=== PATIENT | male | born 1940 | race Caucasian/White ===

== ENCOUNTER 2016-04-17 12:08 | Outpatient (CLI) ==
[2014-10-09 10:17] VITALS: BMI 37.5
--- NOTE | 2016-04-17 13:00 | DI ---
EXAM: CHEST FRONTAL AND LATERAL VIEWS HISTORY: Cough. COMPARISON: 08/09/2014 FINDINGS: Mild cardiomegaly is stable. There is at least mild aortic atherosclerosis. Limited exa m secondary to body habitus, less than optimal inspiration and patient position although no obvious consolidated pneumonia is suggested. There is no vascular congestion or pleural fluid. IMPRESSION: No definite acute process.
== END 2016-04-17 12:09 | disposition home or self-care (01) ==
LOC: RAD 12:08
PROVIDERS: ATTEND Emergency Medicine
DX: R05 Cough (principal)

== ENCOUNTER 2016-04-30 06:56 | Emergency (ER) ==
[2016-04-30 07:03] VITALS: BP 158/88; TEMP 96.7; BMI 38.7
--- NOTE | 2016-04-30 07:15 | ED.PDOC ---
General ED Provider: Dr. NERISSA MAJANO JR Chief Complaint: Sore Throat Stated Complaint: Pt. states last night started feeling like something was loose in throat[End]sore throat since last night pt. states that he started feeling like something was in back of throat last night[End] 96.7 84 20 88%(o2 at home) 158/88 Time Seen by Physician: 07:12 Mode of Arrival: Walk-In Information Source: Patient Exam Limitations: No limitations Primary Care Provider: OMAR MENDIOLA Nursing and Triage Documentation Reviewed and Agree: No Review of Systems - Review Of Systems Constitutional: Reports: No symptoms Eyes: Reports: No symptoms Ears, Nose, Mouth, Throat: Reports: Mouth pain (discharge fro nm lesion right palate nontender on exam- patient states is area of concern- discussed oral care ) Respiratory: Reports: No symptoms Cardiac: Reports: No symptoms GI: Reports: No symptoms : Reports: No symptoms Musculoskeletal: Reports: No symptoms Skin: Reports: No symptoms Neurological: Reports: No symptoms Endocrine: Reports: No symptoms Hematologic/Lymphatic: Reports: No symptoms All Other Systems: Other Past Medical History - Past Medical History Previously Healthy: No Endocrine: Reports: None Cardiovascular: Reports: Hypertension Respiratory: Reports: None Hematological: Reports: None Gastrointestinal: Reports: None Genitourinary: Reports: None Neuro/Psych: Reports: None Musculoskeletal: Reports: None Cancer: Reports: None - Surgical History General Surgical History: Reports: None - Family History Family History: Reports: None - Social History Smoking Status: Former smoker Hx Substance Use: No Alcohol Screening: None - Immunizations Tetanus Shot up to Date: Yes Physical Exam - Physical Exam Appearance: Well-appearing Pain Distress: Mild Eyes: WYATT, EOMI, Conjunctiva clear ENT: Ears normal, Nose normal, Oropharynx normal Neck: Supple Respiratory: Airway patent, Breath sounds clear, Breath sounds equal, Respirations nonlabored Cardiovascular: RRR, Pulses normal, No rub, No murmur GI/: Soft, Nontender, No masses, Bowel sounds normal, No Organomegaly Musculoskeletal: Normal strength, ROM intact, No edema, No calf tenderness Skin: Warm, Dry, Normal color Neurological: Sensation intact, Motor intact, Reflexes intact, Cranial nerves intact, Alert, Oriented Re-Evaluation - Re-Evaluation Time of Re-Evaluation: 07:20 (discussed home o2 note old aqbg- may be stable without oxygen) - Re-Evaluation Time of Re-Evaluation: 08:27 (strep back patietn not here) Critical Care Note - Critical Care Note Total Time (mins): 0 Course - Course Orders, Labs, Meds: Orders Category Date Time Status FLU A & B RAPID TEST [RAPID FLU A/B] Stat LAB 04/30/16 07:04 Uncollected STREP SCREEN Stat LAB 04/30/16 07:04 Uncollected Vital Signs: Temp Pulse Resp BP Pulse Ox 04/30/16 06:57 96.7 F L 84 20 158/88 H 88 L Departure - Departure Time of Disposition: 08:04 Disposition: HOME SELF-CARE Discharge Problem: Sore throat symptom Instructions: Oral Mucositis (ED), Mouth Care (ED) Condition: Good Pt referred to PMD for follow-up: Yes Additional Instructions: clease area twice a day with toothpaste and toothbrush recommend listeriine mouth wash twice a day begin antibiotic only if culture comes positive Prescriptions: Cephalexin [Keflex] 500 mg PO QID #40 capsule Allergies/Adverse Reactions: Allergies No Known Allergies Allergy (Verified 08/09/14 06:18) Home Medications: Ambulatory Orders Amlodipine Besylate 5 mg PO DAILY 08/09/14 Clopidogrel Bisulfate [Clopidogrel] 75 mg PO DAILY 08/09/14 Fenofibrate Nanocrystallized [Fenofibrate] 145 mg PO DAILY 08/09/14 Metoprolol Tartrate 100 mg PO DAILY 08/09/14 Pioglitazone HCl/Metformin HCl [Pioglitazone-Metformin 15-850] 1 tab PO DAILY Rosuvastatin Calcium [Crestor] 10 mg PO DAILY 08/09/14 Clonidine HCl [Catapres] 0.1 mg PO DAILY #30 tablet 08/13/14 Enalapril Maleate [Vasotec] 20 mg PO DAILY #30 tablet 08/13/14 Hydrochlorothiazide 25 mg PO DAILY #30 tablet 08/13/14 Cephalexin [Keflex] 500 mg PO QID #40 capsule 04/30/16
== END 2016-04-30 08:27 | disposition home or self-care (01) ==
LOC: ED 06:56
DX: J02.9 Acute pharyngitis, unspecified (principal); K12.30 Oral mucositis (ulcerative), unspecified
CPT/HCPCS: 87651; 87880; 99282

== ENCOUNTER 2016-07-13 07:42 | Outpatient (CLI) | payer OTHER ==
--- NOTE | 2016-07-13 09:05 | CT ---
EXAM: CT THORAX HISTORY: Shortness of breath, chronic obstructive pulmonary disease. TECHNIQUE: CT thorax without intravenous contrast. 5-mm axial sections. Coronal and sagittal re-fo rmations. COMPARISON: 02/12/2012 FINDINGS: Heart size is within normal limits. There is a small pericardial effusion . Mild aortic atheroscle rosis. Evaluation of the mediastinum and hilar structures is limited without the administration of intravenous contrast agent. Multiple small hilar and mediastinal lymph nodes some which are calcifi ed. Bilateral pleural effusions, small on the right and tiny on the left. There is a small amount of ai rspace consolidation adjacent to the pleural effusions. A few nonspecific micro nodules are seen. Subtle sheet-like opacity of the upper zone interstitium consistent with interstitial fibrosis. The re is evidence of early centrilobular and paraseptal emphysema. There is no pulmonary vascular hodan estion or pneumothorax. The bones reveal no acute abnormality. Osteophytic spurring of the mid thoracic spine is apparent. Probable small left renal cortical cyst. Left intrarenal calcifications may be vascular in nature or related to renal calculi. No hydronephrosis. IMPRESSION: 1. Findings which can be consistent with the patient's history of chronic obstructive pulmonary dis ease. There is also early upper zone interstitial fibrosis. 2. Small bilateral pleural effusions with mild adjacent atelectasis or pneumonia. Small, newly deve loped pericardial effusion. 3. Multiple mediastinal and hilar lymph nodes, some which are calcified. These are increased in nu mber since previous exam and may be reactive in nature, less likely within the differential would be malignant. 4. Mild atherosclerotic disease. 12
== END 2016-07-13 07:43 | disposition home or self-care (01) ==
LOC: RAD 07:42
PROVIDERS: ATTEND Internal Medicine
DX: R06.02 Shortness of breath (principal); J44.9 Chronic obstructive pulmonary disease, unspecified

== ENCOUNTER 2016-07-14 12:57 | Outpatient (CLI) | payer OTHER | END 2016-07-14 12:58 | disposition home or self-care (01) | LOC: CAR 12:57 | PROVIDERS: ATTEND Internal Medicine | DX: J44.9 Chronic obstructive pulmonary disease, unspecified (principal); R06.02 Shortness of breath | CPT/HCPCS: 94761 ==

== ENCOUNTER 2017-07-21 04:19 | Emergency (ER) | payer OTHER ==
[2017-07-21 04:36] VITALS: BP 170/118; TEMP 97.9; BMI 33.5
--- NOTE | 2017-07-21 05:53 | CT ---
EXAM: CT scan thorax without contrast HISTORY: Cough COMPARISON: CT scan thorax 07/13/2016 FINDINGS: Contiguous axial images obtained through the thorax without contrast utilizing 5-mm collim ation. Sagittal coronal reconstructions were imaged and reviewed.. The thoracic inlet is unremarkab le. The ascending aorta is ectatic measuring 3.8 cm. The heart is normal in size with small pericar dial effusion measuring 8 mm. There is coronary artery calcification. There are subcentimeter preva scular pretracheal lymph nodes.. There are mild emphysematous changes with benign granulomatous whatley ge. There is minimal dependent atelectasis in both posterior gutter regions.. Fatty infiltration is seen within the liver. Simple exophytic cyst is seen within the left kidney. IMPRESSION: Small pericardial effusion with coronary calcification. Minimal dependent atelectasis both lung bases. Mild emphysematous changes with benign granulomatous change. Fatty liver
--- NOTE | 2017-07-21 05:56 | ED.PDOC ---
General ED Provider: Dr. MECHE FRIEDMAN-ER Chief Complaint: Cough Stated Complaint: im coughing up thick yellow stuff Time Seen by Physician: 04:30 Mode of Arrival: Walk-In Information Source: Patient Exam Limitations: No limitations Primary Care Provider: OMAR JOHNSON Nursing and Triage Documentation Reviewed and Agree: Yes Reviewed sepsis parameters & appropriate labs ordered?: Yes System Inflammatory Response Syndrome: Not Applicable Sepsis Protocol: For patient's 13 years and over: Temp is 96.8 and below OR 101 and greater Pulse >90 BPM Resp >20/minute Acutely Altered Mental Status Are patient's symptoms suggestive of a new infection, such as: -Pneumonia -Skin, Soft Tissue -Endocarditis -UTI -Bone, Joint Infection -Implantable Device -Acute Abdominal Infection -Wound Infection -Meningitis -Blood Stream Catheter Infection -Unknown Respiratory Complaint Exam - Respiratory Complaint/Exam Onset/Duration: several weeks Symptoms Are: Still present Timing: Intermittent Initial Severity: Mild Current Severity: Mild Location: Chest Character: Reports: Productive cough Aggravating: Reports: URI Alleviating: Reports: None Associated Signs and Symptoms: Reports: URI, Nasal congestion History of Healthcare-Acquired Pneumonia: No Home Oxygen Use: No Recent Stress Test: No Recent Echo/LV Function: No Current Antibiotic Use: Yes Current Asthma Medication Use: No Respiratory Distress: None Inadequate Respiratory Effort: No Dysphagia Present: No Stridor Present: No JVD Present: No Accessory Muscle Use: No Retractions: Not Present Diminished Breath Sounds: No Sinus Tenderness: None Grunting Respirations: No Kussmaul Respirations: No Differential Diagnoses: Pneumonia, Bronchitis, Sinusitis, URI Review of Systems - Review Of Systems Constitutional: Reports: No symptoms Eyes: Reports: No symptoms Ears, Nose, Mouth, Throat: Reports: Nose discharge Respiratory: Reports: Cough Cardiac: Reports: No symptoms GI: Reports: No symptoms : Reports: No symptoms Musculoskeletal: Reports: No symptoms Skin: Reports: No symptoms Neurological: Reports: No symptoms Endocrine: Reports: No symptoms Hematologic/Lymphatic: Reports: No symptoms All Other Systems: Reviewed and Negative Past Medical History - Past Medical History Previously Healthy: No Endocrine: Reports: None Cardiovascular: Reports: Hypertension Respiratory: Reports: None Hematological: Reports: None Gastrointestinal: Reports: None Genitourinary: Reports: None Neuro/Psych: Reports: None Musculoskeletal: Reports: None Cancer: Reports: None - Surgical History General Surgical History: Reports: None - Family History Family History: Reports: None - Social History Smoking Status: Former smoker Hx Substance Use: No Alcohol Screening: None - Immunizations Tetanus Shot up to Date: Yes Physical Exam - Physical Exam Appearance: Well-appearing, No pain distress, Well-nourished Eyes: WYATT ENT: Ears normal, Nose normal, Oropharynx normal Neck: Supple Respiratory: Crackles, Rhonchi Cardiovascular: RRR, Pulses normal, No rub, No murmur GI/: Soft, Nontender, No masses, Bowel sounds normal, No Organomegaly Musculoskeletal: Normal strength, ROM intact, No edema, No calf tenderness Skin: Warm, Dry, Normal color Neurological: Sensation intact, Motor intact, Reflexes intact, Cranial nerves intact, Alert, Oriented Psychiatric: Affect appropriate, Mood appropriate Interpretation - Radiology Interpretation Radiology Interpretation By: Radiologist Radiology Results: Positive Exam Interpreted: CT Scan Critical Care Note - Critical Care Note Total Time (mins): 0 Course - Course Hematology/Chemistry: 07/21/17 05:15 07/21/17 05:15 Orders, Labs, Meds: Lab Review 07/21/17 07/21/17 05:15 05:15 WBC 8.40 RBC 5.45 Hgb 15.4 Hct 45.3 MCV 83.1 MCH 28.3 MCHC 34.0 RDW Coeff of [place] 14.6 Plt Count 219 Immature Gran % (Auto) 0.4 Neut % (Auto) 72.7 Lymph % (Auto) 15.1 [place] % (Auto) 8.2 Eos % (Auto) 3.1 Baso % (Auto) 0.5 Immature Gran # (Auto) 0.0 Neut # (Auto) 6.1 Lymph # (Auto) 1.3 [place] # (Auto) 0.7 Eos # (Auto) 0.3 Baso # (Auto) 0.0 Sodium 140 Potassium 3.9 Chloride 103 Carbon Dioxide 25 Anion Gap 15.9 BUN 15 Creatinine 1.30 H Estimated GFR (MDRD) 53.00 BUN/Creatinine Ratio 11.53 Glucose 298 H Calcium 9.7 Total Bilirubin 0.6 AST 9 L ALT 10 L Alkaline Phosphatase 58 Total Protein 6.9 Albumin 3.4 Globulin 3.5 Albumin/Globulin Ratio 0.97 Orders Category Date Time Status BLOOD CULTURE (ED ONLY) Stat LAB 07/21/17 05:15 Received CBC W/ AUTO DIFF Stat LAB 07/21/17 05:15 Completed COMPREHENSIVE METABOLIC PANEL Stat LAB 07/21/17 05:[address] CHEST W/O CONTRAST Stat RADS 07/21/17 05:[address] SINUSES W/O CONTRAST Stat RADS 07/21/17 05:05 Completed Vital Signs: Temp Pulse Resp BP Pulse Ox 07/21/17 04:20 97.9 F 90 28 H 170/118 H 95 Departure - Departure Time of Disposition: 06:08 Disposition: HOME SELF-CARE Discharge Problem: Sinusitis Qualifiers: Sinusitis location: unspecified location Chronicity: acute Recurrence: not specified as recurrent Qualified Code(s): J01.90 - Acute sinusitis, unspecified Instructions: Sinusitis (ED) Condition: Good Pt referred to PMD for follow-up: No IPMP verified?: No Additional Instructions: stop keflex --augmentin 875mg bid x 10 days--flonase nasal spray one puff each nostril bid --astelin nasal spray 2 puffs each nostril bid ---stop all concentrated sweets--tussionex 1 tsp q 12hrs prn cough 100cc---start monitoring your bs bid and f/u wtih dr johnson next week Allergies/Adverse Reactions: Allergies No Known Allergies Allergy (Verified 07/21/17 04:34) Home Medications: Ambulatory Orders Fenofibrate Nanocrystallized [Fenofibrate] 145 mg PO DAILY 08/09/14 Metoprolol Tartrate 100 mg PO DAILY 08/09/14 Rosuvastatin Calcium [Crestor] 10 mg PO DAILY 08/09/14 Clonidine HCl [Catapres] 0.1 mg PO DAILY #30 tablet 08/13/14 Hydrocodone/Acetaminophen [[place] 5-325 Tablet] 1 tab PO Q6HR PRN #20 tablet Amlodipine Besylate/Benazepril [Amlodipine-Benazepril 5-20 mg] 1 each PO DAILY 07/21/17 Apixaban [Eliquis] 5 mg PO BID 07/21/17 Aspirin [Aspirin EC] 81 mg PO DAILYWM 07/21/17 Furosemide [Lasix Tab] 40 mg PO QDAC 07/21/17 Lisinopril 20 mg PO DAILY 07/21/17 Metformin HCl [Glucophage] 1,000 mg PO BID 07/21/17 Potassium Chloride 10 meq PO DAILY 07/21/17 Disposition Discussed With: Patient, Family
--- NOTE | 2017-07-21 06:00 | CT ---
EXAM: CT scan sinuses HISTORY: Cough. Pain COMPARISON: None. FINDINGS: Contiguous axial images were obtained through the sinuses without contrast utilizing 3-mm collimation. Sagittal and coronal reconstructions were imaged and reviewed. The. There is a tiny re tention cyst within the right maxillary sinus. There is a moderate sized polyp versus retention cyst inferomedially left maxillary sinus with cortical erosion at the anterior inferomedial wall which kamara s a chronic appearance Mucoperiosteal thickening is seen within the sphenoid sinuses. Multiple air cells are opacified bilateral ethmoid sinuses. Ostiomeatal complexes are patent. IMPRESSION: Mucoperiosteal thickening is seen within the left maxillary and bilateral sphenoid sinuses. Multiple air cells opacified within the ethmoid sinuses. Moderate sized retention cyst versus polyp inferomedially left maxillary sinus as described. Small likely retention cysts right maxillary sinus.
== END 2017-07-21 06:29 | disposition home or self-care (01) ==
LOC: ED 04:19
DX: J01.90 Acute sinusitis, unspecified (principal); I10 Essential (primary) hypertension
CPT/HCPCS: 36415; 80053; 85025; 87040; 99283

== ENCOUNTER 2017-07-29 08:47 | Emergency (ER) | payer OTHER ==
[2017-07-29 08:53] VITALS: BP 151/92; TEMP 96.5; BMI 33.4
--- NOTE | 2017-07-29 09:22 | ED.PDOC ---
General ED Provider: Dr. MECHE SOUZA Chief Complaint: Laceration Stated Complaint: Skin Tear; Rubbed Rt Forearm against wall and caused a circular skin tear to dorsal surface of proximal 1/3 Rt Forearm.Bleeding controlled. Time Seen by Physician: 09:10 Mode of Arrival: Walk-In Information Source: Patient Primary Care Provider: OMAR MENDIOLA Nursing and Triage Documentation Reviewed and Agree: Yes Reviewed sepsis parameters & appropriate labs ordered?: Yes System Inflammatory Response Syndrome: Not Applicable Sepsis Protocol: For patient's 13 years and over: Temp is 96.8 and below OR 101 and greater Pulse >90 BPM Resp >20/minute Acutely Altered Mental Status Are patient's symptoms suggestive of a new infection, such as: -Pneumonia -Skin, Soft Tissue -Endocarditis -UTI -Bone, Joint Infection -Implantable Device -Acute Abdominal Infection -Wound Infection -Meningitis -Blood Stream Catheter Infection -Unknown Skin Complaint Exam - Lac/Torso/Upper Ext. Complaint/Exam Location of Injury: Forearm Mechanism of Injury: Laceration (Circular skin tear approximately 2.5cm X 2 Cm) Onset/Duration: last evening Symptoms Are: Still present Initial Severity: Mild Current Severity: Mild Aggravating: Movement Alleviating: Compression Associated Signs and Symptoms: Denies: Fever, Chills, Erythema, Numbness, Tingling Related History: Reports: Anticoagulant use. Denies: Occupational injury Differential Diagnoses: Avulsion (Large Skin Tear) Review of Systems - Review Of Systems Constitutional: Reports: No symptoms Eyes: Reports: No symptoms Ears, Nose, Mouth, Throat: Reports: No symptoms Respiratory: Reports: No symptoms Cardiac: Reports: No symptoms GI: Reports: No symptoms : Reports: No symptoms Musculoskeletal: Reports: No symptoms Skin: Reports: Bruising Neurological: Reports: No symptoms Endocrine: Reports: No symptoms Hematologic/Lymphatic: Reports: No symptoms All Other Systems: Reviewed and Negative Past Medical History - Past Medical History Previously Healthy: No Endocrine: Reports: None Cardiovascular: Reports: Hypertension Respiratory: Reports: None Hematological: Reports: None Gastrointestinal: Reports: None Genitourinary: Reports: None Neuro/Psych: Reports: None Musculoskeletal: Reports: None Cancer: Reports: None - Surgical History General Surgical History: Reports: None - Family History Family History: Reports: None - Social History Smoking Status: Former smoker Hx Substance Use: No Alcohol Screening: None Physical Exam - Physical Exam Appearance: Well-appearing, Obese Ill-appearing: None Pain Distress: None Eyes: WYATT, EOMI, Conjunctiva clear ENT: Ears normal, Nose normal, Oropharynx normal Neck: Nonsupple Respiratory: Airway patent, Breath sounds clear Cardiovascular: RRR, Pulses normal GI/: Soft, Nontender Musculoskeletal: Normal strength, ROM intact Skin: Warm (Circular Skin tear Rt Forearm 2.5 cm X 2.cm) Neurological: Sensation intact, Motor intact, Cranial nerves intact, Alert, Oriented Psychiatric: Affect appropriate, Mood appropriate Critical Care Note - Critical Care Note Total Time (mins): 0 Course - Course Vital Signs: Temp Pulse Resp BP Pulse Ox 07/29/17 08:48 96.5 F L 63 16 151/92 H 97 Departure - Departure Time of Disposition: 09:30 Disposition: HOME SELF-CARE Discharge Problem: Skin tear of forearm without complication Instructions: Acute Wound Care (ED) Condition: Good Pt referred to PMD for follow-up: Yes (PCP 1 week ) IPMP verified?: No Additional Instructions: Keep existing dressing of Telfa pad and antibiotic ointment in place and change af 48 hrs then daily Take antibiotic as directed See Dr Mendiola in next 5-8 days Allergies/Adverse Reactions: Allergies No Known Allergies Allergy (Verified 07/29/17 08:53) Home Medications: Ambulatory Orders Fenofibrate Nanocrystallized [Fenofibrate] 145 mg PO DAILY 08/09/14 Metoprolol Tartrate 100 mg PO DAILY 08/09/14 Rosuvastatin Calcium [Crestor] 10 mg PO DAILY 08/09/14 Clonidine HCl [Catapres] 0.1 mg PO DAILY #30 tablet 08/13/14 Hydrocodone/Acetaminophen [[place] 5-325 Tablet] 1 tab PO Q6HR PRN #20 tablet Amlodipine Besylate/Benazepril [Amlodipine-Benazepril 5-20 mg] 1 each PO DAILY 07/21/17 Apixaban [Eliquis] 5 mg PO BID 07/21/17 Aspirin [Aspirin EC] 81 mg PO DAILYWM 07/21/17 Furosemide [Lasix Tab] 40 mg PO QDAC 07/21/17 Lisinopril 20 mg PO DAILY 07/21/17 Metformin HCl [Glucophage] 1,000 mg PO BID 07/21/17 Potassium Chloride 10 meq PO DAILY 07/21/17 Amoxicillin/Potassium Clav [Augmentin 875-125 mg Tab] 1 tab PO Q12HR 07/29/17 Additional Information: Recommended TDap booster but patient adamant that he received one at [facility] after a cardiac procedure last year.
== END 2017-07-29 09:38 | disposition home or self-care (01) ==
LOC: ED 08:47
DX: S51.801A Unspecified open wound of right forearm, initial encounter (principal); W22.01XA Walked into wall, initial encounter
CPT/HCPCS: 99283

== ENCOUNTER 2021-02-09 13:00 | Inpatient (IN) ==
--- NOTE | 2021-02-09 13:03 | ED.PDOC ---
General ED Provider: Dr. TONEY ENRIQUEZ Chief Complaint: Shortness of Air Stated Complaint: Short of air from COVID pneumonia, getting outpatient regeneron here today when staff noted low oxygen sat, sent him to ER. Symptoms worse with exertion, no chest pain. relates that he is confused past few days. Patient of Dr. Mendiola, hx A-fib, HTN, CAD, T2DM. DNR status. Time Seen by Provider: 02/09/21 13:01 Mode of Arrival: Wheelchair Information Source: Patient Exam Limitations: Dementia Primary Care Provider: OMAR MENDIOLA Nursing and Triage Documentation Reviewed and Agree: Yes Does patient meet sepsis criteria?: No System Inflammatory Response Syndrome: Not Applicable Sepsis Protocol: For patient's 13 years and over: Temp is 96.8 and below OR 101 and greater Pulse >90 BPM Resp >20/minute Acutely Altered Mental Status Are patient's symptoms suggestive of a new infection, such as: -Pneumonia -Skin, Soft Tissue -Endocarditis -UTI -Bone, Joint Infection -Implantable Device -Acute Abdominal Infection -Wound Infection -Meningitis -Blood Stream Catheter Infection -Unknown Respiratory Complaint Exam Shortness of Air Complaint/Exam Onset/Duration: past few days, worse today Symptoms Are: Still present Timing: Constant Initial Severity: Mild Current Severity: Moderate Character: Reports Dyspnea on exertion and Orthopnea Aggravating: Reports Movement Alleviating: Reports None Associated Signs and Symptoms: Reports Cough, Labored breathing and Decreased intake; Denies Wheezing, Chest pain with cough, Chest pain, Fever, Chills, Diaphoresis, Calf pain or Calf swelling History of Healthcare-Acquired Pneumonia: No Pulmonary Embolism Risk Factors: Reports None Cardiac Risk Factors: Reports CAD, Diabetes and Hypertension Pseudomonas Risk Factors: Reports None Tuberculosis Risk Factors: Reports None Home Oxygen Use: Yes (intermittent) Recent Stress Test: No Recent Echo/LV Function: No Respiratory Distress: Moderate Stridor Present: No Tracheal Deviation: No Subcutaneous Emphysema: No Accessory Muscle Use: No Retractions: Not Present Diminished Breath Sounds: Yes Prolonged Expiratory Phase: No Unable to Speak Full Sentences: No Fatigue: Yes Leg Swelling: No Love's Sign Present: No Grunting Respirations: No Kussmaul Respirations: No Differential Diagnoses: CHF, Pulmonary Edema, AK, Unstable Angina, Pneumonia, Pulmonary Embolism, Bronchitis and Bronchospasm Review of Systems Review Of Systems Constitutional: Reports Malaise, Weakness and Loss of appetite Eyes: Reports No symptoms Ears, Nose, Mouth, Throat: Reports No symptoms Respiratory: Reports Cough and Short of air Cardiac: Reports No symptoms GI: Reports No symptoms : Reports No symptoms Musculoskeletal: Reports No symptoms Skin: Reports No symptoms Neurological: Reports No symptoms Endocrine: Reports No symptoms Hematologic/Lymphatic: Reports No symptoms All Other Systems: Reviewed and Negative Physical Exam Physical Exam Appearance: Reports Obese Ill-appearing: Moderate Pain Distress: Mild Eyes: Reports WYATT ENT: Reports Oropharynx normal Neck: Supple Respiratory: Reports Airway patent, Breath sounds diminished and Rhonchi Cardiovascular: Reports No murmur and Irregular rhythm GI/: Reports Soft and Nontender Musculoskeletal: Reports Not Examined Skin: Reports Not Examined Neurological: Reports Sensation intact, Motor intact and Alert Psychiatric: Reports Affect appropriate and Mood appropriate Interpretation Radiology Interpretation Radiology Interpretation By: Radiologist Radiology Results: Positive Exam Interpreted: Portable CXR Xray Comments: Some congestion, nonspecific. Radiology Interpretation By: Radiologist Radiology Results: Positive Exam Interpreted: CT Scan Xray Comments: No PE. Minor COVID pneumonia. 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 confusion) CV: Other (A-fib, variable rate) Physician Notification Case Discussed Physician Notified: Dr. Mendiola Time of Notification: 18:00 Comments: Admit to [facility] on tele. Oxygen, further med per Dr. Mendiola. Cardizem drip for A-fib RVR. Likely stay over 3 days. Admit To: SCU Critical Care Note Critical Care Note Total Critical Care Time (mins): 30 Comments: Acute onset in ED of atrial fibrillation with rapid ventricular response - required urgent tx. Course Course Hematology/Chemistry: 02/09/21 13:36 02/09/21 13:36 Orders, Labs, Meds: Lab Review 02/09/21 02/09/21 02/09/21 13:10 13:36 13:36 WBC 3.97 L RBC 5.77 Hgb 15.6 Hct 48.1 MCV 83.4 MCH 27.0 MCHC 32.4 RDW Coeff of [place] 16.6 H Plt Count 183 Immature Gran % (Auto) 0.3 Neut % (Auto) 77.2 H Lymph % (Auto) 12.1 [place] % (Auto) 10.1 H Eos % (Auto) 0.0 Baso % (Auto) 0.3 Neut # (Auto) 3.1 Lymph # (Auto) 0.5 L [place] # (Auto) 0.4 Eos # (Auto) 0.0 Baso # (Auto) 0.0 Immature Gran # (Auto) 0.0 Puncture Site Rr Base Excess 0.8 O2 Saturation 86.4 L ABG pH 7.42 ABG pCO2 39.0 ABG pO2 51.0 L* ABG HCO3 25.3 ABG Total CO2 26.5 H Shantanu Test Ps Hemoglobin 1.2 Oxyhemoglobin 85.3 L Carboxyhemoglobin 1.8 H Total Hemoglobin 16.0 O2 Delivery Device Oxygen Liter Flow FiO2 % 21.0 Sodium 141.0 Potassium 4.23 Chloride 102.7 Carbon Dioxide 29.2 Anion Gap 13.33 BUN 34.3 H Creatinine 1.60 H Estimated GFR (MDRD) 42.00 BUN/Creatinine Ratio 21.43 Glucose 202.9 H Calcium 9.03 Magnesium 2.42 H Total Bilirubin 0.45 AST 43.5 ALT 28.5 Alkaline Phosphatase 49.4 L Troponin I 0.038 NT-Pro-B Natriuret Pep 2000.000 H Total Protein 7.01 Albumin 3.92 Globulin 3.09 Albumin/Globulin Ratio 1.26 D-Dimer 02/09/21 02/09/21 13:36 15:00 WBC RBC Hgb Hct MCV MCH MCHC RDW Coeff of [place] Plt Count Immature Gran % (Auto) Neut % (Auto) Lymph % (Auto) [place] % (Auto) Eos % (Auto) Baso % (Auto) Neut # (Auto) Lymph # (Auto) [place] # (Auto) Eos # (Auto) Baso # (Auto) Immature Gran # (Auto) Puncture Site R brach Base Excess 1.1 O2 Saturation 98.3 H ABG pH 7.46 H ABG pCO2 35.0 ABG pO2 105.0 H ABG HCO3 24.9 ABG Total CO2 26.0 H Shantanu Test Y Hemoglobin 1.1 Oxyhemoglobin 96.1 Carboxyhemoglobin 1.3 Total Hemoglobin 17.0 O2 Delivery Device Cannula Oxygen Liter Flow 6.00 FiO2 % Sodium Potassium Chloride Carbon Dioxide Anion Gap BUN Creatinine Estimated GFR (MDRD) BUN/Creatinine Ratio Glucose Calcium Magnesium Total Bilirubin AST ALT Alkaline Phosphatase Troponin I NT-Pro-B Natriuret Pep Total Protein Albumin Globulin Albumin/Globulin Ratio D-Dimer 431.94 Orders Category Date Time Status ABG DRAW REQUEST Stat CARDIO 02/09/21 13:12 Completed ABG DRAW REQUEST Stat CARDIO 02/09/21 15:05 Completed EKG-(ED ONLY) Stat CARDIO 02/09/21 13:21 Completed EKG-(IP & OP ONLY) DAILY CARDIO 02/10/21 06:00 Ordered EKG-(IP & OP ONLY) DAILY CARDIO 02/11/21 06:00 Ordered OXYGEN Routine CARDIO 02/09/21 17:58 Ordered ACTIVITY .BR with BRP CARE 02/09/21 17:58 Active BLOOD GLUCOSE MONITORING (MED/SURG) ACCUCHECK Q6H CARE 02/09/21 17:57 Active INTAKE & OUTPUT Q8HR CARE 02/09/21 18:01 Active IP: INSERT SALINE LOCK ONCE CARE 02/09/21 17:58 Active IP: INSERT SALINE LOCK ONCE CARE 02/09/21 18:01 Active NPO REMINDER: IMAGING ONCE CARE 02/09/21 14:31 Completed TELEMETRY MONITORING TELE CARE 02/09/21 17:58 Active VITAL SIGNS Q8HR CARE 02/09/21 17:58 Active VITAL SIGNS Q8HR CARE 02/09/21 18:01 Active CARDIAC DIET DIETARY 02/09/21 Dinner Ordered ABG COOX Stat LAB 02/09/21 13:10 Completed ABG COOX Stat LAB 02/09/21 15:00 Completed CBC W/ AUTO DIFF DAILY@0600 LAB 02/10/21 06:00 Ordered CBC W/ AUTO DIFF DAILY@0600 LAB 02/11/21 06:00 Ordered CBC W/ AUTO DIFF Stat LAB 02/09/21 13:36 Completed COMPREHENSIVE METABOLIC PANEL DAILY@0600 LAB 02/10/21 06:00 Ordered COMPREHENSIVE METABOLIC PANEL DAILY@0600 LAB 02/11/21 06:00 Ordered COMPREHENSIVE METABOLIC PANEL Stat LAB 02/09/21 13:36 Completed D-DIMER Stat LAB 02/09/21 13:36 Completed MAGNESIUM Stat LAB 02/09/21 13:36 Completed NT-PROBNP Stat LAB 02/09/21 13:36 Completed TROPONIN I Q8H LAB 02/09/21 18:17 Completed TROPONIN I Q8H LAB 02/10/21 02:00 Ordered TROPONIN I Stat LAB 02/09/21 13:36 Completed URINALYSIS C & S IF INDICATED Stat LAB 02/09/21 13:24 Uncollected 0.9 % Sodium Chloride [Saline Flush] MEDS 02/09/21 21:00 Active 1 syr IVF Q8HR Acetaminophen [Tylenol] MEDS 02/09/21 17:57 Active 650 mg PO Q4H PRN Atropine Sulfate Inj [Atropine Sulfate Pfs] MEDS 02/09/21 17:57 Active 0.5 mg IVP ONCE PRN Diltiazem HCl [Cardizem Inj] MEDS 02/09/21 15:13 Discontinued 20 mg IVP ONCE ONE Diltiazem HCl [Cardizem Inj] MEDS 02/09/21 17:27 Discontinued 25 mg IVP ONCE ONE Diltiazem HCl [Cardizem] 125 mg MEDS 02/09/21 18:30 Active 0.9 % Sodium Chloride [Sodium Chloride 100Ml] 100 ml IV TITRATION Enoxaparin Sodium [Lovenox] MEDS 02/10/21 09:00 Active 40 mg SUBCUT DAILY Furosemide [Lasix Tab] MEDS 02/10/21 06:30 Active 40 mg PO QDAC Hydrocortisone Sod Succ/Pf [Solu-Cortef 250 mg] MEDS 02/09/21 15:00 Discontinued 150 mg IVP ONCE ONE Nitroglycerin [Nitrostat] MEDS 02/09/21 17:57 Active 0.4 mg SL Q5MIN X 3 DOSES PRN Potassium Chloride [Micro-K Cap] MEDS 02/10/21 09:00 Active 10 meq PO DAILY RESUSCITATION STATUS Routine OTHERS 02/09/21 17:57 Ordered CHEST, 1V AP ONLY Stat RADS 02/09/21 13:[address] CHEST PE PROTOCOL Stat RADS 02/09/21 14:[address] HEAD W/O CONTRAST Stat RADS 02/09/21 15:13 Completed Medications Generic Name Dose Route Start Last Admin Trade Name Freq PRN Reason Stop Dose Admin Acetaminophen 650 mg 02/09/21 17:57 Acetaminophen 325 Mg Tablet PO Q4H PRN Headache Albuterol Sulfate 2 puff 02/10/21 09:00 Albuterol Sulfate (Ventolin Hfa) 18 Gm 1 Puff With Spacer IH TID [facility] Atropine Sulfate 0.5 mg 02/09/21 17:57 Atropine Sulfate Inj 1 Mg/10 Ml Disp.Syrin IVP ONCE PRN Symptomatic Bradycardia Budesonide/Formoterol Fumarate 2 puff 02/10/21 09:00 Budesonide/Formoterol Fumarate 160/4.5 Mcg Inhaler IH BID [facility] Cholecalciferol 5,000 unit 02/10/21 09:00 Cholecalciferol (Vitamin D3) 1,000 Unit (25 Mcg) Tablet PO DAILY [facility] Dexamethasone Sodium Phosphate 6 mg 02/10/21 09:00 Dexamethasone Sod Phos 10 Mg/Ml Inj IV DAILY [facility] Enoxaparin Sodium 40 mg 02/10/21 09:00 Enoxaparin Sodium 40 Mg/0.4 Ml Syr SUBCUT DAILY [facility] Famotidine 40 mg 02/10/21 06:30 Famotidine 20 Mg Tablet PO BIDAC [facility] Furosemide 40 mg 02/10/21 06:30 Furosemide 40 Mg Tablet PO QDAC [facility] Diltiazem HCl 125 mg/ Sodium 125 mls @ 5 mls/hr 02/09/21 18:30 Chloride IV TITRATION [facility] Protocol 5 MG/HR Doxycycline Hyclate 100 mg/ 100 mls @ 50 mls/hr 02/09/21 21:00 Sodium Chloride IV 02/12/21 20:59 Q12HR [facility] CEFTRIAXONE/D5W 1 GM PREMIX 1 gm in 50 mls @ 75 mls/hr 02/10/21 09:00 Rocephin 1 Gm/50 Ml D5w IV 02/13/21 08:59 DAILY [facility] REMDESIVIR SOLUTION 200 mg/ 290 mls @ 145 mls/hr 02/10/21 12:00 Sodium Chloride IV 02/10/21 13:59 ONCE ONE Nitroglycerin 0.4 mg 02/09/21 17:57 Nitroglycerin 0.4 Mg Tab.Subl SL Q5MIN X 3 DOSES PRN Chest Pain Potassium Chloride 10 meq 02/10/21 09:00 Potassium Chloride 10 Meq Capsule.Er PO DAILY [facility] Sodium Chloride 1 syr 02/09/21 21:00 0.9% Sodium Chloride 10 Ml Disp.Syrin IVF Q8HR [facility] Zinc Sulfate 220 mg 02/10/21 09:00 Zinc Sulfate 220 Mg Capsule PO DAILY [facility] Discontinued Medications Generic Name Dose Route Start Last Admin Trade Name [place] PRN Reason Stop Dose Admin Dexamethasone Sodium Phosphate 6 mg 02/10/21 09:00 Dexamethasone Sod Phos 10 Mg/Ml Inj IM DAILY [facility] Diltiazem HCl 20 mg 02/09/21 15:13 02/09/21 15:17 Diltiazem Hcl Inj 25 Mg/5 Ml Vial IVP 02/09/21 15:14 20 mg ONCE ONE Administration Diltiazem HCl 25 mg 02/09/21 17:27 02/09/21 17:35 Diltiazem Hcl Inj 25 Mg/5 Ml Vial IVP 02/09/21 17:28 25 mg ONCE ONE Administration Hydrocortisone Sodium Succinate 150 mg 02/09/21 15:00 02/09/21 15:10 Hydrocortisone Sod Succ/Pf 250 Mg/2 Ml Vial IVP 02/09/21 15:01 150 mg ONCE ONE Administration Vital Signs: Temp Pulse Resp BP Pulse Ox 02/09/21 13:02 98.4 F 78 18 150/76 H 88 L Discharge Plan Discharge Patient Disposition: ADMITTED INPATIENT Discharge Problem: Pneumonia due to COVID-19 virus, Atrial fibrillation with rapid ventricular response, Hypoxia ED Provider: TONEY ENRIQUEZ Condition: Stable Physician Progress Note: [COVID pneumonia with hypoxia, see labs. Exac of A-fib with RVR requiring IV cardizem drip. No sign of AK or PE. DVT prophylaxis with lovenox, GI prophy not needed. DNR.]
[2021-02-09 13:17] LABS: ABG O2 HGB 85.3 % (95-100); ABG PH 7.42 (7.35-7.45); BEecf 0.8 (-2.0-3.0); COHb 1.8 (0.5-1.5); HCO3 25.3 (21-28); MetHb 1.2 (0-1.5); TCO2 26.5 (19-24); sO2 86.4 % (94-98)
[2021-02-09 13:41] LABS: BASOPHILS % (AUTO) 0.3 % (0.0-3.0); HEMATOCRIT 48.1 % (42.0-52.0); HEMOGLOBIN 15.6 g/dl (14.0-18.0); IMMATURE GRANULOCYTE % (AUTO) 0.3 % (0.0-5.0); LYMPHOCYTES # (AUTO) 0.5 K/uL (0.60-3.4); LYMPHOCYTES % (AUTO) 12.1 (10.0-50.0); MEAN CORPUSCULAR HGB CONC 32.4 (31.8-35.4); MEAN CORPUSCULAR VOLUME 83.4 fl (80.0-94.0); MONOCYTES # (AUTO) 0.4 K/uL (0.4-2.0); MONOCYTES % (AUTO) 10.1 (0-10); NEUTROPHILS # (AUTO) 3.1 K/ul (2.0-6.9); NEUTROPHILS % (AUTO) 77.2 % (42.2-75.2); RDW COEFFICIENT OF VARIATION 16.6 % (11.6-14.8); RED BLOOD COUNT 5.77 10^6/ul (4.70-6.10); WHITE BLOOD COUNT 3.97 K/ul (4.2-10.2)
[2021-02-09 13:52] LABS: PLATELET COUNT 183 10^3/uL (140-440)
[2021-02-09 13:54] LABS: ALANINE AMINOTRANSFERASE 28.5 U/L (0-50); ALBUMIN 3.92 g/dL (3.5-5.0); ALKALINE PHOSPHATASE 49.4 U/L (56-119); ASPARTATE AMINO TRANSFERASE 43.5 U/L (17-59); BILIRUBIN,TOTAL 0.45 mg/dL (0.2-1.3); BLOOD UREA NITROGEN 34.3 mg/dL (9-20); CALCIUM 9.03 mg/dL (8.4-10.2); CARBON DIOXIDE 29.2 mmol/L (22-30.0); CHLORIDE 102.7 mmol/L (98-107); CREATININE 1.6 mg/dL (0.60-1.10); GLUCOSE 202.9 mg/dL (74-106); MAGNESIUM 2.42 mg/dL (1.6-2.3); POTASSIUM 4.23 mmol/L (3.5-5.1); TOTAL PROTEIN 7.01 g/dL (6.3-8.2)
--- NOTE | 2021-02-09 14:02 | DI ---
EXAM: Chest one view, frontal view only. HISTORY: Dyspnea. COVID-19. COMPARISON: 09/16/2018. FINDINGS: Heart enlarged. There is no vascular congestion. There is increased opacity in the right infrahilar region since prior study. Lungs otherwise clear of pleural effusion or pneumothorax. No acute osseous abnormality. IMPRESSION: Suspect right infrahilar pneumonia.
[2021-02-09 14:06] LABS: TROPONIN I 0.038 ng/ml (0.0000-0.120)
[2021-02-09] MEDS ORDERED: SOLU-CORTEF 100 MG IVP ONE (14:39)
[2021-02-09] MEDS ORDERED: SOLU-CORTEF 250 MG IVP ONE (15:00)
[2021-02-09 15:11] LABS: ABG O2 HGB 96.1 % (95-100); ABG PH 7.46 (7.35-7.45); BEecf 1.1 (-2.0-3.0); COHb 1.3 (0.5-1.5); HCO3 24.9 (21-28); MetHb 1.1 (0-1.5); sO2 98.3 % (94-98)
[2021-02-09] MEDS ORDERED: CARDIZEM INJ IVP ONE ×2 (15:13→17:27)
--- NOTE | 2021-02-09 17:03 | CT ---
EXAM: CT head without contrast TECHNIQUE: Noncontrast CT of the head with multiple reformats. HISTORY: Confusion. On blood thinners. COMPARISON: CT head 03/21/2019. FINDINGS: No evidence of acute infarction, hemorrhage, or mass. Moderate diffuse brain volume loss. Moderate nonspecific white matter hypodensities, likely due to c hronic micro - ischemic changes. Calcific atherosclerosis. No brain herniation. Patent basilar cisterns. Ventricles are proportional to brain volume. No acute osseous abnormality. Bilateral lens replacements of the globes. Right sphenoid sinus congestion. IMPRESSION: 1. No acute intracranial abnormality. All CT scans are performed using dose optimization techniques as appropriate to the performed exam an d include at least one of the following: Automated exposure control, adjustment of the mA and/or kV according t o size, and the use of iterative reconstruction technique.
--- NOTE | 2021-02-09 17:18 | CT ---
Exam: CTA of the chest, pulmonary embolism protocol. History:COVID-19 pneumonia. Comparison:Radiograph 02/09/2021. CT 07/21/2017. Technique: 3 mm axial slices were obtained from base of neck through diaphragm after administration o f intravenous contrast. Multiplanar reformats, multiplanar MIP images, and 3-D volume rendered recon structions were obtained and reviewed. 100 ml Visipaque 320 was administered. Findings:Thyroid without gross abnormality given technique. No axillary or supraclavicular lymphaden opathy. Aortic arch and great vessel origin atherosclerotic changes are seen. Ascending aorta and main pulmo nary artery appear normal in caliber. The heart appears normal in size with small pericardial effusi on dependently measuring up to 21 mm in greatest thickness. Coronary atherosclerosis is present. Mo tion artifact is present limiting evaluation at the level of the main right pulmonary artery. There is no significant lymphadenopathy. Thoracic esophagus without significant abnormality. There is no significant pleural effusion. Contrast bolus timing is adequate for evaluation of the pulmonary arterial system. No pulmonary embo gareth is appreciated given motion artifact. Subpleural ground-glass nodule measuring 6 mm in the anterior left upper lobe. Bibasilar ground-glas s opacities, greater on the right. Ground-glass opacity posterior laterally in the right upper lobe. Central airways patent. Images through the upper abdomen are without significant abnormalities. Body wall soft tissues are without significant abnormalities. Degenerative changes are present withi n the spine. Osseous structures are without significant abnormalities. IMPRESSION: No evidence of pulmonary embolus. Motion artifact limits evaluation particularly of the right-sided pulmonary arterial system. Normal-sized heart with coronary atherosclerosis and small low density pericardial effusion dependent ly measuring up to 21 mm in greatest thickness. Multifocal dependent predominant ground-glass opacities consistent with multifocal pneumonia given hi story. 6 mm ground-glass focus in the left upper lobe anteriorly abutting the pleural surface. May represen t a small focus of infiltrate. Follow-up is recommended to ensure resolution. All CT scans are performed using dose optimization techniques as appropriate to the performed exam an d include at least one of the following: Automated exposure control, adjustment of the mA and/or kV according t o size, and the use of iterative reconstruction technique.
[2021-02-09] MEDS ORDERED: NITROSTAT SL PRN (17:57)
[2021-02-09] MEDS ORDERED: ATROPINE SULFATE PFS IVP PRN (17:57)
[2021-02-09] MEDS ORDERED: TYLENOL PO PRN (17:57)
[2021-02-09] MEDS ORDERED: CARDIZEM 125 MG in SODIUM CHLORIDE 100ML 100 ML IV SCH (18:30)
[2021-02-09] MEDS ORDERED: GLUCOPHAGE PO SCH (21:00)
[2021-02-09] MEDS ORDERED: LANOXIN IVP ONE (21:37)
[2021-02-09] MEDS ORDERED: DEXTROSE 5%-1/2NS IV SOLUTION 1,000 ML IV SCH (22:00)
[2021-02-09] MEDS: TOPROL XL PO SCH (22:21)
[2021-02-09] MEDS: CARDIZEM PO SCH (22:21)
[2021-02-09] MEDS: HUMULIN R SUBCUT PRN (22:23)
[2021-02-09] MEDS: DOXY-100 100 MG in SODIUM CHLORIDE 100ML 100 ML IV SCH (22:25)
[2021-02-10] MEDS ORDERED: NORCO 5-325 PO PRN (00:34)
[2021-02-10 01:17] VITALS: BMI 28.5
[2021-02-10] MEDS: VENTOLIN HFA (PER PUFF-WITH SPACER) IH SCH ×4 (04:30→20:15)
[2021-02-10 05:08] LABS: ABG O2 HGB 91.1 % (95-100); ABG PH 7.44 (7.35-7.45); COHb 2.4 (0.5-1.5); HCO3 27.2 (21-28); MetHb 0.9 (0-1.5); TCO2 28.4 (19-24); sO2 92.9 % (94-98); tHb 15.4 g/dl (11.7-17.4)
[2021-02-10] MEDS: PEPCID PO SCH ×2 (05:33→16:14)
[2021-02-10] MEDS: LASIX TAB PO SCH (05:33)
[2021-02-10 05:57] LABS: BASOPHILS % (AUTO) 0.1 % (0.0-3.0); HEMATOCRIT 45.8 % (42.0-52.0); HEMOGLOBIN 14.7 g/dl (14.0-18.0); IMMATURE GRANULOCYTE # (AUTO) 0.1 (0.0-1.0); IMMATURE GRANULOCYTE % (AUTO) 0.5 % (0.0-5.0); LYMPHOCYTES # (AUTO) 0.5 K/uL (0.60-3.4); LYMPHOCYTES % (AUTO) 5.5 (10.0-50.0); MEAN CORPUSCULAR HEMOGLOBIN 26.8 pg (27.0-31.0); MEAN CORPUSCULAR HGB CONC 32.1 (31.8-35.4); MEAN CORPUSCULAR VOLUME 83.6 fl (80.0-94.0); MONOCYTES # (AUTO) 0.5 K/uL (0.4-2.0); MONOCYTES % (AUTO) 4.8 (0-10); NEUTROPHILS # (AUTO) 8.8 K/ul (2.0-6.9); NEUTROPHILS % (AUTO) 89.1 % (42.2-75.2); PLATELET COUNT 188 10^3/uL (140-440); RDW COEFFICIENT OF VARIATION 16.4 % (11.6-14.8); RED BLOOD COUNT 5.48 10^6/ul (4.70-6.10); WHITE BLOOD COUNT 9.86 K/ul (4.2-10.2)
[2021-02-10 06:12] LABS: PROTHROMBIN TIME 11.1 SEC (9.3-11.0)
[2021-02-10 06:18] LABS: ALANINE AMINOTRANSFERASE 25.3 U/L (0-50); ALBUMIN 3.67 g/dL (3.5-5.0); ALKALINE PHOSPHATASE 40.8 U/L (56-119); ASPARTATE AMINO TRANSFERASE 48.6 U/L (17-59); BILIRUBIN,TOTAL 0.44 mg/dL (0.2-1.3); CALCIUM 8.95 mg/dL (8.4-10.2); CARBON DIOXIDE 29.4 mmol/L (22-30.0); CHLORIDE 105.7 mmol/L (98-107); CREATININE 1.44 mg/dL (0.60-1.10); POTASSIUM 3.67 mmol/L (3.5-5.1); SODIUM 142.1 mmol/L (134.5-145); TOTAL PROTEIN 6.64 g/dL (6.3-8.2)
[2021-02-10 07:42] LABS: BILIRUBIN,URINE Negative (NEGATIVE); CLARITY,URINE Clear (CLEAR); COLOR,URINE Yellow (YELLOW); KETONES,URINE Negative (NEGATIVE); LEUKOCYTE ESTERASE ,URINE Negative (NEGATIVE); NITRITE,URINE Negative (NEGATIVE); PROTEIN,URINE 1+ (NEGATIVE); URINE, BLOOD 1+ (NEGATIVE); UROBILINOGEN,URINE 0.2 (0.2)
[2021-02-10 07:45] LABS: GLUCOSE, URINE (UA) 3+ (NEGATIVE)
[2021-02-10 07:46] LABS: SQUAMOUS EPITHELIAL CELL,UR NOT PRESENT (0-5); URINE RBC, MICROSCOPIC 0-2 (0-2)
[2021-02-10 07:47] LABS: FINE GRANULAR CASTS,URINE 0-2 (NOT PRESENT)
[2021-02-10] MEDS ORDERED: ASPIRIN EC PO SCH (08:30)
[2021-02-10] MEDS: ROCEPHIN 1 GM/50 ML D5W 1 GM/50 ML BAG IV SCH (08:59)
[2021-02-10] MEDS ORDERED: VEKLURY 200 MG in SODIUM CHLORIDE 250 ML IV ONE (09:00)
[2021-02-10] MEDS ORDERED: DECADRON IM SCH (09:00)
[2021-02-10] MEDS ORDERED: MICRO-K CAP PO SCH (09:00)
[2021-02-10] MEDS ORDERED: ELIQUIS PO SCH ×2 (09:00→09:14)
[2021-02-10] MEDS ORDERED: LOVENOX SUBCUT SCH (09:00)
[2021-02-10] MEDS ORDERED: VENTOLIN HFA (PER PUFF-WITH SPACER) IH SCH (09:00)
--- NOTE | 2021-02-10 09:30 | PCM.PROG ---
Attending Provider: ATTENDING PROVIDER: Dr. OMAR MENDIOLA This patient is seen with Thais Acosta, Nurse Practitioner. DATE OF SERVICE: 02/10/21 SUBJECTIVE: This 80 year old /WHITE M was hospitalized 02/09/21. The patient is not eating very much. Afebrile. Oxygen saturation below 90% on 6 liters may need to possibly move to high flow oxygen. The patient has weakness and shortness of breath. REVIEW OF SYSTEMS: CONSTITUTIONAL: No night sweats. No fatigue, malaise, lethargy. No fever or chills. Weakness. HEENT: Eyes: No visual changes. No eye pain. No eye discharge. ENT: No runny nose. No epistaxis. No sinus pain. No odynophagia. No congestion. RESPIRATORY: Cough, no congestion. No hemoptysis. Shortness of breath. CARDIOVASCULAR: No angina symptoms. No CHF symptoms. No atypical chest pain for CAD. No palpitations. No orthopnea.. GASTROINTESTINAL: No abdominal pain. No nausea or vomiting. No diarrhea or constipation. No hematemesis. No hematochezia. GENITOURINARY: No urgency. No frequency. No dysuria. No hematuria. No obstructive symptoms. No discharge. No pain. No significant abnormal bleeding. MUSCULOSKELETAL: No musculoskeletal pain; no joint swelling. NEUROLOGICAL: Awake, alert, oriented to time, place and person. No headache. No neck pain. No syncope. No seizures. No dizziness. PSYCHIATRIC: Not anxious. No depression. No suicidal thoughts. No homicidal thoughts. SKIN: No rash. No lesions. No wounds. ENDOCRINE: No unexplained weight loss. No weight gain. HEMATOLOGIC/LYMPHATIC: No anemia. No purpura. No petechiae. No prolonged or excessive bleeding. No palpable lymph nodes. PHYSICAL EXAMINATION: GENERAL: The patient is awake, alert and oriented, lying in bed in no distress. VITAL SIGNS: Temperature 97.8 F, Pulse 108, Respiratory Rate 27, BP 135/85, Pulse Ox 93% HEENT: Head normocephalic, atraumatic. Eyes: Extraocular muscles are intact. Pupils are equal, round and reactive to light and accommodation. Ears: No lesions. Nose appeared normal. Throat: No exudate or erythema. NECK: Supple. No JVD, no carotid bruit. No lymphadenopathy or thyromegaly. LUNGS: Diminished breath sounds. Clear to auscultation. Percussion note normal. Chest symmetrical. HEART: S1, S2, no S3. No murmurs. Irregular heart rate. No cyanosis or clubbing. No ascites. Pulses: Dorsalis pedis and posterior tibial pulses +1 to +2 both sides. ABDOMEN: Soft. Non-tender. Bowel sounds active. No CVA tenderness. No mass felt. EXTREMITIES: No edema. Full range of motion of all extremities, equal. NEUROLOGIC: No focal deficit. Cranial nerves II through XII are grossly intact. No headache. No double vision. SKIN: Not dry. Intact. Turgor-normal. LYMPHATIC: No palpable lymph nodes/no lymphedema. MUSCULOSKELETAL: Normal joints with no swelling. Muscle tone is normal. LAB REVIEW: 02/10/21 05:10 02/10/21 05:10 02/10/21 07:23: Urine Color Yellow, Urine Clarity Clear, Urine pH 5.0, Ur Specific [place] 1.015, Urine Protein 1+ H, Urine Glucose (UA) 3+ H, Urine Ketones Negative, Urine Blood 1+ H, Urine Nitrite Negative, Urine Bilirubin Negative, Urine Urobilinogen 0.2, Ur Leukocyte Esterase Negative, Urine Microscopic RBC 0-2, Ur Squamous Epith Cells Not present, Fine Granular Casts 0- 2 02/10/21 05:10: Sodium 142.1, Potassium 3.67, Chloride 105.7, Carbon Dioxide 29.4, Anion Gap 10.67, BUN 37.0 H, Creatinine 1.44 H, Estimated GFR (MDRD) 47.00, BUN/Creatinine Ratio 25.69, Glucose 127.0 H D, Calcium 8.95, Total Bilirubin 0.44, AST 48.6, ALT 25.3, Alkaline Phosphatase 40.8 L, Total Protein 6.64, Albumin 3.67, Globulin 2.97, Albumin/Globulin Ratio 1.23 02/10/21 05:10: WBC 9.86 D, RBC 5.48, Hgb 14.7, Hct 45.8, MCV 83.6, MCH 26.8 L, MCHC 32.1, RDW Coeff of [place] 16.4 H, Plt Count 188, Immature Gran % (Auto) 0.5, Neut % (Auto) 89.1 H, Lymph % (Auto) 5.5 L, [place] % (Auto) 4.8, Eos % (Auto) 0.0, Baso % (Auto) 0.1, Neut # (Auto) 8.8 H, Lymph # (Auto) 0.5 L, [place] # (Auto) 0.5, Eos # (Auto) 0.0, Baso # (Auto) 0.0, Immature Gran # (Auto) 0.1 02/10/21 05:10: Troponin I 0.074 02/10/21 05:10: Ferritin 198.00 02/10/21 05:10: D-Dimer 501.26 H 02/10/21 05:10: PT 11.1 H, INR 1.07 02/10/21 04:50: Puncture Site Lb, Base Excess 3.0, O2 Saturation 92.9 L, ABG pH 7.44, ABG pCO2 40.0, ABG pO2 64.0 L, ABG HCO3 27.2, ABG Total CO2 28.4 H, Shantanu Test +, Hemoglobin 0.9, Oxyhemoglobin 91.1 L, Carboxyhemoglobin 2.4 H, Total Hemoglobin 15.4, O2 Delivery Device Cannula, Oxygen Liter Flow 6.00, FiO2 % 44.0 02/09/21 18:17: Troponin I 0.047 02/09/21 15:00: Puncture Site R brach, Base Excess 1.1, O2 Saturation 98.3 H, ABG pH 7.46 H, ABG pCO2 35.0, ABG pO2 105.0 H, ABG HCO3 24.9, ABG Total CO2 26.0 H, Shantanu Test Y, Hemoglobin 1.1, Oxyhemoglobin 96.1, Carboxyhemoglobin 1.3, Total Hemoglobin 17.0, O2 Delivery Device Cannula, Oxygen Liter Flow 6.00 02/09/21 13:36: D-Dimer 431.94 02/09/21 13:36: Sodium 141.0, Potassium 4.23, Chloride 102.7, Carbon Dioxide 29.2, Anion Gap 13.33, BUN 34.3 H, Creatinine 1.60 H, Estimated GFR (MDRD) 42.00, BUN/Creatinine Ratio 21.43, Glucose 202.9 H, Calcium 9.03, Magnesium 2.42 H, Total Bilirubin 0.45, AST 43.5, ALT 28.5, Alkaline Phosphatase 49.4 L, Troponin I 0.038, NT-Pro-B Natriuret Pep 2000.000 H, Total Protein 7.01, Albumin 3.92, Globulin 3.09, Albumin/Globulin Ratio 1.26 02/09/21 13:36: WBC 3.97 L, RBC 5.77, Hgb 15.6, Hct 48.1, MCV 83.4, MCH 27.0, MCHC 32.4, RDW Coeff of [place] 16.6 H, Plt Count 183, Immature Gran % (Auto) 0.3, Neut % (Auto) 77.2 H, Lymph % (Auto) 12.1, [place] % (Auto) 10.1 H, Eos % (Auto) 0.0, Baso % (Auto) 0.3, Neut # (Auto) 3.1, Lymph # (Auto) 0.5 L, [place] # (Auto) 0.4, Eos # (Auto) 0.0, Baso # (Auto) 0.0, Immature Gran # (Auto) 0.0 02/09/21 13:10: Puncture Site Rr, Base Excess 0.8, O2 Saturation 86.4 L, ABG pH 7.42, ABG pCO2 39.0, ABG pO2 51.0 L*, ABG HCO3 25.3, ABG Total CO2 26.5 H, Shantanu Test Ps, Hemoglobin 1.2, Oxyhemoglobin 85.3 L, Carboxyhemoglobin 1.8 H, Total Hemoglobin 16.0, FiO2 % 21.0 ASSESSMENT: Please see below. 1. Acute respiratory failure with COVID pneumonia 2. Atrial fibrillation with RVR 3. Diabetes Mellitus type II 4. Renal azotemia with underling CKD stage III PLAN: 1. Discontinue Aspirin 2. Discontinue Lovenox 3. Add extra dose of Cardizem to be 60mg TID 4. Discontinue IV fluids 5. Regular diet Plan and coordination of the patient's care discussed in the presence of Charge Out Clerk and nurse. SCRIBED BY: Renuka IRENEist scribed while in presence of service performed by Dr. Mendiola/Thais Acosta APRN on 02/10/21 ([id number])
[2021-02-10] MEDS: DOXY-100 100 MG in SODIUM CHLORIDE 100ML 100 ML IV SCH ×2 (09:55→20:10)
[2021-02-10] MEDS: DECADRON IV SCH (09:57)
[2021-02-10] MEDS: SYMBICORT 160-4.5 MCG INHALER IH SCH ×2 (09:58→20:46)
[2021-02-10] MEDS: ZINC-220 PO SCH (09:58)
[2021-02-10] MEDS: TOPROL XL PO SCH ×2 (09:59→20:25)
[2021-02-10] MEDS: CARDIZEM PO SCH ×4 (09:59→20:10)
[2021-02-10] MEDS: ZESTRIL PO SCH (09:59)
[2021-02-10] MEDS: CRESTOR PO SCH (09:59)
[2021-02-10] MEDS: TRIGLIDE PO SCH (09:59)
[2021-02-10] MEDS: VITAMIN D PO SCH (10:21)
[2021-02-10] MEDS: ELIQUIS PO SCH ×2 (10:21→20:06)
[2021-02-10 10:34] LABS: ABG O2 HGB 92.9 % (95-100); ABG PH 7.44 (7.35-7.45); BEecf 0.9 (-2.0-3.0); COHb 2.5 (0.5-1.5); HCO3 25.1 (21-28); TCO2 26.2 (19-24); sO2 94.7 % (94-98); tHb 14.6 g/dl (11.7-17.4)
[2021-02-10] MEDS: HUMULIN R SUBCUT PRN ×3 (11:27→20:26)
--- NOTE | 2021-02-10 13:31 | PN ---
DATE OF SERVICE: 02/09/2021 SUBJECTIVE: The patient was brought to the emergency room to have COVID antibodies to be given. At that time the patient's saturation was noted to be 86%. The patient was somewhat confused and short of breath. According to the daughter the patient had taken a lot of cough medicine because of his cough just prior to coming to the emergency room. In the emergency room the patient was seen and examined by ER attending Dr. Morgan. The patient's CT scan of the chest showed ground glass which is very mild mild. The patient's CT scan of the head was negative. The test was done because of patient's slight confusion. The patient's arterial blood gasses shows Po2 of 50 with saturation of 86%. On two liters his oxygen saturation goes up to 95% and mild to moderate cough. No symptoms of CHF. The other problem the patient has is atrial fibrillation with rapid ventricular response. The patient was given 20mg IV Cardizem drip and he came because from his CAT scan and the rate was still high. The patient is going to be given Cardizem drip along with 0.25mg of Lanoxin IV. The patient is going to be hospitalized with respiratory failure, COVID pneumonia which is the beginning of it. He has chronic respiratory failure and he is on oxygen therapy for several years. The patient is non-compliant of all medical card aspects. PLAN: 1. Telemetry 2. Routine COVID orders with markers 3. Dexamethasone 6mg IM daily 4. 125mg IV Solu-Cortef 5. He is going to be on Doxycycline and Rocephin 6. The patient is going to be on inhaler PRO AIR HFA and Symbicort 7. Remdesivir will be started in the morning. Talked to the daughter and she agreed that if I feel like he needs to be given he will have it. 8. The patient is a DNR per the emergency room physician and also to the family. CONDITION: Seems to be stable. The patient is going to need decoagulation considering multiple comorbidities like obesity, diabetes, Hypertension and atrial fibrillation, dyslipidemia and chronic lung disease with hypoxemia. PROGNOSIS: Not good, COVID 19. TIME SPENT: More than 30 minutes. Plan and coordination of the patient's care discussed in the presence of nurse. DAVIDA
[2021-02-11 03:58] LABS: ABG O2 HGB 91.6 % (95-100); ABG PH 7.47 (7.35-7.45); COHb 2.1 (0.5-1.5); HCO3 24.7 (21-28); MetHb 1.2 (0-1.5); TCO2 25.7 (19-24); tHb 18.4 g/dl (11.7-17.4)
[2021-02-11] MEDS: VENTOLIN HFA (PER PUFF-WITH SPACER) IH SCH ×4 (04:30→21:10)
[2021-02-11] MEDS: PEPCID PO SCH ×2 (05:55→16:41)
[2021-02-11] MEDS: LASIX TAB PO SCH (05:56)
[2021-02-11 06:26] LABS: C-REACTIVE PROTEIN 135 mg/L (0-10)
[2021-02-11 06:29] LABS: HEMATOCRIT 44.1 % (42.0-52.0); HEMOGLOBIN 14.6 g/dl (14.0-18.0); IMMATURE GRANULOCYTE % (AUTO) 0.3 % (0.0-5.0); LYMPHOCYTES # (AUTO) 0.4 K/uL (0.60-3.4); LYMPHOCYTES % (AUTO) 6.5 (10.0-50.0); MEAN CORPUSCULAR HEMOGLOBIN 27.6 pg (27.0-31.0); MEAN CORPUSCULAR HGB CONC 33.1 (31.8-35.4); MEAN CORPUSCULAR VOLUME 83.4 fl (80.0-94.0); MONOCYTES # (AUTO) 0.3 K/uL (0.4-2.0); MONOCYTES % (AUTO) 5.3 (0-10); NEUTROPHILS # (AUTO) 5.3 K/ul (2.0-6.9); NEUTROPHILS % (AUTO) 87.9 % (42.2-75.2); PLATELET COUNT 180 10^3/uL (140-440); RDW COEFFICIENT OF VARIATION 16.4 % (11.6-14.8); RED BLOOD COUNT 5.29 10^6/ul (4.70-6.10); WHITE BLOOD COUNT 6.01 K/ul (4.2-10.2)
[2021-02-11 06:45] LABS: ALBUMIN 3.38 g/dL (3.5-5.0); ALKALINE PHOSPHATASE 45.1 U/L (56-119); ASPARTATE AMINO TRANSFERASE 52.5 U/L (17-59); BILIRUBIN,TOTAL 0.38 mg/dL (0.2-1.3); BLOOD UREA NITROGEN 36.2 mg/dL (9-20); CALCIUM 8.82 mg/dL (8.4-10.2); CARBON DIOXIDE 27.8 mmol/L (22-30.0); CHLORIDE 102.5 mmol/L (98-107); CREATININE 1.27 mg/dL (0.60-1.10); GLUCOSE 170.6 mg/dL (74-106); POTASSIUM 3.78 mmol/L (3.5-5.1); SODIUM 138.8 mmol/L (134.5-145); TOTAL PROTEIN 6.28 g/dL (6.3-8.2)
[2021-02-11 06:57] LABS: PROTHROMBIN TIME 11.4 SEC (9.3-11.0)
[2021-02-11 07:14] LABS: ERYTHROCYTE SEDIMENTATION RATE 8 mm/hr (0-15)
[2021-02-11 07:15] LABS: THYROID STIMULATING HORMONE 0.588 uIU/L (0.465-4.68)
[2021-02-11] MEDS: HUMULIN R SUBCUT PRN ×4 (07:21→23:31)
--- NOTE | 2021-02-11 09:36 | PCM.PROG ---
Attending Provider: ATTENDING PROVIDER: Dr. OMAR MENDIOLA DATE OF SERVICE: 02/11/21 SUBJECTIVE: This 80 year old /WHITE M was hospitalized with acute respiratory failure with COPD and COVID positive status with early pneumonia. The patient's condition has improved. Oxygen has improved. No distress but confused. REVIEW OF SYSTEMS: CONSTITUTIONAL: No night sweats. No fatigue, malaise, lethargy. No fever or chills. HEENT: Eyes: No visual changes. No eye pain. No eye discharge. ENT: No runny nose. No epistaxis. No sinus pain. No odynophagia. No congestion. RESPIRATORY: No cough, no congestion. No hemoptysis. No shortness of breath. CARDIOVASCULAR: No angina symptoms. No CHF symptoms. No atypical chest pain for CAD. No palpitations. No orthopnea.. GASTROINTESTINAL: No abdominal pain. No nausea or vomiting. No diarrhea or constipation. No hematemesis. No hematochezia. Appetite is ok. GENITOURINARY: No urgency. No frequency. No dysuria. No hematuria. No o bstructive symptoms. No discharge. No pain. No significant abnormal bleeding. MUSCULOSKELETAL: No musculoskeletal pain; no joint swelling. NEUROLOGICAL: Awake, alert, oriented to time, place and person. No headache. No neck pain. No syncope. No seizures. No dizziness. PSYCHIATRIC: Not anxious. No depression. No suicidal thoughts. No homicidal thoughts. SKIN: No rash. No lesions. No wounds. ENDOCRINE: No unexplained weight loss. No weight gain. HEMATOLOGIC/LYMPHATIC: No anemia. No purpura. No petechiae. No prolonged or excessive bleeding. No palpable lymph nodes. PHYSICAL EXAMINATION: GENERAL: The patient is awake, alert and oriented, lying in bed in no distress. VITAL SIGNS: Temperature 97.9 F, Pulse 122, Respiratory Rate 20, BP 128/84, Pulse Ox 93% HEENT: Head normocephalic, atraumatic. Eyes: Extraocular muscles are intact. Pupils are equal, round and reactive to light and accommodation. Ears: No lesions. Nose appeared normal. Throat: No exudate or erythema. NECK: Supple. No JVD, no carotid bruit. No lymphadenopathy or thyromegaly. LUNGS: Good air entry. Clear to auscultation. Percussion note normal. Chest symmetrical. HEART: S1, S2, no S3. No murmurs. No cyanosis or clubbing. No ascites. Pulses: Dorsalis pedis and posterior tibial pulses +1 to +2 both sides. ABDOMEN: Soft. Non-tender. Bowel sounds active. No CVA tenderness. No mass felt. EXTREMITIES: No edema. Full range of motion of all extremities, equal. NEUROLOGIC: No focal deficit. Cranial nerves II through XII are grossly intact. No headache, no double vision or headache. SKIN: Warm and dry. Intact. Turgor-normal. Color is good. LYMPHATIC: No palpable lymph nodes/no lymphedema. MUSCULOSKELETAL: Normal joints with no swelling. Muscle tone is normal. LAB REVIEW: 02/11/21 06:17 02/11/21 06:17 02/11/21 06:17: ESR 8 02/11/21 06:17: Sodium 138.8, Potassium 3.78, Chloride 102.5, Carbon Dioxide 27.8, Anion Gap 12.28, BUN 36.2 H, Creatinine 1.27 H, Estimated GFR (MDRD) 54 .00, BUN/Creatinine Ratio 28.50, Glucose 170.6 H, Calcium 8.82, Ferritin 268.00, Total Bilirubin 0.38, AST 52.5, ALT 26.0, Alkaline Phosphatase 45.1 L, Total Protein 6.28 L, Albumin 3.38 L, Globulin 2.90, Albumin/Globulin Ratio 1.16, TSH 0.588 02/11/21 06:17: WBC 6.01, RBC 5.29, Hgb 14.6, Hct 44.1, MCV 83.4, MCH 27.6, MCHC 33.1, RDW Coeff of [place] 16.4 H, Plt Count 180, Immature Gran % (Auto) 0.3, Neut % (Auto) 87.9 H, Lymph % (Auto) 6.5 L, Gregory % (Auto) 5.3, Eos % (Auto) 0.0, Baso % (Auto) 0.0, Neut # (Auto) 5.3, Lymph # (Auto) 0.4 L, Gregory # (Auto) 0.3 L, Eos # (Auto) 0.0, Baso # (Auto) 0.0, Immature Gran # (Auto) 0.0 02/11/21 06:17: Free T4 2.06 02/11/21 06:17: D-Dimer 513.97 H 02/11/21 06:17: PT 11.4 H, INR 1.11 02/11/21 03:50: Puncture Site Rb, Base Excess 1.0, O2 Saturation 94.0, ABG pH 7.47 H, ABG pCO2 34.0 L, ABG pO2 66.0 L, ABG HCO3 24.7, ABG Total CO2 25.7 H, Shantanu Test +, Hemoglobin 1.2, Oxyhemoglobin 91.6 L, Carboxyhemoglobin 2.1 H, Total Hemoglobin 18.4 H, O2 Delivery Device Vapotherm, FiO2 % 60.0 02/10/21 10:16: Puncture Site Rbrach, Base Excess 0.9, O2 Saturation 94.7, ABG pH 7.44, ABG pCO2 37.0, ABG pO2 71.0 L, ABG HCO3 25.1, ABG Total CO2 26.2 H, Shantanu Test Y, Hemoglobin 1.0, Oxyhemoglobin 92.9 L, Carboxyhemoglobin 2.5 H, Total Hemoglobin 14.6, O2 Delivery Device Vapotherm, FiO2 % 60.0 02/10/21 05:10: Lactate Dehydrogenase 390 H, C-Reactive Prot, Quant 135 H 02/10/21 05:10: D-Dimer 569.03 H ASSESSMENT: Please see below. 1. Respiratory failure, stable has home oxygen with chronic lung disease and dilated cardiomyopathy ischemia. 2. History of right nephrectomy with c of the kidney 3. Hypertension 4. Diabetes Mellitus type II 5. A lot of comorbidities. PLAN: 1. Continue antibiotics, steroids, NEBS and Remdesivir CONDITION: Stable, otherwise PROGNOSIS: Guarded with multiple comorbidities. stable Plan and coordination of the patient's care discussed in the presence of Fly Frame Tender and nurse. SCRIBED BY: NABOR CLEVELAND, Speech Pathology Teacher scribed while in presence of service performed by Dr. OMAR MENDIOLA on 02/11/21 ([id number])
[2021-02-11] MEDS: ZINC-220 PO SCH (09:51)
[2021-02-11] MEDS: VITAMIN D PO SCH (09:51)
[2021-02-11] MEDS: CRESTOR PO SCH (09:51)
[2021-02-11] MEDS: ROCEPHIN 1 GM/50 ML D5W 1 GM/50 ML BAG IV SCH (09:51)
[2021-02-11] MEDS: CARDIZEM PO SCH ×3 (09:52→20:32)
[2021-02-11] MEDS: TOPROL XL PO SCH ×2 (09:52→20:32)
[2021-02-11] MEDS: ELIQUIS PO SCH ×2 (09:52→20:32)
[2021-02-11] MEDS: MICRO-K CAP PO SCH (09:52)
[2021-02-11] MEDS: ZESTRIL PO SCH (09:52)
[2021-02-11] MEDS: TRIGLIDE PO SCH (09:52)
[2021-02-11] MEDS: SYMBICORT 160-4.5 MCG INHALER IH SCH ×2 (09:53→20:40)
[2021-02-11] MEDS: DECADRON IV SCH (10:10)
--- NOTE | 2021-02-11 11:13 | HP ---
DATE OF SERVICE: 02/09/2021 REASON FOR HOSPITALIZATION/HISTORY OF PRESENT ILLNESS: 80 year old white male who presented to the emergency room with shortness of breath. He tested positive for COVID on 02/07/21 from our office. She received the antibody infusion yesterday on 02/09/21 prior to coming to the ER. They went home and the family reported that he was confused. Outpatient noted that he had low oxygen saturations and sent him here to the emergency room. PAST MEDICAL HISTORY: History of noncompliance with diet, lifestyle and medications and recommendation Atrial fibrillation which is chronic History of rib fracture Polycythemia, Sees Dr. Woodard Nephrolithiasis COPD Diabetes mellitus type II uncontrolled last A1c was 9.5 and this was done in August Dyslipidemia B12 deficiency Metabolic syndrome History of prostate cancer, see Dr. West Chronic kidney disease stage II to III Severe dilated ischemic cardiomyopathy with last ejection fraction 42% LVH Permanent Afib on Eliquis Coronary artery disease with stent, see Dr. Landry Obstructive sleep apnea. COPD Systolic CHF PAST SURGICAL HISTORY: Prostate surgery [place] [address] Pedroza REVIEW OF SYSTEMS: CONSTITUTIONAL: No night sweats. No fatigue, malaise, lethargy. No fever or chills. Confusion. Weakness. HEENT: Eyes: No visual changes. No eye pain. No eye discharge. ENT: No runny nose. No epistaxis. No sinus pain. No sore throat. No odynophagia. No ear pain. No congestion. RESPIRATORY: Cough, no congestion. No hemoptysis. Shortness of breath. CARDIOVASCULAR: No angina symptoms. No CHF symptoms. No atypical chest pain for CAD. No palpitations. No PND. No orthopnea. GASTROINTESTINAL: No abdominal pain. No nausea or vomiting. No diarrhea or constipation. No hematemesis. No hematochezia. GENITOURINARY: No urgency. No frequency. No dysuria. No hematuria. No obstructive symptoms. No discharge. No pain. No significant abnormal bleeding. MUSCULOSKELETAL: No musculoskeletal pain. No joint swelling. No arthritis. NEUROLOGICAL: No headache. No neck pain. No syncope. No seizures. No dizziness. PSYCHIATRIC: Not anxious. No depression. No suicidal thoughts. No homicidal thoughts. SKIN: No rash. No lesions. No wounds. ENDOCRINE: No unexplained weight loss. No weight gain. HEMATOLOGIC/LYMPHATIC: No anemia. No purpura. No petechiae. No prolonged or excessive bleeding. No palpable lymph nodes. PERSONAL/FAMILY/SOCIAL HISTORY: Lives at home with his . He is nonsmoker. No alcohol or illicit drug use. MEDICATIONS: Metoprolol 100mg PO daily Crestor 10mg PO daily Fenofribrate 145mg PO daily Clonidine 0.1mg PO daily Olin 5-325mg PO Q 6 hours PRN Aspirin 81mg PO daily Potassium Chloride 10meq PO daily Eliquis 5mg PO BID Furosemide 40mg PO QDAC Glucophage 1000mg PO BID Lisinopril 20mg PO daily Amlodipine-Benazepril 5-20mg PO daily Nitrostat 0.4mg SUBLINGUAL Q 5minutes times three doses PRN Jardiance 25mg daily ALLERGIES: No known allergies PHYSICAL EXAMINATION: GENERAL: The patient is alert and oriented to person. However not time. VITAL SIGNS: Temperature 98.4, heart rate 78, respiratory rate 18, blood pressure 150/76 and pulse ox 88%. HEENT: Head normocephalic, atraumatic. Eyes: Extraocular muscles are intact. Pupils are equal, round and reactive to light and accommodation. Ears: No lesions. Nose appeared normal. Throat: No exudate or erythema. NECK: Supple. No JVD, no carotid bruit. No lymphadenopathy or thyromegaly. LUNGS: Diminished breath sounds. Bilateral crepitations. Clear to auscultation. Percussion note normal. Chest symmetrical. HEART: S1, S2, no S3. No murmur. irregular heart rate. No cyanosis or clubbing. No ascites. Pulses: Dorsalis pedis and posterior tibial pulses +1 to +2 bilaterally. ABDOMEN: Soft. Nontender. Bowel sounds active. No CVA tenderness. No mass felt. EXTREMITIES: No edema. Full range of motion of all extremities, equal. NEUROLOGIC: No focal deficit. Cranial nerves II through XII are grossly intact. No headache, no double vision or headache. SKIN: Not dry. Intact. Turgor - normal. LYMPHATIC: No palpable lymph nodes/no lymphedema. MUSCULOSKELETAL: Normal joints with no swelling. Muscle tone is normal. LABS: WBC 3.97, hgb 15.6, hct 48.1, plt count 183, sodium 141, potassium 4.2, BUN 34, creatinine 1.6, glucose 202. ABG initially on room air O2 saturation 86, pH 7.42, pCO2 39, PO2 51. BUN 34, creatinine 1.6, glucose 202, magnesium 2.42, AST 43, ALT 28, troponin 0.03. Repeat ABGS on 6 liters O2 saturation 98, pH 7.46, pCo2 35, Po2 105. D-Dimer 431. Chest x-ray reveals bilateral ground glass opacities consistent with bilateral pneumonia. He is COVID positive. No evidence of PE. CT of the brain is normal. ASSESSMENT: 1. Acute respiratory failure due to bilateral COVID pneumonia 2. Atrial fibrillation with RVR 3. Uncontrolled diabetes mellitus type II 4. Hypertension PLAN: 1. We will admit 2. Routine telemetry orders 3. CBC and CMP daily 4. Continue home medications 5. The patient is a DNR 6. Doxycycline 100mg IV Q 12 7. Rocephin 1 gram IV daily 8. Dexamethasone 6mg IV daily 9. Start COVID orders Zinc, Vitamin D and start on Pepcid 40mg BID 10.Give an additional 20mg IV push of Cardizem 11.Start on Symbicort and albuterol inhalers 12.Normal saline IV at 75cc an hour times one bag 13.Continue on 6 liters and repeat ABG in 2 hours 14.Sliding scale for insulin. We will follow closely TIME SPENT: More than 70 minutes. MTDD
[2021-02-11] MEDS: DOXY-100 100 MG in SODIUM CHLORIDE 100ML 100 ML IV SCH ×2 (11:16→21:49)
[2021-02-11] MEDS: VEKLURY 100 MG in SODIUM CHLORIDE 250 ML IV SCH (13:38)
[2021-02-11] MEDS: ATIVAN IM PRN (21:03)
[2021-02-11] MEDS: HALDOL IM PRN (22:41)
[2021-02-12] MEDS: VENTOLIN HFA (PER PUFF-WITH SPACER) IH SCH ×4 (05:30→20:15)
[2021-02-12] MEDS: ATIVAN IM PRN ×2 (05:42→23:37)
[2021-02-12] MEDS: PEPCID PO SCH ×2 (07:40→16:54)
[2021-02-12] MEDS: LASIX TAB PO SCH (07:40)
[2021-02-12] MEDS: HALDOL IM PRN ×2 (08:41→22:34)
[2021-02-12] MEDS: DECADRON IM SCH (08:42)
[2021-02-12] MEDS: LIDOCAINE HCL 1% SDV IM SCH (08:43)
[2021-02-12] MEDS: ROCEPHIN 1 GM VIAL IM SCH (08:44)
[2021-02-12] MEDS: HUMULIN R SUBCUT PRN ×4 (08:45→21:32)
[2021-02-12 10:01] LABS: ABG O2 HGB 92.8 % (95-100); ABG PH 7.48 (7.35-7.45); BEecf 1.8 (-2.0-3.0); COHb 2.2 (0.5-1.5); HCO3 25.3 (21-28); MetHb 0.7 (0-1.5); TCO2 26.3 (19-24); sO2 94.4 % (94-98); tHb 14.5 g/dl (11.7-17.4)
[2021-02-12] MEDS: CARDIZEM PO SCH ×3 (15:17→20:43)
[2021-02-12] MEDS: DOXYCYCLINE HYCLATE PO SCH ×2 (15:18→20:43)
[2021-02-12] MEDS: CRESTOR PO SCH (15:18)
[2021-02-12] MEDS: ELIQUIS PO SCH ×3 (15:18→22:38)
[2021-02-12] MEDS: SYMBICORT 160-4.5 MCG INHALER IH SCH (15:19)
[2021-02-12] MEDS: MICRO-K CAP PO SCH (15:19)
[2021-02-12] MEDS: TOPROL XL PO SCH ×2 (15:19→20:45)
[2021-02-12] MEDS: TRIGLIDE PO SCH (15:20)
[2021-02-12] MEDS: VEKLURY 100 MG in SODIUM CHLORIDE 250 ML IV SCH (15:20)
[2021-02-12] MEDS: ZINC-220 PO SCH (15:21)
[2021-02-12] MEDS: VITAMIN D PO SCH (15:21)
[2021-02-12] MEDS: ZESTRIL PO SCH (15:21)
[2021-02-12] MEDS ORDERED: LANOXIN IVP ONE (22:51)
[2021-02-12] MEDS ORDERED: LANOXIN IVP STA (22:51)
[2021-02-13] MEDS: DEXTROSE 5%-1/2NS IV SOLUTION 1,000 ML IV SCH ×2 (03:31→18:07)
[2021-02-13] MEDS: ATIVAN IM PRN ×2 (03:50→22:04)
[2021-02-13] MEDS: LASIX TAB PO SCH (05:29)
[2021-02-13] MEDS: PEPCID PO SCH ×2 (05:29→18:17)
[2021-02-13] MEDS: VENTOLIN HFA (PER PUFF-WITH SPACER) IH SCH ×4 (05:30→20:05)
[2021-02-13] MEDS: HUMULIN R SUBCUT PRN ×3 (06:32→17:20)
[2021-02-13 07:47] LABS: BASOPHILS % (AUTO) 0.2 % (0.0-3.0); HEMATOCRIT 47.7 % (42.0-52.0); HEMOGLOBIN 14.8 g/dl (14.0-18.0); IMMATURE GRANULOCYTE % (AUTO) 0.2 % (0.0-5.0); LYMPHOCYTES # (AUTO) 0.5 K/uL (0.60-3.4); LYMPHOCYTES % (AUTO) 5.5 (10.0-50.0); MEAN CORPUSCULAR HEMOGLOBIN 27.6 pg (27.0-31.0); MONOCYTES # (AUTO) 0.7 K/uL (0.4-2.0); MONOCYTES % (AUTO) 8.1 (0-10); PLATELET COUNT 206 10^3/uL (140-440); RDW COEFFICIENT OF VARIATION 16.9 % (11.6-14.8); RED BLOOD COUNT 5.36 10^6/ul (4.70-6.10); WHITE BLOOD COUNT 8.19 K/ul (4.2-10.2)
[2021-02-13] MEDS: HALDOL IM PRN ×3 (08:05→19:18)
[2021-02-13] MEDS: DECADRON IM SCH (08:07)
[2021-02-13] MEDS: ROCEPHIN 1 GM VIAL IM SCH (09:15)
[2021-02-13] MEDS: LIDOCAINE HCL 1% SDV IM SCH (09:16)
[2021-02-13 09:33] LABS: ABG O2 HGB 94.6 % (95-100); BEecf -1.7 (-2.0-3.0); COHb 2.8 (0.5-1.5); HCO3 21.2 (21-28); MetHb 1.2 (0-1.5); sO2 98.9 % (94-98); tHb 15.1 g/dl (11.7-17.4)
[2021-02-13 09:37] LABS: ABG PH 7.52 (7.35-7.45)
[2021-02-13 09:50] LABS: PROTHROMBIN TIME 13.1 SEC (9.3-11.0)
[2021-02-13 09:57] LABS: ALANINE AMINOTRANSFERASE 30.1 U/L (0-50); ALBUMIN 3.21 g/dL (3.5-5.0); ALKALINE PHOSPHATASE 46.6 U/L (56-119); ASPARTATE AMINO TRANSFERASE 52.7 U/L (17-59); BILIRUBIN,TOTAL 0.69 mg/dL (0.2-1.3); BLOOD UREA NITROGEN 29.1 mg/dL (9-20); CALCIUM 8.84 mg/dL (8.4-10.2); CARBON DIOXIDE 20.2 mmol/L (22-30.0); CREATININE 0.94 mg/dL (0.60-1.10); GLUCOSE 176.1 mg/dL (74-106); POTASSIUM 3.67 mmol/L (3.5-5.1); TOTAL PROTEIN 5.81 g/dL (6.3-8.2)
[2021-02-13 10:16] LABS: ERYTHROCYTE SEDIMENTATION RATE 5 mm/hr (0-15)
[2021-02-13] MEDS: ELIQUIS PO SCH (11:49)
[2021-02-13] MEDS: CARDIZEM PO SCH ×2 (11:50→18:17)
[2021-02-13] MEDS: CRESTOR PO SCH (11:51)
[2021-02-13] MEDS: DOXYCYCLINE HYCLATE PO SCH (11:52)
[2021-02-13] MEDS: SYMBICORT 160-4.5 MCG INHALER IH SCH (12:18)
[2021-02-13] MEDS: TOPROL XL PO SCH (12:19)
[2021-02-13] MEDS: MICRO-K CAP PO SCH (12:20)
[2021-02-13] MEDS: TRIGLIDE PO SCH (12:20)
[2021-02-13] MEDS: VEKLURY 100 MG in SODIUM CHLORIDE 250 ML IV SCH (12:21)
[2021-02-13] MEDS: VITAMIN D PO SCH (12:21)
[2021-02-13] MEDS: ZESTRIL PO SCH (12:22)
[2021-02-13] MEDS: ZINC-220 PO SCH (12:23)
[2021-02-13] MEDS: LOVENOX SUBCUT SCH (15:19)
[2021-02-13 15:47] LABS: BILIRUBIN,URINE Negative (NEGATIVE); CLARITY,URINE Clear (CLEAR); COLOR,URINE Yellow (YELLOW); KETONES,URINE 1+ (NEGATIVE); LEUKOCYTE ESTERASE ,URINE Negative (NEGATIVE); NITRITE,URINE Negative (NEGATIVE); PROTEIN,URINE 1+ (NEGATIVE); URINE, BLOOD Trace-intact (NEGATIVE); UROBILINOGEN,URINE 0.2 (0.2)
[2021-02-13 15:50] LABS: GLUCOSE, URINE (UA) 3+ (NEGATIVE)
[2021-02-13 15:56] LABS: AMORPHOUS SEDIMENT,UR 1+ (NOT PRESENT); BACTERIA,URINE 1+ (NOT PRESENT); HYALINE CASTS, URINE 0-2 (NOT PRESENT); SQUAMOUS EPITHELIAL CELL,UR 0-2 (0-5); URINE RBC, MICROSCOPIC 0-2 (0-2)
[2021-02-14] MEDS: ATIVAN IM PRN (05:03)
[2021-02-14] MEDS: VENTOLIN HFA (PER PUFF-WITH SPACER) IH SCH ×4 (05:15→19:00)
[2021-02-14] MEDS: DEXTROSE 5%-1/2NS IV SOLUTION 1,000 ML IV SCH ×5 (05:22→20:13)
[2021-02-14] MEDS: CARDIZEM PO SCH ×4 (06:01→21:07)
[2021-02-14] MEDS: DOXYCYCLINE HYCLATE PO SCH ×3 (06:01→21:07)
[2021-02-14] MEDS: LASIX TAB PO SCH (06:02)
[2021-02-14] MEDS: PEPCID PO SCH ×2 (06:02→16:27)
[2021-02-14] MEDS: TOPROL XL PO SCH ×3 (06:03→21:08)
[2021-02-14 06:41] LABS: BASOPHILS % (AUTO) 0.1 % (0.0-3.0); HEMATOCRIT 48.3 % (42.0-52.0); HEMOGLOBIN 15.6 g/dl (14.0-18.0); IMMATURE GRANULOCYTE % (AUTO) 0.4 % (0.0-5.0); LYMPHOCYTES # (AUTO) 0.5 K/uL (0.60-3.4); LYMPHOCYTES % (AUTO) 5.9 (10.0-50.0); MEAN CORPUSCULAR HEMOGLOBIN 27.1 pg (27.0-31.0); MEAN CORPUSCULAR HGB CONC 32.3 (31.8-35.4); MONOCYTES # (AUTO) 0.8 K/uL (0.4-2.0); MONOCYTES % (AUTO) 10.9 (0-10); NEUTROPHILS # (AUTO) 6.4 K/ul (2.0-6.9); NEUTROPHILS % (AUTO) 82.7 % (42.2-75.2); PLATELET COUNT 266 10^3/uL (140-440); RED BLOOD COUNT 5.75 10^6/ul (4.70-6.10); WHITE BLOOD COUNT 7.68 K/ul (4.2-10.2)
[2021-02-14] MEDS: HUMULIN R SUBCUT PRN ×3 (06:44→21:05)
[2021-02-14 06:47] LABS: PROTHROMBIN TIME 12.6 SEC (9.3-11.0)
[2021-02-14 06:58] LABS: ALBUMIN 3.4 g/dL (3.5-5.0); BILIRUBIN,TOTAL 0.9 mg/dL (0.2-1.3); CREATININE 1.1 mg/dL (0.60-1.10); POTASSIUM 3.9 mmol/L (3.5-5.1); TOTAL PROTEIN 6.4 g/dL (6.3-8.2)
[2021-02-14] MEDS: SYMBICORT 160-4.5 MCG INHALER IH SCH ×4 (07:11→21:08)
[2021-02-14 07:18] LABS: ERYTHROCYTE SEDIMENTATION RATE 2 mm/hr (0-15)
[2021-02-14] MEDS: DECADRON IM SCH (08:22)
[2021-02-14] MEDS: LIDOCAINE HCL 1% SDV IM SCH (08:23)
[2021-02-14] MEDS: ROCEPHIN 1 GM VIAL IM SCH (08:24)
[2021-02-14] MEDS ORDERED: LOVENOX SUBCUT SCH ×2 (09:00→09:30)
--- NOTE | 2021-02-14 09:18 | PCM.PROG ---
Attending Provider: ATTENDING PROVIDER: Dr. OMAR MENDIOLA This patient is seen with Thais Acosta, Nurse Practitioner. DATE OF SERVICE: 02/14/21 SUBJECTIVE: This 80 year old /WHITE M was hospitalized 02/09/21. The patient is resting comfortably this morning. Still not alert enough to swallow PO me dications or have any oral intake. Oxygen saturation is stable on nasal cannula. No IV access at this time due to the patient pulling it out. The patient is steadily confused at times not alert or responsive. REVIEW OF SYSTEMS: CONSTITUTIONAL: No night sweats. No fatigue, malaise, lethargy. No fever or chills. Agitated. HEENT: Eyes: No visual changes. No eye pain. No eye discharge. ENT: No runny nose. No epistaxis. No sinus pain. No odynophagia. No congestion. RESPIRATORY: No cough, no congestion. No hemoptysis. No shortness of breath. CARDIOVASCULAR: No angina symptoms. No CHF symptoms. No atypical chest pain for CAD. No palpitations. No orthopnea.. GASTROINTESTINAL: No abdominal pain. No nausea or vomiting. No diarrhea or constipation. No hematemesis. No hematochezia. GENITOURINARY: No urgency. No frequency. No dysuria. No hematuria. No obstructive symptoms. No discharge. No pain. No significant abnormal bleeding. MUSCULOSKELETAL: No musculoskeletal pain; no joint swelling. NEUROLOGICAL: Awake, alert, confused. No headache. No neck pain. No syncope. No seizures. No dizziness. PSYCHIATRIC: Not anxious. No depression. No suicidal thoughts. No homicidal thoughts. SKIN: No rash. No lesions. No wounds. ENDOCRINE: No unexplained weight loss. No weight gain. HEMATOLOGIC/LYMPHATIC: No anemia. No purpura. No petechiae. No prolonged or excessive bleeding. No palpable lymph nodes. PHYSICAL EXAMINATION: GENERAL: The patient is lying in bed in no distress. VITAL SIGNS: Temperature 98.0 F, Pulse 68, Respiratory Rate 20, BP 136/78, Pulse Ox 93% HEENT: Head normocephalic, atraumatic. Eyes: Extraocular muscles are intact. Pupils are equal, round and reactive to light and accommodation. Ears: No lesions. Nose appeared normal. Throat: No exudate or erythema. NECK: Supple. No JVD, no carotid bruit. No lymphadenopathy or thyromegaly. LUNGS: Diminished breath sounds. Clear to auscultation. Percussion note normal. Chest symmetrical. HEART: S1, S2, no S3. Irregular heart rate. No murmurs. No cyanosis or clubbin g. No ascites. Pulses: Dorsalis pedis and posterior tibial pulses +1 to +2 both sides. ABDOMEN: Soft. Non-tender. Bowel sounds active. No CVA tenderness. No mass felt. EXTREMITIES: No edema. Full range of motion of all extremities, equal. NEUROLOGIC: No focal deficit. Cranial nerves II through XII are grossly intact. No headache. No double vision. Responsive to painful stimulus. SKIN: Not dry. Intact. Turgor-normal. LYMPHATIC: No palpable lymph nodes/no lymphedema. MUSCULOSKELETAL: Normal joints with no swelling. Muscle tone is normal. LAB REVIEW: 02/14/21 06:20 02/14/21 06:20 02/14/21 06:20: D-Dimer 453.08 02/14/21 06:20: PT 12.6 H, INR 1.22 02/14/21 06:20: ESR 2 02/14/21 06:20: Sodium 146.0 H, Potassium 3.90, Chloride 107.0, Carbon Dioxide 25.0, Anion Gap 17.90, BUN 31.0 H, Creatinine 1.10, Estimated GFR (MDRD) 64.00, BUN/Creatinine Ratio 28.18, Glucose 209.0 H, Calcium 9.00, Total Bilirubin 0.90, AST 41.0, ALT 31.0, Alkaline Phosphatase 49.0 L, Total Protein 6.40, Albumin 3.40 L, Globulin 3.00, Albumin/Globulin Ratio 1.13 02/14/21 06:20: WBC 7.68, RBC 5.75, Hgb 15.6, Hct 48.3, MCV 84.0 D, MCH 27.1, MCHC 32.3, RDW Coeff of [place] 17.0 H, Plt Count 266, Immature Gran % (Auto) 0.4, Neut % (Auto) 82.7 H, Lymph % (Auto) 5.9 L, [place] % (Auto) 10.9 H, Eos % (Auto) 0.0, Baso % (Auto) 0.1, Neut # (Auto) 6.4, Lymph # (Auto) 0.5 L, [place] # (Auto) 0.8, Eos # (Auto) 0.0, Baso # (Auto) 0.0, Immature Gran # (Auto) 0.0 02/13/21 15:35: Urine Color Yellow, Urine Clarity Clear, Urine pH 5.0, Ur Specific [place] 1.025, Urine Protein 1+ H, Urine Glucose (UA) 3+ H, Urine Ketones 1+ H, Urine Blood Trace-intact H, Urine Nitrite Negative, Urine Bilirubin Negative, Urine Urobilinogen 0.2, Ur Leukocyte Esterase Negative, Urine Microscopic RBC 0-2, Urine Microscopic WBC 2-5, Ur Squamous Epith Cells 0- 2, Amorphous Sediment 1+, Urine Bacteria 1+, Hyaline Casts 0-2 02/13/21 09:29: Puncture Site Rbrach, Base Excess -1.7, O2 Saturation 98.9 H, ABG pH 7.52 H*, ABG pCO2 26.0 L, ABG pO2 114.0 H, ABG HCO3 21.2, ABG Total CO2 22.0, Hemoglobin 1.2, Oxyhemoglobin 94.6 L, Carboxyhemoglobin 2.8 H, Total Hemoglobin 15.1, O2 Delivery Device Cannula, Oxygen Liter Flow 6.00 02/13/21 09:25: Sodium 143.0, Potassium 3.67, Chloride 110.0 H, Carbon Dioxide 20.2 L D, Anion Gap 16.47, BUN 29.1 H, Creatinine 0.94, Estimated GFR (MDRD) 77.00, BUN/Creatinine Ratio 30.95, Glucose 176.1 H, Calcium 8.84, Total Joel irubin 0.69, AST 52.7, ALT 30.1, Alkaline Phosphatase 46.6 L, Total Protein 5.81 L, Albumin 3.21 L, Globulin 2.60, Albumin/Globulin Ratio 1.23 02/13/21 09:25: D-Dimer 449.84 02/13/21 09:25: PT 13.1 H, INR 1.27 02/13/21 09:25: ESR 5 ASSESSMENT: Please see below. 1. COVID 19 pneumonia with acute respiratory failure 2. Acute change in mental status 3. Dehydration 4. Shortness of breath PLAN: 1. Will attempt IV access in the foot 2. Continue nasal cannula 3. Will evaluate speech and ability to swallow. Plan and coordination of the patient's care discussed in the presence of Cutter V Groove and nurse. SCRIBED BY: NABOR CLEVELAND Exhibition Carver scribed while in presence of service performed by Dr. Mendiola/Thais Acosta APRN on 02/14/21 ([id number])
[2021-02-14] MEDS: CRESTOR PO SCH (10:23)
[2021-02-14] MEDS: MICRO-K CAP PO SCH (10:23)
[2021-02-14] MEDS: TRIGLIDE PO SCH (10:24)
[2021-02-14] MEDS: ZESTRIL PO SCH (10:25)
[2021-02-14] MEDS: ZINC-220 PO SCH (10:25)
[2021-02-14] MEDS: LOVENOX SUBCUT SCH ×3 (10:25→21:06)
[2021-02-14] MEDS: VITAMIN D PO SCH (10:25)
[2021-02-14] MEDS ORDERED: GLYCERIN SUPPOSITORY RC PRN (16:29)
[2021-02-14] MEDS: VASOTEC IV IVP PRN ×2 (17:11→23:01)
[2021-02-14] MEDS ORDERED: LANOXIN IVP STA ×2 (19:51→22:10)
[2021-02-14] MEDS ORDERED: CARDIZEM INJ IVP STA (19:51)
[2021-02-14] MEDS: CARDIZEM 125 MG in SODIUM CHLORIDE 100ML 100 ML IV SCH (20:23)
[2021-02-15] MEDS: DEXTROSE 5%-1/2NS IV SOLUTION 1,000 ML IV SCH ×4 (04:10→18:12)
[2021-02-15] MEDS: CARDIZEM 125 MG in SODIUM CHLORIDE 100ML 100 ML IV SCH ×2 (04:15→14:13)
[2021-02-15] MEDS: VENTOLIN HFA (PER PUFF-WITH SPACER) IH SCH ×4 (04:45→20:22)
[2021-02-15 05:18] LABS: BASOPHILS % (AUTO) 0.2 % (0.0-3.0); HEMATOCRIT 47.2 % (42.0-52.0); HEMOGLOBIN 15.2 g/dl (14.0-18.0); IMMATURE GRANULOCYTE # (AUTO) 0.1 (0.0-1.0); IMMATURE GRANULOCYTE % (AUTO) 0.8 % (0.0-5.0); LYMPHOCYTES # (AUTO) 0.4 K/uL (0.60-3.4); LYMPHOCYTES % (AUTO) 4.4 (10.0-50.0); MEAN CORPUSCULAR HEMOGLOBIN 26.7 pg (27.0-31.0); MEAN CORPUSCULAR HGB CONC 32.2 (31.8-35.4); MONOCYTES # (AUTO) 1.3 K/uL (0.4-2.0); MONOCYTES % (AUTO) 14.2 (0-10); NEUTROPHILS # (AUTO) 7.2 K/ul (2.0-6.9); NEUTROPHILS % (AUTO) 80.4 % (42.2-75.2); PLATELET COUNT 279 10^3/uL (140-440); RDW COEFFICIENT OF VARIATION 16.7 % (11.6-14.8); RED BLOOD COUNT 5.69 10^6/ul (4.70-6.10); WHITE BLOOD COUNT 8.96 K/ul (4.2-10.2)
[2021-02-15 05:31] LABS: ALANINE AMINOTRANSFERASE 28.3 U/L (0-50); ALBUMIN 3.12 g/dL (3.5-5.0); ALKALINE PHOSPHATASE 52.7 U/L (56-119); ASPARTATE AMINO TRANSFERASE 37.6 U/L (17-59); BILIRUBIN,TOTAL 0.87 mg/dL (0.2-1.3); BLOOD UREA NITROGEN 30.3 mg/dL (9-20); CALCIUM 9.13 mg/dL (8.4-10.2); CARBON DIOXIDE 27.8 mmol/L (22-30.0); CHLORIDE 111.5 mmol/L (98-107); CREATININE 1.13 mg/dL (0.60-1.10); POTASSIUM 3.95 mmol/L (3.5-5.1); SODIUM 147.3 mmol/L (134.5-145); TOTAL PROTEIN 5.76 g/dL (6.3-8.2)
[2021-02-15] MEDS: VASOTEC IV IVP PRN ×2 (05:33→18:11)
[2021-02-15] MEDS: HUMULIN R SUBCUT PRN ×4 (05:56→20:16)
[2021-02-15 06:11] LABS: C-REACTIVE PROTEIN 22 mg/L (0-10)
[2021-02-15 07:15] LABS: C-REACTIVE PROTEIN 21 mg/L (0-10)
[2021-02-15] MEDS: LASIX TAB PO SCH (07:53)
[2021-02-15] MEDS: PEPCID PO SCH ×2 (08:01→17:02)
[2021-02-15] MEDS ORDERED: LANOXIN IVP ONE (08:30)
[2021-02-15] MEDS ORDERED: CARDIZEM INJ IVP ONE ×2 (09:01→13:30)
--- NOTE | 2021-02-15 09:37 | PCM.PROG ---
Attending Provider: ATTENDING PROVIDER: Dr. OMAR WARNER This patient is seen with Thais Acosta, Nurse Practitioner. DATE OF SERVICE: 02/15/21 SUBJECTIVE: This 80 year old /WHITE M was hospitalized 02/09/21. Mental status unchanged. The patient is not responding. He is unable to swallow medications, eat or drink. Heart rate is up to 190. Cardizem drip with only mild improvement. He received two doses of Digoxin. He will get another this morning. Pulmonary status is actually stable. Prognosis is poor. REVIEW OF SYSTEMS: CONSTITUTIONAL: No night sweats. Lethargy. No fever or chills.Unresponsive. Weakness. HEENT: Eyes: No visual changes. No eye pain. No eye discharge. ENT: No runny nose. No epistaxis. No sinus pain. No odynophagia. No congestion. RESPIRATORY: No cough, no congestion. No hemoptysis. Shortness of breath. CARDIOVASCULAR: No angina symptoms. No CHF symptoms. No atypical chest pain for CAD. No palpitations. No orthopnea.. GASTROINTESTINAL: No abdominal pain. No nausea or vomiting. No diarrhea or constipation. No hematemesis. No hematochezia. GENITOURINARY: No urgency. No frequency. No dysuria. No hematuria. No obstructive symptoms. No discharge. No pain. No significant abnormal bleeding. MUSCULOSKELETAL: No musculoskeletal pain; no joint swelling. NEUROLOGICAL: No headache. No neck pain. No syncope. No seizures. No dizziness. PSYCHIATRIC: Not anxious. No depression. No suicidal thoughts. No homicidal thoughts. SKIN: No rash. No lesions. No wounds. ENDOCRINE: No unexplained weight loss. No weight gain. HEMATOLOGIC/LYMPHATIC: No anemia. No purpura. No petechiae. No prolonged or excessive bleeding. No palpable lymph nodes. PHYSICAL EXAMINATION: GENERAL: The patient is unresponsive, lying in bed in no distress. VITAL SIGNS: Temperature 98.2 F, Pulse 153, Respiratory Rate 28, BP 180/92, Pulse Ox 93% HEENT: Head normocephalic, atraumatic. Eyes: Extraocular muscles are intact. Pupils are equal, round and reactive to light and accommodation. Ears: No lesions. Nose appeared normal. Throat: No exudate or erythema. NECK: Supple. No JVD, no carotid bruit. No lymphadenopathy or thyromegaly. LUNGS: Victoriano French breathing.Clear to auscultation. Percussion note normal. Chest symmetrical. HEART: S1, S2, no S3. No murmurs. Tachycardia. No cyanosis or clubbing. No ascites. Pulses: Dorsalis pedis and posterior tibial pulses +1 to +2 both sides. ABDOMEN: Soft. Non-tender. Bowel sounds active. No CVA tenderness. No mass felt. EXTREMITIES: No edema. Full range of motion of all extremities, equal. NEUROLOGIC: No focal deficit. Cranial nerves II through XII are grossly intact. No headache. No double vision. SKIN: Not dry. Intact. Turgor-normal. LYMPHATIC: No palpable lymph nodes/no lymphedema. MUSCULOSKELETAL: Normal joints with no swelling. Muscle tone is normal. LAB REVIEW: 02/15/21 04:45 02/15/21 04:45 02/15/21 04:45: Sodium 147.3 H, Potassium 3.95, Chloride 111.5 H, Carbon Dioxide 27.8, Anion Gap 11.95, BUN 30.3 H, Creatinine 1.13 H, Estimated GFR (MDRD) 62.00, BUN/Creatinine Ratio 26.81, Glucose 240.0 H D, Calcium 9.13, Total Bilirubin 0.87, AST 37.6, ALT 28.3, Alkaline Phosphatase 52.7 L, Total Protein 5.76 L, Albumin 3.12 L, Globulin 2.64, Albumin/Globulin Ratio 1.18 02/15/21 04:45: WBC 8.96, RBC 5.69, Hgb 15.2, Hct 47.2, MCV 83.0, MCH 26.7 L, MCHC 32.2, RDW Coeff of [place] 16.7 H, Plt Count 279, Immature Gran % (Auto) 0.8, Neut % (Auto) 80.4 H, Lymph % (Auto) 4.4 L, [place] % (Auto) 14.2 H, Eos % (Auto) 0.0, Baso % (Auto) 0.2, Neut # (Auto) 7.2 H, Lymph # (Auto) 0.4 L, [place] # (Auto) 1.3, Eos # (Auto) 0.0, Baso # (Auto) 0.0, Immature Gran # (Auto) 0.1 02/14/21 20:28: Glucose 308.0 H D 02/14/21 06:20: Lactate Dehydrogenase 331 H, C-Reactive Prot, Quant 22 H 02/14/21 06:02: Ferritin 123.00 02/13/21 09:25: Lactate Dehydrogenase 366 H, C-Reactive Prot, Quant 21 H ASSESSMENT: Please see below. 1. Encephalopathy due to multiple factors including COVID 2. Dementia 3. Hospital psychosis 4. Dehydration 5. COVID pneumonia 6. Respiratory status is stable 7. Atrial fibrillation 8. Dilated cardiomyopathy 9. Diabetes Mellitus type II, uncontrolled 10.Obesity 11.Hypertension PLAN: 1. Decrease IV fluids to 50cc an hour 2. CT of brain with and without 3. Digoxin 0.25mg IV now 4. Continue Cardizem drip 5. Ammonia level 6. Blood cultures times two. Plan and coordination of the patient's care discussed in the presence of Stock Speculator and nurse. PROGNOSIS: POOR SCRIBED BY: Waldo IRENE scribed while in presence of service performed by Dr. Warner/Thais Acosta APRN on 02/15/21 ([id number])
[2021-02-15] MEDS: CRESTOR PO SCH (11:05)
[2021-02-15] MEDS: CARDIZEM PO SCH ×3 (11:05→21:31)
[2021-02-15] MEDS: DECADRON IM SCH ×2 (11:05→12:30)
[2021-02-15] MEDS: SYMBICORT 160-4.5 MCG INHALER IH SCH ×2 (11:06→21:31)
[2021-02-15] MEDS: MICRO-K CAP PO SCH (11:06)
[2021-02-15] MEDS: TOPROL XL PO SCH ×2 (11:06→21:32)
[2021-02-15] MEDS: TRIGLIDE PO SCH (11:07)
[2021-02-15] MEDS: ZESTRIL PO SCH (11:07)
[2021-02-15] MEDS: VITAMIN D PO SCH (11:07)
[2021-02-15] MEDS: ZINC-220 PO SCH (11:08)
[2021-02-15] MEDS: ROCEPHIN 1 GM/50 ML D5W 1 GM/50 ML BAG IV SCH (11:10)
--- NOTE | 2021-02-15 11:16 | CT ---
EXAM: CT head with and without contrast HISTORY: Acute change in mental status COMPARISON: CT head without contrast 02/09/2021 TECHNIQUE: CT head performed with and without intravenous contrast. FINDINGS: There is no mass effect, midline shift, or intracranial hemmorhage. Fuller white differenti ation is preserved. There is no extra-axial collection. The ventricles, sulci, and basal cisterns a re patent and symmetric. There is chronic ischemic disease of the white matter and cerebral volume l oss. There is no depressed calvarial fracture. The mastoid air cells are clear. Paranasal sinus muc osal thickening with near complete opacification of the right sphenoid sinus. There are intracranial atherosclerotic calcifications.No abnormal area of enhancement. IMPRESSION: 1. No acute intracranial abnormality. No abnormal area of enhancement. 2. Chronic ischemic disease of the white matter and cerebral volume loss. 3. Sinusitis All CT scans are performed using dose optimization techniques as appropriate to the performed exam an d include at least one of the following: Automated exposure control, adjustment of the mA and/or kV according t o size, and the use of iterative reconstruction technique.
[2021-02-15] MEDS: DOXY-100 100 MG in SODIUM CHLORIDE 100ML 100 ML IV SCH ×2 (12:29→21:12)
[2021-02-15] MEDS: LOVENOX SUBCUT SCH ×2 (12:31→20:15)
[2021-02-15] MEDS: LIDOCAINE HCL 1% SDV IM SCH (13:04)
[2021-02-15] MEDS ORDERED: LOPRESSOR IVP SCH ×2 (14:30→21:00)
[2021-02-15] MEDS ORDERED: CARDIZEM INJ IVP STA (17:48)
[2021-02-16] MEDS: CARDIZEM 125 MG in SODIUM CHLORIDE 100ML 100 ML IV SCH ×3 (01:10→21:09)
[2021-02-16] MEDS: VASOTEC IV IVP PRN (02:09)
[2021-02-16] MEDS: VENTOLIN HFA (PER PUFF-WITH SPACER) IH SCH ×4 (04:11→19:45)
[2021-02-16 05:10] LABS: BASOPHILS % (AUTO) 0.1 % (0.0-3.0); EOSINOPHILS % (AUTO) 0.3 % (0.0-7.0); HEMATOCRIT 49.9 % (42.0-52.0); HEMOGLOBIN 15.6 g/dl (14.0-18.0); IMMATURE GRANULOCYTE # (AUTO) 0.1 (0.0-1.0); IMMATURE GRANULOCYTE % (AUTO) 1.3 % (0.0-5.0); LYMPHOCYTES # (AUTO) 0.4 K/uL (0.60-3.4); LYMPHOCYTES % (AUTO) 6.4 (10.0-50.0); MEAN CORPUSCULAR HEMOGLOBIN 26.7 pg (27.0-31.0); MEAN CORPUSCULAR HGB CONC 31.3 (31.8-35.4); MEAN CORPUSCULAR VOLUME 85.3 fl (80.0-94.0); MONOCYTES # (AUTO) 0.8 K/uL (0.4-2.0); MONOCYTES % (AUTO) 12.4 (0-10); NEUTROPHILS # (AUTO) 5.3 K/ul (2.0-6.9); NEUTROPHILS % (AUTO) 79.5 % (42.2-75.2); PLATELET COUNT 253 10^3/uL (140-440); RDW COEFFICIENT OF VARIATION 17.4 % (11.6-14.8); RED BLOOD COUNT 5.85 10^6/ul (4.70-6.10); WHITE BLOOD COUNT 6.71 K/ul (4.2-10.2)
[2021-02-16 05:24] LABS: ALANINE AMINOTRANSFERASE 25.6 U/L (0-50); ALBUMIN 3.07 g/dL (3.5-5.0); ALKALINE PHOSPHATASE 56.9 U/L (56-119); ASPARTATE AMINO TRANSFERASE 35.7 U/L (17-59); BILIRUBIN,TOTAL 0.94 mg/dL (0.2-1.3); BLOOD UREA NITROGEN 22.1 mg/dL (9-20); CALCIUM 9.11 mg/dL (8.4-10.2); CARBON DIOXIDE 28.1 mmol/L (22-30.0); CHLORIDE 116.6 mmol/L (98-107); CREATININE 1.05 mg/dL (0.60-1.10); GLUCOSE 176.5 mg/dL (74-106); POTASSIUM 3.73 mmol/L (3.5-5.1); SODIUM 151.2 mmol/L (134.5-145); TOTAL PROTEIN 5.66 g/dL (6.3-8.2)
[2021-02-16] MEDS: HUMULIN R SUBCUT PRN ×4 (05:53→21:30)
[2021-02-16] MEDS ORDERED: CARDIZEM INJ IVP ONE (07:55)
[2021-02-16] MEDS: LASIX TAB PO SCH (07:59)
[2021-02-16] MEDS: PEPCID PO SCH (07:59)
[2021-02-16] MEDS: PROTONIX IV IVP SCH (08:27)
[2021-02-16] MEDS: CRESTOR PO SCH (08:54)
[2021-02-16] MEDS: CARDIZEM PO SCH (08:54)
[2021-02-16] MEDS: MICRO-K CAP PO SCH (08:55)
[2021-02-16] MEDS: SYMBICORT 160-4.5 MCG INHALER IH SCH ×2 (08:55→21:32)
[2021-02-16] MEDS: TRIGLIDE PO SCH (08:56)
[2021-02-16] MEDS ORDERED: LOPRESSOR IVP SCH (09:00)
[2021-02-16] MEDS: DECADRON IM SCH (09:11)
[2021-02-16] MEDS: ROCEPHIN 1 GM/50 ML D5W 1 GM/50 ML BAG IV SCH (09:11)
--- NOTE | 2021-02-16 09:11 | PCM.PROG ---
Attending Provider: ATTENDING PROVIDER: Dr. OMAR MENDIOLA This patient is seen with Thais Acosta, Nurse Practitioner. DATE OF SERVICE: 02/16/21 SUBJECTIVE: This 80 year old /WHITE M was hospitalized 02/09/21. Mental status is unchanged, not responding, garbled sounds. Oxygen saturation 89-92% on 5 liters. Heart rate is ranging between 130-180. He is unable to tolerate oral care last night. Will attempt to evaluate swallowing ability. REVIEW OF SYSTEMS: CONSTITUTIONAL: No night sweats. Fatigue, malaise and lethargy. No fever or chills. Obtunded. Agitated. Generalized weakness. HEENT: Eyes: No visual changes. No eye pain. No eye discharge. ENT: No runny nose. No epistaxis. No sinus pain. No odynophagia. No congestion. RESPIRATORY: No cough, no congestion. No hemoptysis. Shortness of breath. CARDIOVASCULAR: No angina symptoms. No CHF symptoms. No atypical chest pain for CAD. No palpitations. No orthopnea.. GASTROINTESTINAL: No abdominal pain. No nausea or vomiting. No diarrhea or constipation. No hematemesis. No hematochezia. GENITOURINARY: No urgency. No frequency. No dysuria. No hematuria. No obstructive symptoms. No discharge. No pain. No significant abnormal bleeding. MUSCULOSKELETAL: No musculoskeletal pain; no joint swelling. NEUROLOGICAL: No headache. No neck pain. No syncope. No seizures. No dizziness. PSYCHIATRIC: Not anxious. No depression. No suicidal thoughts. No homicidal thoughts. SKIN: No rash. No lesions. No wounds. ENDOCRINE: No unexplained weight loss. No weight gain. HEMATOLOGIC/LYMPHATIC: No anemia. No purpura. No petechiae. No prolonged or excessive bleeding. No palpable lymph nodes. PHYSICAL EXAMINATION: VITAL SIGNS: Temperature 97.5 F, Pulse 113, Respiratory Rate 25, BP 166/87, Pulse Ox 91% HEENT: Head normocephalic, atraumatic. Eyes: Extraocular muscles are intact. Pupils are equal, round and reactive to light and accommodation. Ears: No lesions. Nose appeared normal. Throat: No exudate or erythema. NECK: Supple. No JVD, no carotid bruit. No lymphadenopathy or thyromegaly. LUNGS: Diminished breath sounds. Clear to auscultation. Percussion note normal. Chest symmetrical. HEART: S1, S2, no S3. Irregular heart rate. No murmurs. No cyanosis or clubbing. No ascites. Pulses: Dorsalis pedis and posterior tibial pulses +1 to +2 both sides. ABDOMEN: Soft. Non-tender. Bowel sounds active. No CVA tenderness. No mass felt. EXTREMITIES: No edema. Full range of motion of all extremities, equal. NEUROLOGIC: No focal deficit. Cranial nerves II through XII are grossly intact. No headache. No double vision. SKIN: Not dry. Intact. Turgor-normal. LYMPHATIC: No palpable lymph nodes/no lymphedema. MUSCULOSKELETAL: Normal joints with no swelling. Muscle tone is normal. LAB REVIEW: 02/16/21 04:50 02/16/21 04:50 02/16/21 04:50: Sodium 151.2 H, Potassium 3.73, Chloride 116.6 H, Carbon Dioxide 28.1, Anion Gap 10.23, BUN 22.1 H, Creatinine 1.05, Estimated GFR (MDRD) 68.00, BUN/Creatinine Ratio 21.04, Glucose 176.5 H, Calcium 9.11, Total Bilirubin 0.94, AST 35.7, ALT 25.6, Alkaline Phosphatase 56.9, Total Protein 5.66 L, Albumin 3.07 L, Globulin 2.59, Albumin/Globulin Ratio 1.18 02/16/21 04:50: WBC 6.71, RBC 5.85, Hgb 15.6, Hct 49.9, MCV 85.3, MCH 26.7 L, MC HC 31.3 L, RDW Coeff of [place] 17.4 H, Plt Count 253, Immature Gran % (Auto) 1.3, Neut % (Auto) 79.5 H, Lymph % (Auto) 6.4 L, [place] % (Auto) 12.4 H, Eos % (Auto) 0.3, Baso % (Auto) 0.1, Neut # (Auto) 5.3, Lymph # (Auto) 0.4 L, [place] # (Auto) 0.8, Eos # (Auto) 0.0, Baso # (Auto) 0.0, Immature Gran # (Auto) 0.1 02/15/21 10:04: Ammonia < 8.7 L ASSESSMENT: Please see below. 1. COVID 19 pneumonia 2. Encephalopathy due to COVID 19 3. Dementia 4. Acute respiratory failure 5. Atrial fibrillation with RVR 6. Dilate cardiomyopathy 7. Coronary artery disease 8. Hypertension 9. Diabetes Mellitus type II PLAN: 1. Increase Metoprolol 5mg Q 12 hours 2. Protonix 40mg IV daily 3. Cardizem 5mg IV now Plan and coordination of the patient's care discussed in the presence of Wholesale Agronomist and nurse. SCRIBED BY: Waldo IRENE scribed while in presence of service performed by Dr. Mendiola/Thais Acosta APRN on 02/16/21 ([id number])
[2021-02-16] MEDS: LOVENOX SUBCUT SCH ×2 (09:19→21:29)
[2021-02-16] MEDS: TOPROL XL PO SCH (10:33)
[2021-02-16] MEDS: ZESTRIL PO SCH (10:35)
[2021-02-16] MEDS: ZINC-220 PO SCH (10:35)
[2021-02-16] MEDS: VITAMIN D PO SCH (10:35)
[2021-02-16] MEDS: DEXTROSE 5%-1/2NS IV SOLUTION 1,000 ML IV SCH ×2 (10:36→16:26)
[2021-02-16] MEDS: DOXY-100 100 MG in SODIUM CHLORIDE 100ML 100 ML IV SCH ×2 (10:39→21:29)
--- NOTE | 2021-02-16 10:59 | PN ---
DATE OF SERVICE: 02/10/2021 SUBJECTIVE: The patient was seen and examined with the Nurse Practitioner. The patient's condition seems to have improved in a way that he is on now Vapotherm with 70% improvement in his oxygen saturation. The patient's cardiovascular status is stable with no evidence of CHF or coronary insufficiency. The patient has multiple comorbidities like CHF, dilated cardiomyopathy, hypertension, obesity, chronic lung disease and atrial fibrillation. The patient is non-compliant of all aspects of medical care. COVID pneumonia and hypoxemia. The patient prognosis is poor. The patient is DNR. TIME SPENT: More than 30 minutes. Plan and coordination of the patient's care discussed in the presence of nurse. DAVIDA
--- NOTE | 2021-02-16 11:16 | PN ---
DATE OF SERVICE: 02/12/2021 SUBJECTIVE: 80 year old white male hospitalized with COVID also has history of hypoxemia on home oxygen. The patient is entirely non-compliant for all aspects of medical care. The patient has been so confused. He is up and about in the room naked, no blankets. He doesn't wear telemetry. IV was pulled out twice on previous night. The patient has been given Ativan and Haldol with no much response. The patient has not taken any oral medications or IV medications and IM medications like Rocephin and Decadron. He is without any medications. His arterial blood gasses this morning showed on 6 liters pO2 of 67, pCO2 34, pH 7.48 with 95% saturation which is really good for him. Called the daughter, Gifty and let her know what it has been impossible to treat this person. He has been practically agitated and has pulled the IVs out and the nursing staff has been unable to take care of him. The patient whenever he has not been disturbed sees to be resting at times. REVIEW OF SYSTEMS: CONSTITUTIONAL: No night sweats. No fatigue, malaise, lethargy. No fever or chills. HEENT: Eyes: No visual changes. No eye pain. No eye discharge. ENT: No runny nose. No epistaxis. No sinus pain. No sore throat. No odynophagia. No congestion. RESPIRATORY: No cough, no congestion. No hemoptysis. No shortness of breath. CARDIOVASCULAR: No angina symptoms. No CHF symptoms. No atypical chest pain for CAD. No palpitations. No PND. No orthopnea. GASTROINTESTINAL: No abdominal pain. No nausea or vomiting. No diarrhea or constipation. No hematemesis. No hematochezia. GENITOURINARY: No urgency. No frequency. No dysuria. No hematuria. No obstructive symptoms. No discharge. No pain. No significant abnormal bleeding. MUSCULOSKELETAL: No musculoskeletal pain; no joint swelling. NEUROLOGICAL: No headache. No neck pain. No syncope. No seizures. No dizziness. PSYCHIATRIC: Not anxious. No depression. No suicidal thoughts. No homicidal thoughts. SKIN: No rash. No lesions. No wounds. ENDOCRINE: No unexplained weight loss. No weight gain. HEMATOLOGIC/LYMPHATIC: No anemia. No purpura. No petechiae. No prolonged or excessive bleeding. No palpable lymph nodes. PHYSICAL EXAMINATION: VITAL SIGNS: Temperature 97.6, pulse 110 per minute, respiratory rate 18, blood pressure 150/90 and pulse ox 98% on 5 liters. HEENT: Head normocephalic, atraumatic. Eyes: Extraocular muscles are intact. Pupils are equal, round and reactive to light and accommodation. Ears: No lesions. Nose appeared normal. Throat: No exudate or erythema. NECK: Supple. No JVD, no carotid bruit. No lymphadenopathy or thyromegaly. LUNGS: Decreased breath sounds but good air entry. Clear to auscultation. Percussion note normal. Chest symmetrical. HEART: S1, S2, no S3. No murmurs. No cyanosis or clubbing. No ascites. Pulses: Dorsalis pedis and posterior tibial pulses +1 to +2 bilaterally. ABDOMEN: Soft. Nontender. Bowel sounds active. No CVA tenderness. No mass felt. EXTREMITIES: No edema. Full range of motion of all extremities, equal. NEUROLOGIC: No focal deficit. Cranial nerves II through XII are grossly intact. No headache. No double vision. SKIN: Not dry. Intact. Turgor - normal. LYMPHATIC: No palpable lymph nodes/no lymphedema. MUSCULOSKELETAL: Normal joints with no swelling. Muscle tone is normal. LABS: Hgb 14.6, hct 44, wbc 6,000 normal differential, creatinine 1.2, BUN 36, glucose 170. ASSESSMENT: 1. Respiratory failure with COVID 19 pneumonia 2. Atrial fibrillation with rapid ventricular response 3. Dementia which is the patient has but the COVID has made it worse with hypoxemia 4. History of chronic kidney disease 5. History of sleep apnea 6. History of chronic lung disease with home oxygen 7. Hypertension 8. Dyslipidemia PLAN: 1. Continue Doxycycline, Dexamethasone IM 2. IM Rocephin give as many medication IM as possible. 3. The patient is to be continued on Apixaban, Albuterol inhaler if he cooperates. 4. The patient is totally uncooperative and difficult to treat him. According to the patient's condition later on in the day today. He was still restless and unable to get any help because he is agitated. 5. Try Haldol 2-3mg every 4 hourly, no more than 15mg a day and see how he does 6. IV fluids infused because the patient may get dehydrated with practically not much oral intake. PROGNOSIS: GUARDED. The family knows about it. TIME SPENT: More than 30 minutes. Plan and coordination of the patient's care discussed in the presence of nurse. DAVIDA
--- NOTE | 2021-02-16 11:27 | PN ---
DATE OF SERVICE: 02/13/2021 SUBJECTIVE: 80 year old white male was hospitalized with COVID 19 pneumonia and respiratory failure. The patient's condition has improved as far as respiratory status is concerned. He has blood gasses which showed pO2 of 114 with pCO2 26 with pH 7.52 with 98% saturation. Respiratory status remarkably has been improved. He has been given 2mg Haldol every 4-6 hours and able to get some IV fluids. REVIEW OF SYSTEMS: CONSTITUTIONAL: No night sweats. No fatigue, malaise, lethargy. No fever or chills. HEENT: Eyes: No visual changes. No eye pain. No eye discharge. ENT: No runny nose. No epistaxis. No sinus pain. No sore throat. No odynophagia. No congestion. RESPIRATORY: No cough, no congestion. No hemoptysis. No shortness of breath. CARDIOVASCULAR: No angina symptoms. No CHF symptoms. No atypical chest pain for CAD. No palpitations. No PND. No orthopnea. GASTROINTESTINAL: No abdominal pain. No nausea or vomiting. No diarrhea or constipation. No hematemesis. No hematochezia. GENITOURINARY: No urgency. No frequency. No dysuria. No hematuria. No obstructive symptoms. No discharge. No pain. No significant abnormal bleeding. MUSCULOSKELETAL: No musculoskeletal pain; no joint swelling. NEUROLOGICAL: No headache. No neck pain. No syncope. No seizures. No dizziness. Confused. PSYCHIATRIC: Not anxious. No depression. No suicidal thoughts. No homicidal thoughts. SKIN: No rash. No lesions. No wounds. ENDOCRINE: No unexplained weight loss. No weight gain. HEMATOLOGIC/LYMPHATIC: No anemia. No purpura. No petechiae. No prolonged or excessive bleeding. No palpable lymph nodes. PHYSICAL EXAMINATION: GENERAL: The patient is confused but doesn't seem to be in distress at all. VITAL SIGNS: Temperature 97.3, pulse 72, respiratory rate 22, blood pressure 156/78 and pulse ox 99% on 6 liters. HEENT: Head normocephalic, atraumatic. Eyes: Extraocular muscles are intact. Pupils are equal, round and reactive to light and accommodation. Ears: No lesions. Nose appeared normal. Throat: No exudate or erythema. NECK: Supple. No JVD, no carotid bruit. No lymphadenopathy or thyromegaly. LUNGS: Decreased breath sounds. Clear to auscultation. Percussion note normal. Chest symmetrical. HEART: S1, S2, no S3. No murmurs. No cyanosis or clubbing. No ascites. Pulses: Dorsalis pedis and posterior tibial pulses +1 to +2 bilaterally. ABDOMEN: Soft. Nontender. Bowel sounds active. No CVA tenderness. No mass felt. EXTREMITIES: No edema. Full range of motion of all extremities, equal. NEUROLOGIC: No focal deficit. Cranial nerves II through XII are grossly intact. No headache. No double vision. SKIN: Not dry. Intact. Turgor - normal. LYMPHATIC: No palpable lymph nodes/no lymphedema. MUSCULOSKELETAL: Normal joints with no swelling. Muscle tone is normal. LABS: Drawn this morning and reports are pending. Yesterday Potassium was 3.7 with creatinine 1.2, BUN 36 ASSESSMENT: 1. COVID 19 pneumonia with respiratory failure, resolving, Remarkable improvement in pulmonary status. The patient's problem is the patient's confusion which I think is a combination of COVID, hospital psychosis and dementia. The patient is very difficult to take care of. He is not keeping the covers on, he is mostly naked in the room. He gets really wild and restless. Yesterday night the patient was given 400-500cc of IV fluids and he was able to eat some with applesauce etc. His oral intake was acceptable. The oral medications are difficult to get in but he has been getting Rocephin IM. Tried to get his Remdesivir. Strongly advised the nursing staff to get at least Apixaban 5mg twice a day because the patient is in atrial fibrillation. Dexamethasone IM is being given along with antibiotics. The patient is very difficult to take care of. PROGNOSIS: Guarded. TIME SPENT: More than 30 minutes. Plan and coordination of the patient's care discussed in the presence of nurse. DAVIDA
[2021-02-16] MEDS: LOPRESSOR IVP SCH ×2 (15:19→21:30)
[2021-02-17] MEDS: VENTOLIN HFA (PER PUFF-WITH SPACER) IH SCH ×4 (04:25→19:30)
[2021-02-17] MEDS: DEXTROSE 5%-1/2NS IV SOLUTION 1,000 ML IV SCH ×2 (05:24→12:34)
[2021-02-17] MEDS: VASOTEC IV IVP PRN ×2 (05:57→18:30)
[2021-02-17] MEDS: LASIX TAB PO SCH (06:12)
[2021-02-17] MEDS: HUMULIN R SUBCUT PRN ×4 (06:19→20:55)
[2021-02-17 07:25] LABS: BASOPHILS % (AUTO) 0.1 % (0.0-3.0); HEMATOCRIT 48.6 % (42.0-52.0); HEMOGLOBIN 15.2 g/dl (14.0-18.0); IMMATURE GRANULOCYTE # (AUTO) 0.2 (0.0-1.0); IMMATURE GRANULOCYTE % (AUTO) 1.6 % (0.0-5.0); LYMPHOCYTES # (AUTO) 0.4 K/uL (0.60-3.4); MEAN CORPUSCULAR HGB CONC 31.3 (31.8-35.4); MEAN CORPUSCULAR VOLUME 86.3 fl (80.0-94.0); MONOCYTES % (AUTO) 10.8 (0-10); NEUTROPHILS % (AUTO) 83.5 % (42.2-75.2); PLATELET COUNT 253 10^3/uL (140-440); RDW COEFFICIENT OF VARIATION 18.3 % (11.6-14.8); RED BLOOD COUNT 5.63 10^6/ul (4.70-6.10); WHITE BLOOD COUNT 9.52 K/ul (4.2-10.2)
[2021-02-17 07:41] LABS: ALANINE AMINOTRANSFERASE 54.8 U/L (0-50); ALBUMIN 3.08 g/dL (3.5-5.0); ALKALINE PHOSPHATASE 59.5 U/L (56-119); BILIRUBIN,TOTAL 0.82 mg/dL (0.2-1.3); BLOOD UREA NITROGEN 24.1 mg/dL (9-20); CALCIUM 9.38 mg/dL (8.4-10.2); CARBON DIOXIDE 28.4 mmol/L (22-30.0); CHLORIDE 118.9 mmol/L (98-107); CREATININE 1.21 mg/dL (0.60-1.10); GLUCOSE 198.8 mg/dL (74-106); POTASSIUM 4.65 mmol/L (3.5-5.1); SODIUM 152.8 mmol/L (134.5-145); TOTAL PROTEIN 5.69 g/dL (6.3-8.2)
[2021-02-17 08:24] LABS: CREATINE KINASE 604.7 U/L (55-170)
[2021-02-17] MEDS: PROTONIX IV IVP SCH (08:54)
[2021-02-17] MEDS: DECADRON IM SCH (08:54)
[2021-02-17] MEDS: DOXY-100 100 MG in SODIUM CHLORIDE 100ML 100 ML IV SCH ×2 (08:54→20:56)
[2021-02-17] MEDS: LOPRESSOR IVP SCH ×3 (08:54→20:54)
[2021-02-17] MEDS: LOVENOX SUBCUT SCH ×2 (08:54→20:53)
[2021-02-17 09:01] LABS: CREATINE KINASE MB 73.3 ng/ml (0.0-2.38)
[2021-02-17] MEDS: SYMBICORT 160-4.5 MCG INHALER IH SCH ×2 (10:29→20:17)
[2021-02-17] MEDS: VITAMIN D PO SCH (10:38)
[2021-02-17] MEDS: ROCEPHIN 1 GM/50 ML D5W 1 GM/50 ML BAG IV SCH (11:18)
[2021-02-17] MEDS: DEXTROSE 5%-WATER IV SOLN 1,000 ML IV SCH (17:27)
[2021-02-18] MEDS: VENTOLIN HFA (PER PUFF-WITH SPACER) IH SCH ×4 (04:50→20:36)
[2021-02-18] MEDS: CARDIZEM 125 MG in SODIUM CHLORIDE 100ML 100 ML IV SCH (04:55)
[2021-02-18] MEDS: HUMULIN R SUBCUT PRN ×3 (05:30→20:30)
[2021-02-18] MEDS: LASIX TAB PO SCH (06:15)
[2021-02-18] MEDS: DEXTROSE 5%-WATER IV SOLN 1,000 ML IV SCH (06:45)
[2021-02-18 07:24] LABS: BASOPHILS % (AUTO) 0.2 % (0.0-3.0); HEMATOCRIT 48.7 % (42.0-52.0); HEMOGLOBIN 15.2 g/dl (14.0-18.0); IMMATURE GRANULOCYTE # (AUTO) 0.1 (0.0-1.0); IMMATURE GRANULOCYTE % (AUTO) 0.9 % (0.0-5.0); LYMPHOCYTES # (AUTO) 0.4 K/uL (0.60-3.4); LYMPHOCYTES % (AUTO) 2.9 (10.0-50.0); MEAN CORPUSCULAR HEMOGLOBIN 26.9 pg (27.0-31.0); MEAN CORPUSCULAR HGB CONC 31.2 (31.8-35.4); MONOCYTES # (AUTO) 1.1 K/uL (0.4-2.0); MONOCYTES % (AUTO) 9.2 (0-10); NEUTROPHILS # (AUTO) 10.5 K/ul (2.0-6.9); NEUTROPHILS % (AUTO) 86.8 % (42.2-75.2); PLATELET COUNT 243 10^3/uL (140-440); RDW COEFFICIENT OF VARIATION 18.6 % (11.6-14.8); RED BLOOD COUNT 5.66 10^6/ul (4.70-6.10); WHITE BLOOD COUNT 12.13 K/ul (4.2-10.2)
[2021-02-18 07:39] LABS: ALANINE AMINOTRANSFERASE 42.9 U/L (0-50); ALBUMIN 2.95 g/dL (3.5-5.0); ALKALINE PHOSPHATASE 62.9 U/L (56-119); ASPARTATE AMINO TRANSFERASE 74.2 U/L (17-59); BILIRUBIN,TOTAL 0.84 mg/dL (0.2-1.3); BLOOD UREA NITROGEN 25.2 mg/dL (9-20); CALCIUM 9.28 mg/dL (8.4-10.2); CARBON DIOXIDE 29.2 mmol/L (22-30.0); CHLORIDE 116.9 mmol/L (98-107); CREATININE 1.18 mg/dL (0.60-1.10); GLUCOSE 217.5 mg/dL (74-106); POTASSIUM 4.19 mmol/L (3.5-5.1); SODIUM 151.4 mmol/L (134.5-145); TOTAL PROTEIN 5.64 g/dL (6.3-8.2)
[2021-02-18 08:08] LABS: THYROID STIMULATING HORMONE 0.414 uIU/L (0.465-4.68)
[2021-02-18] MEDS: DOXY-100 100 MG in SODIUM CHLORIDE 100ML 100 ML IV SCH ×2 (08:35→20:34)
[2021-02-18] MEDS: PROTONIX IV IVP SCH (08:36)
[2021-02-18] MEDS: LOPRESSOR IVP SCH ×3 (08:36→21:54)
[2021-02-18] MEDS: DECADRON IM SCH (08:36)
[2021-02-18] MEDS: SYMBICORT 160-4.5 MCG INHALER IH SCH ×2 (08:37→21:52)
[2021-02-18] MEDS: LOVENOX SUBCUT SCH ×2 (08:37→20:28)
[2021-02-18] MEDS: VITAMIN D PO SCH (08:38)
[2021-02-18] MEDS: ROCEPHIN 1 GM/50 ML D5W 1 GM/50 ML BAG IV SCH (11:10)
[2021-02-19] MEDS: VENTOLIN HFA (PER PUFF-WITH SPACER) IH SCH ×4 (05:30→20:25)
[2021-02-19] MEDS: HUMULIN R SUBCUT PRN ×4 (06:09→20:34)
[2021-02-19] MEDS: LASIX TAB PO SCH (06:22)
[2021-02-19 07:29] LABS: BASOPHILS % (AUTO) 0.2 % (0.0-3.0); HEMATOCRIT 46.9 % (42.0-52.0); HEMOGLOBIN 14.9 g/dl (14.0-18.0); IMMATURE GRANULOCYTE # (AUTO) 0.1 (0.0-1.0); IMMATURE GRANULOCYTE % (AUTO) 0.8 % (0.0-5.0); LYMPHOCYTES # (AUTO) 0.3 K/uL (0.60-3.4); LYMPHOCYTES % (AUTO) 3.3 (10.0-50.0); MEAN CORPUSCULAR HEMOGLOBIN 27.1 pg (27.0-31.0); MEAN CORPUSCULAR HGB CONC 31.8 (31.8-35.4); MEAN CORPUSCULAR VOLUME 85.4 fl (80.0-94.0); MONOCYTES # (AUTO) 0.7 K/uL (0.4-2.0); MONOCYTES % (AUTO) 7.2 (0-10); NEUTROPHILS % (AUTO) 88.5 % (42.2-75.2); PLATELET COUNT 212 10^3/uL (140-440); RDW COEFFICIENT OF VARIATION 18.6 % (11.6-14.8); RED BLOOD COUNT 5.49 10^6/ul (4.70-6.10)
[2021-02-19] MEDS: DEXTROSE 5%-WATER IV SOLN 1,000 ML IV SCH ×3 (08:09→23:06)
[2021-02-19] MEDS: LOPRESSOR IVP SCH ×3 (09:20→20:15)
[2021-02-19] MEDS: PROTONIX IV IVP SCH (09:20)
[2021-02-19] MEDS: DECADRON IM SCH (09:21)
[2021-02-19] MEDS: LOVENOX SUBCUT SCH ×2 (09:22→20:16)
[2021-02-19] MEDS: SYMBICORT 160-4.5 MCG INHALER IH SCH ×2 (09:22→20:43)
[2021-02-19] MEDS: ROCEPHIN 1 GM/50 ML D5W 1 GM/50 ML BAG IV SCH (09:23)
[2021-02-19] MEDS: VITAMIN D PO SCH (09:24)
[2021-02-19] MEDS: DOXY-100 100 MG in SODIUM CHLORIDE 100ML 100 ML IV SCH ×2 (10:52→20:14)
[2021-02-19 11:26] LABS: ALANINE AMINOTRANSFERASE 37.2 U/L (0-50); ALBUMIN 2.67 g/dL (3.5-5.0); ALKALINE PHOSPHATASE 67.7 U/L (56-119); BILIRUBIN,TOTAL 0.75 mg/dL (0.2-1.3); CALCIUM 9.16 mg/dL (8.4-10.2); CARBON DIOXIDE 27.4 mmol/L (22-30.0); CHLORIDE 115.8 mmol/L (98-107); CREATININE 1.05 mg/dL (0.60-1.10); GLUCOSE 240.9 mg/dL (74-106); POTASSIUM 4.26 mmol/L (3.5-5.1); SODIUM 146.4 mmol/L (134.5-145); TOTAL PROTEIN 5.38 g/dL (6.3-8.2)
[2021-02-19] MEDS: CARDIZEM 125 MG in SODIUM CHLORIDE 100ML 100 ML IV SCH (20:14)
[2021-02-19] MEDS: ELIQUIS PO SCH (20:15)
[2021-02-20] MEDS: VENTOLIN HFA (PER PUFF-WITH SPACER) IH SCH ×4 (05:15→20:10)
[2021-02-20 05:19] LABS: BASOPHILS % (AUTO) 0.1 % (0.0-3.0); HEMATOCRIT 43.7 % (42.0-52.0); HEMOGLOBIN 13.7 g/dl (14.0-18.0); IMMATURE GRANULOCYTE # (AUTO) 0.1 (0.0-1.0); IMMATURE GRANULOCYTE % (AUTO) 0.7 % (0.0-5.0); LYMPHOCYTES # (AUTO) 0.3 K/uL (0.60-3.4); MEAN CORPUSCULAR HEMOGLOBIN 26.8 pg (27.0-31.0); MEAN CORPUSCULAR HGB CONC 31.4 (31.8-35.4); MEAN CORPUSCULAR VOLUME 85.4 fl (80.0-94.0); MONOCYTES # (AUTO) 0.5 K/uL (0.4-2.0); MONOCYTES % (AUTO) 6.2 (0-10); NEUTROPHILS # (AUTO) 7.7 K/ul (2.0-6.9); PLATELET COUNT 203 10^3/uL (140-440); RED BLOOD COUNT 5.12 10^6/ul (4.70-6.10); WHITE BLOOD COUNT 8.55 K/ul (4.2-10.2)
[2021-02-20 05:36] LABS: ALANINE AMINOTRANSFERASE 33.4 U/L (0-50); ALBUMIN 2.59 g/dL (3.5-5.0); ALKALINE PHOSPHATASE 75.7 U/L (56-119); ASPARTATE AMINO TRANSFERASE 36.5 U/L (17-59); BILIRUBIN,TOTAL 0.85 mg/dL (0.2-1.3); BLOOD UREA NITROGEN 27.3 mg/dL (9-20); CALCIUM 8.8 mg/dL (8.4-10.2); CARBON DIOXIDE 28.2 mmol/L (22-30.0); CHLORIDE 112.4 mmol/L (98-107); CREATININE 0.99 mg/dL (0.60-1.10); GLUCOSE 218.4 mg/dL (74-106); POTASSIUM 4.03 mmol/L (3.5-5.1); SODIUM 143.9 mmol/L (134.5-145); TOTAL PROTEIN 5.15 g/dL (6.3-8.2)
[2021-02-20] MEDS: HUMULIN R SUBCUT PRN ×3 (06:21→17:23)
[2021-02-20] MEDS: LASIX TAB PO SCH (06:36)
[2021-02-20] MEDS: DECADRON IM SCH (08:20)
[2021-02-20] MEDS: LOVENOX SUBCUT SCH ×2 (08:22→21:16)
[2021-02-20] MEDS: LOPRESSOR IVP SCH ×2 (08:22→15:27)
[2021-02-20] MEDS: PROTONIX IV IVP SCH (08:23)
[2021-02-20] MEDS: DOXY-100 100 MG in SODIUM CHLORIDE 100ML 100 ML IV SCH ×2 (08:24→21:16)
[2021-02-20] MEDS: SYMBICORT 160-4.5 MCG INHALER IH SCH ×2 (08:45→21:16)
[2021-02-20] MEDS: VITAMIN D PO SCH (08:46)
[2021-02-20] MEDS: ELIQUIS PO SCH (08:46)
[2021-02-20] MEDS: ROCEPHIN 1 GM/50 ML D5W 1 GM/50 ML BAG IV SCH (10:55)
[2021-02-20] MEDS: NYSTOP POWDER TP SCH ×4 (11:14→21:17)
[2021-02-20] MEDS: SODIUM CHLORIDE IV SCH (11:40)
[2021-02-20] MEDS: FLUCONAZOLE 200 MG/100 ML IV SCH (11:40)
[2021-02-20] MEDS: DEXTROSE 5%-WATER IV SOLN 1,000 ML IV SCH (12:33)
[2021-02-20] MEDS: CARDIZEM 125 MG in SODIUM CHLORIDE 100ML 100 ML IV SCH (16:56)
[2021-02-20] MEDS: CALMOSEPTINE OINTMENT TP SCH ×2 (17:22→21:18)
[2021-02-20] MEDS ORDERED: LOPRESSOR IVP ONE (21:00)
[2021-02-21] MEDS: DEXTROSE 5%-WATER IV SOLN 1,000 ML IV SCH ×2 (04:06→16:45)
[2021-02-21] MEDS: CARDIZEM 125 MG in SODIUM CHLORIDE 100ML 100 ML IV SCH ×2 (04:06→09:52)
[2021-02-21] MEDS: VENTOLIN HFA (PER PUFF-WITH SPACER) IH SCH ×4 (05:15→20:25)
[2021-02-21 05:17] LABS: BASOPHILS % (AUTO) 0.1 % (0.0-3.0); HEMATOCRIT 42.8 % (42.0-52.0); HEMOGLOBIN 13.8 g/dl (14.0-18.0); IMMATURE GRANULOCYTE # (AUTO) 0.1 (0.0-1.0); IMMATURE GRANULOCYTE % (AUTO) 0.9 % (0.0-5.0); LYMPHOCYTES # (AUTO) 0.3 K/uL (0.60-3.4); LYMPHOCYTES % (AUTO) 3.5 (10.0-50.0); MEAN CORPUSCULAR HEMOGLOBIN 27.3 pg (27.0-31.0); MEAN CORPUSCULAR HGB CONC 32.2 (31.8-35.4); MEAN CORPUSCULAR VOLUME 84.8 fl (80.0-94.0); MONOCYTES # (AUTO) 0.6 K/uL (0.4-2.0); MONOCYTES % (AUTO) 7.3 (0-10); NEUTROPHILS # (AUTO) 7.3 K/ul (2.0-6.9); NEUTROPHILS % (AUTO) 88.2 % (42.2-75.2); PLATELET COUNT 211 10^3/uL (140-440); RDW COEFFICIENT OF VARIATION 17.7 % (11.6-14.8); RED BLOOD COUNT 5.05 10^6/ul (4.70-6.10); WHITE BLOOD COUNT 8.22 K/ul (4.2-10.2)
[2021-02-21 05:29] LABS: ALANINE AMINOTRANSFERASE 33.8 U/L (0-50); ALBUMIN 2.56 g/dL (3.5-5.0); ALKALINE PHOSPHATASE 78.1 U/L (56-119); ASPARTATE AMINO TRANSFERASE 34.3 U/L (17-59); BILIRUBIN,TOTAL 0.86 mg/dL (0.2-1.3); BLOOD UREA NITROGEN 27.4 mg/dL (9-20); CALCIUM 8.47 mg/dL (8.4-10.2); CHLORIDE 110.4 mmol/L (98-107); CREATININE 0.78 mg/dL (0.60-1.10); GLUCOSE 222.2 mg/dL (74-106); POTASSIUM 3.94 mmol/L (3.5-5.1); SODIUM 142.1 mmol/L (134.5-145); TOTAL PROTEIN 5.21 g/dL (6.3-8.2)
[2021-02-21] MEDS: HUMULIN R SUBCUT PRN ×4 (06:46→20:46)
--- NOTE | 2021-02-21 09:21 | PCM.PROG ---
Attending Provider: ATTENDING PROVIDER: Dr. OMAR MENDIOLA This patient is seen with Thais Acosta, Nurse Practitioner. DATE OF SERVICE: 02/21/21 SUBJECTIVE: This 80 year old /WHITE M was hospitalized 02/09/21. The patient is tolerating decrease in Cardizem. Had combativeness last night. Still periods were awake and able to communicate but still confused at times. REVIEW OF SYSTEMS: CONSTITUTIONAL: No night sweats. No fatigue, malaise, lethargy. No fever or chills. Weakness. HEENT: Eyes: No visual changes. No eye pain. No eye discharge. ENT: No runny nose. No epistaxis. No sinus pain. No odynophagia. No congestion. RESPIRATORY: No cough, no congestion. No hemoptysis. Shortness of breath. CARDIOVASCULAR: No angina symptoms. No CHF symptoms. No atypical chest pain for CAD. No palpitations. No orthopnea.. GASTROINTESTINAL: No abdominal pain. No nausea or vomiting. No diarrhea or constipation. No hematemesis. No hematochezia. GENITOURINARY: No urgency. No frequency. No dysuria. No hematuria. No obstructive symptoms. No discharge. No pain. No significant abnormal bleeding. MUSCULOSKELETAL: No musculoskeletal pain; no joint swelling. NEUROLOGICAL: Awake, alert, Confused. No headache. No neck pain. No syncope. No seizures. No dizziness. PSYCHIATRIC: Not anxious. No depression. No suicidal thoughts. No homicidal thoughts. SKIN: No rash. No lesions. No wounds. ENDOCRINE: No unexplained weight loss. No weight gain. HEMATOLOGIC/LYMPHATIC: No anemia. No purpura. No petechiae. No prolonged or excessive bleeding. No palpable lymph nodes. PHYSICAL EXAMINATION: GENERAL: The patient is awake, alert and not oriented, lying in bed in no distress. VITAL SIGNS: Temperature 97 F, Pulse 70, Respiratory Rate 16, BP 136/87, Pulse Ox 94% HEENT: Head normocephalic, atraumatic. Eyes: Extraocular muscles are intact. Pupils are equal, round and reactive to light and accommodation. Ears: No lesions. Nose appeared normal. Throat: No exudate or erythema. NECK: Supple. No JVD, no carotid bruit. No lymphadenopathy or thyromegaly. LUNGS: Diminished breath sounds. Clear to auscultation. Percussion note normal. Chest symmetrical. HEART: S1, S2, no S3. Irregular heart rate. No murmurs. No cyanosis or clubbing. No ascites. Pulses: Dorsalis pedis and posterior tibial pulses +1 to +2 both sides. ABDOMEN: Soft. Non-tender. Bowel sounds active. No CVA tenderness. No mass felt. EXTREMITIES: No edema. Full range of motion of all extremities, equal. NEUROLOGIC: No focal deficit. Cranial nerves II through XII are grossly intact. No headache. No double vision. SKIN: Not dry. Intact. Turgor-normal. LYMPHATIC: No palpable lymph nodes/no lymphedema. MUSCULOSKELETAL: Normal joints with no swelling. Muscle tone is normal. LAB REVIEW: 02/21/21 04:42 02/21/21 04:42 02/21/21 04:42: Sodium 142.1, Potassium 3.94, Chloride 110.4 H, Carbon Dioxide 27.0, Anion Gap 8.64, BUN 27.4 H, Creatinine 0.78, Estimated GFR (MDRD) 95.00, BUN/Creatinine Ratio 35.12, Glucose 222.2 H, Calcium 8.47, Ferritin 175.00, Total Bilirubin 0.86, AST 34.3, ALT 33.8, Alkaline Phosphatase 78.1, Total Protein 5.21 L, Albumin 2.56 L, Globulin 2.65, Albumin/Globulin Ratio 0.96 02/21/21 04:42: WBC 8.22, RBC 5.05, Hgb 13.8 L, Hct 42.8, MCV 84.8, MCH 27.3, MCHC 32.2, RDW Coeff of [place] 17.7 H, Plt Count 211, Immature Gran % (Auto) 0.9, Neut % (Auto) 88.2 H, Lymph % (Auto) 3.5 L, [place] % (Auto) 7.3, Eos % (Auto) 0.0, Baso % (Auto) 0.1, Neut # (Auto) 7.3 H, Lymph # (Auto) 0.3 L, [place] # (Auto) 0.6, Eos # (Auto) 0.0, Baso # (Auto) 0.0, Immature Gran # (Auto) 0.1 ASSESSMENT: Please see below. 1. COVID psychosis 2. COVID pneumonia 3. Acute respiratory failure 4. Atrial fibrillation 5. Dilated ischemic cardiomyopathy PLAN: 1. Repeat chest x-ray this morning 2. Last dose antibiotics last night 3. Speech consult. Plan and coordination of the patient's care discussed in the presence of Sorting Cows Worker and nurse. SCRIBED BY: Waldo IRENE scribed while in presence of service performed by Dr. Mendiola/Thais Acosta APRN on 02/21/21 ([id number])
[2021-02-21] MEDS: FLUCONAZOLE 200 MG/100 ML IV SCH (09:45)
[2021-02-21] MEDS: PROTONIX IV IVP SCH (09:45)
[2021-02-21] MEDS: SODIUM CHLORIDE IV SCH (09:45)
[2021-02-21] MEDS: LOVENOX SUBCUT SCH ×2 (09:46→20:44)
[2021-02-21] MEDS: DECADRON IM SCH (09:46)
[2021-02-21] MEDS: NYSTOP POWDER TP SCH ×4 (09:51→20:44)
[2021-02-21] MEDS: SYMBICORT 160-4.5 MCG INHALER IH SCH ×2 (09:51→20:47)
[2021-02-21] MEDS: CALMOSEPTINE OINTMENT TP SCH ×4 (09:51→20:43)
--- NOTE | 2021-02-21 10:12 | PN ---
DATE OF SERVICE: 02/17/21 SUBJECTIVE: Condition is unchanged. He is down to 5mg on his Cardizem drip. Receiving Lopressor 5mg IV three times daily. Heart rate has been 80-100. Labs today showed renal function slightly elevated. Sodium is about the same. Hgb and hct is stable. Potassium is stable. Liver enzymes have increased. Neurological status is unchanged. He does open his eyes when you say his name but he is not responsive and unable to verbalize anything and can not follow commands. Doesn't make eye contact. REVIEW OF SYSTEMS: CONSTITUTIONAL: No night sweats. Fatigue, malaise, lethargy. No fever or chills. Obtunded. Generalized weakness. HEENT: Eyes: No visual changes. No eye pain. No eye discharge. ENT: No runny nose. No epistaxis. No sinus pain. No sore throat. No odynophagia. No congestion. RESPIRATORY: No cough, no congestion. No hemoptysis. Shortness of breath. CARDIOVASCULAR: No angina symptoms. No CHF symptoms. No atypical chest pain for CAD. No palpitations. No PND. No orthopnea. GASTROINTESTINAL: No abdominal pain. No nausea or vomiting. No diarrhea or constipation. No hematemesis. No hematochezia. GENITOURINARY: No urgency. No frequency. No dysuria. No hematuria. No obstructive symptoms. No discharge. No pain. No significant abnormal bleeding. MUSCULOSKELETAL: No musculoskeletal pain; no joint swelling. NEUROLOGICAL: No headache. No neck pain. No syncope. No seizures. No dizziness. PSYCHIATRIC: Not anxious. No depression. No suicidal thoughts. No homicidal thoughts. SKIN: No rash. No lesions. No wounds. ENDOCRINE: No unexplained weight loss. No weight gain. HEMATOLOGIC/LYMPHATIC: No anemia. No purpura. No petechiae. No prolonged or excessive bleeding. No palpable lymph nodes. PHYSICAL EXAMINATION: VITAL SIGNS: Temperature 97.4, heart rate 88, blood pressure 156/100, pulse ox 94%. HEENT: Head normocephalic, atraumatic. Eyes: Extraocular muscles are intact. Pupils are equal, round and reactive to light and accommodation. Ears: No lesions. Nose appeared normal. Throat: No exudate or erythema. NECK: Supple. No JVD, no carotid bruit. No lymphadenopathy or thyromegaly. LUNGS: Clear to auscultation. Percussion note normal. Chest symmetrical. HEART: S1, S2, no S3. No murmurs.Remains in afib but rate controlled at this time. No cyanosis or clubbing. No ascites. Pulses: Dorsalis pedis and posterior tibial pulses +1 to +2 bilaterally. ABDOMEN: Soft. Nontender. Bowel sounds active. No CVA tenderness. No mass felt. He is still NPO unable to swallow. Again he is not alert enough to eat or follow commands or does not wake up. EXTREMITIES: No edema. Full range of motion of all extremities, equal. NEUROLOGIC: No focal deficit. Cranial nerves II through XII are grossly intact. No headache. No double vision. SKIN: Not dry. Intact. Turgor - normal. LYMPHATIC: No palpable lymph nodes/no lymphedema. MUSCULOSKELETAL: Normal joints with no swelling. Muscle tone is normal. The family is coming in to visit today. ASSESSMENT: 1. Encephalopathy due to multiple factors including COVID 19, dementia 2. Atrial fibrillation, rate now controlled 3. Acute respiratory failure on 5 liters of nasal cannula 4. Hypertension 5. Diabetes Mellitus type II 6. Dilated ischemic cardiopathy 7. Hypertension 8. AST elevation likely of a result of prolonged RVR PLAN: 1. We will attempt to wean Cardizem if he tolerates 2. Will continue with medications as they are 3. Goal to keep heart rate under 100 4. Providing oral care 5. I feel that his prognosis is very poor. He is very unlikely to make a recovery. The family is beginning to understand that. I do believe with the increase in liver function and renal function today that his organs will slowly deteriorate and his condition will slowly deteriorate. They are coming in to visit. I do believe that it is in the near future we need to speak about comfort measures. We will continue to provide the best care. TIME SPENT: More than 30 minutes. Plan and coordination of the patient's care discussed in the presence of nurse. DAVIDA
--- NOTE | 2021-02-21 10:25 | PN ---
DATE OF SERVICE: 02/18/2021 SUBJECTIVE: The patient still on Cardizem at 3mg IV. He will open his eyes to some stimuli. He is not verbal. Family has been visiting. They say he has responded some. We have seen any response. He is still not eating. He is unable to say anything, unable to swallow. Still on IV fluids as well as antibiotics and steroids. Kidney function slightly up from yesterday. BUN 25, creatinine 1.1, sodium 151 which is holding steady. CKMB was 73 yesterday. Heart rate has been 80-100 with IV Lopressor and with Cardizem drip. Blood pressure stable. REVIEW OF SYSTEMS: CONSTITUTIONAL: No night sweats. No fever or chills. Weakness. Lethargy. Obtunded. HEENT: Eyes: No visual changes. No eye pain. No eye discharge. ENT: No runny nose. No epistaxis. No sinus pain. No sore throat. No odynophagia. No congestion. RESPIRATORY: No cough, no congestion. No hemoptysis. Shortness of breath. CARDIOVASCULAR: No angina symptoms. No CHF symptoms. No atypical chest pain for CAD. No palpitations. No PND. No orthopnea. GASTROINTESTINAL: No abdominal pain. No nausea or vomiting. No diarrhea or constipation. No hematemesis. No hematochezia. GENITOURINARY: No urgency. No frequency. No dysuria. No hematuria. No obstructive symptoms. No discharge. No pain. No significant abnormal bleeding. MUSCULOSKELETAL: No musculoskeletal pain; no joint swelling. NEUROLOGICAL: No headache. No neck pain. No syncope. No seizures. No dizziness. PSYCHIATRIC: Not anxious. No depression. No suicidal thoughts. No homicidal thoughts. SKIN: No rash. No lesions. No wounds. ENDOCRINE: No unexplained weight loss. No weight gain. HEMATOLOGIC/LYMPHATIC: No anemia. No purpura. No petechiae. No prolonged or excessive bleeding. No palpable lymph nodes. PHYSICAL EXAMINATION: GENERAL: The patient is not alert. Will open his eyes occasionally to stimuli. VITAL SIGNS: Temperature 97.9, heart rate 105, respiratory rate 20, blood pressure 129/98 and pulse ox 97% he is on 5 liters O2. HEENT: Head normocephalic, atraumatic. Eyes: Extraocular muscles are intact. Pupils are equal, round and reactive to light and accommodation. Ears: No lesions. Nose appeared normal. Throat: No exudate or erythema. NECK: Supple. No JVD, no carotid bruit. No lymphadenopathy or thyromegaly. LUNGS: Diminished breath sounds. Clear to auscultation. Percussion note normal. Chest symmetrical. HEART: Irregular heart rate. S1, S2, no S3. No murmurs. No cyanosis or clubbing. No ascites. Pulses: Dorsalis pedis and posterior tibial pulses +1 to +2 bilaterally. ABDOMEN: Soft. Nontender. Bowel sounds active. No CVA tenderness. No mass felt. EXTREMITIES: No edema. Full range of motion of all extremities, equal. NEUROLOGIC: No focal deficit. Cranial nerves II through XII are grossly intact. No headache. No double vision. SKIN: Not dry. Intact. Turgor - normal. LYMPHATIC: No palpable lymph nodes/no lymphedema. MUSCULOSKELETAL: Normal joints with no swelling. Muscle tone is normal. ASSESSMENT: 1. Encephalopathy due to multiple factors including COVID 19, dementia 2. Atrial fibrillation, rate now controlled 3. Acute respiratory failure on 5 liters of nasal cannula 4. Hypertension 5. Diabetes Mellitus type II 6. Dilated ischemic cardiopathy 7. Hypertension 8. AST elevation likely of a result of prolonged RVR PLAN: 1. I have spoken with the family. Prognosis is very poor. They still remain hopefully. Discussed the extent of his heart damage, the COVID. He has multiple medical conditions contributing to his poor prognosis. We will continue to do all we can with IV fluids, IV steroids and antibiotics. We will follow closely. TIME SPENT: More than 30 minutes. Plan and coordination of the patient's care discussed in the presence of nurse. DAVIDA
--- NOTE | 2021-02-21 10:55 | PN ---
DATE OF SERVICE: 02/19/2021 SUBJECTIVE: The patient actually spoke this morning and answered appropriate. Is still in and out of consciousness but does have appropriate responses. Speech somewhat slurred and garbled. Labs are stable. Heart rate has been 80-100 on 3mg of the Cardizem drip. Oxygen saturation around 95% still somewhat hypertensive. REVIEW OF SYSTEMS: CONSTITUTIONAL: No night sweats. Lethargy. No fever or chills. Confusion. HEENT: Eyes: No visual changes. No eye pain. No eye discharge. ENT: No runny nose. No epistaxis. No sinus pain. No sore throat. No odynophagia. No congestion. RESPIRATORY: Cough, no congestion. No hemoptysis.Shortness of breath. CARDIOVASCULAR: No angina symptoms. No CHF symptoms. No atypical chest pain for CAD. No palpitations. No PND. No orthopnea. GASTROINTESTINAL: No abdominal pain. No nausea or vomiting. No diarrhea or constipation. No hematemesis. No hematochezia. GENITOURINARY: No urgency. No frequency. No dysuria. No hematuria. No obstructive symptoms. No discharge. No pain. No significant abnormal bleeding. MUSCULOSKELETAL: No musculoskeletal pain; no joint swelling. NEUROLOGICAL: No headache. No neck pain. No syncope. No seizures. No dizziness. PSYCHIATRIC: Not anxious. No depression. No suicidal thoughts. No homicidal thoughts. SKIN: No rash. No lesions. No wounds. ENDOCRINE: No unexplained weight loss. No weight gain. HEMATOLOGIC/LYMPHATIC: No anemia. No purpura. No petechiae. No prolonged or excessive bleeding. No palpable lymph nodes. PHYSICAL EXAMINATION: GENERAL: The patient is not alert, is responsive to some stimuli. HEENT: Head normocephalic, atraumatic. Eyes: Extraocular muscles are intact. Pupils are equal, round and reactive to light and accommodation. Ears: No lesions. Nose appeared normal. Throat: No exudate or erythema. NECK: Supple. No JVD, no carotid bruit. No lymphadenopathy or thyromegaly. LUNGS: Diminished breath sounds. Clear to auscultation. Percussion note normal. Chest symmetrical. HEART: S1, S2, no S3. No murmurs. No cyanosis or clubbing. No ascites. Pulses: Dorsalis pedis and posterior tibial pulses +1 to +2 bilaterally. ABDOMEN: Soft. Nontender. Bowel sounds active. No CVA tenderness. No mass felt. EXTREMITIES: No edema. Full range of motion of all extremities, equal. NEUROLOGIC: No focal deficit. Cranial nerves II through XII are grossly intact. No headache. No double vision. SKIN: Not dry. Intact. Turgor - normal. LYMPHATIC: No palpable lymph nodes/no lymphedema. MUSCULOSKELETAL: Normal joints with no swelling. Muscle tone is normal. ASSESSMENT: 1. Encephalopathy due to multiple factors including COVID 19, dementia 2. Atrial fibrillation, rate now controlled 3. Acute respiratory failure on 5 liters of nasal cannula 4. Hypertension 5. Diabetes Mellitus type II 6. Dilated ischemic cardiopathy 7. Hypertension 8. AST elevation likely of a result of prolonged RVR 9. COVID 19 PLAN: 1. Increase Cardizem drip will stay at 5mg per hour 2. Continue antibiotics and steroids 3. Evaluate swallow today. TIME SPENT: More than 30 minutes. Plan and coordination of the patient's care discussed in the presence of nurse. DAVIDA
--- NOTE | 2021-02-21 11:01 | PN ---
DATE OF SERVICE: 02/20/2021 SUBJECTIVE: The patient doing about the same. He is talking some. Language still garbled at times. Somewhat confused but is having appropriate responses. Still very weak. Blood pressure and heart rate have been stable. He did manage to suck on the sponge during oral care and tolerate some ice chips. We will need speech evaluate for further evaluation. He does have some yeast in the groin area. REVIEW OF SYSTEMS: CONSTITUTIONAL: No night sweats. No fatigue, malaise, lethargy. No fever or chills. Weakness and confusion. HEENT: Eyes: No visual changes. No eye pain. No eye discharge. ENT: No runny nose. No epistaxis. No sinus pain. No sore throat. No odynophagia. No congestion. RESPIRATORY: No cough, no congestion. No hemoptysis. Shortness of breath. CARDIOVASCULAR: No angina symptoms. No CHF symptoms. No atypical chest pain for CAD. No palpitations. No PND. No orthopnea. GASTROINTESTINAL: No abdominal pain. No nausea or vomiting. No diarrhea or constipation. No hematemesis. No hematochezia. GENITOURINARY: No urgency. No frequency. No dysuria. No hematuria. No obstructive symptoms. No discharge. No pain. No significant abnormal bleeding. MUSCULOSKELETAL: No musculoskeletal pain; no joint swelling. NEUROLOGICAL: No headache. No neck pain. No syncope. No seizures. No dizziness. PSYCHIATRIC: Not anxious. No depression. No suicidal thoughts. No homicidal thoughts. SKIN: No rash. No lesions. No wounds. ENDOCRINE: No unexplained weight loss. No weight gain. HEMATOLOGIC/LYMPHATIC: No anemia. No purpura. No petechiae. No prolonged or excessive bleeding. No palpable lymph nodes. PHYSICAL EXAMINATION: GENERAL: The patient is alert but not oriented to person, place or time. HEENT: Head normocephalic, atraumatic. Eyes: Extraocular muscles are intact. Pupils are equal, round and reactive to light and accommodation. Ears: No lesions. Nose appeared normal. Throat: No exudate or erythema. NECK: Supple. No JVD, no carotid bruit. No lymphadenopathy or thyromegaly. LUNGS: Diminished breath sounds. Clear to auscultation. Percussion note normal. Chest symmetrical. HEART: S1, S2, no S3. No murmurs. No cyanosis or clubbing. No ascites. Pulses: Dorsalis pedis and posterior tibial pulses +1 to +2 bilaterally. ABDOMEN: Soft. Nontender. Bowel sounds active. No CVA tenderness. No mass felt. EXTREMITIES: No edema. Full range of motion of all extremities, equal. NEUROLOGIC: No focal deficit. Cranial nerves II through XII are grossly intact. No headache. No double vision. SKIN: Not dry. Intact. Turgor - normal. LYMPHATIC: No palpable lymph nodes/no lymphedema. MUSCULOSKELETAL: Normal joints with no swelling. Muscle tone is normal. ASSESSMENT: 1. Encephalopathy 2. COVID 19 3. Atrial fibrillation which is controlled 4. COVID pneumonia seems to be stable 5. Acute respiratory failure, stable at this time 6. Candidiasis in groin PLAN: 1. We will continue to monitor 2. Continue Cardizem drip 3. Unable to take anything by mouth 4. Start Diflucan 150mg IV daily 5. Nystatin powder to groin area QID TIME SPENT: More than 30 minutes. Plan and coordination of the patient's care discussed in the presence of nurse. MTDD
--- NOTE | 2021-02-21 14:38 | PN ---
DATE OF SERVICE: 02/21/2021 SUBJECTIVE: The patient was seen and examined with the Nurse Practitioner. The patient's condition and mental status seems to be improving. Cardiovascular status is stable. We will do an Echocardiogram to evaluate LV function. The patient had an acute ID inferior wall 4-5 days ago. He is practically asymptomatic. He is COVID positive. Respiratory status seems to have improved. PROGNOSIS: Guarded. TIME SPENT: More than 30 minutes. Plan and coordination of the patient's care discussed in the presence of nurse. DAVIDA
--- NOTE | 2021-02-21 17:03 | DI ---
EXAM: CHEST FRONTAL VIEW HISTORY: Shortness of breath COMPARISON: 02/09/2021 FINDINGS / IMPRESSION: Low lung volumes. Cardiomegaly atherosclerosis are again noted. There is mild bibasilar density pos sibly related to atelectasis or pneumonia. Correlate clinically. Minimal central vascular congestio n. No pneumothorax.
[2021-02-21] MEDS: ATIVAN IM PRN (23:05)
[2021-02-22] MEDS: VENTOLIN HFA (PER PUFF-WITH SPACER) IH SCH ×4 (04:45→20:15)
[2021-02-22] MEDS: DEXTROSE 5%-WATER IV SOLN 1,000 ML IV SCH ×2 (05:09→20:52)
[2021-02-22 05:27] LABS: HEMATOCRIT 37.5 % (42.0-52.0); HEMOGLOBIN 12.2 g/dl (14.0-18.0); MEAN CORPUSCULAR HEMOGLOBIN 27.1 pg (27.0-31.0); MEAN CORPUSCULAR HGB CONC 32.5 (31.8-35.4); MEAN CORPUSCULAR VOLUME 83.1 fl (80.0-94.0); PLATELET COUNT 144 10^3/uL (140-440); RED BLOOD COUNT 4.51 10^6/ul (4.70-6.10); WHITE BLOOD COUNT 8.52 K/ul (4.2-10.2)
[2021-02-22 05:33] LABS: ANISOCYTOSIS NOT PRESENT (NOT PRESENT)
[2021-02-22 05:37] LABS: ALANINE AMINOTRANSFERASE 32.3 U/L (0-50); ALBUMIN 2.34 g/dL (3.5-5.0); ALKALINE PHOSPHATASE 65.4 U/L (56-119); ASPARTATE AMINO TRANSFERASE 38.1 U/L (17-59); BILIRUBIN,TOTAL 1.02 mg/dL (0.2-1.3); BLOOD UREA NITROGEN 20.3 mg/dL (9-20); CALCIUM 8.65 mg/dL (8.4-10.2); CARBON DIOXIDE 23.1 mmol/L (22-30.0); CREATININE 0.56 mg/dL (0.60-1.10); GLUCOSE 204.2 mg/dL (74-106); POTASSIUM 3.95 mmol/L (3.5-5.1); SODIUM 135.2 mmol/L (134.5-145); TOTAL PROTEIN 4.91 g/dL (6.3-8.2)
[2021-02-22] MEDS: HUMULIN R SUBCUT PRN ×3 (06:18→20:16)
[2021-02-22] MEDS: SODIUM CHLORIDE IV SCH (09:17)
[2021-02-22] MEDS: FLUCONAZOLE 200 MG/100 ML IV SCH (09:17)
[2021-02-22] MEDS: PROTONIX IV IVP SCH (09:18)
[2021-02-22] MEDS: DECADRON IM SCH (09:18)
[2021-02-22] MEDS: LOVENOX SUBCUT SCH ×2 (09:19→20:10)
--- NOTE | 2021-02-22 09:28 | PCM.PROG ---
Attending Provider: ATTENDING PROVIDER: Dr. OMAR MENDIOLA This patient is seen with Thais Acosta, Nurse Practitioner. DATE OF SERVICE: 02/22/21 SUBJECTIVE: This 80 year old /WHITE M was hospitalized 02/09/21. The patient tolerated thickened soda and ice cream yesterday. Speech is consulted. Instr ucted to attempt pureed today. Respiratory status is stable. REVIEW OF SYSTEMS: CONSTITUTIONAL: No night sweats. No fatigue, malaise, lethargy. No fever or chills. Weakness. HEENT: Eyes: No visual changes. No eye pain. No eye discharge. ENT: No runny nose. No epistaxis. No sinus pain. No odynophagia. No congestion. RESPIRATORY: No cough, no congestion. No hemoptysis. No shortness of breath. CARDIOVASCULAR: No angina symptoms. No CHF symptoms. No atypical chest pain for CAD. No palpitations. No orthopnea.. GASTROINTESTINAL: No abdominal pain. No nausea or vomiting. No diarrhea or constipation. No hematemesis. No hematochezia. GENITOURINARY: No urgency. No frequency. No dysuria. No hematuria. No obstructive symptoms. No discharge. No pain. No significant abnormal bleeding. MUSCULOSKELETAL: No musculoskeletal pain; no joint swelling. NEUROLOGICAL: Awake, alert, intermittent confusion. No headache. No neck pain. No syncope. No seizures. No dizziness. PSYCHIATRIC: Not anxious. No depression. No suicidal thoughts. No homicidal thoughts. SKIN: No rash. No lesions. No wounds. ENDOCRINE: No unexplained weight loss. No weight gain. HEMATOLOGIC/LYMPHATIC: No anemia. No purpura. No petechiae. No prolonged or excessive bleeding. No palpable lymph nodes. PHYSICAL EXAMINATION: GENERAL: The patient is awake, alert and oriented to person, lying in bed in no distress. VITAL SIGNS: Temperature 97.6 F, Pulse 83, Respiratory Rate 18, BP 136/108, Pulse Ox 95% HEENT: Head normocephalic, atraumatic. Eyes: Extraocular muscles are intact. Pupils are equal, round and reactive to light and accommodation. Ears: No lesions. Nose appeared normal. Throat: No exudate or erythema. NECK: Supple. No JVD, no carotid bruit. No lymphadenopathy or thyromegaly. LUNGS: Diminished breath sounds. Clear to auscultation. Percussion note normal. Chest symmetrical. HEART: S1, S2, no S3. No murmurs. No cyanosis or clubbing. No ascites. Pu lses: Dorsalis pedis and posterior tibial pulses +1 to +2 both sides. ABDOMEN: Soft. Non-tender. Bowel sounds active. No CVA tenderness. No mass felt. EXTREMITIES: No edema. Full range of motion of all extremities, equal. NEUROLOGIC: No focal deficit. Cranial nerves II through XII are grossly intact. No headache. No double vision. SKIN: Not dry. Intact. Turgor-normal. LYMPHATIC: No palpable lymph nodes/no lymphedema. MUSCULOSKELETAL: Normal joints with no swelling. Muscle tone is normal. LAB REVIEW: 02/22/21 05:05 02/22/21 05:05 02/22/21 05:05: Sodium 135.2, Potassium 3.95, Chloride 110.0 H, Carbon Dioxide 23.1, Anion Gap 6.05, BUN 20.3 H, Creatinine 0.56 L, Estimated GFR (MDRD) 140.00, BUN/Creatinine Ratio 36.25, Glucose 204.2 H, Calcium 8.65, Ferritin 154.00, Total Bilirubin 1.02, AST 38.1, ALT 32.3, Alkaline Phosphatase 65.4, Total Protein 4.91 L, Albumin 2.34 L, Globulin 2.57, Albumin/Globulin Ratio 0.91 02/22/21 05:05: WBC 8.52, RBC 4.51 L, Hgb 12.2 L, Hct 37.5 L, MCV 83.1, MCH 27.1, MCHC 32.5, RDW Coeff of [place] 17.0 H, Plt Count 144 D, Neutrophils % (Manual) 86.0 H, Lymphocytes % (Manual) 6.0 L, Monocytes % (Manual) 8.0, Anisocytosis Not present 02/21/21 04:42: C-Reactive Prot, Quant 23 H 02/21/21 04:42: Lactate Dehydrogenase 466 H ASSESSMENT: Please see below. 1. COVID psychosis 2. COVID pneumonia 3. Acute respiratory failure 4. Atrial fibrillation 5. Dilated ischemic cardiomyopathy PLAN: 1. 2D echo 2. Attempt PO intake per speech instructions 2. May move to different room and allow family to stay. After establishing he can tolerate PO intake we will begin to reintroduce PO medications. Plan and coordination of the patient's care discussed in the presence of Animal Trainer Supervisor and nurse. SCRIBED BY: NABOR [place] Agricultural Extension Agent scribed while in presence of service performed by Dr. Mendiola/Thais Acosta APRN on 02/22/21 ([id number])
[2021-02-22] MEDS: CALMOSEPTINE OINTMENT TP SCH ×4 (09:32→20:18)
[2021-02-22] MEDS: NYSTOP POWDER TP SCH ×4 (09:33→20:18)
[2021-02-22] MEDS: SYMBICORT 160-4.5 MCG INHALER IH SCH ×2 (09:33→20:19)
--- NOTE | 2021-02-22 13:49 | PN ---
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 His cardiovascular status seems to be stable with oxygen saturation more than 95% on 4-5 liters of oxygen. The patient's atrial fibrillation is more or less under control with IV Lopressor and Cardizem drip. The patient's family is visiting him which has helped some. He opened the eyes and able to hold hands. The patient is afebrile. No PND. No Orthopnea. No real distress. The patient's problem is swallowing also unable to take anything by mouth. Unable to answer any questions and not able to swallow liquids or fluid. All the medications are being given parenterally In my absence Dr. Valadez is going to following the patient. The patient is going to be seen by my Nurse Practitioner, Thais. TIME SPENT: More than 30 minutes. Plan and coordination of the patient's care discussed in the presence of nurse. DAVIDA
--- NOTE | 2021-02-22 13:53 | PN ---
DATE OF SERVICE: 02/20/2021 SUBJECTIVE: The patient was earlier seen by the Nurse Practitioner. I made the rounds later on today. The patient's condition improved especially on Day, started talking. He responses somewhat appropriate. Still the swallowing seems to be the problem. Again we are going to try and make him swallow thickened liquids tomorrow. The patient is being visited by family members. The patient's heart rate is in 50s decreased the Lopressor to 2.5mg at night. Also cut down the Cardizem drip to 2mg. The patient was on 5mg. The blood pressure comes up with this change then the patient is to get IV Vasotec. The patient is already getting steroids. We will also do some labs like Ferritin level, CPR and LDH in the morning. The patient's EKG reviewed which showed acute ID that happened 3-4 days ago. Cardiovascular status is stable. TIME SPENT: More than 30 minutes. Plan and coordination of the patient's care discussed in the presence of nurse. DAVIDA
[2021-02-22] MEDS: ATIVAN IM PRN (22:15)
[2021-02-23] MEDS: VENTOLIN HFA (PER PUFF-WITH SPACER) IH SCH ×4 (04:40→20:05)
[2021-02-23 05:05] LABS: HEMATOCRIT 37.1 % (42.0-52.0); HEMOGLOBIN 12.3 g/dl (14.0-18.0); MEAN CORPUSCULAR HEMOGLOBIN 27.2 pg (27.0-31.0); MEAN CORPUSCULAR HGB CONC 33.2 (31.8-35.4); MEAN CORPUSCULAR VOLUME 82.1 fl (80.0-94.0); PLATELET COUNT 182 10^3/uL (140-440); RED BLOOD COUNT 4.52 10^6/ul (4.70-6.10); WHITE BLOOD COUNT 9.05 K/ul (4.2-10.2)
[2021-02-23 05:18] LABS: ANISOCYTOSIS NOT PRESENT (NOT PRESENT)
[2021-02-23 05:24] LABS: ALANINE AMINOTRANSFERASE 35.2 U/L (0-50); ALBUMIN 2.26 g/dL (3.5-5.0); ALKALINE PHOSPHATASE 84.3 U/L (56-119); ASPARTATE AMINO TRANSFERASE 29.9 U/L (17-59); BILIRUBIN,TOTAL 0.73 mg/dL (0.2-1.3); BLOOD UREA NITROGEN 18.6 mg/dL (9-20); CALCIUM 8.6 mg/dL (8.4-10.2); CARBON DIOXIDE 25.2 mmol/L (22-30.0); CHLORIDE 106.2 mmol/L (98-107); CREATININE 0.65 mg/dL (0.60-1.10); GLUCOSE 217.7 mg/dL (74-106); POTASSIUM 3.85 mmol/L (3.5-5.1); SODIUM 132.5 mmol/L (134.5-145); TOTAL PROTEIN 4.65 g/dL (6.3-8.2)
[2021-02-23] MEDS: HUMULIN R SUBCUT PRN ×4 (06:11→21:08)
[2021-02-23] MEDS ORDERED: LASIX TAB PO SCH (09:00)
--- NOTE | 2021-02-23 09:23 | PCM.PROG ---
Attending Provider: ATTENDING PROVIDER: Dr. OMAR MENDIOLA This patient is seen with Thais Acosta, Nurse Practitioner. DATE OF SERVICE: 02/23/21 SUBJECTIVE: This 80 year old /WHITE M was hospitalized 02/09/21. Oxygen saturation 89% on room air, we will decrease oxygen to 3 liters nasal canula and repeat ABGs. He is doing well with pureed food. We will attempt to crush PO medications today. Still having intermittent confusion. The family is staying through the night and he did well. REVIEW OF SYSTEMS: CONSTITUTIONAL: No night sweats. No fatigue, malaise, lethargy. No fever or chills. Weakness. HEENT: Eyes: No visual changes. No eye pain. No eye discharge. ENT: No runny nose. No epistaxis. No sinus pain. No odynophagia. No congestion. RESPIRATORY: No cough, no congestion. No hemoptysis. Shortness of breath. CARDIOVASCULAR: No angina symptoms. No CHF symptoms. No atypical chest pain for CAD. No palpitations. No orthopnea.. GASTROINTESTINAL: No abdominal pain. No nausea or vomiting. No diarrhea or constipation. No hematemesis. No hematochezia. GENITOURINARY: No urgency. No frequency. No dysuria. No hematuria. No obstructive symptoms. No discharge. No pain. No significant abnormal bleeding. MUSCULOSKELETAL: No musculoskeletal pain; no joint swelling. NEUROLOGICAL: Awake, alert, intermittent confusion. No headache. No neck pain. No syncope. No seizures. No dizziness. PSYCHIATRIC: Not anxious. No depression. No suicidal thoughts. No homicidal thoughts. SKIN: No rash. No lesions. No wounds. ENDOCRINE: No unexplained weight loss. No weight gain. HEMATOLOGIC/LYMPHATIC: No anemia. No purpura. No petechiae. No prolonged or excessive bleeding. No palpable lymph nodes. PHYSICAL EXAMINATION: GENERAL: The patient is awake, alert and oriented to person not place and time, lying in bed in no distress. VITAL SIGNS: Temperature 96.7 F, Pulse 77, Respiratory Rate 20, BP 139/76, Pulse Ox 94% HEENT: Head normocephalic, atraumatic. Eyes: Extraocular muscles are intact. Pupils are equal, round and reactive to light and accommodation. Ears: No lesions. Nose appeared normal. Throat: No exudate or erythema. NECK: Supple. No JVD, no carotid bruit. No lymphadenopathy or thyromegaly. LUNGS: Diminished breath sounds. Clear to auscultation. Percussion note normal. Chest symmetrical. HEART: S1, S2, no S3. No murmurs. No cyanosis or clubbing. No ascites. Pulses: Dorsalis pedis and posterior tibial pulses +1 to +2 both sides. ABDOMEN: Soft. Non-tender. Bowel sounds active. No CVA tenderness. No mass felt. EXTREMITIES: No edema. Full range of motion of all extremities, equal. NEUROLOGIC: No focal deficit. Cranial nerves II through XII are grossly intact. No headache. No double vision. SKIN: Not dry. Intact. Turgor-normal. LYMPHATIC: No palpable lymph nodes/no lymphedema. MUSCULOSKELETAL: Normal joints with no swelling. Muscle tone is normal. LAB REVIEW: 02/23/21 04:25 02/23/21 04:25 02/23/21 04:25: Sodium 132.5 L, Potassium 3.85, Chloride 106.2, Carbon Dioxide 25.2, Anion Gap 4.95, BUN 18.6, Creatinine 0.65, Estimated GFR (MDRD) 118.00, BUN/Creatinine Ratio 28.61, Glucose 217.7 H, Calcium 8.60, Total Bilirubin 0.73, AST 29.9, ALT 35.2, Alkaline Phosphatase 84.3, Total Protein 4.65 L, Albumin 2.26 L, Globulin 2.39, Albumin/Globulin Ratio 0.94 02/23/21 04:25: WBC 9.05, RBC 4.52 L, Hgb 12.3 L, Hct 37.1 L, MCV 82.1, MCH 27.2, MCHC 33.2, RDW Coeff of [place] 17.0 H, Plt Count 182, Neutrophils % (Manual) 84.0 H, Lymphocytes % (Manual) 5.0 L, Monocytes % (Manual) 9.0, Reactive Lymphocytes 2.0, Anisocytosis Not present ASSESSMENT: Please see below. 1. COVID psychosis 2. Acute respiratory failure 3. Atrial fibrillation 4. Hypertension 5. Generalized weakness. PLAN: 1. Discontinue Lovenox 2. Start Eliquis 5mg BID 3. Can try Pepcid PO along with Lasix. Will see if consistently take PO medications before discontinuing Cardizem drip 4. Decrease Oxygen to 3 liters 5. Repeat ABG in 1-2 hours. Plan and coordination of the patient's care discussed in the presence of Banquet Director and nurse. SCRIBED BY: Waldo IRENE scribed while in presence of service performed by Dr. Mendiola/Thais Acosta APRN on 02/23/21 ([id number])
[2021-02-23] MEDS: POTASSIUM CHL 10% ORAL SOL PO SCH (09:39)
[2021-02-23] MEDS: PROTONIX IV IVP SCH (09:39)
[2021-02-23] MEDS: DECADRON IM SCH (09:39)
[2021-02-23] MEDS: CALMOSEPTINE OINTMENT TP SCH ×4 (09:40→21:15)
[2021-02-23] MEDS: SYMBICORT 160-4.5 MCG INHALER IH SCH ×2 (09:41→21:17)
[2021-02-23] MEDS: LASIX TAB PO SCH (09:41)
[2021-02-23 10:02] LABS: ABG O2 HGB 89.8 % (95-100); ABG PH 7.46 (7.35-7.45); BEecf 4.6 (-2.0-3.0); COHb 2.5 (0.5-1.5); HCO3 28.4 (21-28); MetHb 0.6 (0-1.5); TCO2 29.6 (19-24); sO2 92.7 % (94-98); tHb 12.6 g/dl (11.7-17.4)
[2021-02-23] MEDS: NYSTOP POWDER TP SCH ×4 (10:08→21:15)
[2021-02-23] MEDS: DEXTROSE 5%-WATER IV SOLN 1,000 ML IV SCH ×2 (10:08→10:28)
--- NOTE | 2021-02-23 10:19 | RS.SLPCNOT ---
Speech Case Note Date of Note: 02/23/21 Title: Swallow consult Note: CORE ASSEMBLY SUPERVISOR in facility this date. Went to floor and discussed pt's current PO diet. RN reported pt tolerated modified diet of puree texture and thickened liquid consistency. PO meds have been administered this date. No reports of overt s/s of aspiration. At this time, RN request that pt remain on modified diet texture and thickened liquids. CORE ASSEMBLY SUPERVISOR will return for CBSE when RN or MD warrant readiness for assessment to determine potential diet upgrade.
--- NOTE | 2021-02-23 10:19 | PN ---
DATE OF SERVICE: 02/22/2021 SUBJECTIVE: The patient was seen and examined with the Nurse Practitioner. The patient's condition seems to be steadily improving especially his mental status. They are trying to make him with the help. He is awake. His chest x-ray practically unremarkable except for atelectasis. His respiratory status is fairly good considering the patient's history of COVID. Hospital psychosis with COVID psychosis seems to be resolving slowly. TIME SPENT: More than 30 minutes. Plan and coordination of the patient's care discussed in the presence of nurse. DAVIDA
[2021-02-23] MEDS: PEPCID PO SCH (16:28)
[2021-02-23] MEDS: ATIVAN IM PRN (21:07)
[2021-02-23] MEDS: ELIQUIS PO SCH (21:07)
[2021-02-24] MEDS: ATIVAN IM PRN ×3 (01:58→21:17)
[2021-02-24] MEDS: VENTOLIN HFA (PER PUFF-WITH SPACER) IH SCH ×4 (04:00→20:10)
[2021-02-24] MEDS: DEXTROSE 5%-WATER IV SOLN 1,000 ML IV SCH (05:57)
[2021-02-24] MEDS: LASIX TAB PO SCH (05:59)
[2021-02-24] MEDS: PEPCID PO SCH ×2 (05:59→17:10)
[2021-02-24] MEDS: HUMULIN R SUBCUT PRN ×4 (05:59→21:16)
[2021-02-24 06:32] LABS: ALANINE AMINOTRANSFERASE 40.6 U/L (0-50); ALBUMIN 2.53 g/dL (3.5-5.0); ALKALINE PHOSPHATASE 107.2 U/L (56-119); ASPARTATE AMINO TRANSFERASE 35.4 U/L (17-59); BILIRUBIN,TOTAL 0.86 mg/dL (0.2-1.3); BLOOD UREA NITROGEN 18.9 mg/dL (9-20); CALCIUM 8.86 mg/dL (8.4-10.2); CARBON DIOXIDE 25.5 mmol/L (22-30.0); CHLORIDE 103.1 mmol/L (98-107); CREATININE 0.67 mg/dL (0.60-1.10); GLUCOSE 286.4 mg/dL (74-106); POTASSIUM 4.14 mmol/L (3.5-5.1); SODIUM 133.1 mmol/L (134.5-145); TOTAL PROTEIN 5.12 g/dL (6.3-8.2)
[2021-02-24 07:53] LABS: HEMATOCRIT 39.2 % (42.0-52.0); HEMOGLOBIN 12.8 g/dl (14.0-18.0); MEAN CORPUSCULAR HEMOGLOBIN 27.4 pg (27.0-31.0); MEAN CORPUSCULAR HGB CONC 32.7 (31.8-35.4); MEAN CORPUSCULAR VOLUME 83.9 fl (80.0-94.0); PLATELET COUNT 200 10^3/uL (140-440); RDW COEFFICIENT OF VARIATION 17.3 % (11.6-14.8); RED BLOOD COUNT 4.67 10^6/ul (4.70-6.10); WHITE BLOOD COUNT 8.58 K/ul (4.2-10.2)
[2021-02-24 08:01] LABS: ANISOCYTOSIS NOT PRESENT (NOT PRESENT)
--- NOTE | 2021-02-24 08:40 | ECHO2D ---
Date of Exam: 02/23/2021 Ordering Physician: DR. OMAR MENDIOLA Room #: 101 Reason for Echo: S/P COVID, DILATED CARDIOMYOPATHY, A-FIB WITH AVR, HTN, CHF, CAD, [place]--ACUTE M-Mode Normal Adult Results LV Dimensions Normal Adult Results AoV Opening excursions >1.6 1.4 LVEDD-base- 3.5-5.8 4.3 Ao root dimensions 2.0-3.7 3.8 LVESD-base- 3.1-4.6 L. Atrium dimensions 1.9-3.8 4.7 Post. Wall thickness 0.8-1.1 1.2 IV septum (thickness) 0.7-1.2 1.3 Post. Wall excursion 0.72-1.3 NORMAL Septal motion NORMAL Systolic motion R. Ventricular cavity 1.5-2.0 NORMAL LVEF 60% 61% Paradoxical septal wall motion NORMAL 2-D : NORMAL LEFT VENTRICLE CONTRACTILITY--ENLARGED LEFT ATRIAL CAVITY--CALCIFIC AORTIC VALVES MAYBE MILD AORTIC STENOSIS--SEPARATION OF LEAFLETS NOTED, NO EFFUSION, NO THROMBUS M-MODE: MV: NORMAL--MAYBE MITRAL VALVE PROLAPSE AV: NORMAL TV: NORMAL PV: CHAMBER SIZE: ENLARGED LEFT ATRIAL CAVITY WALL MOTION: NORMAL PERICARDIUM: NORMAL INTERPRETATION: 1. LEFT VENTRICLE HYPERTROPHY ENLARGED LEFT ATRIAL CAVITY 2. MILD CALCIFIC AORTIC STENOSIS WITH PLANIMETRY VALVE AREA 1.98 CM2 3. NORMAL LEFT VENTRICLE SIZE AND LEFT VENTRICLE CONTRACTILITY ECHO FINDINGS IMPROVED WITH LEFT VENTRICLE FUNCTION/SIZE SINCE 2015 [facility]
--- NOTE | 2021-02-24 08:41 | PCM.PROG ---
Attending Provider: ATTENDING PROVIDER: Dr. OMAR MENDIOLA DATE OF SERVICE: 02/24/21 SUBJECTIVE: This 80 year old /WHITE M was hospitalized 02/09/21 with COVID 19 pneumonia with respiratory failure. The patient has had long course. Respiratory status has improved 3-4 liters oxygen with saturation 94-95%. Yesterday echo showed normal LV contractility, normal LV size, enlarged LA cavity, quite impro jesus from 2016. Inferior wall [place] with obvious wall motion abnormality. REVIEW OF SYSTEMS: CONSTITUTIONAL: No night sweats. No fatigue, malaise, lethargy. No fever or chills. HEENT: Eyes: No visual changes. No eye pain. No eye discharge. ENT: No runny nose. No epistaxis. No sinus pain. No odynophagia. No congestion. RESPIRATORY: No cough, no congestion. No hemoptysis. No shortness of breath. CARDIOVASCULAR: No angina symptoms. No CHF symptoms. No atypical chest pain for CAD. No palpitations. No orthopnea.. GASTROINTESTINAL: No abdominal pain. No nausea or vomiting. No diarrhea or constipation. No hematemesis. No hematochezia. GENITOURINARY: No urgency. No frequency. No dysuria. No hematuria. No obstructive symptoms. No discharge. No pain. No significant abnormal bleeding. MUSCULOSKELETAL: No musculoskeletal pain; no joint swelling. NEUROLOGICAL: No headache. No neck pain. No syncope. No seizures. No dizziness. PSYCHIATRIC: Not anxious. No depression. No suicidal thoughts. No homicidal thoughts. SKIN: No rash. No lesions. No wounds. ENDOCRINE: No unexplained weight loss. No weight gain. HEMATOLOGIC/LYMPHATIC: No anemia. No purpura. No petechiae. No prolonged or excessive bleeding. No palpable lymph nodes. PHYSICAL EXAMINATION: GENERAL: The patient is awake, alert and oriented, lying in bed in no distress. VITAL SIGNS: Temperature 97 F, Pulse 90, Respiratory Rate 19, BP 122/65, Pulse Ox 97% HEENT: Head normocephalic, atraumatic. Eyes: Extraocular muscles are intact. Pupils are equal, round and reactive to light and accommodation. Ears: No lesions. Nose appeared normal. Throat: No exudate or erythema. Able to swallow. NECK: Supple. No JVD, no carotid bruit. No lymphadenopathy or thyromegaly. LUNGS: Good air entry. Clear to auscultation. Percussion note normal. Chest symmetrical. HEART: S1, S2, no S3. No murmurs. No cyanosis or clubbing. No ascites. Pulses: Dorsalis pedis and posterior tibial pulses +1 to +2 both sides. ABDOMEN: Soft. Non-tender. Bowel sounds active. No CVA tenderness. No mass felt. EXTREMITIES: No edema. Full range of motion of all extremities, equal. NEUROLOGIC: Mental status is still confused. No focal deficit. Cranial nerves II through XII are grossly intact. No headache, no double vision or headache. SKIN: Warm and dry. Intact. Turgor-normal. LYMPHATIC: No palpable lymph nodes/no lymphedema. MUSCULOSKELETAL: Normal joints with no swelling. Muscle tone is normal. LAB REVIEW: 02/23/21 04:25 02/24/21 05:50 02/24/21 05:50: Sodium 133.1 L, Potassium 4.14, Chloride 103.1, Carbon Dioxide 25.5, Anion Gap 8.64, BUN 18.9, Creatinine 0.67, Estimated GFR (MDRD) 114.00, BUN/Creatinine Ratio 28.20, Glucose 286.4 H, Calcium 8.86, Total Bilirubin 0.86, AST 35.4, ALT 40.6, Alkaline Phosphatase 107.2, Total Protein 5.12 L, Albumin 2.53 L, Globulin 2.59, Albumin/Globulin Ratio 0.97 02/23/21 09:55: Puncture Site R rad, Base Excess 4.6 H, O2 Saturation 92.7 L, ABG pH 7.46 H, ABG pCO2 40.0, ABG pO2 62.0 L, ABG HCO3 28.4 H, ABG Total CO2 29.6 H, Shantanu Test Yes, Hemoglobin 0.6, Oxyhemoglobin 89.8 L, Carboxyhemoglobin 2.5 H, Total Hemoglobin 12.6, O2 Delivery Device Cannula, Oxygen Liter Flow 3.00, FiO2 % 32.0 ASSESSMENT: Please see below. 1. Respiratory failure, improved stable 2. Mental status improved, still confused 3. Atrial fibrillation, persistent 4. Status post [place] PLAN: 1. Restart oral medications 2. Discontinue Lotril 3. Discontinue Clonidine 4. Lisinopril 20mg daily 5. Metformin 1000mg daily 6. Eliquis 5mg BID 7. Discontinue Lovenox 8. Metoprolol 25mg BID 9. Cardizem 60mg BID 10.Discontinue IV Cardizem 11.Discontinue IV Metoprolol 12.Continue Dexamethasone IM Plan and coordination of the patient's care discussed in the presence of Street Department Dispatcher and nurse. CONDITION: Stable SCRIBED BY: Renuka IRENEist scribed while in presence of service performed by Dr. OMAR MENDIOLA on 02/24/21 ([id number])
[2021-02-24] MEDS: CALMOSEPTINE OINTMENT TP SCH ×4 (08:45→21:18)
[2021-02-24] MEDS: POTASSIUM CHL 10% ORAL SOL PO SCH (08:46)
[2021-02-24] MEDS: NYSTOP POWDER TP SCH ×4 (08:46→21:18)
[2021-02-24] MEDS: PROTONIX IV IVP SCH (08:47)
[2021-02-24] MEDS: DECADRON IM SCH (08:48)
[2021-02-24] MEDS: SYMBICORT 160-4.5 MCG INHALER IH SCH ×2 (09:06→21:20)
[2021-02-24] MEDS: ELIQUIS PO SCH ×2 (09:08→21:16)
[2021-02-24] MEDS: CARDIZEM PO SCH ×2 (11:27→21:16)
[2021-02-24] MEDS: TOPROL XL PO SCH ×2 (11:27→21:16)
[2021-02-24] MEDS: ZESTRIL PO SCH (11:28)
[2021-02-24] MEDS: GLUCOPHAGE PO SCH ×2 (11:28→17:10)
[2021-02-25] MEDS: ATIVAN IM PRN (03:25)
[2021-02-25] MEDS: VENTOLIN HFA (PER PUFF-WITH SPACER) IH SCH ×4 (04:40→19:45)
[2021-02-25] MEDS: PEPCID PO SCH ×2 (05:59→17:44)
[2021-02-25 06:00] LABS: BASOPHILS % (AUTO) 0.1 % (0.0-3.0); EOSINOPHILS % (AUTO) 0.4 % (0.0-7.0); HEMATOCRIT 37.2 % (42.0-52.0); HEMOGLOBIN 12.1 g/dl (14.0-18.0); IMMATURE GRANULOCYTE # (AUTO) 0.1 (0.0-1.0); IMMATURE GRANULOCYTE % (AUTO) 1.1 % (0.0-5.0); LYMPHOCYTES # (AUTO) 0.4 K/uL (0.60-3.4); LYMPHOCYTES % (AUTO) 4.7 (10.0-50.0); MEAN CORPUSCULAR HEMOGLOBIN 27.3 pg (27.0-31.0); MEAN CORPUSCULAR HGB CONC 32.5 (31.8-35.4); MEAN CORPUSCULAR VOLUME 83.8 fl (80.0-94.0); MONOCYTES # (AUTO) 0.6 K/uL (0.4-2.0); MONOCYTES % (AUTO) 7.4 (0-10); NEUTROPHILS % (AUTO) 86.3 % (42.2-75.2); PLATELET COUNT 191 10^3/uL (140-440); RDW COEFFICIENT OF VARIATION 17.3 % (11.6-14.8); RED BLOOD COUNT 4.44 10^6/ul (4.70-6.10); WHITE BLOOD COUNT 8.06 K/ul (4.2-10.2)
[2021-02-25] MEDS: LASIX TAB PO SCH (06:00)
[2021-02-25 06:22] LABS: ALANINE AMINOTRANSFERASE 41.3 U/L (0-50); ALBUMIN 2.38 g/dL (3.5-5.0); ALKALINE PHOSPHATASE 112.8 U/L (56-119); ASPARTATE AMINO TRANSFERASE 41.7 U/L (17-59); BILIRUBIN,TOTAL 0.75 mg/dL (0.2-1.3); CALCIUM 9.14 mg/dL (8.4-10.2); CARBON DIOXIDE 27.9 mmol/L (22-30.0); CHLORIDE 104.1 mmol/L (98-107); CREATININE 0.8 mg/dL (0.60-1.10); GLUCOSE 182.2 mg/dL (74-106); POTASSIUM 4.48 mmol/L (3.5-5.1); SODIUM 134.9 mmol/L (134.5-145); TOTAL PROTEIN 4.75 g/dL (6.3-8.2)
[2021-02-25] MEDS: HUMULIN R SUBCUT PRN ×4 (06:26→20:14)
[2021-02-25] MEDS ORDERED: DEXTROSE 5%-WATER IV SOLN 1,000 ML IV SCH (07:30)
[2021-02-25] MEDS: NYSTOP POWDER TP SCH ×4 (09:15→20:15)
[2021-02-25] MEDS: CALMOSEPTINE OINTMENT TP SCH ×4 (09:15→20:15)
[2021-02-25] MEDS: POTASSIUM CHL 10% ORAL SOL PO SCH (09:41)
[2021-02-25] MEDS: GLUCOPHAGE PO SCH ×2 (09:41→17:44)
[2021-02-25] MEDS: VITAMIN D PO SCH (09:42)
[2021-02-25] MEDS: ZESTRIL PO SCH (09:42)
[2021-02-25] MEDS: CARDIZEM PO SCH ×2 (09:42→20:11)
[2021-02-25] MEDS: CRESTOR PO SCH (09:42)
[2021-02-25] MEDS: ZINC-220 PO SCH (09:42)
[2021-02-25] MEDS: TRIGLIDE PO SCH (09:43)
[2021-02-25] MEDS: TOPROL XL PO SCH ×2 (09:43→20:11)
[2021-02-25] MEDS: DECADRON IM SCH (09:43)
[2021-02-25] MEDS: ELIQUIS PO SCH ×2 (09:44→20:13)
[2021-02-25] MEDS: SYMBICORT 160-4.5 MCG INHALER IH SCH ×2 (12:15→20:15)
[2021-02-25] MEDS: PROTONIX IV IVP SCH (13:44)
[2021-02-25] MEDS: DULCOLAX RC SCH (13:49)
[2021-02-26] MEDS: VENTOLIN HFA (PER PUFF-WITH SPACER) IH SCH ×4 (05:05→19:40)
[2021-02-26 05:14] LABS: BASOPHILS % (AUTO) 0.1 % (0.0-3.0); EOSINOPHILS % (AUTO) 0.1 % (0.0-7.0); HEMATOCRIT 40.4 % (42.0-52.0); HEMOGLOBIN 13.1 g/dl (14.0-18.0); IMMATURE GRANULOCYTE # (AUTO) 0.1 (0.0-1.0); IMMATURE GRANULOCYTE % (AUTO) 1.1 % (0.0-5.0); LYMPHOCYTES # (AUTO) 0.4 K/uL (0.60-3.4); LYMPHOCYTES % (AUTO) 4.2 (10.0-50.0); MEAN CORPUSCULAR HEMOGLOBIN 27.4 pg (27.0-31.0); MEAN CORPUSCULAR HGB CONC 32.4 (31.8-35.4); MEAN CORPUSCULAR VOLUME 84.5 fl (80.0-94.0); MONOCYTES # (AUTO) 0.6 K/uL (0.4-2.0); MONOCYTES % (AUTO) 6.7 (0-10); NEUTROPHILS # (AUTO) 8.3 K/ul (2.0-6.9); NEUTROPHILS % (AUTO) 87.8 % (42.2-75.2); PLATELET COUNT 120 10^3/uL (140-440); RDW COEFFICIENT OF VARIATION 18.1 % (11.6-14.8); RED BLOOD COUNT 4.78 10^6/ul (4.70-6.10); WHITE BLOOD COUNT 9.39 K/ul (4.2-10.2)
[2021-02-26 05:17] LABS: ABG O2 HGB 88.4 % (95-100); ABG PH 7.48 (7.35-7.45); BEecf 4.8 (-2.0-3.0); COHb 2.5 (0.5-1.5); HCO3 28.3 (21-28); MetHb 0.8 (0-1.5); TCO2 29.5 (19-24); tHb 12.5 g/dl (11.7-17.4)
[2021-02-26 05:29] LABS: ALANINE AMINOTRANSFERASE 43.2 U/L (0-50); ALBUMIN 2.55 g/dL (3.5-5.0); ALKALINE PHOSPHATASE 120.4 U/L (56-119); ASPARTATE AMINO TRANSFERASE 84.1 U/L (17-59); BILIRUBIN,TOTAL 0.97 mg/dL (0.2-1.3); BLOOD UREA NITROGEN 16.6 mg/dL (9-20); CALCIUM 9.02 mg/dL (8.4-10.2); CARBON DIOXIDE 23.4 mmol/L (22-30.0); CHLORIDE 105.1 mmol/L (98-107); CREATININE 0.76 mg/dL (0.60-1.10); GLUCOSE 168.7 mg/dL (74-106); POTASSIUM 4.44 mmol/L (3.5-5.1); SODIUM 130.7 mmol/L (134.5-145); TOTAL PROTEIN 5.02 g/dL (6.3-8.2)
[2021-02-26] MEDS: LASIX TAB PO SCH (06:28)
[2021-02-26] MEDS: HUMULIN R SUBCUT PRN ×4 (06:53→20:45)
[2021-02-26] MEDS: PEPCID PO SCH ×2 (07:48→17:46)
[2021-02-26] MEDS: PROTONIX IV IVP SCH (09:02)
[2021-02-26] MEDS: DECADRON IM SCH (09:02)
[2021-02-26] MEDS: NYSTOP POWDER TP SCH ×4 (09:03→20:56)
[2021-02-26] MEDS: CALMOSEPTINE OINTMENT TP SCH ×4 (09:03→20:47)
[2021-02-26] MEDS: DULCOLAX RC SCH (10:44)
[2021-02-26] MEDS: POTASSIUM CHL 10% ORAL SOL PO SCH (10:44)
[2021-02-26] MEDS: ZINC-220 PO SCH (10:45)
[2021-02-26] MEDS: ELIQUIS PO SCH ×2 (10:45→20:44)
[2021-02-26] MEDS: CRESTOR PO SCH (10:46)
[2021-02-26] MEDS: VITAMIN D PO SCH (10:46)
[2021-02-26] MEDS: ZESTRIL PO SCH (10:46)
[2021-02-26] MEDS: CARDIZEM PO SCH ×2 (10:46→20:43)
[2021-02-26] MEDS: GLUCOPHAGE PO SCH ×2 (10:46→17:47)
[2021-02-26] MEDS: TRIGLIDE PO SCH (10:46)
[2021-02-26] MEDS: TOPROL XL PO SCH ×2 (10:47→20:44)
[2021-02-26] MEDS: SYMBICORT 160-4.5 MCG INHALER IH SCH ×2 (10:53→20:47)
[2021-02-26 14:45] LABS: BILIRUBIN,URINE Negative (NEGATIVE); CLARITY,URINE Cloudy (CLEAR); COLOR,URINE Yellow (YELLOW); GLUCOSE, URINE (UA) 2+ (NEGATIVE); KETONES,URINE Negative (NEGATIVE); LEUKOCYTE ESTERASE ,URINE 3+ (NEGATIVE); NITRITE,URINE Negative (NEGATIVE); PROTEIN,URINE Trace (NEGATIVE); URINE, BLOOD 3+ (NEGATIVE)
[2021-02-26 14:51] LABS: BACTERIA,URINE TRACE (NOT PRESENT); MUCUS,URINE TRACE (NOT PRESENT); SQUAMOUS EPITHELIAL CELL,UR NOT PRESENT (0-5); URINE RBC, MICROSCOPIC 30-50 (0-2); URINE WBC, MICROSCOPIC TNTC (0-2); YEAST,URINE 2+ (NOT PRESENT)
[2021-02-26] MEDS: BACTRIM DS 800/160 MG PO SCH ×2 (15:35→20:45)
[2021-02-26] MEDS: PROTONIX PO SCH (17:46)
[2021-02-26] MEDS: ATIVAN IM PRN (20:54)
[2021-02-27] MEDS: CARDIZEM 125 MG in SODIUM CHLORIDE 100ML 100 ML IV SCH (00:15)
[2021-02-27] MEDS: ATIVAN IM PRN ×2 (02:27→23:59)
[2021-02-27] MEDS: HALDOL IM PRN (02:53)
[2021-02-27 04:42] LABS: BASOPHILS % (AUTO) 0.1 % (0.0-3.0); HEMATOCRIT 35.9 % (42.0-52.0); HEMOGLOBIN 11.8 g/dl (14.0-18.0); IMMATURE GRANULOCYTE # (AUTO) 0.1 (0.0-1.0); IMMATURE GRANULOCYTE % (AUTO) 0.8 % (0.0-5.0); LYMPHOCYTES # (AUTO) 0.4 K/uL (0.60-3.4); LYMPHOCYTES % (AUTO) 4.8 (10.0-50.0); MEAN CORPUSCULAR HEMOGLOBIN 27.3 pg (27.0-31.0); MEAN CORPUSCULAR HGB CONC 32.9 (31.8-35.4); MEAN CORPUSCULAR VOLUME 82.9 fl (80.0-94.0); MONOCYTES # (AUTO) 0.6 K/uL (0.4-2.0); MONOCYTES % (AUTO) 7.3 (0-10); NEUTROPHILS # (AUTO) 6.7 K/ul (2.0-6.9); PLATELET COUNT 171 10^3/uL (140-440); RDW COEFFICIENT OF VARIATION 17.8 % (11.6-14.8); RED BLOOD COUNT 4.33 10^6/ul (4.70-6.10); WHITE BLOOD COUNT 7.71 K/ul (4.2-10.2)
[2021-02-27 05:06] LABS: ALANINE AMINOTRANSFERASE 39.5 U/L (0-50); ALBUMIN 2.3 g/dL (3.5-5.0); ALKALINE PHOSPHATASE 100.5 U/L (56-119); ASPARTATE AMINO TRANSFERASE 62.7 U/L (17-59); BILIRUBIN,TOTAL 0.65 mg/dL (0.2-1.3); BLOOD UREA NITROGEN 18.6 mg/dL (9-20); CALCIUM 8.9 mg/dL (8.4-10.2); CHLORIDE 103.8 mmol/L (98-107); CREATININE 0.92 mg/dL (0.60-1.10); GLUCOSE 178.9 mg/dL (74-106); POTASSIUM 4.21 mmol/L (3.5-5.1); SODIUM 133.1 mmol/L (134.5-145); TOTAL PROTEIN 4.52 g/dL (6.3-8.2)
[2021-02-27] MEDS: VENTOLIN HFA (PER PUFF-WITH SPACER) IH SCH ×4 (05:18→19:15)
[2021-02-27] MEDS: PROTONIX PO SCH ×3 (05:52→16:48)
[2021-02-27] MEDS: PEPCID PO SCH ×3 (05:52→16:48)
[2021-02-27] MEDS: LASIX TAB PO SCH ×2 (05:52→06:17)
[2021-02-27] MEDS: HUMULIN R SUBCUT PRN ×3 (06:27→22:06)
[2021-02-27] MEDS ORDERED: HALDOL IM PRN (06:52)
[2021-02-27] MEDS: DECADRON IM SCH (09:30)
[2021-02-27] MEDS: POTASSIUM CHL 10% ORAL SOL PO SCH (09:32)
[2021-02-27] MEDS: TOPROL XL PO SCH ×2 (09:33→21:16)
[2021-02-27] MEDS: ZINC-220 PO SCH (09:33)
[2021-02-27] MEDS: BACTRIM DS 800/160 MG PO SCH ×2 (09:33→21:16)
[2021-02-27] MEDS: ZESTRIL PO SCH (09:33)
[2021-02-27] MEDS: VITAMIN D PO SCH (09:33)
[2021-02-27] MEDS: CRESTOR PO SCH (09:33)
[2021-02-27] MEDS: TRIGLIDE PO SCH (09:34)
[2021-02-27] MEDS: ELIQUIS PO SCH ×2 (09:34→21:16)
[2021-02-27] MEDS: GLUCOPHAGE PO SCH ×2 (09:34→16:48)
[2021-02-27] MEDS: CARDIZEM PO SCH ×2 (09:34→21:16)
[2021-02-27] MEDS: NYSTOP POWDER TP SCH ×4 (09:36→21:15)
[2021-02-27] MEDS: SYMBICORT 160-4.5 MCG INHALER IH SCH ×2 (09:36→21:20)
[2021-02-27] MEDS: CALMOSEPTINE OINTMENT TP SCH ×4 (09:36→21:15)
[2021-02-27] MEDS: DULCOLAX RC SCH (10:24)
[2021-02-27] MEDS ORDERED: LOTRISONE 45 GM TP PRN (12:16)
[2021-02-27] MEDS: DIFLUCAN PO SCH (14:52)
[2021-02-27] MEDS ORDERED: LOTRISONE 45 GM TP SCH (21:00)
[2021-02-28] MEDS: VENTOLIN HFA (PER PUFF-WITH SPACER) IH SCH ×4 (05:05→19:30)
[2021-02-28 05:24] LABS: BASOPHILS % (AUTO) 0.2 % (0.0-3.0); HEMATOCRIT 37.4 % (42.0-52.0); HEMOGLOBIN 12.3 g/dl (14.0-18.0); IMMATURE GRANULOCYTE # (AUTO) 0.1 (0.0-1.0); IMMATURE GRANULOCYTE % (AUTO) 0.9 % (0.0-5.0); LYMPHOCYTES # (AUTO) 0.4 K/uL (0.60-3.4); LYMPHOCYTES % (AUTO) 4.6 (10.0-50.0); MEAN CORPUSCULAR HEMOGLOBIN 27.7 pg (27.0-31.0); MEAN CORPUSCULAR HGB CONC 32.9 (31.8-35.4); MEAN CORPUSCULAR VOLUME 84.2 fl (80.0-94.0); MONOCYTES # (AUTO) 0.6 K/uL (0.4-2.0); MONOCYTES % (AUTO) 6.6 (0-10); NEUTROPHILS # (AUTO) 8.4 K/ul (2.0-6.9); NEUTROPHILS % (AUTO) 87.7 % (42.2-75.2); PLATELET COUNT 198 10^3/uL (140-440); RDW COEFFICIENT OF VARIATION 18.6 % (11.6-14.8); RED BLOOD COUNT 4.44 10^6/ul (4.70-6.10); WHITE BLOOD COUNT 9.58 K/ul (4.2-10.2)
[2021-02-28 05:44] LABS: ALANINE AMINOTRANSFERASE 36.3 U/L (0-50); ALBUMIN 2.5 g/dL (3.5-5.0); ALKALINE PHOSPHATASE 96.4 U/L (56-119); ASPARTATE AMINO TRANSFERASE 37.1 U/L (17-59); BILIRUBIN,TOTAL 0.6 mg/dL (0.2-1.3); BLOOD UREA NITROGEN 22.9 mg/dL (9-20); CALCIUM 8.94 mg/dL (8.4-10.2); CARBON DIOXIDE 27.2 mmol/L (22-30.0); CHLORIDE 104.2 mmol/L (98-107); CREATININE 1.09 mg/dL (0.60-1.10); GLUCOSE 172.3 mg/dL (74-106); POTASSIUM 4.78 mmol/L (3.5-5.1); SODIUM 133.1 mmol/L (134.5-145); TOTAL PROTEIN 4.89 g/dL (6.3-8.2)
[2021-02-28] MEDS: PEPCID PO SCH ×2 (06:05→17:13)
[2021-02-28] MEDS: LASIX TAB PO SCH (06:06)
[2021-02-28] MEDS: PROTONIX PO SCH ×2 (06:06→17:13)
[2021-02-28] MEDS: HUMULIN R SUBCUT PRN ×4 (06:37→20:10)
[2021-02-28] MEDS: VITAMIN D PO SCH (08:59)
[2021-02-28] MEDS: CRESTOR PO SCH (09:00)
[2021-02-28] MEDS: GLUCOPHAGE PO SCH ×2 (09:00→17:13)
[2021-02-28] MEDS: BACTRIM DS 800/160 MG PO SCH ×2 (09:00→20:09)
[2021-02-28] MEDS: CARDIZEM PO SCH ×2 (09:00→20:09)
[2021-02-28] MEDS: ZINC-220 PO SCH (09:00)
[2021-02-28] MEDS: ELIQUIS PO SCH ×2 (09:01→20:09)
[2021-02-28] MEDS: DECADRON IM SCH (09:01)
[2021-02-28] MEDS: TRIGLIDE PO SCH (09:01)
[2021-02-28] MEDS: SYMBICORT 160-4.5 MCG INHALER IH SCH ×2 (09:03→20:22)
[2021-02-28] MEDS: CALMOSEPTINE OINTMENT TP SCH ×4 (09:04→20:22)
[2021-02-28] MEDS: NYSTOP POWDER TP SCH ×4 (09:04→20:26)
[2021-02-28] MEDS: POTASSIUM CHL 10% ORAL SOL PO SCH (09:05)
[2021-02-28] MEDS: TOPROL XL PO SCH ×3 (09:28→20:08)
[2021-02-28] MEDS: ZESTRIL PO SCH ×2 (09:28→10:38)
[2021-02-28] MEDS: DULCOLAX RC SCH (14:33)
[2021-02-28] MEDS: ATIVAN PO SCH (20:09)
[2021-02-28] MEDS: ATIVAN IM PRN (23:58)
[2021-03-01] MEDS: VENTOLIN HFA (PER PUFF-WITH SPACER) IH SCH ×4 (04:30→19:55)
[2021-03-01 05:17] LABS: BASOPHILS % (AUTO) 0.1 % (0.0-3.0); HEMATOCRIT 37.2 % (42.0-52.0); HEMOGLOBIN 11.8 g/dl (14.0-18.0); IMMATURE GRANULOCYTE # (AUTO) 0.1 (0.0-1.0); IMMATURE GRANULOCYTE % (AUTO) 0.6 % (0.0-5.0); LYMPHOCYTES # (AUTO) 0.3 K/uL (0.60-3.4); LYMPHOCYTES % (AUTO) 4.3 (10.0-50.0); MEAN CORPUSCULAR HEMOGLOBIN 26.9 pg (27.0-31.0); MEAN CORPUSCULAR HGB CONC 31.7 (31.8-35.4); MEAN CORPUSCULAR VOLUME 84.9 fl (80.0-94.0); MONOCYTES # (AUTO) 0.5 K/uL (0.4-2.0); MONOCYTES % (AUTO) 6.6 (0-10); NEUTROPHILS % (AUTO) 88.4 % (42.2-75.2); PLATELET COUNT 195 10^3/uL (140-440); RDW COEFFICIENT OF VARIATION 18.8 % (11.6-14.8); RED BLOOD COUNT 4.38 10^6/ul (4.70-6.10); WHITE BLOOD COUNT 7.87 K/ul (4.2-10.2)
[2021-03-01 05:38] LABS: ALANINE AMINOTRANSFERASE 34.8 U/L (0-50); ALBUMIN 2.54 g/dL (3.5-5.0); ALKALINE PHOSPHATASE 94.7 U/L (56-119); BILIRUBIN,TOTAL 0.64 mg/dL (0.2-1.3); BLOOD UREA NITROGEN 28.6 mg/dL (9-20); CALCIUM 8.95 mg/dL (8.4-10.2); CARBON DIOXIDE 27.4 mmol/L (22-30.0); CHLORIDE 103.5 mmol/L (98-107); CREATININE 1.13 mg/dL (0.60-1.10); GLUCOSE 176.6 mg/dL (74-106); POTASSIUM 4.82 mmol/L (3.5-5.1); TOTAL PROTEIN 4.94 g/dL (6.3-8.2)
[2021-03-01] MEDS: PEPCID PO SCH ×2 (05:44→18:35)
[2021-03-01] MEDS: LASIX TAB PO SCH (05:44)
[2021-03-01] MEDS: PROTONIX PO SCH ×2 (05:45→18:35)
[2021-03-01] MEDS: HUMULIN R SUBCUT PRN ×4 (06:18→21:03)
--- NOTE | 2021-03-01 09:22 | PCM.PROG ---
Attending Provider: ATTENDING PROVIDER: Dr. OMAR MENDIOLA This patient is seen with Thais Acosta, Nurse Practitioner. DATE OF SERVICE: 03/01/21 SUBJECTIVE: This 80 year old /WHITE M was hospitalized 02/09/21. The patient is resting comfortably, he is responding. Still confused. Resing better last night after Ativan at 8pm and then at midnight. Yesterday had long dicussion with the family and they wished to have catheter removed,felt this was not the best decision given he has some redness on his bottom. We did discuss further residential placement and possibility that he may not impove much more given his current mental status. REVIEW OF SYSTEMS: CONSTITUTIONAL: No night sweats. No fatigue, malaise, lethargy. No fever or chills. Weakness. HEENT: Eyes: No visual changes. No eye pain. No eye discharge. ENT: No runny nose. No epistaxis. No sinus pain. No odynophagia. No congestion. RESPIRATORY: No cough, no congestion. No hemoptysis. No shortness of breath. CARDIOVASCULAR: No angina symptoms. No CHF symptoms. No atypical chest pain for CAD. No palpitations. No orthopnea.. GASTROINTESTINAL: No abdominal pain. No nausea or vomiting. No diarrhea or const ipation. No hematemesis. No hematochezia. GENITOURINARY: No urgency. No frequency. No dysuria. No hematuria. No obstructive symptoms. No discharge. No pain. No significant abnormal bleeding. MUSCULOSKELETAL: No musculoskeletal pain; no joint swelling. NEUROLOGICAL: Awake, alert, confusion. No headache. No neck pain. No syncope. No seizures. No dizziness. PSYCHIATRIC: Not anxious. No depression. No suicidal thoughts. No homicidal thoughts. SKIN: No rash. No lesions. No wounds. ENDOCRINE: No unexplained weight loss. No weight gain. HEMATOLOGIC/LYMPHATIC: No anemia. No purpura. No petechiae. No prolonged or excessive bleeding. No palpable lymph nodes. PHYSICAL EXAMINATION: GENERAL: The patient is awake, alert and response to name, lying in bed in no distress. VITAL SIGNS: Temperature 97.3 F, Pulse 67, Respiratory Rate 16, BP 129/82, Pulse Ox 91% HEENT: Head normocephalic, atraumatic. Eyes: Extraocular muscles are intact. Pupils are equal, round and reactive to light and accommodation. Ears: No lesions. Nose appeared normal. Throat: No exudate or erythema. NECK: Supple. No JVD, no carotid bruit. No lymphadenopathy or thyromegaly. LUNGS: Diminished breath sounds. Clear to auscultation. Percussion note normal. Chest symmetrical. HEART: S1, S2, no S3. No murmurs. No cyanosis or clubbing. No ascites. Pulses: Dorsalis pedis and posterior tibial pulses +1 to +2 both sides. ABDOMEN: Soft. Non-tender. Bowel sounds active. No CVA tenderness. No mass felt. EXTREMITIES: No edema. Full range of motion of all extremities, equal. NEUROLOGIC: No focal deficit. Cranial nerves II through XII are grossly intact. No headache. No double vision. SKIN: Not dry. Intact. Turgor-normal. LYMPHATIC: No palpable lymph nodes/no lymphedema. MUSCULOSKELETAL: Normal joints with no swelling. Muscle tone is normal. LAB REVIEW: 03/01/21 04:30 03/01/21 04:30 03/01/21 04:30: Sodium 133.0 L, Potassium 4.82, Chloride 103.5, Carbon Dioxide 27.4, Anion Gap 6.92, BUN 28.6 H, Creatinine 1.13 H, Estimated GFR (MDRD) 62.00, BUN/Creatinine Ratio 25.30, Glucose 176.6 H, Calcium 8.95, Total Bilirubin 0.64, AST 29.0, ALT 34.8, Alkaline Phosphatase 94.7, Total Protein 4.94 L, Albumin 2.54 L, Globulin 2.40, Albumin/Globulin Ratio 1.05 03/01/21 04:30: WBC 7.87, RBC 4.38 L, Hgb 11.8 L, Hct 37.2 L, MCV 84.9, MCH 26.9 L, MCHC 31.7 L, RDW Coeff of [place] 18.8 H, Plt Count 195, Immature Gran % (Auto) 0.6, Neut % (Auto) 88.4 H, Lymph % (Auto) 4.3 L, [place]ike % (Auto) 6.6, Eos % (Auto) 0.0, Baso % (Auto) 0.1, Neut # (Auto) 7.0 H, Lymph # (Auto) 0.3 L, [place]ike # (Auto) 0.5, Eos # (Auto) 0.0, Baso # (Auto) 0.0, Immature Gran # (Auto) 0.1 02/27/21 04:30: C-React Prot High Sens 34.77 H 02/27/21 04:30: Lactate Dehydrogenase 491 H ASSESSMENT: Please see below. 1. COVID psychosis 2. Agitation 3. Hypotension 4. Respiratory failure PLAN: 1. Urine showed yeast only, Bactrim discontinued 2. Discontinue Decadron 3. Prednisone 20mg daily in the morning 4. Decreased 30mg Cardizem BID Plan and coordination of the patient's care discussed in the presence of Care Worker and nurse. SCRIBED BY: NABOR CLEVEL[place] Certified Lactation Counselor scribed while in presence of service performed by Dr. Mendiola/Thais Acosta APRN on 03/01/21 (08)
[2021-03-01] MEDS ORDERED: CARDIZEM PO SCH (10:00)
[2021-03-01] MEDS: ZINC-220 PO SCH (10:02)
[2021-03-01] MEDS: BACTRIM DS 800/160 MG PO SCH (10:02)
[2021-03-01] MEDS: ELIQUIS PO SCH ×2 (10:03→21:02)
[2021-03-01] MEDS: ZESTRIL PO SCH (10:04)
[2021-03-01] MEDS: VITAMIN D PO SCH (10:05)
[2021-03-01] MEDS: TOPROL XL PO SCH ×2 (10:06→21:01)
[2021-03-01] MEDS: CRESTOR PO SCH (10:07)
[2021-03-01] MEDS: GLUCOPHAGE PO SCH ×2 (10:07→18:34)
[2021-03-01] MEDS: POTASSIUM CHL 10% ORAL SOL PO SCH (10:07)
[2021-03-01] MEDS: TRIGLIDE PO SCH (10:07)
[2021-03-01] MEDS: DECADRON IM SCH (10:09)
[2021-03-01] MEDS: NYSTOP POWDER TP SCH ×4 (10:10→21:09)
[2021-03-01] MEDS: CALMOSEPTINE OINTMENT TP SCH ×4 (10:10→21:09)
[2021-03-01] MEDS: DIFLUCAN PO SCH (10:19)
[2021-03-01] MEDS: CARDIZEM PO SCH ×2 (10:19→21:02)
[2021-03-01] MEDS: DULCOLAX RC SCH (12:00)
[2021-03-01] MEDS: SYMBICORT 160-4.5 MCG INHALER IH SCH ×2 (12:30→21:09)
[2021-03-01] MEDS: FLOMAX PO SCH (21:02)
[2021-03-01] MEDS: ATIVAN PO SCH (21:02)
[2021-03-02] MEDS: VENTOLIN HFA (PER PUFF-WITH SPACER) IH SCH ×4 (04:25→19:55)
[2021-03-02 05:14] LABS: BASOPHILS % (AUTO) 0.1 % (0.0-3.0); HEMATOCRIT 37.6 % (42.0-52.0); HEMOGLOBIN 12.2 g/dl (14.0-18.0); IMMATURE GRANULOCYTE % (AUTO) 0.5 % (0.0-5.0); LYMPHOCYTES # (AUTO) 0.3 K/uL (0.60-3.4); LYMPHOCYTES % (AUTO) 4.2 (10.0-50.0); MEAN CORPUSCULAR HEMOGLOBIN 27.4 pg (27.0-31.0); MEAN CORPUSCULAR HGB CONC 32.4 (31.8-35.4); MEAN CORPUSCULAR VOLUME 84.3 fl (80.0-94.0); MONOCYTES # (AUTO) 0.5 K/uL (0.4-2.0); MONOCYTES % (AUTO) 6.6 (0-10); NEUTROPHILS # (AUTO) 6.6 K/ul (2.0-6.9); NEUTROPHILS % (AUTO) 88.6 % (42.2-75.2); PLATELET COUNT 186 10^3/uL (140-440); RDW COEFFICIENT OF VARIATION 18.3 % (11.6-14.8); RED BLOOD COUNT 4.46 10^6/ul (4.70-6.10)
[2021-03-02 05:41] LABS: ALANINE AMINOTRANSFERASE 38.4 U/L (0-50); ALBUMIN 2.62 g/dL (3.5-5.0); ALKALINE PHOSPHATASE 99.6 U/L (56-119); ASPARTATE AMINO TRANSFERASE 28.1 U/L (17-59); BILIRUBIN,TOTAL 0.72 mg/dL (0.2-1.3); CALCIUM 9.15 mg/dL (8.4-10.2); CARBON DIOXIDE 28.7 mmol/L (22-30.0); CHLORIDE 103.2 mmol/L (98-107); CREATININE 1.27 mg/dL (0.60-1.10); GLUCOSE 156.5 mg/dL (74-106); POTASSIUM 4.94 mmol/L (3.5-5.1); SODIUM 134.2 mmol/L (134.5-145); TOTAL PROTEIN 4.99 g/dL (6.3-8.2)
[2021-03-02] MEDS: PROTONIX PO SCH ×2 (06:14→17:03)
[2021-03-02] MEDS: LASIX TAB PO SCH (06:14)
[2021-03-02] MEDS: HUMULIN R SUBCUT PRN ×4 (06:14→21:12)
[2021-03-02] MEDS: PEPCID PO SCH ×2 (06:14→17:02)
--- NOTE | 2021-03-02 08:23 | PN ---
DATE OF SERVICE: 02/28/2021 SUBJECTIVE: The patient was examined. He has been pretty anxious throughout the night. He is requiring Ativan multiple times. He is very restless and trying to pull out his catheter. The family has been staying with him during the night. He is resting this morning. He remains on 3 liters nasal cannula and still not eating much. He has times of lucidity and then times where he is confused. REVIEW OF SYSTEMS: CONSTITUTIONAL: No night sweats. No fatigue, malaise, lethargy. No fever or chills. Weakness. HEENT: Eyes: No visual changes. No eye pain. No eye discharge. ENT: No runny nose. No epistaxis. No sinus pain. No sore throat. No odynophagia. No congestion. RESPIRATORY: No cough, no congestion. No hemoptysis. No shortness of breath. CARDIOVASCULAR: No angina symptoms. No CHF symptoms. No atypical chest pain for CAD. No palpitations. No PND. No orthopnea. GASTROINTESTINAL: No abdominal pain. No nausea or vomiting. No diarrhea or constipation. No hematemesis. No hematochezia. GENITOURINARY: No urgency. No frequency. No dysuria. No hematuria. No obstructive symptoms. No discharge. No pain. No significant abnormal bleeding. MUSCULOSKELETAL: No musculoskeletal pain; no joint swelling. NEUROLOGICAL: No headache. No neck pain. No syncope. No seizures. No dizziness. Confusion. PSYCHIATRIC: Not anxious. No depression. No suicidal thoughts. No homicidal thoughts. SKIN: No rash. No lesions. No wounds. ENDOCRINE: No unexplained weight loss. No weight gain. HEMATOLOGIC/LYMPHATIC: No anemia. No purpura. No petechiae. No prolonged or excessive bleeding. No palpable lymph nodes. PHYSICAL EXAMINATION: GENERAL: The patient is intermittently alert and oriented to person only. HEENT: Head normocephalic, atraumatic. Eyes: Extraocular muscles are intact. Pupils are equal, round and reactive to light and accommodation. Ears: No lesions. Nose appeared normal. Throat: No exudate or erythema. NECK: Supple. No JVD, no carotid bruit. No lymphadenopathy or thyromegaly. LUNGS: Diminished breath sounds. Clear to auscultation. Percussion note normal. Chest symmetrical. HEART: S1, S2, no S3. No murmurs. No cyanosis or clubbing. No ascites. Pulses: Dorsalis pedis and posterior tibial pulses +1 to +2 bilaterally. ABDOMEN: Soft. Nontender. Bowel sounds active. No CVA tenderness. No mass felt. EXTREMITIES: No edema. Full range of motion of all extremities, equal. NEUROLOGIC: No focal deficit. Cranial nerves II through XII are grossly intact. No headache. No double vision. SKIN: Not dry. Intact. Turgor - normal. LYMPHATIC: No palpable lymph nodes/no lymphedema. MUSCULOSKELETAL: Normal joints with no swelling. Muscle tone is normal. ASSESSMENT: 1. COVID psychosis 2. Bilateral COVID pneumonia 3. Respiratory failure from COVID 4. Generalized weakness 5. Dementia PLAN: 1. We will scheduled Ativan to be given at 8pm every evening and then has Ativan Q 4 hours if needed 2. PT/OT to do passive range of motion TIME SPENT: More than 30 minutes. Plan and coordination of the patient's care discussed in the presence of nurse. DAVIDA
[2021-03-02] MEDS: POTASSIUM CHL 10% ORAL SOL PO SCH (10:34)
[2021-03-02] MEDS: CRESTOR PO SCH (10:36)
[2021-03-02] MEDS: TOPROL XL PO SCH ×2 (10:37→21:11)
[2021-03-02] MEDS: GLUCOPHAGE PO SCH ×2 (10:38→17:03)
[2021-03-02] MEDS: PREDNISONE PO SCH (10:40)
[2021-03-02] MEDS: ZINC-220 PO SCH (10:41)
[2021-03-02] MEDS: FLOMAX PO SCH ×2 (10:42→21:11)
[2021-03-02] MEDS: VITAMIN D PO SCH (10:42)
[2021-03-02] MEDS: CARDIZEM PO SCH ×3 (10:45→21:11)
[2021-03-02] MEDS: ZESTRIL PO SCH (10:45)
[2021-03-02] MEDS: TRIGLIDE PO SCH (10:45)
[2021-03-02] MEDS: ELIQUIS PO SCH ×2 (10:46→21:12)
[2021-03-02] MEDS: CALMOSEPTINE OINTMENT TP SCH ×4 (10:56→21:13)
[2021-03-02] MEDS: SYMBICORT 160-4.5 MCG INHALER IH SCH ×2 (10:56→21:13)
[2021-03-02] MEDS: NYSTOP POWDER TP SCH ×4 (10:57→21:13)
--- NOTE | 2021-03-02 13:00 | PN ---
DATE OF SERVICE: 02/25/2021 SUBJECTIVE: 80 year old white male hospitalized with the COVID 19 pneumonia with severe respiratory failure with multiple other medical problems. His main problem was encephalopathy related COVID hypoxemia, hospital psychosis, worsening dementia and abnormal behavior. The patient is still requiring Ativan 1mg every 6 hourly. He is very calm otherwise. is present in the room. Able to carry on conversation with him. He didn't recognize me but he is alert. REVIEW OF SYSTEMS: CONSTITUTIONAL: No night sweats. No fatigue, malaise, lethargy. No fever or chills. HEENT: Eyes: No visual changes. No eye pain. No eye discharge. ENT: No runny nose. No epistaxis. No sinus pain. No sore throat. No odynophagia. No congestion. RESPIRATORY: No cough, no congestion. No hemoptysis. No shortness of breath. CARDIOVASCULAR: No angina symptoms. No CHF symptoms. No atypical chest pain for CAD. No palpitations. No PND. No orthopnea. GASTROINTESTINAL: No abdominal pain. No nausea or vomiting. No diarrhea or constipation. No hematemesis. No hematochezia. GENITOURINARY: No urgency. No frequency. No dysuria. No hematuria. No obstructive symptoms. No discharge. No pain. No significant abnormal bleeding. MUSCULOSKELETAL: No musculoskeletal pain; no joint swelling. NEUROLOGICAL: No headache. No neck pain. No syncope. No seizures. No dizziness. PSYCHIATRIC: Not anxious. No depression. No suicidal thoughts. No homicidal thoughts. SKIN: No rash. No lesions. No wounds. ENDOCRINE: No unexplained weight loss. No weight gain. HEMATOLOGIC/LYMPHATIC: No anemia. No purpura. No petechiae. No prolonged or excessive bleeding. No palpable lymph nodes. PHYSICAL EXAMINATION: VITAL SIGNS: Temperature 96.8, pulse 69, respiratory rate 20, blood pressure 130/70 and pulse ox 95%. HEENT: Head normocephalic, atraumatic. Eyes: Extraocular muscles are intact. Pupils are equal, round and reactive to light and accommodation. Ears: No lesions. Nose appeared normal. Throat: No exudate or erythema. NECK: Supple. No JVD, no carotid bruit. No lymphadenopathy or thyromegaly. LUNGS: Decreased breath sounds but clear to auscultation. Percussion note normal. Chest symmetrical. HEART: S1, S2, no S3. No murmurs. No cyanosis or clubbing. No ascites. Pulses: Dorsalis pedis and posterior tibial pulses +1 to +2 bilaterally. ABDOMEN: Soft. Nontender. Bowel sounds active. No CVA tenderness. No mass felt. EXTREMITIES: No edema. Full range of motion of all extremities, equal. NEUROLOGIC: No focal deficit. Cranial nerves II through XII are grossly intact. No headache. No double vision. SKIN: Not dry. Intact. Turgor - normal. LYMPHATIC: No palpable lymph nodes/no lymphedema. MUSCULOSKELETAL: Normal joints with no swelling. Muscle tone is normal. LABS: Hgb 12.1, hct 37, WBC 8,000 normal differential, creatinine 0.8, BUN 17, potassium 4.4. The patient on 3 liters pO2 62, pCo2 40, pH 7.46 with 93% saturation. ASSESSMENT: 1. COVID 19 pneumonia seems to be resolving with normal respiratory status 2. Acute inferior wall [place] with history of dilated cardiomyopathy with normal LV function 3. Atrial fibrillation with normal ventricular response 4. 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 Discontinue IV fluids 2. ABG in the morning on room air 3. Serum magnesium level 4. Ativan every 4 hourly as needed 5. Continue the rest of the medications as before 6. Reduce dose of Metoprolol and hypertensive medications for now. TIME SPENT: More than 30 minutes. Plan and coordination of the patient's care discussed in the presence of nurse. DAVIDA
--- NOTE | 2021-03-02 13:24 | PN ---
DATE OF SERVICE: 02/26/21 SUBJECTIVE: 80 year old white male hospitalized with acute respiratory failure and COVID pneumonia. The patient's encephalopathy seems to be resolving. Today he is looking me into the eye trying to say something. The is present in the room and she says that a lot of times he makes a lot of sense and answers the questions appropriately. Mental status has improved. The patient is less restless. He has been on Ativan. REVIEW OF SYSTEMS: CONSTITUTIONAL: No night sweats. No fatigue, malaise, lethargy. No fever or chills. HEENT: Eyes: No visual changes. No eye pain. No eye discharge. ENT: No runny nose. No epistaxis. No sinus pain. No sore throat. No odynophagia. No congestion. RESPIRATORY: No cough, no congestion. No hemoptysis. No shortness of breath. CARDIOVASCULAR: No angina symptoms. No CHF symptoms. No atypical chest pain for CAD. No palpitations. No PND. No orthopnea. GASTROINTESTINAL: No abdominal pain. No nausea or vomiting. No diarrhea or constipation. No hematemesis. No hematochezia. He cleaned up the plate this morning and ate the whole breakfast. He seems to be improving. GENITOURINARY: No urgency. No frequency. No dysuria. No hematuria. No obstructive symptoms. No discharge. No pain. No significant abnormal bleeding. MUSCULOSKELETAL: No musculoskeletal pain; no joint swelling. NEUROLOGICAL: No headache. No neck pain. No syncope. No seizures. No dizziness. PSYCHIATRIC: Not anxious. No depression. No suicidal thoughts. No homicidal thoughts. SKIN: No rash. No lesions. No wounds. ENDOCRINE: No unexplained weight loss. No weight gain. HEMATOLOGIC/LYMPHATIC: No anemia. No purpura. No petechiae. No prolonged or excessive bleeding. No palpable lymph nodes. PHYSICAL EXAMINATION: GENERAL: The patient is , lying/sitting in bed in no distress. VITAL SIGNS: Temperature 97, pulse 97, respiratory rate 18, blood pressure 160/100 and pulse ox 91% on 3 liters. HEENT: Head normocephalic, atraumatic. Eyes: Extraocular muscles are intact. Pupils are equal, round and reactive to light and accommodation. Ears: No lesions. Nose appeared normal. Throat: No exudate or erythema. NECK: Supple. No JVD, no carotid bruit. No lymphadenopathy or thyromegaly. LUNGS: Decreased breath sounds but clear to auscultation. Percussion note normal. Chest symmetrical. HEART: S1, S2, no S3. No murmurs. No cyanosis or clubbing. No ascites. Pulses: Dorsalis pedis and posterior tibial pulses +1 to +2 bilaterally. ABDOMEN: Soft. Nontender. Bowel sounds active. No CVA tenderness. No mass felt. EXTREMITIES: No edema. Full range of motion of all extremities, equal. NEUROLOGIC: No focal deficit. Cranial nerves II through XII are grossly intact. No headache. No double vision. SKIN: Not dry. Intact. Turgor - normal. LYMPHATIC: No palpable lymph nodes/no lymphedema. MUSCULOSKELETAL: Normal joints with no swelling. Muscle tone is normal. LABS: Hgb 13, hct 40, wbc 9,300 normal differential, creatinine 0.7, BUN 16, potassium 4.4. ASSESSMENT: 1. The patient's respiratory status with acute respiratory failure with COVID pneumonia seems to be improving. 2. Hypoxemia seems to be resolving 3. Atrial fibrillation with normal ventricular response 4. Hospital psychosis 5. Dementia which the patient already has the beginning of it, worse with COVID which very likely COVID effecting the brain tissue. 6. Encephalopathy hypoxic along with psychosis coming from hospital psychosis and COVID created the patient's mental status to be abnormal seems to be resolving back to normal. PLAN: 1. Discontinue IV fluids 2. Protonix 40mg twice a day PO 3. Up and about with help 4. Do CRP and Ferritin and LDH level ADDENDUM: The patient's Bowen Catheter was reported having cloudy urine. Later on the U/A was reported as esterase positive, bacteria positive. He will be started on Septra DS BID. Have to remove the Bowen Catheter. Long discussion was taken place with the about COVID pneumonia, about COVID, confusion following COVID effecting the brain tissue. The patient may have to be put on the swing bed. Swing bed discussed with the in detail. She is going to think about it. The patient's says that they have enough help at home with the kids help. There is a enough money to take care of him at home with the help. CONDITION: Stable, improving. TIME SPENT: More than 60 minutes. CODE: Extensive Plan and coordination of the patient's care discussed in the presence of nurse. DAVIDA
[2021-03-02] MEDS: ATIVAN PO SCH (21:12)
[2021-03-03] MEDS: ATIVAN IM PRN ×2 (00:02→13:34)
[2021-03-03] MEDS: VENTOLIN HFA (PER PUFF-WITH SPACER) IH SCH ×4 (04:35→19:30)
[2021-03-03] MEDS: LASIX TAB PO SCH (05:37)
[2021-03-03] MEDS: PEPCID PO SCH ×2 (05:37→17:06)
[2021-03-03] MEDS: PROTONIX PO SCH ×2 (05:37→17:06)
[2021-03-03 05:51] LABS: BASOPHILS % (AUTO) 0.1 % (0.0-3.0); EOSINOPHILS % (AUTO) 0.1 % (0.0-7.0); HEMATOCRIT 40.6 % (42.0-52.0); HEMOGLOBIN 12.9 g/dl (14.0-18.0); IMMATURE GRANULOCYTE % (AUTO) 0.6 % (0.0-5.0); LYMPHOCYTES # (AUTO) 0.4 K/uL (0.60-3.4); LYMPHOCYTES % (AUTO) 6.2 (10.0-50.0); MEAN CORPUSCULAR HEMOGLOBIN 27.1 pg (27.0-31.0); MEAN CORPUSCULAR HGB CONC 31.8 (31.8-35.4); MEAN CORPUSCULAR VOLUME 85.3 fl (80.0-94.0); MONOCYTES # (AUTO) 0.4 K/uL (0.4-2.0); MONOCYTES % (AUTO) 6.2 (0-10); NEUTROPHILS # (AUTO) 6.2 K/ul (2.0-6.9); NEUTROPHILS % (AUTO) 86.8 % (42.2-75.2); PLATELET COUNT 179 10^3/uL (140-440); RDW COEFFICIENT OF VARIATION 18.5 % (11.6-14.8); RED BLOOD COUNT 4.76 10^6/ul (4.70-6.10); WHITE BLOOD COUNT 7.11 K/ul (4.2-10.2)
[2021-03-03 06:12] LABS: ALANINE AMINOTRANSFERASE 36.8 U/L (0-50); ALBUMIN 2.79 g/dL (3.5-5.0); ALKALINE PHOSPHATASE 102.5 U/L (56-119); ASPARTATE AMINO TRANSFERASE 28.7 U/L (17-59); BILIRUBIN,TOTAL 0.75 mg/dL (0.2-1.3); BLOOD UREA NITROGEN 29.2 mg/dL (9-20); CALCIUM 9.3 mg/dL (8.4-10.2); CARBON DIOXIDE 26.6 mmol/L (22-30.0); CHLORIDE 103.7 mmol/L (98-107); CREATININE 1.12 mg/dL (0.60-1.10); GLUCOSE 197.1 mg/dL (74-106); POTASSIUM 5.38 mmol/L (3.5-5.1); SODIUM 136.4 mmol/L (134.5-145); TOTAL PROTEIN 5.22 g/dL (6.3-8.2)
[2021-03-03] MEDS: HUMULIN R SUBCUT PRN ×4 (06:27→20:48)
[2021-03-03] MEDS: CRESTOR PO SCH (09:50)
[2021-03-03] MEDS: DIFLUCAN PO SCH (09:50)
[2021-03-03] MEDS: FLOMAX PO SCH ×2 (09:50→20:39)
[2021-03-03] MEDS: VITAMIN D PO SCH (09:50)
[2021-03-03] MEDS: ELIQUIS PO SCH ×2 (09:50→20:42)
[2021-03-03] MEDS: ZINC-220 PO SCH (09:51)
[2021-03-03] MEDS: PREDNISONE PO SCH (09:51)
[2021-03-03] MEDS: TRIGLIDE PO SCH (09:51)
[2021-03-03] MEDS: CARDIZEM PO SCH ×2 (09:51→20:39)
[2021-03-03] MEDS: TOPROL XL PO SCH ×2 (09:51→20:38)
[2021-03-03] MEDS: GLUCOPHAGE PO SCH ×2 (09:51→17:06)
[2021-03-03] MEDS: ZESTRIL PO SCH (09:52)
--- NOTE | 2021-03-03 09:55 | PCM.PROG ---
Attending Provider: ATTENDING PROVIDER: Dr. OMAR MENDIOLA This patient is seen with Thais Acosta, Nurse Practitioner. DATE OF SERVICE: 03/03/21 SUBJECTIVE: This 80 year old /WHITE M was hospitalized 02/09/21. The patient is somewhat alert this morning and answers some questions appropriately. Labs are stable. REVIEW OF SYSTEMS: CONSTITUTIONAL: No night sweats. No fatigue, malaise, lethargy. No fever or chills. Weakness. HEENT: Eyes: No visual changes. No eye pain. No eye discharge. ENT: No runny nose. No epistaxis. No sinus pain. No odynophagia. No congestion. RESPIRATORY: No cough, no congestion. No hemoptysis. No shortness of breath. CARDIOVASCULAR: No angina symptoms. No CHF symptoms. No atypical chest pain for CAD. No palpitations. No orthopnea.. GASTROINTESTINAL: No abdominal pain. No nausea or vomiting. No diarrhea or constipation. No hematemesis. No hematochezia. GENITOURINARY: No urgency. No frequency. No dysuria. No hematuria. No obstructive symptoms. No discharge. No pain. No significant abnormal bleeding. MUSCULOSKELETAL: No musculoskeletal pain; no joint swelling. NEUROLOGICAL: Awake, alert, confusion. No headache. No neck pain. No syncope. No seizures. No dizziness. PSYCHIATRIC: Not anxious. No depression. No suicidal thoughts. No homicidal thoughts. SKIN: No rash. No lesions. No wounds. ENDOCRINE: No unexplained weight loss. No weight gain. HEMATOLOGIC/LYMPHATIC: No anemia. No purpura. No petechiae. No prolonged or excessive bleeding. No palpable lymph nodes. PHYSICAL EXAMINATION: GENERAL: The patient is awake, alert and oriented to person only, lying in bed in no distress. VITAL SIGNS: Temperature 98.1 F, Pulse 97, Respiratory Rate 18, BP 119/71, Pulse Ox 93% HEENT: Head normocephalic, atraumatic. Eyes: Extraocular muscles are intact. Pupils are equal, round and reactive to light and accommodation. Ears: No lesions. Nose appeared normal. Throat: No exudate or erythema. NECK: Supple. No JVD, no carotid bruit. No lymphadenopathy or thyromegaly. LUNGS: Diminished breath sounds. Clear to auscultation. Percussion note normal. Chest symmetrical. HEART: S1, S2, no S3. No murmurs. No cyanosis or clubbing. No ascites. Pulses: Dorsalis pedis and posterior tibial pulses +1 to +2 both sides. ABDOMEN: Soft. Non-tender. Bowel sounds active. No CVA tenderness. No mass felt. EXTREMITIES: No edema. Full range of motion of all extremities, equal. NEUROLOGIC: No focal deficit. Cranial nerves II through XII are grossly intact. No headache. No double vision. SKIN: Not dry. Intact. Turgor-normal. LYMPHATIC: No palpable lymph nodes/no lymphedema. MUSCULOSKELETAL: Normal joints with no swelling. Muscle tone is normal. LAB REVIEW: 03/03/21 05:00 03/03/21 05:00 03/03/21 05:00: Sodium 136.4, Potassium 5.38 H, Chloride 103.7, Carbon Dioxide 26.6, Anion Gap 11.48, BUN 29.2 H, Creatinine 1.12 H, Estimated GFR (MDRD) 63.00, BUN/Creatinine Ratio 26.07, Glucose 197.1 H, Calcium 9.30, Total Bilirubin 0.75, AST 28.7, ALT 36.8, Alkaline Phosphatase 102.5, Total Protein 5.22 L, Albumin 2.79 L, Globulin 2.43, Albumin/Globulin Ratio 1.14 03/03/21 05:00: WBC 7.11, RBC 4.76, Hgb 12.9 L, Hct 40.6 L, MCV 85.3, MCH 27.1, MCHC 31.8, RDW Coeff of [place] 18.5 H, Plt Count 179, Immature Gran % (Auto) 0.6, Neut % (Auto) 86.8 H, Lymph % (Auto) 6.2 L, [place] % (Auto) 6.2, Eos % (Auto) 0.1, Baso % (Auto) 0.1, Neut # (Auto) 6.2, Lymph # (Auto) 0.4 L, [place] # (Auto) 0.4, Eos # (Auto) 0.0, Baso # (Auto) 0.0, Immature Gran # (Auto) 0.0 ASSESSMENT: Please see below. 1. COVID psychosis 2. Positive COVID 19 3. Atrial fibrillation 4. Hyperkalemia 5. Chronic kidney disease stage II 6. Diabetes Melliltus type II PLAN: 1. Discontinue Potassium 2. Increased Ativan 1.5mg PO at 8pm and continue with PRN 3. Decrease Lisinopril to 5mg daily Plan and coordination of the patient's care discussed in the presence of Document Controller and nurse. SCRIBED BY: Waldo IRENE scribed while in presence of service performed by Dr. Mendiola/Thais Acosta APRN on 03/03/21 ([id number])
[2021-03-03] MEDS: CALMOSEPTINE OINTMENT TP SCH ×4 (10:01→20:41)
[2021-03-03] MEDS: SYMBICORT 160-4.5 MCG INHALER IH SCH ×2 (10:01→20:42)
[2021-03-03] MEDS: NYSTOP POWDER TP SCH ×4 (10:01→20:41)
[2021-03-03] MEDS: POTASSIUM CHL 10% ORAL SOL PO SCH (11:49)
--- NOTE | 2021-03-03 12:36 | PN ---
DATE OF SERVICE: 03/01/21 SUBJECTIVE: The patient was seen and examined with the Nurse Practitioner. The patient's mental status seems to be stabilizing to some extent with Ativan given twice yesterday in the evening. Bowen Catheter we will have to continue that for the time being. Respiratory status is stable. TIME SPENT: More than 30 minutes. Plan and coordination of the patient's care discussed in the presence of nurse. DAVIDA
--- NOTE | 2021-03-03 12:45 | PN ---
DATE OF SERVICE: 02/27/21 SUBJECTIVE: 81 year old white male hospitalized with COVID 19 pneumonia. His respiratory status has improved but mental status in and out. The patient required 2mg of Haldol with Ativan last night. REVIEW OF SYSTEMS: CONSTITUTIONAL: No night sweats. No fatigue, malaise, lethargy. No fever or chills. HEENT: Eyes: No visual changes. No eye pain. No eye discharge. ENT: No runny nose. No epistaxis. No sinus pain. No sore throat. No odynophagia. No congestion. RESPIRATORY: No cough, no congestion. No hemoptysis. No shortness of breath. CARDIOVASCULAR: No angina symptoms. No CHF symptoms. No atypical chest pain for CAD. No palpitations. No PND. No orthopnea. GASTROINTESTINAL: No abdominal pain. No nausea or vomiting. No diarrhea or constipation. No hematemesis. No hematochezia. GENITOURINARY: No urgency. No frequency. No dysuria. No hematuria. No obstructive symptoms. No discharge. No pain. No significant abnormal bleeding. MUSCULOSKELETAL: No musculoskeletal pain; no joint swelling. NEUROLOGICAL: No headache. No neck pain. No syncope. No seizures. No dizziness. Confused and restless. PSYCHIATRIC: Not anxious. No depression. No suicidal thoughts. No homicidal thoughts. SKIN: No rash. No lesions. No wounds. ENDOCRINE: No unexplained weight loss. No weight gain. HEMATOLOGIC/LYMPHATIC: No anemia. No purpura. No petechiae. No prolonged or excessive bleeding. No palpable lymph nodes. PHYSICAL EXAMINATION: GENERAL: The patient is confused and sleepy. HEENT: Head normocephalic, atraumatic. Eyes: Extraocular muscles are intact. Pupils are equal, round and reactive to light and accommodation. Ears: No lesions. Nose appeared normal. Throat: No exudate or erythema. NECK: Supple. No JVD, no carotid bruit. No lymphadenopathy or thyromegaly. LUNGS: Decreased breath sounds but good air entry. Clear to auscultation. Percussion note normal. Chest symmetrical. HEART: S1, S2, no S3. No murmurs. No cyanosis or clubbing. No ascites. Pulses: Dorsalis pedis and posterior tibial pulses +1 to +2 bilaterally. ABDOMEN: Soft. Nontender. Bowel sounds active. No CVA tenderness. No mass felt. Bowen Catheter. Back is more or less gaulded. Told to nursing staff and family about discontinuing the Bowen but it is not possible. EXTREMITIES: No edema. Full range of motion of all extremities, equal. NEUROLOGIC: No focal deficit. Cranial nerves II through XII are grossly intact. No headache. No double vision. SKIN: Not dry. Intact. Turgor - normal. LYMPHATIC: No palpable lymph nodes/no lymphedema. MUSCULOSKELETAL: Normal joints with no swelling. Muscle tone is normal. ASSESSMENT: 1. COVID 19 pneumonia with respiratory status improved but mental status hasn't improved but fluctuates. This morning he answered some questions and he was awake, sleepy at present time at around noon time. is present in the room. PLAN: 1. Continue steroids, antibiotics 2. Diflucan 150mg every other day for 5 times 3. Lotrisone cream 4. Nystatin powder 5. Ativan with Haldol to be given every 6 hourly. TIME SPENT: More than 30 minutes. Plan and coordination of the patient's care discussed in the presence of nurse. DAIVDA
--- NOTE | 2021-03-03 12:49 | PN ---
DATE OF SERVICE: 02/28/21 SUBJECTIVE: The patient was seen and examined with the Nurse Practitioner. The patient's condition is more or less stable with fluctuating mental status. He has restlessness and was held with the family members, Gifty indicated that she would prefer to have the Bowen Catheter out. The problem is that if we take the Bowen catheter out it is impossible to put it in because it was very difficult to put it in. The patient's U/A did not show any bacteria it was mixed with common keli. TIME SPENT: Approximately an hour CODE: Extensive Plan and coordination of the patient's care discussed in the presence of nurse. DAVIDA
--- NOTE | 2021-03-03 14:00 | PN ---
DATE OF SERVICE: 03/02/21 SUBJECTIVE: 80 year old white male hospitalized with COVID 19 pneumonia. Respiratory status has improved practically back to what it was before. The problem is mental status which seems to be normalizing again. According to the the patient was answering questions appropriately at times. Ate full breakfast but had to be fed by the nurse. He is trying to eat lunch at present time. REVIEW OF SYSTEMS: CONSTITUTIONAL: No night sweats. No fatigue, malaise, lethargy. No fever or chills. HEENT: Eyes: No visual changes. No eye pain. No eye discharge. ENT: No runny nose. No epistaxis. No sinus pain. No sore throat. No odynophagia. No congestion. RESPIRATORY: No cough, no congestion. No hemoptysis. No shortness of breath. CARDIOVASCULAR: No angina symptoms. No CHF symptoms. No atypical chest pain for CAD. No palpitations. No PND. No orthopnea. GASTROINTESTINAL: No abdominal pain. No nausea or vomiting. No diarrhea or constipation. No hematemesis. No hematochezia. GENITOURINARY: No urgency. No frequency. No dysuria. No hematuria. No obstructive symptoms. No discharge. No pain. No significant abnormal bleeding. MUSCULOSKELETAL: No musculoskeletal pain; no joint swelling. NEUROLOGICAL: No headache. No neck pain. No syncope. No seizures. No dizziness. PSYCHIATRIC: Not anxious. No depression. No suicidal thoughts. No homicidal thoughts. SKIN: No rash. No lesions. No wounds. ENDOCRINE: No unexplained weight loss. No weight gain. HEMATOLOGIC/LYMPHATIC: No anemia. No purpura. No petechiae. No prolonged or excessive bleeding. No palpable lymph nodes. PHYSICAL EXAMINATION: GENERAL: The patient is confused but alert and sleepy. VITAL SIGNS: Temperature 98.3, pulse 89, respiratory rate 20, blood pressure 140/84 and pulse ox 93% on 2 liters. HEENT: Head normocephalic, atraumatic. Eyes: Extraocular muscles are intact. Pupils are equal, round and reactive to light and accommodation. Ears: No lesions. Nose appeared normal. Throat: No exudate or erythema. NECK: Supple. No JVD, no carotid bruit. No lymphadenopathy or thyromegaly. LUNGS:Decreased breath sounds but good air entry. Clear to auscultation. Percussion note normal. Chest symmetrical. HEART: S1, S2, no S3. No murmurs. No cyanosis or clubbing. No ascites. Pulses: Dorsalis pedis and posterior tibial pulses +1 to +2 bilaterally. ABDOMEN: Soft. Nontender. Bowel sounds active. No CVA tenderness. No mass felt. EXTREMITIES: No edema. Full range of motion of all extremities, equal. NEUROLOGIC: No focal deficit. Cranial nerves II through XII are grossly intact. No headache. No double vision. SKIN: Not dry. Intact. Turgor - normal. LYMPHATIC: No palpable lymph nodes/no lymphedema. MUSCULOSKELETAL: Normal joints with no swelling. Muscle tone is normal. LABS: Hgb 12.2, hct 37, WBC 7,400 normal differential, creatinine 1.2, BUN 26, potassium 4.9, glucose 156 ASSESSMENT: 1. COVID 19 pneumonia with respiratory failure seems to have resolved 2. 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 Atrial fibrillation, under control 6. Hypertension, under control 7. CHF under control PLAN: 1. Continue to give Flomax 0.4mg twice a day and try to remove catheter. Probably morning 2. Continue the rest of the medications with Ativan 3. Prednisone PO CONDITION: Stable. The patient's family is considering halfway placement. TIME SPENT: More than 30 minutes. Plan and coordination of the patient's care discussed in the presence of nurse. DAVIDA
[2021-03-03] MEDS: ATIVAN PO SCH (20:39)
[2021-03-04] MEDS: VENTOLIN HFA (PER PUFF-WITH SPACER) IH SCH ×4 (04:53→19:30)
[2021-03-04 05:59] LABS: EOSINOPHILS # (AUTO) 0.1 K/ul (0.0-0.7); EOSINOPHILS % (AUTO) 1.2 % (0.0-7.0); HEMOGLOBIN 12.1 g/dl (14.0-18.0); IMMATURE GRANULOCYTE % (AUTO) 0.5 % (0.0-5.0); LYMPHOCYTES # (AUTO) 0.5 K/uL (0.60-3.4); LYMPHOCYTES % (AUTO) 7.9 (10.0-50.0); MEAN CORPUSCULAR HEMOGLOBIN 27.6 pg (27.0-31.0); MEAN CORPUSCULAR HGB CONC 32.7 (31.8-35.4); MEAN CORPUSCULAR VOLUME 84.5 fl (80.0-94.0); MONOCYTES # (AUTO) 0.4 K/uL (0.4-2.0); MONOCYTES % (AUTO) 6.6 (0-10); NEUTROPHILS # (AUTO) 5.1 K/ul (2.0-6.9); NEUTROPHILS % (AUTO) 83.8 % (42.2-75.2); PLATELET COUNT 160 10^3/uL (140-440); RDW COEFFICIENT OF VARIATION 18.2 % (11.6-14.8); RED BLOOD COUNT 4.38 10^6/ul (4.70-6.10); WHITE BLOOD COUNT 6.04 K/ul (4.2-10.2)
[2021-03-04] MEDS: LASIX TAB PO SCH (06:04)
[2021-03-04] MEDS: PROTONIX PO SCH ×2 (06:04→17:17)
[2021-03-04] MEDS: PEPCID PO SCH ×2 (06:04→17:17)
[2021-03-04 06:10] LABS: ALANINE AMINOTRANSFERASE 35.5 U/L (0-50); ALBUMIN 2.52 g/dL (3.5-5.0); ALKALINE PHOSPHATASE 92.1 U/L (56-119); ASPARTATE AMINO TRANSFERASE 27.8 U/L (17-59); BILIRUBIN,TOTAL 0.65 mg/dL (0.2-1.3); BLOOD UREA NITROGEN 25.3 mg/dL (9-20); CALCIUM 8.89 mg/dL (8.4-10.2); CARBON DIOXIDE 28.3 mmol/L (22-30.0); CREATININE 1.12 mg/dL (0.60-1.10); GLUCOSE 134.1 mg/dL (74-106); POTASSIUM 4.22 mmol/L (3.5-5.1); SODIUM 135.8 mmol/L (134.5-145); TOTAL PROTEIN 4.77 g/dL (6.3-8.2)
[2021-03-04] MEDS ORDERED: PREDNISONE PO SCH (09:00)
--- NOTE | 2021-03-04 09:41 | PCM.PROG ---
Attending Provider: ATTENDING PROVIDER: Dr. OMAR MENDIOLA This patient is seen with Thais Acosta, Nurse Practitioner. DATE OF SERVICE: 03/04/21 SUBJECTIVE: This 80 year old /WHITE M was hospitalized 02/09/21. The patient is up in the chair this morning. He is responding to questions, still intermittent confusion. Took 2.5mg of Ativan PO last night and rested well. Labs are stable. REVIEW OF SYSTEMS: CONSTITUTIONAL: No night sweats. No fatigue, malaise, lethargy. No fever or chills. Weakness. HEENT: Eyes: No visual changes. No eye pain. No eye discharge. ENT: No runny nose. No epistaxis. No sinus pain. No odynophagia. No congestion. RESPIRATORY: No cough, no congestion. No hemoptysis. No shortness of breath. CARDIOVASCULAR: No angina symptoms. No CHF symptoms. No atypical chest pain for CAD. No palpitations. No orthopnea.. GASTROINTESTINAL: No abdominal pain. No nausea or vomiting. No diarrhea or constipation. No hematemesis. No hematochezia. GENITOURINARY: No urgency. No frequency. No dysuria. No hematuria. No obstructive symptoms. No discharge. No pain. No significant abnormal bleeding. MUSCULOSKELETAL: No musculoskeletal pain; no joint swelling. NEUROLOGICAL: Awake, alert, confusion. No headache. No neck pain. No syncope. No seizures. No dizziness. PSYCHIATRIC: Not anxious. No depression. No suicidal thoughts. No homicidal thoughts. SKIN: No rash. No lesions. No wounds. ENDOCRINE: No unexplained weight loss. No weight gain. HEMATOLOGIC/LYMPHATIC: No anemia. No purpura. No petechiae. No prolonged or excessive bleeding. No palpable lymph nodes. PHYSICAL EXAMINATION: GENERAL: The patient is awake, alert and oriented to person only, sitting in chair in no distress. VITAL SIGNS: Temperature 98.1 F, Pulse 93, Respiratory Rate 18, BP 128/79, Pulse Ox 90% HEENT: Head normocephalic, atraumatic. Eyes: Extraocular muscles are intact. Pupils are equal, round and reactive to light and accommodation. Ears: No lesions. Nose appeared normal. Throat: No exudate or erythema. NECK: Supple. No JVD, no carotid bruit. No lymphadenopathy or thyromegaly. LUNGS: Diminished breath sounds. Clear to auscultation. Percussion note normal. Chest symmetrical. HEART: S1, S2, no S3. No murmurs. Irregular heart rate. No cyanosis or clubbing. No ascites. Pulses: Dorsalis pedis and posterior tibial pulses +1 to +2 both sides. ABDOMEN: Soft. Non-tender. Bowel sounds active. No CVA tenderness. No mass felt. EXTREMITIES: No edema. Full range of motion of all extremities, equal. NEUROLOGIC: No focal deficit. Cranial nerves II through XII are grossly intact. No headache. No double vision. SKIN: Not dry. Intact. Turgor-normal. LYMPHATIC: No palpable lymph nodes/no lymphedema. MUSCULOSKELETAL: Normal joints with no swelling. Muscle tone is normal. LAB REVIEW: 03/04/21 05:00 03/04/21 05:00 03/04/21 05:00: Sodium 135.8, Potassium 4.22, Chloride 105.0, Carbon Dioxide 28.3, Anion Gap 6.72, BUN 25.3 H, Creatinine 1.12 H, Estimated GFR (MDRD) 63.00, BUN/Creatinine Ratio 22.58, Glucose 134.1 H D, Calcium 8.89, Total Bilirubin 0.65, AST 27.8, ALT 35.5, Alkaline Phosphatase 92.1, Total Protein 4.77 L, Albumin 2.52 L, Globulin 2.25, Albumin/Globulin Ratio 1.12 03/04/21 05:00: WBC 6.04, RBC 4.38 L, Hgb 12.1 L, Hct 37.0 L, MCV 84.5, MCH 27.6, MCHC 32.7, RDW Coeff of [place] 18.2 H, Plt Count 160, Immature Gran % (Auto) 0.5, Neut % (Auto) 83.8 H, Lymph % (Auto) 7.9 L, [place] % (Auto) 6.6, Eos % (Auto) 1.2, Baso % (Auto) 0.0, Neut # (Auto) 5.1, Lymph # (Auto) 0.5 L, [place] # (Auto) 0.4, Eos # (Auto) 0.1, Baso # (Auto) 0.0, Immature Gran # (Auto) 0.0 ASSESSMENT: Please see below. 1. COVID psychosis 2. Atrial fibrillation 3. Chronic kidney disease stage II 4. Dementia with agitation PLAN: 1. Decrease Prednisone to 10mg daily PO 2. Labs every other day 3. Will anticipate possible discharge to [facility] some time next week. Plan and coordination of the patient's care discussed in the presence of [employer] and nurse. SCRIBED BY: Renuka IRENEist scribed while in presence of service performed by Dr. Mendiola/Thais Acosta APRN on 03/04/21 ([id number])
[2021-03-04] MEDS: VITAMIN D PO SCH (10:01)
[2021-03-04] MEDS: CRESTOR PO SCH (10:02)
[2021-03-04] MEDS: TOPROL XL PO SCH ×2 (10:02→20:46)
[2021-03-04] MEDS: CARDIZEM PO SCH ×2 (10:02→20:46)
[2021-03-04] MEDS: ZINC-220 PO SCH (10:02)
[2021-03-04] MEDS: FLOMAX PO SCH ×2 (10:03→20:46)
[2021-03-04] MEDS: PREDNISONE PO SCH ×2 (10:03→10:18)
[2021-03-04] MEDS: ELIQUIS PO SCH ×2 (10:03→20:46)
[2021-03-04] MEDS: GLUCOPHAGE PO SCH ×2 (10:03→17:17)
[2021-03-04] MEDS: ZESTRIL PO SCH (10:03)
[2021-03-04] MEDS: TRIGLIDE PO SCH (10:03)
[2021-03-04] MEDS: SYMBICORT 160-4.5 MCG INHALER IH SCH ×2 (10:04→21:01)
[2021-03-04] MEDS: NYSTOP POWDER TP SCH ×4 (10:05→21:01)
[2021-03-04] MEDS: CALMOSEPTINE OINTMENT TP SCH ×4 (10:05→21:01)
[2021-03-04] MEDS: HUMULIN R SUBCUT PRN ×3 (11:50→20:47)
[2021-03-04] MEDS: ATIVAN PO SCH (20:47)
[2021-03-05] MEDS: VENTOLIN HFA (PER PUFF-WITH SPACER) IH SCH ×4 (04:20→19:12)
[2021-03-05] MEDS: LASIX TAB PO SCH (05:50)
[2021-03-05] MEDS: PROTONIX PO SCH ×2 (05:50→16:51)
[2021-03-05] MEDS: PEPCID PO SCH ×2 (05:50→16:51)
[2021-03-05] MEDS: HUMULIN R SUBCUT PRN ×4 (05:50→20:42)
[2021-03-05] MEDS: CRESTOR PO SCH (09:41)
[2021-03-05] MEDS: ZESTRIL PO SCH (09:41)
[2021-03-05] MEDS: GLUCOPHAGE PO SCH ×2 (09:41→16:51)
[2021-03-05] MEDS: FLOMAX PO SCH ×2 (09:41→20:38)
[2021-03-05] MEDS: ZINC-220 PO SCH (09:41)
[2021-03-05] MEDS: TOPROL XL PO SCH ×2 (09:42→20:38)
[2021-03-05] MEDS: PREDNISONE PO SCH (09:42)
[2021-03-05] MEDS: CARDIZEM PO SCH ×2 (09:42→20:37)
[2021-03-05] MEDS: TRIGLIDE PO SCH (09:42)
[2021-03-05] MEDS: VITAMIN D PO SCH (09:42)
[2021-03-05] MEDS: ELIQUIS PO SCH ×2 (09:43→20:38)
[2021-03-05] MEDS: SYMBICORT 160-4.5 MCG INHALER IH SCH ×2 (09:48→20:41)
[2021-03-05] MEDS: DIFLUCAN PO SCH (09:49)
[2021-03-05] MEDS: CALMOSEPTINE OINTMENT TP SCH ×4 (09:52→20:41)
[2021-03-05] MEDS: NYSTOP POWDER TP SCH ×4 (09:52→20:41)
[2021-03-05] MEDS: ATIVAN PO SCH (20:37)
[2021-03-06] MEDS: VENTOLIN HFA (PER PUFF-WITH SPACER) IH SCH ×4 (05:17→19:17)
[2021-03-06] MEDS: PROTONIX PO SCH ×2 (05:33→17:27)
[2021-03-06] MEDS: LASIX TAB PO SCH (05:33)
[2021-03-06] MEDS: PEPCID PO SCH ×2 (05:33→17:27)
[2021-03-06 05:44] LABS: BASOPHILS % (AUTO) 0.1 % (0.0-3.0); EOSINOPHILS # (AUTO) 0.1 K/ul (0.0-0.7); EOSINOPHILS % (AUTO) 1.4 % (0.0-7.0); HEMATOCRIT 37.5 % (42.0-52.0); HEMOGLOBIN 12.4 g/dl (14.0-18.0); IMMATURE GRANULOCYTE % (AUTO) 0.4 % (0.0-5.0); LYMPHOCYTES # (AUTO) 0.4 K/uL (0.60-3.4); LYMPHOCYTES % (AUTO) 5.5 (10.0-50.0); MEAN CORPUSCULAR HEMOGLOBIN 27.9 pg (27.0-31.0); MEAN CORPUSCULAR HGB CONC 33.1 (31.8-35.4); MEAN CORPUSCULAR VOLUME 84.5 fl (80.0-94.0); MONOCYTES # (AUTO) 0.4 K/uL (0.4-2.0); MONOCYTES % (AUTO) 6.1 (0-10); NEUTROPHILS % (AUTO) 86.5 % (42.2-75.2); PLATELET COUNT 140 10^3/uL (140-440); RED BLOOD COUNT 4.44 10^6/ul (4.70-6.10); WHITE BLOOD COUNT 6.91 K/ul (4.2-10.2)
[2021-03-06 05:57] LABS: ALANINE AMINOTRANSFERASE 39.3 U/L (0-50); ALBUMIN 2.68 g/dL (3.5-5.0); ALKALINE PHOSPHATASE 77.3 U/L (56-119); ASPARTATE AMINO TRANSFERASE 31.2 U/L (17-59); BILIRUBIN,TOTAL 0.8 mg/dL (0.2-1.3); BLOOD UREA NITROGEN 19.3 mg/dL (9-20); CALCIUM 8.73 mg/dL (8.4-10.2); CARBON DIOXIDE 27.3 mmol/L (22-30.0); CHLORIDE 102.9 mmol/L (98-107); CREATININE 0.96 mg/dL (0.60-1.10); GLUCOSE 146.1 mg/dL (74-106); POTASSIUM 3.82 mmol/L (3.5-5.1); SODIUM 135.8 mmol/L (134.5-145)
[2021-03-06] MEDS: CALMOSEPTINE OINTMENT TP SCH ×4 (09:04→20:38)
[2021-03-06] MEDS: SYMBICORT 160-4.5 MCG INHALER IH SCH ×2 (09:04→20:38)
[2021-03-06] MEDS: NYSTOP POWDER TP SCH ×4 (09:04→20:38)
[2021-03-06] MEDS: CRESTOR PO SCH (09:05)
[2021-03-06] MEDS: TOPROL XL PO SCH ×2 (09:05→20:37)
[2021-03-06] MEDS: PREDNISONE PO SCH (09:05)
[2021-03-06] MEDS: ZINC-220 PO SCH (09:05)
[2021-03-06] MEDS: CARDIZEM PO SCH ×2 (09:05→20:37)
[2021-03-06] MEDS: FLOMAX PO SCH ×2 (09:05→20:38)
[2021-03-06] MEDS: GLUCOPHAGE PO SCH ×2 (09:05→17:26)
[2021-03-06] MEDS: ZESTRIL PO SCH (09:06)
[2021-03-06] MEDS: VITAMIN D PO SCH (09:06)
[2021-03-06] MEDS: ELIQUIS PO SCH ×2 (09:06→20:37)
[2021-03-06] MEDS: TRIGLIDE PO SCH (09:06)
[2021-03-06] MEDS: HUMULIN R SUBCUT PRN ×2 (17:28→20:35)
[2021-03-06] MEDS: ATIVAN PO SCH (20:36)
[2021-03-07] MEDS: VENTOLIN HFA (PER PUFF-WITH SPACER) IH SCH ×4 (04:49→19:15)
[2021-03-07] MEDS: PROTONIX PO SCH ×2 (05:54→16:50)
[2021-03-07] MEDS: LASIX TAB PO SCH (05:54)
[2021-03-07] MEDS: PEPCID PO SCH ×2 (05:54→16:51)
[2021-03-07] MEDS: DIFLUCAN PO SCH (08:02)
[2021-03-07] MEDS: CALMOSEPTINE OINTMENT TP SCH ×4 (08:03→20:06)
[2021-03-07] MEDS: NYSTOP POWDER TP SCH ×4 (08:04→20:06)
[2021-03-07] MEDS: TOPROL XL PO SCH ×2 (08:12→20:04)
[2021-03-07] MEDS: VITAMIN D PO SCH (08:14)
[2021-03-07] MEDS: CRESTOR PO SCH (08:18)
[2021-03-07] MEDS: ZINC-220 PO SCH (08:21)
[2021-03-07] MEDS: FLOMAX PO SCH ×2 (08:21→20:05)
[2021-03-07] MEDS: GLUCOPHAGE PO SCH ×2 (08:22→16:51)
[2021-03-07] MEDS: TRIGLIDE PO SCH (08:23)
[2021-03-07] MEDS: ZESTRIL PO SCH (08:24)
[2021-03-07] MEDS: PREDNISONE PO SCH (08:25)
[2021-03-07] MEDS: CARDIZEM PO SCH ×2 (08:26→20:05)
[2021-03-07] MEDS: ELIQUIS PO SCH ×2 (08:27→20:05)
[2021-03-07] MEDS: SYMBICORT 160-4.5 MCG INHALER IH SCH ×2 (08:46→20:07)
--- NOTE | 2021-03-07 09:35 | PCM.PROG ---
Attending Provider: ATTENDING PROVIDER: Dr. OMAR WARNER This patient is seen with Thais Acosta, Nurse Practitioner. DATE OF SERVICE: 03/07/21 SUBJECTIVE: This 80 year old /WHITE M was hospitalized 02/09/21. Confusion this morning but responding. We have been doing bladder training. We will discontinue Bowen Catheter today. Plan to possibly discharge to [place] tomorrow. Labs are stable. REVIEW OF SYSTEMS: CONSTITUTIONAL: No night sweats. No fatigue, malaise, lethargy. No fever or chills. Weakness. HEENT: Eyes: No visual changes. No eye pain. No eye discharge. ENT: No runny nose. No epistaxis. No sinus pain. No odynophagia. No congestion. RESPIRATORY: No cough, no congestion. No hemoptysis. No shortness of breath. CARDIOVASCULAR: No angina symptoms. No CHF symptoms. No atypical chest pain for CAD. No palpitations. No orthopnea.. GASTROINTESTINAL: No abdominal pain. No nausea or vomiting. No diarrhea or constipation. No hematemesis. No hematochezia. GENITOURINARY: No urgency. No frequency. No dysuria. No hematuria. No obstructive symptoms. No discharge. No pain. No significant abnormal bleeding. MUSCULOSKELETAL: No musculoskeletal pain; no joint swelling. NEUROLOGICAL: Awake, alert, confused. No headache. No neck pain. No syncope. No seizures. No dizziness. PSYCHIATRIC: Not anxious. No depression. No suicidal thoughts. No homicidal thoughts. SKIN: No rash. No lesions. No wounds. ENDOCRINE: No unexplained weight loss. No weight gain. HEMATOLOGIC/LYMPHATIC: No anemia. No purpura. No petechiae. No prolonged or excessive bleeding. No palpable lymph nodes. PHYSICAL EXAMINATION: GENERAL: The patient is awake, alert , lying in bed in no distress. VITAL SIGNS: Temperature 97.2 F, Pulse 96, Respiratory Rate 18, BP 123/81, Pulse Ox 97% HEENT: Head normocephalic, atraumatic. Eyes: Extraocular muscles are intact. Pupils are equal, round and reactive to light and accommodation. Ears: No lesions. Nose appeared normal. Throat: No exudate or erythema. NECK: Supple. No JVD, no carotid bruit. No lymphadenopathy or thyromegaly. LUNGS: Diminished breath sounds. Clear to auscultation. Percussion note normal. Chest symmetrical. HEART: S1, S2, no S3. No murmurs. No cyanosis or clubbing. No ascites. Pul ses: Dorsalis pedis and posterior tibial pulses +1 to +2 both sides. ABDOMEN: Soft. Non-tender. Bowel sounds active. No CVA tenderness. No mass felt. EXTREMITIES: No edema. Full range of motion of all extremities, equal. NEUROLOGIC: No focal deficit. Cranial nerves II through XII are grossly intact. No headache. No double vision. SKIN: Not dry. Intact. Turgor-normal. LYMPHATIC: No palpable lymph nodes/no lymphedema. MUSCULOSKELETAL: Normal joints with no swelling. Muscle tone is normal. LAB REVIEW: 03/06/21 05:37 03/06/21 05:37 ASSESSMENT: Please see below. 1. COVID psychosis 2. Atrial fibrillation 3. Chronic kidney disease stage II 4. Dementia with agitation PLAN: 1. Discontinue Bowen 2. Possible discharge tomorrow to [place]. Plan and coordination of the patient's care discussed in the presence of Batch Heat Treat Operator and nurse. SCRIBED BY: Waldo IRENE scribed while in presence of service performed by Dr. Warner/Thais Acosta APRN on 03/07/21 ([id number])
[2021-03-07] MEDS: HUMULIN R SUBCUT PRN ×3 (11:36→20:06)
[2021-03-07] MEDS: ATIVAN PO SCH (20:05)
[2021-03-08] MEDS: VENTOLIN HFA (PER PUFF-WITH SPACER) IH SCH ×2 (04:25→09:35)
[2021-03-08 05:28] VITALS: BP 122/80; TEMP 97.8
[2021-03-08 05:30] LABS: EOSINOPHILS # (AUTO) 0.1 K/ul (0.0-0.7); EOSINOPHILS % (AUTO) 1.7 % (0.0-7.0); HEMATOCRIT 36.6 % (42.0-52.0); IMMATURE GRANULOCYTE % (AUTO) 0.6 % (0.0-5.0); LYMPHOCYTES # (AUTO) 0.5 K/uL (0.60-3.4); LYMPHOCYTES % (AUTO) 9.7 (10.0-50.0); MEAN CORPUSCULAR HEMOGLOBIN 28.1 pg (27.0-31.0); MEAN CORPUSCULAR HGB CONC 32.8 (31.8-35.4); MEAN CORPUSCULAR VOLUME 85.7 fl (80.0-94.0); MONOCYTES # (AUTO) 0.4 K/uL (0.4-2.0); NEUTROPHILS # (AUTO) 4.2 K/ul (2.0-6.9); PLATELET COUNT 169 10^3/uL (140-440); RDW COEFFICIENT OF VARIATION 18.8 % (11.6-14.8); RED BLOOD COUNT 4.27 10^6/ul (4.70-6.10); WHITE BLOOD COUNT 5.15 K/ul (4.2-10.2)
[2021-03-08 05:43] LABS: ALANINE AMINOTRANSFERASE 40.3 U/L (0-50); ALBUMIN 2.82 g/dL (3.5-5.0); ALKALINE PHOSPHATASE 74.1 U/L (56-119); ASPARTATE AMINO TRANSFERASE 25.2 U/L (17-59); BILIRUBIN,TOTAL 0.65 mg/dL (0.2-1.3); BLOOD UREA NITROGEN 19.9 mg/dL (9-20); CALCIUM 8.91 mg/dL (8.4-10.2); CARBON DIOXIDE 29.5 mmol/L (22-30.0); CHLORIDE 104.1 mmol/L (98-107); CREATININE 1.04 mg/dL (0.60-1.10); GLUCOSE 150.8 mg/dL (74-106); POTASSIUM 3.84 mmol/L (3.5-5.1); SODIUM 138.3 mmol/L (134.5-145); TOTAL PROTEIN 5.15 g/dL (6.3-8.2)
[2021-03-08] MEDS: LASIX TAB PO SCH (05:43)
[2021-03-08] MEDS: PEPCID PO SCH (05:43)
[2021-03-08] MEDS: PROTONIX PO SCH (05:43)
[2021-03-08] MEDS: HUMULIN R SUBCUT PRN (06:19)
--- NOTE | 2021-03-08 09:27 | PCM.PROG ---
Attending Provider: ATTENDING PROVIDER: Dr. OMAR MENDIOLA This patient is seen with Thais Acosta, Nurse Practitioner. DATE OF SERVICE: 03/08/21 SUBJECTIVE: This 80 year old /WHITE M was hospitalized 02/09/21. The patient is going to be discharged to [facility] today. Labs are stable. Behaviors have been stable. The patient said Hello to me this morning. Still with intermittent confusion. REVIEW OF SYSTEMS: CONSTITUTIONAL: No night sweats. No fatigue, malaise, lethargy. No fever or chills.Weakness. HEENT: Eyes: No visual changes. No eye pain. No eye discharge. ENT: No runny nose. No epistaxis. No sinus pain. No odynophagia. No congestion. RESPIRATORY: No cough, no congestion. No hemoptysis. No shortness of breath. CARDIOVASCULAR: No angina symptoms. No CHF symptoms. No atypical chest pain for CAD. No palpitations. No orthopnea.. GASTROINTESTINAL: No abdominal pain. No nausea or vomiting. No diarrhea or constipation. No hematemesis. No hematochezia. GENITOURINARY: No urgency. No frequency. No dysuria. No hematuria. No obstructive symptoms. No discharge. No pain. No significant abnormal bleeding. MUSCULOSKELETAL: No musculoskeletal pain; no joint swelling. NEUROLOGICAL: Awake, alert, confusion. No headache. No neck pain. No syncope. No seizures. No dizziness. PSYCHIATRIC: Not anxious. No depression. No suicidal thoughts. No homicidal thoughts. SKIN: No rash. No lesions. No wounds. ENDOCRINE: No unexplained weight loss. No weight gain. HEMATOLOGIC/LYMPHATIC: No anemia. No purpura. No petechiae. No prolonged or excessive bleeding. No palpable lymph nodes. PHYSICAL EXAMINATION: GENERAL: The patient is awake, alert and oriented, lying in bed in no distress. VITAL SIGNS: Temperature 97.8 F, Pulse 103, Respiratory Rate 18, BP 122/80, Pulse Ox 96% HEENT: Head normocephalic, atraumatic. Eyes: Extraocular muscles are intact. Pupils are equal, round and reactive to light and accommodation. Ears: No lesions. Nose appeared normal. Throat: No exudate or erythema. NECK: Supple. No JVD, no carotid bruit. No lymphadenopathy or thyromegaly. LUNGS: Diminished breath sounds. Clear to auscultation. Percussion note normal. Chest symmetrical. HEART: S1, S2, no S3. No murmurs. No cyanosis or clubbing. No ascites. Pulses: Dorsalis pedis and posterior tibial pulses +1 to +2 both sides. ABDOMEN: Soft. Non-tender. Bowel sounds active. No CVA tenderness. No mass felt. EXTREMITIES: No edema. Full range of motion of all extremities, equal. NEUROLOGIC: No focal deficit. Cranial nerves II through XII are grossly intact. No headache. No double vision. SKIN: Not dry. Intact. Turgor-normal. LYMPHATIC: No palpable lymph nodes/no lymphedema. MUSCULOSKELETAL: Normal joints with no swelling. Muscle tone is normal. LAB REVIEW: 03/08/21 04:55 03/08/21 04:55 03/08/21 04:55: Sodium 138.3, Potassium 3.84, Chloride 104.1, Carbon Dioxide 29.5, Anion Gap 8.54, BUN 19.9, Creatinine 1.04, Estimated GFR (MDRD) 68.00, BUN/Creatinine Ratio 19.13, Glucose 150.8 H, Calcium 8.91, Total Bilirubin 0.65, AST 25.2, ALT 40.3, Alkaline Phosphatase 74.1, Total Protein 5.15 L, Albumin 2.82 L, Globulin 2.33, Albumin/Globulin Ratio 1.21 03/08/21 04:55: WBC 5.15, RBC 4.27 L, Hgb 12.0 L, Hct 36.6 L, MCV 85.7, MCH 28.1, MCHC 32.8, RDW Coeff of [place] 18.8 H, Plt Count 169, Immature Gran % (Auto) 0.6, Neut % (Auto) 81.0 H, Lymph % (Auto) 9.7 L, [place] % (Auto) 7.0, Eos % (Auto) 1.7, Baso % (Auto) 0.0, Neut # (Auto) 4.2, Lymph # (Auto) 0.5 L, [place] # (Auto) 0.4, Eos # (Auto) 0.1, Baso # (Auto) 0.0, Immature Gran # (Auto) 0.0 ASSESSMENT: Please see below. 1. COVID psychosis 2. Resolved COVID pneumonia 3. Atrial fibrillation 4. Diabetes Mellitus typs II 5. Generalized weakness 6. Dementia PLAN: 1. Discharge to [facility] 2. TSH T4 repeat 3. Medications have been reviewed 4. The patient will require feeding, up to chair for meals. 5. Fall precautions 6. PT/OT Eval and treat 7. The family is in agreement with this plan as he is unable to be managed at home at this time. They are aware there is limited room for improvment. He has now been here for 27 days. He is well out of isolation. Respiratory status is stable. Atrial fibrillation is controlled. All that remains is his mental status. PROGNOSIS: POOR Plan and coordination of the patient's care discussed in the presence of Tank House Operator Helper and nurse. SCRIBED BY: NABOR [place] Livestock Laborer scribed while in presence of service performed by Dr. Mendiola/Thais Acosta APRN on 03/08/21 ([id number])
[2021-03-08] MEDS: ELIQUIS PO SCH (09:45)
[2021-03-08] MEDS: PREDNISONE PO SCH (09:45)
[2021-03-08] MEDS: TOPROL XL PO SCH (09:45)
[2021-03-08] MEDS: FLOMAX PO SCH (09:46)
[2021-03-08] MEDS: GLUCOPHAGE PO SCH (09:46)
[2021-03-08] MEDS: ZINC-220 PO SCH (09:46)
[2021-03-08] MEDS: CARDIZEM PO SCH (09:46)
[2021-03-08] MEDS: CRESTOR PO SCH (09:46)
[2021-03-08] MEDS: TRIGLIDE PO SCH (09:46)
[2021-03-08] MEDS: ZESTRIL PO SCH (09:47)
[2021-03-08] MEDS: VITAMIN D PO SCH (09:47)
--- NOTE | 2021-03-08 10:05 | PN ---
DATE OF SERVICE: 03/06/21 SUBJECTIVE: 80 year old white male hospitalized with COVID 19 pneumonia and respiratory failure which resolved after his admission but his mental status had taken a long time. He had shown some improvement. This morning he is talking to the . He is a little bit restless at times. Didn't recognize me. He is was awake. REVIEW OF SYSTEMS: CONSTITUTIONAL: No night sweats. No fatigue, malaise, lethargy. No fever or chills. HEENT: Eyes: No visual changes. No eye pain. No eye discharge. ENT: No runny nose. No epistaxis. No sinus pain. No sore throat. No odynophagia. No congestion. RESPIRATORY: No cough, no congestion. No hemoptysis. No shortness of breath. CARDIOVASCULAR: No angina symptoms. No CHF symptoms. No atypical chest pain for CAD. No palpitations. No PND. No orthopnea. GASTROINTESTINAL: No abdominal pain. No nausea or vomiting. No diarrhea or constipation. No hematemesis. No hematochezia. GENITOURINARY: No urgency. No frequency. No dysuria. No hematuria. No obstructive symptoms. No discharge. No pain. No significant abnormal bleeding. MUSCULOSKELETAL: No musculoskeletal pain; no joint swelling. NEUROLOGICAL: No headache. No neck pain. No syncope. No seizures. No dizziness. PSYCHIATRIC: Not anxious. No depression. No suicidal thoughts. No homicidal thoughts. SKIN: No rash. No lesions. No wounds. ENDOCRINE: No unexplained weight loss. No weight gain. HEMATOLOGIC/LYMPHATIC: No anemia. No purpura. No petechiae. No prolonged or excessive bleeding. No palpable lymph nodes. PHYSICAL EXAMINATION: VITAL SIGNS: Temperature 97, pulse 100, respiratory rate 18, blood pressure 112/65 and pulse ox 96% HEENT: Head normocephalic, atraumatic. Eyes: Extraocular muscles are intact. Pupils are equal, round and reactive to light and accommodation. Ears: No lesions. Nose appeared normal. Throat: No exudate or erythema. NECK: Supple. No JVD, no carotid bruit. No lymphadenopathy or thyromegaly. LUNGS: Decreased breath sounds but clear to auscultation. Percussion note normal. Chest symmetrical. HEART: S1, S2, no S3. No murmurs. No cyanosis or clubbing. No ascites. Pulses: Dorsalis pedis and posterior tibial pulses +1 to +2 bilaterally. ABDOMEN: Soft. Nontender. Bowel sounds active. No CVA tenderness. No mass felt. EXTREMITIES: No edema. Full range of motion of all extremities, equal. NEUROLOGIC: No focal deficit. Cranial nerves II through XII are grossly intact. No headache. No double vision. SKIN: Not dry. Intact. Turgor - normal. LYMPHATIC: No palpable lymph nodes/no lymphedema. MUSCULOSKELETAL: Normal joints with no swelling. Muscle tone is normal. LABS: Hgb 12.4, hct 37, WBC 6,900 normal differential, creatinine 0.9, BUN 19, potassium 3.8 ASSESSMENT: 1. COVID 19 pneumonia resolved 2. Confusion still persists but much better 3. Cardiovascular status and respiratory status stable and showed improvement with normalization to the previous pre-COVID status PLAN: 1. Train the bladder like we have been doing 2. Discontinue Bowen Catheter in the morning 3. The patient is already on Flomax 4. [facility]. The patient's back is a lot better, no decubitus. The condition of the skin is a lot better. TIME SPENT: More than 30 minutes. Plan and coordination of the patient's care discussed in the presence of nurse. DAVIDA
[2021-03-08] MEDS: SYMBICORT 160-4.5 MCG INHALER IH SCH (10:10)
[2021-03-08] MEDS: CALMOSEPTINE OINTMENT TP SCH (10:10)
[2021-03-08] MEDS: NYSTOP POWDER TP SCH (10:11)
--- NOTE | 2021-03-08 12:57 | CM.DICTOOL ---
ADMISSION: 02/09/21 18:13 DISCHARGE: MARCH 08, 2021 DATE OF SERVICE: 03/08/21 FINAL DIAGNOSIS COVID PSYCHOSIS RESOLVED COVID 19 PNEUMONIA ATRIAL FIBRILLATION ON ELIQUIS DIABETES MELLITUS TYPE 2 CHRONIC KIDNEY DISEASE STAGE 2 GENERALIZED WEAKNESS DEMENTIA HX: NONCOMPLIANCE WITH DIET, LIFESTYLE AND MEDICATIONS AND RECOMMENDATION RIB FRACTURE POLYCYTHEMIA NEPHROLITHIASIS COPD B 12 DEFICIENCY HYPERTENSIVE URGENCY SYSTOLIC CHF CAD WITH STENT APPLICATION, SEES DR. BOOGIE DM TYPE 2 UNCONTROLLED A1C SEPTEMBER 03. 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 LAU SURGICAL HISTORY: PROSTATECTOMY 2006, DR. SMITH LAST VITALS Temp Pulse Resp BP Pulse Ox 97.8 F 103 H 18 122/80 93 L 03/08/21 05:25 03/08/21 05:25 03/08/21 05:25 03/08/21 05:25 03/08/21 10:00 TAKE THESE MEDICATIONS AT HOME Acetaminophen (Acetaminophen 325 Mg Tablet) 650 mg PO Q4H PRN -- ( NEW) PRN Reason: Headache Apixaban (Apixaban 5 Mg Tab) 5 mg PO BID [facility] Last Admin: 03/08/21 09:45 Dose: 5 mg Budesonide/Formoterol Fumarate (Budesonide/Formoterol Fumarate 160/4.5 Mcg Inhaler) 2 puff IH BID [facility] -- ( NEW) Last Admin: 03/08/21 10:10 Dose: 2 puff Calamine/Phenol (Menthol/Zinc Oxide 113 Gm Ointment) 1 applic TP QID [facility] -- ( NEW) Last Admin: 03/08/21 10:10 Dose: 1 applic Clotrimazole (Clotrimazole/Betamethasone 45 Gm Cream) 1 applic TP BID PRN -- ( NEW) PRN Reason: RED BUTTOCKS Diltiazem HCl (Diltiazem Hcl 60 Mg Tablet) 60 mg PO Q12HR [facility] -- ( NEW) Last Admin: 03/08/21 09:46 Dose: 30 mg Fenofibrate (Fenofibrate 160 Mg Tablet) 160 mg PO DAILY [facility] Last Admin: 03/08/21 09:46 Dose: 160 mg Furosemide (Furosemide 20 Mg Tablet) 20 mg PO QDAC [facility] -- (CHANGED) Last Admin: 03/08/21 05:43 Dose: 20 mg Lisinopril (Lisinopril 10 Mg Tablet) 5 mg PO DAILY [facility] -- (CHANGED) Last Admin: 03/08/21 09:47 Dose: 5 mg Lorazepam (Lorazepam 1 Mg Tablet) 1.5 mg PO 1999 [facility] -- ( NEW) Last Admin: 03/07/21 20:05 Dose: 1.5 mg Metformin HCl (Metformin Hcl 500 Mg Tablet) 1,000 mg PO BIDWM [facility] Last Admin: 03/08/21 09:46 Dose: 1,000 mg Metoprolol Succinate (Metoprolol Succinate 25 Mg Tab.Er.24h) 12.5 mg PO BID [facility] -- (CHANGED) Last Admin: 03/08/21 09:45 Dose: 12.5 mg Nystatin (Nystatin 15 Gm Powder) 1 applic TP QID [facility] -- ( NEW) Last Admin: 03/08/21 10:11 Dose: 1 applic Pantoprazole Sodium (Pantoprazole Sodium 40 Mg Tablet.Dr) 40 mg PO BIDAC [facility] -- ( NEW) Last Admin: 03/08/21 05:43 Dose: 40 mg Rosuvastatin Calcium (Rosuvastatin Calcium 10 Mg Tablet) 10 mg PO DAILY [facility] Last Admin: 03/08/21 09:46 Dose: 10 mg Tamsulosin HCl (Tamsulosin Hcl 0.4 Mg Cap.Er.24h) 0.4 mg PO BID [facility] -- ( NEW) Last Admin: 03/08/21 09:46 Dose: 0.4 mg JANUVIA 100 MG PO DAILY --(NEW) ALLERGIES No Known Allergies Allergy (Verified 09/16/18 15:11) DISCONTINUED MEDICATIONS Furosemide (Furosemide 40 Mg Tablet) 40 mg PO QDAC [facility] Lisinopril (Lisinopril 10 Mg Tablet) 20 mg PO DAILY [facility] Metoprolol Succinate (Metoprolol Succinate 50 Mg Tab.Er.24h) 100 mg DAILY [facility] Potassium Chloride (Potassium Chloride 40 Meq/30 Ml Cup) 10 meq PO DAILYWM [facility] CLONIDINE O.1 DAILY AMLODIPINE-BENAZEPRIL 1 PO DAILY JARDIANCE 25 MG PO DAILY ASPIRIN 81 MG PO DAILY NTG 0.4 MG SL PRN NORCO 5-325 MG PO Q 6 PRN NEW PRESCRIPTIONS: 1). Acetaminophen (Acetaminophen 325 Mg Tablet) 650 mg PO Q4H PRN -- ( NEW) 2). Budesonide/Formoterol Fumarate (Budesonide/Formoterol Fumarate 160/4.5 Mcg Inhaler) 2 puff IH BID -- ( NEW) 3). Calamine/Phenol (Menthol/Zinc Oxide 113 Gm Ointment) 1 applic TP TO BUTTOCKS QID -- ( NEW) 4). Clotrimazole (Clotrimazole/Betamethasone 45 Gm Cream) 1 applic TP TO GROINS AND BUTTOCKS BID -- ( NEW) 5). Diltiazem HCl (Diltiazem Hcl 60 Mg Tablet) 60 mg PO Q12HR -- ( NEW) 6). Furosemide (Furosemide 20 Mg Tablet) 20 mg PO QDAC -- (CHANGED) 7). Lisinopril (Lisinopril 10 Mg Tablet) 5 mg PO DAILY -- (CHANGED) 8). Lorazepam (Lorazepam 1 Mg Tablet) 1.5 mg PO 2000 -- ( NEW) 9). Metoprolol Succinate (Metoprolol Succinate 25 Mg Tab.Er.24h) 12.5 mg PO BID -- (CHANGED) 10).Nystatin (Nystatin 15 Gm Powder) 1 applic TP QID -- ( NEW) 11).Pantoprazole Sodium (Pantoprazole Sodium 40 Mg Tablet.Dr) 40 mg PO BIDAC -- ( NEW) 12).Tamsulosin HCl (Tamsulosin Hcl 0.4 Mg Cap.Er.24h) 0.4 mg PO BID -- ( NEW) 13).JANUVIA 100 MG PO DAILY --(NEW) SMOKING: N/A DISEASE SPECIFIC EDUCATION: NO NSAIDS TOTAL CARE BLEEDING PRECAUTIONS FALL PRECAUTIONS LAB REVIEW: 03/08/21 04:55 03/08/21 04:55 03/08/21 04:55: Sodium 138.3, Potassium 3.84, Chloride 104.1, Carbon Dioxide 29.5, Anion Gap 8.54, BUN 19.9, Creatinine 1.04, Estimated GFR (MDRD) 68.00, BUN/Creatinine Ratio 19.13, Glucose 150.8 H, Calcium 8.91, Total Bilirubin 0.65, AST 25.2, ALT 40.3, Alkaline Phosphatase 74.1, Total Protein 5.15 L, Albumin 2.82 L, Globulin 2.33, Albumin/Globulin Ratio 1.21 03/08/21 04:55: WBC 5.15, RBC 4.27 L, Hgb 12.0 L, Hct 36.6 L, MCV 85.7, MCH 28.1, MCHC 32.8, RDW Coeff of [place] 18.8 H, Plt Count 169, Immature Gran % (Auto) 0.6, Neut % (Auto) 81.0 H, Lymph % (Auto) 9.7 L, [place] % (Auto) 7.0, Eos % (Auto) 1.7, Baso % (Auto) 0.0, Neut # (Auto) 4.2, Lymph # (Auto) 0.5 L, [place] # (Auto) 0.4, Eos # (Auto) 0.1, Baso # (Auto) 0.0, Immature Gran # (Auto) 0.0 PLAN: DISCHARGE : MARCH 08, 2021 TO [facility] DIET: PUREED REGULAR WITH HONEY CONSISTENCY LIQUIDS. DRINK AT LEAST 64 OUNCES OF WATER A DAY DIETARY CONSULT ACTIVITY: UP WALKING WITH ASSIST WHEN ABLE. 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 MENIDOLA/TORSTEN PINA APRN/EULOGIO PONCE APRN WILL SEE ON ROUNDS OXYGEN: 1-2 L/M PER N/C TO KEEP PULSE OX READINGS GREATER THAN 92% VITAL SIGNS: CHECK EVERY 8 HOURS X 3 DAYS THEN DAILY X 1 WEEK THEN PER FACILITY PROTOCOL CHECK PULSE OX DAILY AND PRN LABS: CBC AND CMP AND A1C ON SUNDAY THEN EVERY 3 MONTHS. A1C EVERY 3 MONTHS LIPIDS, TSH AND FREE T4 EVERY 6 MONTHS ( DUE IN AUGUST 2021 ) CODE STATUS: DO NOT RESUSCITATE MR. RAYMOND IS ALERT AT TIMES. ORIENTED TO SELF AT TIMES. HE DOES TURN SELF IN BED AT TIMES. REQUIRES TOTAL CARE. HE STARTED REMOVING THE OXYGEN CANNULA THEN AFTER SO MANY DAYS HE REMAINS IN THE 90s WITH PULSE OXIMETRY. MAINLY STAY IN THE UPPER 90s . HE HAS BEEN COMBATIVE AT TIMES AND THEN HE IS COOPERATIVE WITH CARE. HE HAS SLIGHT REDNESS AND SUPERFICIAL SHEARING, MINOR AREAS TO BUTTOCKS THAT OPEN THEN CLOSE, AT THIS TIME HAVE IMPROVED. GROINS WITH MINIMAL REDNESS. HE HAS SOME CHRONIC SCATTERED REDNESS TO FEET AND TOES. HE HAS NOT ATTEMPTED TO GET OUT OF BED ON HIS OWN MUCH. RAJAN WAS REMOVED HE IS INCONTINENT OF URINE AND STOOLS. LAST BM 03/07/2021. HE HAS BEEN EATING FAIR TO GOOD WHILE BEING SPOON FED. HE IS BEING DISCHARGED TO [facility]. MD TORSTEN HUERTA APRN ALYCE HANNAN, APRN
--- NOTE | 2021-03-08 13:35 | PN ---
DATE OF SERVICE: 03/03/21 SUBJECTIVE: The patient was seen and examined with the Nurse Practitioner. The patient's mental status seems to be stable. Still confused at times but the patient's seems to be less restless. The patient is on Flomax. We will take the Bowen Catheter out and train the bladder. Respiratory status is stable. The oxygen saturation 95-97% on 2 liters. TIME SPENT: More than 30 minutes. Plan and coordination of the patient's care discussed in the presence of nurse. DAVIDA
--- NOTE | 2021-03-08 13:39 | PN ---
DATE OF SERVICE: 03/04/21 SUBJECTIVE: The patient was seen and examined with the Nurse Practitioner. The patient's mental status for the first time seems to have improved. Last night the patient was given 1-1.5mg of Ativan after that he doesn't required anything. He is sitting in the chair and talking very fluently. At times he is confused but he seems to be more with it. His labs are stable with creatinine 1.1, BUN 25, potassium 4.2. The patient's oral intake seems to have improved. Oxygen saturation 90-95 % with 2 liters. Condition improving. Continue Flomax. TIME SPENT: More than 30 minutes. Plan and coordination of the patient's care discussed in the presence of nurse. DAVIDA
--- NOTE | 2021-03-08 13:44 | PN ---
DATE OF SERVICE: 03/05/21 SUBJECTIVE: 80 year old white male hospitalized with COVID pneumonia and respiratory failure. The patient's main problem has been mental status which has steadily improved after deterioration with combination of hospital psychosis, early dementia the patient had with COVID and Encephalopathy. The patient is more alert and talking to the . The patient's says that he is making more sense but at times he gets confused and angry. REVIEW OF SYSTEMS: CONSTITUTIONAL: No night sweats. No fatigue, malaise, lethargy. No fever or chills. HEENT: Eyes: No visual changes. No eye pain. No eye discharge. ENT: No runny nose. No epistaxis. No sinus pain. No sore throat. No odynophagia. No congestion. RESPIRATORY: No cough, no congestion. No hemoptysis. No shortness of breath. CARDIOVASCULAR: No angina symptoms. No CHF symptoms. No atypical chest pain for CAD. No palpitations. No PND. No orthopnea. GASTROINTESTINAL: No abdominal pain. No nausea or vomiting. No diarrhea or constipation. No hematemesis. No hematochezia. GENITOURINARY: No urgency. No frequency. No dysuria. No hematuria. No obstructive symptoms. No discharge. No pain. No significant abnormal bleeding. MUSCULOSKELETAL: No musculoskeletal pain; no joint swelling. NEUROLOGICAL: No headache. No neck pain. No syncope. No seizures. No dizziness. PSYCHIATRIC: Not anxious. No depression. No suicidal thoughts. No homicidal thoughts. SKIN: No rash. No lesions. No wounds. ENDOCRINE: No unexplained weight loss. No weight gain. HEMATOLOGIC/LYMPHATIC: No anemia. No purpura. No petechiae. No prolonged or excessive bleeding. No palpable lymph nodes. PHYSICAL EXAMINATION: VITAL SIGNS: Temperature 97, pulse 86, respiratory rate 16, blood pressure 144/78 and pulse ox 97%. HEENT: Head normocephalic, atraumatic. Eyes: Extraocular muscles are intact. Pupils are equal, round and reactive to light and accommodation. Ears: No lesions. Nose appeared normal. Throat: No exudate or erythema. NECK: Supple. No JVD, no carotid bruit. No lymphadenopathy or thyromegaly. LUNGS:Decreased breath sounds but clear to auscultation. Percussion note normal. Chest symmetrical. HEART: S1, S2, no S3. No murmurs. No cyanosis or clubbing. No ascites. Pulses: Dorsalis pedis and posterior tibial pulses +1 to +2 bilaterally. ABDOMEN: Soft. Nontender. Bowel sounds active. No CVA tenderness. No mass felt. EXTREMITIES: No edema. Full range of motion of all extremities, equal. NEUROLOGIC: No focal deficit. Cranial nerves II through XII are grossly intact. No headache. No double vision. SKIN: Not dry. Intact. Turgor - normal. LYMPHATIC: No palpable lymph nodes/no lymphedema. MUSCULOSKELETAL: Normal joints with no swelling. Muscle tone is normal. LABS: Hgb 12.1, hct 37, WBC 6,000 normal differential, creatinine 1.1, BUN 25, potassium 4.2 ASSESSMENT: 1. COVID respiratory status with respiratory failure, resolved. Saturation is 97% on 2 liters 2. CHF, under control 3. Atrial fibrillation, normal ventricular response 4. Hypertension, controlled 5. Mental status still not up to par the patient is confused off and on. More talkative. 6. Appetite has improved, swallowing is almost normal. He ate lunch practically finished the whole tray, had a good breakfast. He needs to be helped. PLAN: 1. He is waiting on custodial placement. 2. Bowen catheter is still need, we will try to get the Bowen Catheter out before discharge CONDITION: Stable TIME SPENT: More than 30 minutes. Plan and coordination of the patient's care discussed in the presence of nurse. DAVIDA
--- NOTE | 2021-03-08 13:50 | PN ---
DATE OF SERVICE: 03/07/21 SUBJECTIVE: The patient was seen and examined today with the Nurse Practitioner. The patient's Bowen Catheter is out. His cardiovascular and respiratory status is stable. Mental status is stable with some improvement. is in the room. The patient is able to void, likely discharge tomorrow. TIME SPENT: More than 30 minutes. Plan and coordination of the patient's care discussed in the presence of nurse. DAVIDA
--- NOTE | 2021-03-10 11:31 | PN ---
ADMISSION DAY: Level 5 A LOT OF THEM WERE EXTENSIVE MOST OF THEM INTERMEDIATE FINAL DAY: D as in discharge MTDD
--- NOTE | 2021-03-10 11:31 | PN ---
DATE OF SERVICE: 03/08/21 SUBJECTIVE: The patient was seen and examined with the Nurse Practitioner. The patient's condition has improved. He is eating much better. He still incontinent of urine but able to pass urine. Afebrile. No symptoms of CHF or COVID. Mental status still fluctuating mostly confused but alert. Family is here. He is going to be discharged to the retirement and instructs given. Dictated orders supervised. TIME SPENT: More than 30 minutes. Plan and coordination of the patient's care discussed in the presence of nurse. DAVIDA
--- NOTE | 2021-03-30 14:44 | DS ---
DATE OF SERVICE: 03/08/21 FINAL DIAGNOSIS: COVID PSYCHOSIS RESOLVED COVID 19 PNEUMONIA ATRIAL FIBRILLATION ON ELIQUIS DIABETES MELLITUS TYPE 2 CHRONIC KIDNEY DISEASE STAGE 2 GENERALIZED WEAKNESS DEMENTIA HISTORY: NONCOMPLIANCE WITH DIET, LIFESTYLE AND MEDICATIONS AND RECOMMENDATION RIB FRACTURE POLYCYTHEMIA NEPHROLITHIASIS COPD B 12 DEFICIENCY HYPERTENSIVE URGENCY SYSTOLIC CHF CAD WITH STENT APPLICATION, SEES DR. BOOGIE DM TYPE 2 UNCONTROLLED A1C AUGUST 9.5 CHRONIC KIDNEY DISEASE STAGE 2 TO 3 LVH OK SEVERE DILATED ISCHEMIC CARDIOMYOPATHY WITH LAST EJECTION FRACTION 42% DYSLIPIDEMIA METABOLIC SYNDROME OBSTRUCTIVE SLEEP APNEA BMI 35 ( NOW 28.6 02/09/2021 PROSTATE CANCER , DR. LAU SURGICAL HISTORY: PROSTATECTOMY 2006, DR. SMITH LAST VITALS: Temp Pulse Resp BP Pulse Ox 97.8 F 103 H 18 122/80 93 L 03/08/21 05:25 03/08/21 05:25 03/08/21 05:25 03/08/21 05:25 03/08/21 10:00 DISCHARGE INSTRUCTIONS: DISCHARGE : MARCH 08, [address] [facility]. CONTINUE DIABETIC CARE: CHECK BLOOD SUGARS DAILY X 1 WEEK THEN WEEKLY. MD FOLLOW-UP: DR. MENDIOLA/TORSTEN PINA APRN/EULOGIO PONCE APRN WILL SEE ON ROUNDS. OXYGEN: 1-2 L/M PER N/C TO KEEP PULSE OX READINGS GREATER THAN 92%. VITAL SIGNS: CHECK EVERY 8 HOURS X 3 DAYS THEN DAILY X 1 WEEK THEN PER FACILITY PROTOCOL. CHECK PULSE OX DAILY AND PRN. LABS: CBC AND CMP AND A1C ON SUNDAY THEN EVERY 3 MONTHS. A1C EVERY 3 MONTHS. LIPIDS, TSH AND FREE T4 EVERY 6 MONTHS ( DUE IN AUGUST 2021 ). CODE STATUS: DO NOT RESUSCITATE. TAKE THESE MEDICATIONS AT HOME: Acetaminophen (Acetaminophen 325 Mg Tablet) 650 mg PO Q4H PRN -- ( NEW) PRN Reason: Headache Apixaban (Apixaban 5 Mg Tab) 5 mg PO BID [facility] Last Admin: 03/08/21 09:45 Dose: 5 mg Budesonide/Formoterol Fumarate (Budesonide/Formoterol Fumarate 160/4.5 Mcg Inhaler) 2 puff IH BID [facility] -- ( NEW) Last Admin: 03/08/21 10:10 Dose: 2 puff Calamine/Phenol (Menthol/Zinc Oxide 113 Gm Ointment) 1 applic TP QID [facility] -- ( NEW) Last Admin: 03/08/21 10:10 Dose: 1 applic Clotrimazole (Clotrimazole/Betamethasone 45 Gm Cream) 1 applic TP BID PRN -- ( NEW) PRN Reason: RED BUTTOCKS Diltiazem HCl (Diltiazem Hcl 60 Mg Tablet) 60 mg PO Q12HR [facility] -- ( NEW) Last Admin: 03/08/21 09:46 Dose: 30 mg Fenofibrate (Fenofibrate 160 Mg Tablet) 160 mg PO DAILY [facility] Last Admin: 03/08/21 09:46 Dose: 160 mg Furosemide (Furosemide 20 Mg Tablet) 20 mg PO QDAC [facility] -- (CHANGED) Last Admin: 03/08/21 05:43 Dose: 20 mg Lisinopril (Lisinopril 10 Mg Tablet) 5 mg PO DAILY [facility] -- (CHANGED) Last Admin: 03/08/21 09:47 Dose: 5 mg Lorazepam (Lorazepam 1 Mg Tablet) 1.5 mg PO 2000 [facility] -- ( NEW) Last Admin: 03/07/21 20:05 Dose: 1.5 mg Metformin HCl (Metformin Hcl 500 Mg Tablet) 1,000 mg PO BIDWM [facility] Last Admin: 03/08/21 09:46 Dose: 1,000 mg Metoprolol Succinate (Metoprolol Succinate 25 Mg Tab.Er.24h) 12.5 mg PO BID [facility] -- (CHANGED) Last Admin: 03/08/21 09:45 Dose: 12.5 mg Nystatin (Nystatin 15 Gm Powder) 1 applic TP QID [facility] -- ( NEW) Last Admin: 03/08/21 10:11 Dose: 1 applic Pantoprazole Sodium (Pantoprazole Sodium 40 Mg Tablet.Dr) 40 mg PO BIDAC [facility] -- ( NEW) Last Admin: 03/08/21 05:43 Dose: 40 mg Rosuvastatin Calcium (Rosuvastatin Calcium 10 Mg Tablet) 10 mg PO DAILY [facility] Last Admin: 03/08/21 09:46 Dose: 10 mg Tamsulosin HCl (Tamsulosin Hcl 0.4 Mg Cap.Er.24h) 0.4 mg PO BID [facility] -- ( NEW) Last Admin: 03/08/21 09:46 Dose: 0.4 mg JANUVIA 100 MG PO DAILY --(NEW) ALLERGIES: No Known Allergies Allergy (Verified 07/22/19 15:11) DISCONTINUED MEDICATIONS: Furosemide (Furosemide 40 Mg Tablet) 40 mg PO QDAC [facility] Lisinopril (Lisinopril 10 Mg Tablet) 20 mg PO DAILY [facility] Metoprolol Succinate (Metoprolol Succinate 50 Mg Tab.Er.24h) 100 mg DAILY [facility] Potassium Chloride (Potassium Chloride 40 Meq/30 Ml Cup) 10 meq PO DAILYWM [facility] CLONIDINE O.1 DAILY AMLODIPINE-BENAZEPRIL 1 PO DAILY JARDIANCE 25 MG PO DAILY ASPIRIN 81 MG PO DAILY NTG 0.4 MG SL PRN NORCO 5-325 MG PO Q 6 PRN NEW PRESCRIPTIONS: 1). Acetaminophen (Acetaminophen 325 Mg Tablet) 650 mg PO Q4H PRN -- ( NEW) 2). Budesonide/Formoterol Fumarate (Budesonide/Formoterol Fumarate 160/4.5 Mcg Inhaler) 2 puff IH BID -- ( NEW) 3). Calamine/Phenol (Menthol/Zinc Oxide 113 Gm Ointment) 1 applic TP TO BUTTOCKS QID -- ( NEW) 4). Clotrimazole (Clotrimazole/Betamethasone 45 Gm Cream) 1 applic TP TO GROINS AND BUTTOCKS BID -- ( NEW) 5). Diltiazem HCl (Diltiazem Hcl 60 Mg Tablet) 60 mg PO Q12HR -- ( NEW) 6). Furosemide (Furosemide 20 Mg Tablet) 20 mg PO QDAC -- (CHANGED) 7). Lisinopril (Lisinopril 10 Mg Tablet) 5 mg PO DAILY -- (CHANGED) 8). Lorazepam (Lorazepam 1 Mg Tablet) 1.5 mg PO 2000 -- ( NEW) 9). Metoprolol Succinate (Metoprolol Succinate 25 Mg Tab.Er.24h) 12.5 mg PO BID -- (CHANGED) 10).Nystatin (Nystatin 15 Gm Powder) 1 applic TP QID -- ( NEW) 11).Pantoprazole Sodium (Pantoprazole Sodium 40 Mg Tablet.Dr) 40 mg PO BIDAC -- ( NEW) 12).Tamsulosin HCl (Tamsulosin Hcl 0.4 Mg Cap.Er.24h) 0.4 mg PO BID -- ( NEW) 13).JANUVIA 100 MG PO DAILY --(NEW) SMOKING: N/A DISEASE SPECIFIC EDUCATION: NO NSAIDS TOTAL CARE BLEEDING PRECAUTIONS FALL PRECAUTIONS LAB REVIEW: 03/08/21 04:55 03/08/21 04:55 03/08/21 04:55: Sodium 138.3, Potassium 3.84, Chloride 104.1, Carbon Dioxide 29.5, Anion Gap 8.54, BUN 19.9, Creatinine 1.04, Estimated GFR (MDRD) 68.00, BUN/Creatinine Ratio 19.13, Glucose 150.8 H, Calcium 8.91, Total Bilirubin 0.65, AST 25.2, ALT 40.3, Alkaline Phosphatase 74.1, Total Protein 5.15 L, Albumin 2.82 L, Globulin 2.33, Albumin/Globulin Ratio 1.21 03/08/21 04:55: WBC 5.15, RBC 4.27 L, Hgb 12.0 L, Hct 36.6 L, MCV 85.7, MCH 28.1, MCHC 32.8, RDW Coeff of [place] 18.8 H, Plt Count 169, Immature Gran % (Auto) 0.6, Neut % (Auto) 81.0 H, Lymph % (Auto) 9.7 L, Henry % (Auto) 7.0, Eos % (Auto) 1.7, Baso % (Auto) 0.0, Neut # (Auto) 4.2, Lymph # (Auto) 0.5 L, Henry # (Auto) 0.4, Eos # (Auto) 0.1, Baso # (Auto) 0.0, Immature Gran # (Auto) 0.0 DIET: PUREED REGULAR WITH HONEY CONSISTENCY LIQUIDS. DRINK AT LEAST 64 OUNCES OF WATER A DAY DIETARY CONSULT ACTIVITY: UP WALKING WITH ASSIST WHEN ABLE. 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 He had mild acute respiratory failure requiring eventually up the maximum I do believe 6 liters of oxygen via nasal canula. He was not vaccinated. He was started on Remdesivir IV along with Rocephin IV and Zithromax IV, steroids IV, Pepcid, Vitamin D and Zinc. On admission and for about the first 36 hours he was oriented to person and place not necessarily time however his cognitive level started to decline. CT and MRI were negative for CVA. He developed obtundedness, extreme weakness and inability to swallow. He was unresponsive to questions for several days. We continued with IV fluids. He was unable to take any medications by mouth. He was started on Lovenox SUBCUT as he was unable to take his Eliquis by mouth. He does have a history of Afib. While his respiratory status remained relatively stable he was quickly weaned down to 4 liters of oxygen via nasal canula. He did experience some Afib with RVR and was initiated on a Cardizem drip and was unable to take any PO medications for some time. He was controlled with IV Metoprolol as well as the Cardizem drip. He did experience an acute OK while tachycardic. Repeat echo done after what we believe to be an OK showed normal septal wall motion and his ejection fraction was essentially unchanged from previous. At this point given all that he has been through with COVID that pneumonia symptoms seems to have resolved. He is down to 2 liters via nasal canula but he is still very confused. He has periods where is lucid and he is able to feed himself and then he has periods where he is confused and can not answer you're questions. 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 He did have dementia prior to this which seems to have been severely effected by COVID. The family is unable to take him at this time. He is back to taking all PO medications. We will continue him on Eliquis. His rate has been controlled with Cardizem. His sugar has improved. Speech Eval. He is able to tolerate soft foods. Renal function has returned to normal. He has now been somewhat hypotensive after his RVR has resolved. He is going to be on Cardizem 60mg BID along with Metoprolol 12.5mg BID as his blood pressure can not tolerate any higher levels. We will continue on the Eliquis. He is going to go to [facility] to continue some PT and OT. It is unclear at this time whether he will be able to make a full recovery and the family is fully aware. We have strongly advised to get vaccinated within the next several weeks especially since he is going to to the half-way. Labs are stable upon discharge. WBC 5, hgb 12, hct 36, BUN 19, creatinine 1.04, sodium 138, potassium 3.8. He will have a repeat CBC and CMP on Sunday. He will have oxygen PRN. He is to continue on NEBS. Again his medications have been reviewed. We will followup with him at the half-way. He is discharged. TIME SPENT: More than 60 minutes. DAVIDA
== END 2021-03-08 13:46 | DRG 177 ==
LOC: ED 13:00 → MEDSURG B 18:13 → SCU 02-12 07:15 → EDSTATUS 02-14 09:02 → MEDSURG A 02-22 13:34 → EDSTATUS 02-23 08:28
PROVIDERS: ADMIT Internal Medicine; ATTEND Internal Medicine
DX: Z99.81 Dependence on supplemental oxygen; Z79.01 Long term (current) use of anticoagulants; E11.65 Type 2 diabetes mellitus with hyperglycemia; U07.1 COVID-19; I51.7 Cardiomegaly; Z79.899 Other long term (current) drug therapy; Z51.81 Encounter for therapeutic drug level monitoring; J96.00 Acute respiratory failure, unspecified whether with hypoxia or hypercapnia; I49.01 Ventricular fibrillation; I25.10 Atherosclerotic heart disease of native coronary artery without angina pectoris; N18.2 Chronic kidney disease, stage 2 (mild); F06.2 Psychotic disorder with delusions due to known physiological condition; Z95.5 Presence of coronary angioplasty implant and graft; I10 Essential (primary) hypertension; I35.0 Nonrheumatic aortic (valve) stenosis; J12.82 Pneumonia due to coronavirus disease 2019; R53.1 Weakness

== ENCOUNTER 2021-04-08 13:17 | Inpatient (IN) ==
[2021-04-08] MEDS ORDERED: DECADRON IVP ONE (13:20)
[2021-04-08 13:35] LABS: BASOPHILS % (AUTO) 0.4 % (0.0-3.0); HEMOGLOBIN 11.9 g/dl (14.0-18.0); IMMATURE GRANULOCYTE # (AUTO) 0.1 (0.0-1.0); LYMPHOCYTES # (AUTO) 0.4 K/uL (0.60-3.4); MEAN CORPUSCULAR HEMOGLOBIN 28.1 pg (27.0-31.0); MEAN CORPUSCULAR HGB CONC 31.3 (31.8-35.4); MEAN CORPUSCULAR VOLUME 89.8 fl (80.0-94.0); MONOCYTES # (AUTO) 0.3 K/uL (0.4-2.0); MONOCYTES % (AUTO) 6.3 (0-10); NEUTROPHILS # (AUTO) 4.4 K/ul (2.0-6.9); NEUTROPHILS % (AUTO) 83.9 % (42.2-75.2); PLATELET COUNT 267 10^3/uL (140-440); RDW COEFFICIENT OF VARIATION 20.7 % (11.6-14.8); RED BLOOD COUNT 4.23 10^6/ul (4.70-6.10); WHITE BLOOD COUNT 5.25 K/ul (4.2-10.2)
[2021-04-08] MEDS ORDERED: SODIUM CHLORIDE 1,000 ML IV STA (13:46)
[2021-04-08 13:47] LABS: ALANINE AMINOTRANSFERASE 25.9 U/L (0-50); ALBUMIN 3.34 g/dL (3.5-5.0); ALKALINE PHOSPHATASE 45.7 U/L (56-119); AMYLASE 52.1 U/L (30-110); ASPARTATE AMINO TRANSFERASE 25.9 U/L (17-59); BILIRUBIN,TOTAL 0.62 mg/dL (0.2-1.3); BLOOD UREA NITROGEN 26.6 mg/dL (9-20); CALCIUM 9.46 mg/dL (8.4-10.2); CARBON DIOXIDE 26.5 mmol/L (22-30.0); CHLORIDE 112.2 mmol/L (98-107); CREATINE KINASE 25.5 U/L (55-170); CREATININE 1.83 mg/dL (0.60-1.10); GLUCOSE 149.5 mg/dL (74-106); LIPASE 119.9 U/L (23-300); MAGNESIUM 2.08 mg/dL (1.6-2.3); POTASSIUM 4.46 mmol/L (3.5-5.1); TOTAL PROTEIN 6.02 g/dL (6.3-8.2)
[2021-04-08 13:55] LABS: ABG O2 HGB 79.4 % (95-100); ABG PH 7.43 (7.35-7.45); BEecf 1.6 (-2.0-3.0); COHb 2.3 (0.5-1.5); HCO3 25.9 (21-28); MetHb 0.7 (0-1.5); TCO2 27.1 (19-24); sO2 77.9 % (94-98); tHb 11.7 g/dl (11.7-17.4)
[2021-04-08 13:59] LABS: TROPONIN I 0.107 ng/ml (0.0000-0.120)
[2021-04-08 14:24] LABS: LYMPHOCYTES % (AUTO) 8.4 (10.0-50.0)
--- NOTE | 2021-04-08 14:32 | ED.PDOC ---
General ED Provider: Dr. RANCHO LOFTON Chief Complaint: Shortness of Air Stated Complaint: Pt presents with respiratory distress and altered mental status. Pt was diagnosed with Covid about 6 days ago. Over the past 2 days, his symptoms have worsened and he has become more confused. He also has a bruise on his forehead and fell recently. He has not had any recent fevers or emesis. The pt himself is unable to answer any questions or follow sommands. Nothing else makes the sxs better or worse and they are progressive in nature. He is DNR. Time Seen by Provider: 04/08/21 13:45 Mode of Arrival: Ambulance Information Source: [facility] and EMT Primary Care Provider: OMAR MENDIOLA Nursing and Triage Documentation Reviewed and Agree: Yes Does patient meet sepsis criteria?: No If yes, has appropriate treatment been initiated?: No System Inflammatory Response Syndrome: Not Applicable Sepsis Protocol: For patient's 13 years and over: Temp is 96.8 and below OR 101 and greater Pulse >90 BPM Resp >20/minute Acutely Altered Mental Status Are patient's symptoms suggestive of a new infection, such as: -Pneumonia -Skin, Soft Tissue -Endocarditis -UTI -Bone, Joint Infection -Implantable Device -Acute Abdominal Infection -Wound Infection -Meningitis -Blood Stream Catheter Infection -Unknown Review of Systems Review Of Systems Constitutional: Reports Other (Unable to assess secondary to patients altered mental status.) All Other Systems: Other (Unable to assess secondary to AMS) [facility] Medical History Afib CAD S/P percutaneous coronary angioplasty Cardiomyopathy CHF (congestive heart failure) COPD (chronic obstructive pulmonary disease) COVID-19 Dementia Diabetes type 2, uncontrolled HTN (hypertension) Hyperlipemia Kidney calculus LVH (left ventricular hypertrophy) Metabolic syndrome Myocardial infarction Prostate CA Sleep apnea Family History Other No known health problems Social History Smoking and tobacco status: Former smoker Passive smoking exposure: No Second hand smoke exposure: No Smoking risk assessment performed: No Surgical History History of prostatectomy Physical Exam Physical Exam Appearance: Reports Ill-appearing (Minimally responsive), No pain distress and Well-nourished Ill-appearing: Moderate Pain Distress: None Eyes: Reports WYATT and EOMI ENT: Reports Not Examined Neck: Supple Respiratory: Reports Airway patent, Wheezes (Diffuse bilateral) and Other (Moderate respiratory distress.) Cardiovascular: Reports Pulses normal, No rub, No murmur, Irregular rhythm and Tachycardia GI/: Reports Soft, Nontender, No masses, Bowel sounds normal and No Organomegaly Musculoskeletal: Reports No edema and Other (General weakness.) Skin: Reports Warm, Dry and Normal color Neurological: Reports Alert and Other (Alert but not oriented. Does not answer questions or follow commands. Does move ext without obvious focal weakness. ) Psychiatric: Reports Other (Unable to assess) Interpretation EKG Interpretation Time of EKG #1: 14:00 Rate: Tachy Rhythm: Other (atrial fib) Ectopy: None [place]: NL ST Segment: Normal Critical Care Note Critical Care Note Total Critical Care Time (mins): 0 Course Course Hematology/Chemistry: 04/08/21 13:30 04/08/21 13:30 Orders, Labs, Meds: Lab Review 04/08/21 04/08/21 04/08/21 13:30 13:30 13:36 WBC 5.25 RBC 4.23 L Hgb 11.9 L Hct 38.0 L MCV 89.8 MCH 28.1 MCHC 31.3 L RDW Coeff of Keya 20.7 H Plt Count 267 Immature Gran % (Auto) 1.0 Neut % (Auto) 83.9 H Lymph % (Auto) 8.4 L [place] % (Auto) 6.3 Eos % (Auto) 0.0 Baso % (Auto) 0.4 Neut # (Auto) 4.4 Lymph # (Auto) 0.4 L [place] # (Auto) 0.3 L Eos # (Auto) 0.0 Baso # (Auto) 0.0 Immature Gran # (Auto) 0.1 Puncture Site R brach Base Excess 1.6 O2 Saturation 77.9 L ABG pH 7.43 ABG pCO2 39.0 ABG pO2 41.0 L* ABG HCO3 25.9 ABG Total CO2 27.1 H Shantanu Test Pos Hemoglobin 0.7 Oxyhemoglobin 79.4 L Carboxyhemoglobin 2.3 H Total Hemoglobin 11.7 FiO2 % 21.0 Sodium 145.0 Potassium 4.46 Chloride 112.2 H Carbon Dioxide 26.5 Anion Gap 10.76 BUN 26.6 H Creatinine 1.83 H Estimated GFR (MDRD) 36.00 BUN/Creatinine Ratio 14.53 Glucose 149.5 H Calcium 9.46 Magnesium 2.08 Total Bilirubin 0.62 AST 25.9 ALT 25.9 Alkaline Phosphatase 45.7 L Total Creatine Kinase 25.5 L Troponin I 0.107 Total Protein 6.02 L Albumin 3.34 L Globulin 2.68 Albumin/Globulin Ratio 1.24 Amylase 52.1 Lipase 119.9 Orders Category Date Time Status ADMIT OBSERVATION [PLACE PATIENT OBSERVATION] .TO ADMISSION 04/08/21 15:00 Active SCU (MONITORED BED) ABG DRAW REQUEST Stat CARDIO 04/08/21 13:22 Completed EKG-(ED ONLY) Stat CARDIO 04/08/21 13:20 Completed TELEMETRY MONITORING TELE CARE 04/08/21 15:00 Active ABG COOX Stat LAB 04/08/21 13:36 Completed AMYLASE Stat LAB 04/08/21 13:30 Completed CBC W/ AUTO DIFF Stat LAB 04/08/21 13:30 Completed COMPREHENSIVE METABOLIC PANEL Stat LAB 04/08/21 13:30 Completed COVID-19 ANTIGEN TEST Stat LAB 04/08/21 13:20 Ordered CREATINE KINASE Stat LAB 04/08/21 13:30 Completed LIPASE Stat LAB 04/08/21 13:30 Completed MAGNESIUM Stat LAB 04/08/21 13:30 Completed PRO-BNP [NT-PROBNP] Stat LAB 04/08/21 13:30 Received TROPONIN I Stat LAB 04/08/21 13:30 Completed URINALYSIS C & S IF INDICATED Stat LAB 04/08/21 13:21 Uncollected Dexamethasone Sod Phosphate [Decadron] MEDS 04/08/21 13:20 Discontinued 10 mg IVP ONCE ONE Sodium Chloride 0.9% [Sodium Chloride] 1,000 ml MEDS 04/08/21 13:46 Discontinued IV BOLUS CHEST, 1V AP ONLY Stat RADS 04/08/21 13:[address] HEAD W/O CONTRAST Stat RADS 04/08/21 13:20 Completed Medications Discontinued Medications Generic Name Dose Route Start Last Admin Trade Name Freq PRN Reason Stop Dose Admin Dexamethasone Sodium Phosphate 10 mg 04/08/21 13:20 04/08/21 14:08 Dexamethasone Sod Phos 10 Mg/Ml Inj IVP 04/08/21 13:21 10 mg ONCE ONE Administration Sodium Chloride 1,000 mls @ 1,000 mls/hr 04/08/21 13:46 04/08/21 14:08 Sodium Chloride IV 04/08/21 14:45 1,000 mls/hr BOLUS STA Administration Vital Signs: Temp Pulse Resp BP Pulse Ox 04/08/21 13:50 98.0 F 107 H 36 H 118/71 79 L Discharge Plan Discharge Patient Disposition: ADMITTED INPATIENT Discharge Problem: Hypoxia, Altered mental status, Acute kidney injury ED Provider: RANCHO LOFTON Condition: Poor Physician Progress Note: I have reviewed pt results. CBC shows a Hb of 11.9. Chems show a Cr of 1.8 which is up from 1.0. Trop is negative. ABG shows a normal pH with a pO2 of 41 and a saturation of 78%. CXR shows bilateral infiltrates concerning for CHF but I feel this likely represents Covid 19. Will add a BNP but with the acute renal injury and positive covid test, I will hydrate the patient. CT head shows no acute abnormalities. On reeval, his condition is unchanged. I spoke with Dr. Mendiola and he agrees to admit the patient. He will be admitted in guarded condition.
--- NOTE | 2021-04-08 14:41 | DI ---
EXAM: CHEST FRONTAL VIEW HISTORY: Shortness of breath COMPARISON: 02/21/2021 FINDINGS: Cardiomegaly atherosclerosis are again noted. Low lung volumes. There is vascular conges tion and moderate bilateral perihilar infiltrate. Probable small pleural effusions. No pneumothorax . IMPRESSION: 1. Findings most consistent with moderate fluid overload or congestive heart failure. Less likely pn eumonia could be considered.
--- NOTE | 2021-04-08 14:46 | CT ---
EXAM: CT head without contrast HISTORY: Altered mental status COMPARISON: CT head 03/12/2021 and multiple priors TECHNIQUE: Serial axial images of the brain were obtained from the skull base to the vertex without IV contrast. FINDINGS: The ventricles, cisterns and sulci demonstrate moderate generalized volume loss. The metzger -white matter junction is maintained. There is scattered low attenuation in the periventricular whit e matter.No midline shift or mass is identified. There is no abnormal intra or extra-axial fluid col lection. The paranasal sinuses demonstrate several opacified ethmoid air cells and near opacified sp henoid sinuses with scattered mucosal thickening. The mastoid air cells are clear. The osseous calv arium is intact. IMPRESSION: 1. No acute intracranial abnormality or hemorrhage with moderate generalized volume loss and microan giopathy. 2. Changes of acute sinusitis. All CT scans are performed using dose optimization techniques as appropriate to the performed exam an d include at least one of the following: Automated exposure control, adjustment of the mA and/or kV according t o size, and the use of iterative reconstruction technique.
[2021-04-08] MEDS ORDERED: NITROSTAT SL PRN (17:13)
[2021-04-08] MEDS ORDERED: ATROPINE SULFATE PFS IVP PRN (17:13)
[2021-04-08] MEDS ORDERED: TYLENOL PO PRN (17:13)
[2021-04-08] MEDS ORDERED: LASIX IVP STA (17:20)
[2021-04-08] MEDS ORDERED: ROCEPHIN 1 GM/50 ML D5W 1 GM/50 ML BAG IV SCH (17:30)
[2021-04-08] MEDS ORDERED: DEXTROSE 5%-1/2NS IV SOLUTION 1,000 ML IV SCH (17:30)
[2021-04-08] MEDS ORDERED: ROCEPHIN 1 GM/50 ML D5W 1 GM/50 ML BAG IV ONE (17:38)
[2021-04-08] MEDS ORDERED: DUONEB NEB ONE (17:42)
[2021-04-08] MEDS ORDERED: LOTRISONE 45 GM TP PRN (18:04)
[2021-04-08] MEDS ORDERED: [UNRECOGNIZED DRUG - OTHER] TP PRN (18:04)
[2021-04-08 18:41] VITALS: BMI 25.7
[2021-04-08] MEDS ORDERED: ATIVAN PO SCH (21:00)
[2021-04-08] MEDS ORDERED: GLUCOPHAGE PO SCH (21:00)
[2021-04-08] MEDS: ATIVAN IVP PRN (21:07)
[2021-04-08] MEDS: CARDIZEM PO SCH (21:08)
[2021-04-08] MEDS: DOXYCYCLINE HYCLATE PO SCH (21:09)
[2021-04-08] MEDS: FLOMAX PO SCH (21:10)
[2021-04-08] MEDS: ELIQUIS PO SCH (21:10)
[2021-04-08] MEDS: NYSTOP POWDER TP SCH (21:12)
[2021-04-08 21:46] LABS: BILIRUBIN,URINE Negative (NEGATIVE); CLARITY,URINE Clear (CLEAR); COLOR,URINE Yellow (YELLOW); GLUCOSE, URINE (UA) Negative (NEGATIVE); KETONES,URINE Negative (NEGATIVE); LEUKOCYTE ESTERASE ,URINE Trace (NEGATIVE); NITRITE,URINE Negative (NEGATIVE); PROTEIN,URINE Negative (NEGATIVE); SQUAMOUS EPITHELIAL CELL,UR NOT PRESENT (0-5); URINE RBC, MICROSCOPIC 0-2 (0-2); URINE, BLOOD Negative (NEGATIVE); UROBILINOGEN,URINE 0.2 (0.2)
[2021-04-09] MEDS: ATIVAN IVP PRN ×3 (03:25→20:21)
[2021-04-09] MEDS: DUONEB NEB PRN (05:15)
[2021-04-09] MEDS: PROTONIX PO SCH ×2 (05:34→16:49)
[2021-04-09 05:52] LABS: HEMATOCRIT 35.7 % (42.0-52.0); HEMOGLOBIN 11.3 g/dl (14.0-18.0); MEAN CORPUSCULAR HEMOGLOBIN 28.4 pg (27.0-31.0); MEAN CORPUSCULAR HGB CONC 31.7 (31.8-35.4); MEAN CORPUSCULAR VOLUME 89.7 fl (80.0-94.0); PLATELET COUNT 258 10^3/uL (140-440); RDW COEFFICIENT OF VARIATION 20.7 % (11.6-14.8); RED BLOOD COUNT 3.98 10^6/ul (4.70-6.10); WHITE BLOOD COUNT 3.11 K/ul (4.2-10.2)
[2021-04-09 06:07] LABS: ALANINE AMINOTRANSFERASE 23.3 U/L (0-50); ALBUMIN 3.1 g/dL (3.5-5.0); ALKALINE PHOSPHATASE 40.7 U/L (56-119); ASPARTATE AMINO TRANSFERASE 23.1 U/L (17-59); BILIRUBIN,TOTAL 0.56 mg/dL (0.2-1.3); BLOOD UREA NITROGEN 30.9 mg/dL (9-20); CALCIUM 9.04 mg/dL (8.4-10.2); CHLORIDE 111.9 mmol/L (98-107); CREATININE 1.93 mg/dL (0.60-1.10); GLUCOSE 236.2 mg/dL (74-106); POTASSIUM 5.12 mmol/L (3.5-5.1); TOTAL PROTEIN 5.61 g/dL (6.3-8.2)
[2021-04-09 06:16] LABS: TROPONIN I 0.09 ng/ml (0.0000-0.120)
[2021-04-09] MEDS: SYMBICORT 160-4.5 MCG INHALER IH SCH (08:33)
[2021-04-09] MEDS: DECADRON IM SCH (08:33)
[2021-04-09] MEDS: CARDIZEM PO SCH ×2 (08:34→20:21)
[2021-04-09] MEDS: NYSTOP POWDER TP SCH ×3 (08:34→16:49)
[2021-04-09] MEDS: DOXYCYCLINE HYCLATE PO SCH ×2 (08:34→20:21)
[2021-04-09] MEDS: FLOMAX PO SCH ×2 (08:34→20:22)
[2021-04-09] MEDS: CRESTOR PO SCH (08:34)
[2021-04-09] MEDS: ELIQUIS PO SCH ×2 (08:35→20:23)
[2021-04-09] MEDS: GLUCOPHAGE PO SCH ×2 (08:35→16:48)
[2021-04-09] MEDS: ZESTRIL PO SCH (08:35)
[2021-04-09] MEDS: TRIGLIDE PO SCH (08:35)
[2021-04-09] MEDS: LASIX TAB PO SCH (08:35)
[2021-04-09] MEDS ORDERED: JANUVIA PO SCH (09:00)
[2021-04-09 14:54] LABS: ABG O2 HGB 81.3 % (95-100); ABG PH 7.41 (7.35-7.45); BEecf 1.4 (-2.0-3.0); COHb 2.8 (0.5-1.5); MetHb 0.5 (0-1.5); TCO2 27.3 (19-24); tHb 11.7 g/dl (11.7-17.4)
[2021-04-09] MEDS: ROCEPHIN 1 GM/50 ML D5W 1 GM/50 ML BAG IV SCH (20:22)
[2021-04-10] MEDS: ATIVAN IVP PRN ×2 (02:23→21:13)
[2021-04-10] MEDS: NYSTOP POWDER TP SCH ×5 (04:04→20:58)
[2021-04-10 06:00] LABS: HEMOGLOBIN 11.5 g/dl (14.0-18.0); IMMATURE GRANULOCYTE % (AUTO) 0.3 % (0.0-5.0); LYMPHOCYTES # (AUTO) 0.7 K/uL (0.60-3.4); MEAN CORPUSCULAR HEMOGLOBIN 28.3 pg (27.0-31.0); MEAN CORPUSCULAR HGB CONC 31.9 (31.8-35.4); MEAN CORPUSCULAR VOLUME 88.5 fl (80.0-94.0); MONOCYTES # (AUTO) 0.7 K/uL (0.4-2.0); MONOCYTES % (AUTO) 9.7 (0-10); NEUTROPHILS # (AUTO) 5.6 K/ul (2.0-6.9); PLATELET COUNT 285 10^3/uL (140-440); RDW COEFFICIENT OF VARIATION 20.8 % (11.6-14.8); RED BLOOD COUNT 4.07 10^6/ul (4.70-6.10); WHITE BLOOD COUNT 6.98 K/ul (4.2-10.2)
[2021-04-10 06:12] LABS: ALANINE AMINOTRANSFERASE 25.6 U/L (0-50); ALBUMIN 3.32 g/dL (3.5-5.0); ASPARTATE AMINO TRANSFERASE 27.3 U/L (17-59); BILIRUBIN,TOTAL 0.56 mg/dL (0.2-1.3); CALCIUM 9.16 mg/dL (8.4-10.2); CARBON DIOXIDE 29.1 mmol/L (22-30.0); CHLORIDE 113.5 mmol/L (98-107); CREATININE 2.07 mg/dL (0.60-1.10); POTASSIUM 4.48 mmol/L (3.5-5.1); SODIUM 145.4 mmol/L (134.5-145); TOTAL PROTEIN 5.94 g/dL (6.3-8.2)
[2021-04-10 06:13] LABS: ANISOCYTOSIS 1+ (NOT PRESENT); HYPOCHROMASIA 1+ (NOT PRESENT)
[2021-04-10] MEDS: ZESTRIL PO SCH (08:34)
[2021-04-10] MEDS: FLOMAX PO SCH ×3 (08:34→20:55)
[2021-04-10] MEDS: CARDIZEM PO SCH ×3 (08:34→20:55)
[2021-04-10] MEDS: CRESTOR PO SCH ×2 (08:34→18:14)
[2021-04-10] MEDS: DECADRON IM SCH (08:34)
[2021-04-10] MEDS: TRIGLIDE PO SCH (08:34)
[2021-04-10] MEDS: DOXYCYCLINE HYCLATE PO SCH ×3 (08:34→20:55)
[2021-04-10] MEDS: SYMBICORT 160-4.5 MCG INHALER IH SCH (08:35)
[2021-04-10] MEDS: ELIQUIS PO SCH ×3 (08:39→21:00)
[2021-04-10] MEDS ORDERED: LANOXIN IVP ONE (13:35)
[2021-04-10] MEDS: LOPRESSOR IVP SCH ×2 (13:57→21:11)
[2021-04-10] MEDS: PROTONIX PO SCH ×2 (17:30→19:26)
[2021-04-10] MEDS: LASIX TAB PO SCH (19:25)
[2021-04-10] MEDS: ROCEPHIN 1 GM/50 ML D5W 1 GM/50 ML BAG IV SCH (20:55)
[2021-04-10] MEDS: HUMULIN R SUBCUT PRN (20:55)
[2021-04-10] MEDS: DUONEB NEB PRN (22:05)
[2021-04-11] MEDS: LASIX IVP SCH (06:00)
[2021-04-11] MEDS: PROTONIX PO SCH ×2 (06:01→16:56)
[2021-04-11 06:27] LABS: BASOPHILS % (AUTO) 0.2 % (0.0-3.0); EOSINOPHILS % (AUTO) 0.3 % (0.0-7.0); HEMATOCRIT 35.7 % (42.0-52.0); HEMOGLOBIN 11.2 g/dl (14.0-18.0); IMMATURE GRANULOCYTE # (AUTO) 0.1 (0.0-1.0); IMMATURE GRANULOCYTE % (AUTO) 0.9 % (0.0-5.0); LYMPHOCYTES # (AUTO) 0.7 K/uL (0.60-3.4); LYMPHOCYTES % (AUTO) 11.3 (10.0-50.0); MEAN CORPUSCULAR HEMOGLOBIN 28.1 pg (27.0-31.0); MEAN CORPUSCULAR HGB CONC 31.4 (31.8-35.4); MEAN CORPUSCULAR VOLUME 89.7 fl (80.0-94.0); MONOCYTES # (AUTO) 0.6 K/uL (0.4-2.0); MONOCYTES % (AUTO) 9.7 (0-10); NEUTROPHILS # (AUTO) 4.5 K/ul (2.0-6.9); NEUTROPHILS % (AUTO) 77.6 % (42.2-75.2); PLATELET COUNT 272 10^3/uL (140-440); RDW COEFFICIENT OF VARIATION 20.9 % (11.6-14.8); RED BLOOD COUNT 3.98 10^6/ul (4.70-6.10); WHITE BLOOD COUNT 5.76 K/ul (4.2-10.2)
[2021-04-11 06:38] LABS: ALANINE AMINOTRANSFERASE 28.4 U/L (0-50); ALBUMIN 3.11 g/dL (3.5-5.0); ALKALINE PHOSPHATASE 40.3 U/L (56-119); ASPARTATE AMINO TRANSFERASE 27.6 U/L (17-59); BILIRUBIN,TOTAL 0.56 mg/dL (0.2-1.3); BLOOD UREA NITROGEN 35.3 mg/dL (9-20); CALCIUM 9.18 mg/dL (8.4-10.2); CARBON DIOXIDE 28.4 mmol/L (22-30.0); CHLORIDE 114.1 mmol/L (98-107); CREATININE 1.82 mg/dL (0.60-1.10); GLUCOSE 144.7 mg/dL (74-106); POTASSIUM 4.36 mmol/L (3.5-5.1); SODIUM 146.4 mmol/L (134.5-145); TOTAL PROTEIN 5.51 g/dL (6.3-8.2)
[2021-04-11] MEDS: LOPRESSOR IVP SCH ×2 (08:50→21:23)
[2021-04-11] MEDS: CRESTOR PO SCH (08:52)
[2021-04-11] MEDS: CARDIZEM PO SCH ×2 (08:53→20:54)
[2021-04-11] MEDS: FLOMAX PO SCH ×2 (08:53→20:54)
[2021-04-11] MEDS: ZESTRIL PO SCH (08:54)
[2021-04-11] MEDS: DOXYCYCLINE HYCLATE PO SCH ×2 (08:54→20:53)
[2021-04-11] MEDS: TRIGLIDE PO SCH (08:55)
[2021-04-11] MEDS: ELIQUIS PO SCH ×2 (08:56→20:54)
[2021-04-11] MEDS: DECADRON IM SCH (08:56)
[2021-04-11] MEDS: NYSTOP POWDER TP SCH ×4 (09:57→22:01)
[2021-04-11] MEDS: SYMBICORT 160-4.5 MCG INHALER IH SCH (09:57)
[2021-04-11] MEDS: HUMULIN R SUBCUT PRN ×2 (11:25→16:56)
--- NOTE | 2021-04-11 13:37 | HP ---
DATE OF SERVICE: 04/08/21 REASON FOR HOSPITALIZATION: Shortness of breath, drop in the oxygen saturation and change in the mental status. HISTORY OF PRESENT ILLNESS: 80 year old white male admitted to the assisted with dementia. He was sent out to the emergency room at [facility] because of the patient's wheezing and shortness of air and hypoxemia. The patient's arterial blood gasses in the emergency room showed pO2 41 with pCO2 39, pH 7.43 with 77% saturation. The patient was wheezing with shortness of air. According to the family there is some change in the mental status. The patient is positive for COVID. The patient had COVID nearly 6 weeks ago for which he was hospitalized for more than 15 to 20 days. PAST MEDICAL HISTORY/PAST SURGICAL HISTORY: Recent history of bilateral COVID pneumonia with respiratory failure Severe dementia combination of worsening dementia with COVID dementia Chronic kidney disease Diabetes Mellitus Hypertension Dyslipidemia Chronic anemia Obstructive sleep apnea BPH REVIEW OF SYSTEMS: Unable to take. The patient was in mild distress. CONSTITUTIONAL: No night sweats. No fatigue, malaise, lethargy. No fever or chills. HEENT: Eyes: No visual changes. No eye pain. No eye discharge. ENT: No runny nose. No epistaxis. No sinus pain. No sore throat. No odynophagia. No ear pain. No congestion. RESPIRATORY: Coughing some, no congestion. No hemoptysis. Shortness of breath. CARDIOVASCULAR: No angina symptoms. No CHF symptoms. No atypical chest pain for CAD. No palpitations. No PND. No orthopnea. Some intercostal muscles retraction. GASTROINTESTINAL: No abdominal pain. No nausea or vomiting. No diarrhea or constipation. No hematemesis. No hematochezia. GENITOURINARY: No urgency. No frequency. No dysuria. No hematuria. No obstructive symptoms. No discharge. No pain. No significant abnormal bleeding. MUSCULOSKELETAL: No musculoskeletal pain. No joint swelling. No arthritis. NEUROLOGICAL: No headache. No neck pain. No syncope. No seizures. No dizziness. PSYCHIATRIC: Not anxious. No depression. No suicidal thoughts. No homicidal thoughts. Confusion. SKIN: No rash. No lesions. No wounds. ENDOCRINE: No unexplained weight loss. No weight gain. HEMATOLOGIC/LYMPHATIC: No anemia. No purpura. No petechiae. No prolonged or excessive bleeding. No palpable lymph nodes. PERSONAL/FAMILY/SOCIAL HISTORY: The patient is and living in the assisted after he was discharged receiving long treatment from COVID pneumonia and respiratory failure with dementia. No smoker, no alcohol abuse. Was able to do most of the activity of daily living prior to having COVID two months ago. The patient was not vaccinated for COVID. MEDICATIONS: Albuterol Apixaban Fenofibrate Furosemide Lisinopril Lorazepam Metformin Pantoprazole Rosuvastatin Sitagliptin Tamsulosin ALLERGIES: None PHYSICAL EXAMINATION: GENERAL: The patient is confused, alert and short of breath. VITAL SIGNS: Temperature 98.2, pulse 100 irregular, respiratory rate 25, blood pressure 110/70 and pulse ox 100% on 3 liters. HEENT: Head normocephalic, atraumatic. Eyes: Extraocular muscles are intact. Pupils are equal, round and reactive to light and accommodation. Ears: No lesions. Nose appeared normal. Throat: No exudate or erythema. NECK: Supple. No JVD, no carotid bruit. No lymphadenopathy or thyromegaly. LUNGS: Decreased breath sounds with mild expiratory wheeze. Clear to auscultation. Percussion note normal. Chest symmetrical. HEART: S1, S2, no S3. Irregular. No murmur. No cyanosis or clubbing. No ascites. Pulses: Dorsalis pedis and posterior tibial pulses +1 to +2 bilaterally. ABDOMEN: Soft. Nontender. Bowel sounds active. No CVA tenderness. No mass felt. EXTREMITIES: Trave edema, +1 bilaterally. Full range of motion of all extremities, equal. NEUROLOGIC: No focal deficit. Cranial nerves II through XII are grossly intact. No headache, no double vision or headache. SKIN: Not dry. Intact. Turgor - normal. LYMPHATIC: No palpable lymph nodes/no lymphedema. MUSCULOSKELETAL: Normal joints with no swelling. Muscle tone is normal. LABS: Arterial blood gasses as mentioned above, Troponin negative , PRO BNP 21,000, glucose 149, EKG atrial fibrillation, R wave progression. ASSESSMENT: 1. Acute respiratory failure 2. Chronic lung disease 3. 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 Dementia which has worsened with COVID, the patient had a few months ago 5. Renal azotemia from dehydration 6. Chronic anemia 7. Diabetes Mellitus 8. Hypertension 9. Dyslipidemia 10.BPH 11.Behavioral problems after the dementia 12.Congestive heart failure PLAN: 1. Admit the patient 2. Orders given to the floor 3. Telemetry orders 4. Continue all the medications as before 5. Discontinue Metformin 6. Sliding scale with coverage 7. IV fluids slow infusion 8. IV Lasix 20mg 9. Oxygen 3 liters per cannula 10.Telemetry with heart rhythm monitoring 11.Continue the rest of the medications and include Rocephin and Doxycycline 12.Dexamethasone 4mg IM daily 13.Symbicort two puffs daily 14.DUO NEBS as tolerated 4-6 hourly The patient is DNR Likely the patient worsening of respiratory status that the patient has been reinfected with COVID. We will isolate him. TIME SPENT: More than 70 minutes. MTDD
--- NOTE | 2021-04-11 13:58 | PN ---
DATE OF SERVICE: 04/09/21 SUBJECTIVE: 80 yea r old white male hospitalized with respiratory failure and acute renal azotemia. The patient is restless and has been getting Ativan 1mg IV every 4-6 hour for restlessness. The family is against given any Haldol. Also had declined Remdesivir which I don't think that the patient needed that. The patient's respiratory status seems to be somewhat better. He is breathing better and his oxygen saturation is now 98% on 2-3 liters. REVIEW OF SYSTEMS: CONSTITUTIONAL: No night sweats. No fatigue, malaise, lethargy. No fever or chills. Resting, there is no respiratory distress. HEENT: Eyes: No visual changes. No eye pain. No eye discharge. ENT: No runny nose. No epistaxis. No sinus pain. No sore throat. No odynophagia. No congestion. RESPIRATORY: No cough, no congestion. No hemoptysis. No shortness of breath. CARDIOVASCULAR: No angina symptoms. No CHF symptoms. No atypical chest pain for CAD. No palpitations. No PND. No orthopnea. GASTROINTESTINAL: No abdominal pain. No nausea or vomiting. No diarrhea or constipation. No hematemesis. No hematochezia. GENITOURINARY: No urgency. No frequency. No dysuria. No hematuria. No obstructive symptoms. No discharge. No pain. No significant abnormal bleeding. MUSCULOSKELETAL: No musculoskeletal pain; no joint swelling. NEUROLOGICAL: No headache. No neck pain. No syncope. No seizures. No dizziness. PSYCHIATRIC: Not anxious. No depression. No suicidal thoughts. No homicidal thoughts. SKIN: No rash. No lesions. No wounds. ENDOCRINE: No unexplained weight loss. No weight gain. HEMATOLOGIC/LYMPHATIC: No anemia. No purpura. No petechiae. No prolonged or excessive bleeding. No palpable lymph nodes. PHYSICAL EXAMINATION: VITAL SIGNS: Temperature 96.3, pulse 110, respiratory rate 22, blood pressure 100/60 and pulse ox 98% on 2 liters. HEENT: Head normocephalic, atraumatic. Eyes: Extraocular muscles are intact. Pupils are equal, round and reactive to light and accommodation. Ears: No lesions. Nose appeared normal. Throat: No exudate or erythema. NECK: Supple. No JVD, no carotid bruit. No lymphadenopathy or thyromegaly. LUNGS: Expiratory wheeze and good air entry, better than yesterday. Clear to auscultation. Percussion note normal. Chest symmetrical. HEART: S1, S2, no S3. Irregular. No murmurs. No cyanosis or clubbing. No ascites. Pulses: Dorsalis pedis and posterior tibial pulses +1 to +2 bilaterally. ABDOMEN: Soft. Nontender. Bowel sounds active. No CVA tenderness. No mass felt. EXTREMITIES: No edema. Full range of motion of all extremities, equal. NEUROLOGIC: No focal deficit. Cranial nerves II through XII are grossly intact. No headache. No double vision. SKIN: Not dry. Intact. Turgor - normal. LYMPHATIC: No palpable lymph nodes/no lymphedema. MUSCULOSKELETAL: Normal joints with no swelling. Muscle tone is normal. LABS: Hgb 11, hct 35, WBC 3,100 normal differential, creatinine 1.9, BUN 30, potassium 5.1. ASSESSMENT: 1. Respiratory failure seems to be somewhat better. Oxygenation and oxygen saturation is better, less wheezing. 2. Hydration status better with better skin turgor with improvement in kidney status. 3. Dementia with behavior problem controlled with Ativan PLAN: 1. Put the patient on sliding scale 2. Discontinue Metformin 3. Discontinue Sitagliptin 4. Because of the patient's abnormal kidney functions, 4. Continue Doxycycline and Rocephin 5. Discontinue Lovenox 6. Continue Apixaban and inhalers CONDITION: STABLE PROGNOSIS: POOR TIME SPENT: More than 30 minutes. Plan and coordination of the patient's care discussed in the presence of nurse. DAVIDA
--- NOTE | 2021-04-11 14:57 | PN ---
DATE OF SERVICE: 04/10/21 SUBJECTIVE: 80 year old white male hospitalized with respiratory failure, hypoxemia and positive COVID test, acute necrosis with renal azotemia. The patient is confused as usual doesn't seem to be in distress. REVIEW OF SYSTEMS: CONSTITUTIONAL: No night sweats. No fatigue, malaise, lethargy. No fever or chills. HEENT: Eyes: No visual changes. No eye pain. No eye discharge. ENT: No runny nose. No epistaxis. No sinus pain. No sore throat. No odynophagia. No congestion. RESPIRATORY: No cough, no congestion. No hemoptysis. No shortness of breath. CARDIOVASCULAR: No angina symptoms. No CHF symptoms. No atypical chest pain for CAD. No palpitations. No PND. No orthopnea. GASTROINTESTINAL: No abdominal pain. No nausea or vomiting. No diarrhea or constipation. No hematemesis. No hematochezia. GENITOURINARY: No urgency. No frequency. No dysuria. No hematuria. No obstructive symptoms. No discharge. No pain. No significant abnormal bleeding. MUSCULOSKELETAL: No musculoskeletal pain; no joint swelling. NEUROLOGICAL: No headache. No neck pain. No syncope. No seizures. No dizziness. PSYCHIATRIC: Not anxious. No depression. No suicidal thoughts. No homicidal thoughts. SKIN: No rash. No lesions. No wounds. ENDOCRINE: No unexplained weight loss. No weight gain. HEMATOLOGIC/LYMPHATIC: No anemia. No purpura. No petechiae. No prolonged or excessive bleeding. No palpable lymph nodes. PHYSICAL EXAMINATION: VITAL SIGNS: Temperature 97.3, pulse 110, respiratory rate 20, blood pressure 112/86 and pulse ox 97% with 3 liters. HEENT: Head normocephalic, atraumatic. Eyes: Extraocular muscles are intact. Pupils are equal, round and reactive to light and accommodation. Ears: No lesions. Nose appeared normal. Throat: No exudate or erythema. NECK: Supple. No JVD, no carotid bruit. No lymphadenopathy or thyromegaly. LUNGS: Decreased breath sounds. Mild expiratory wheeze. Good air entry. Clear to auscultation. Percussion note normal. Chest symmetrical. HEART: S1, S2, no S3. Irregularly irregular. No murmurs. No cyanosis or clubbing. No ascites. Pulses: Dorsalis pedis and posterior tibial pulses +1 to +2 bilaterally. ABDOMEN: Soft. Nontender. Bowel sounds active. No CVA tenderness. No mass felt. EXTREMITIES: No edema. Full range of motion of all extremities, equal. NEUROLOGIC: No focal deficit. Cranial nerves II through XII are grossly intact. No headache. No double vision. SKIN: Not dry. Intact. Turgor - normal. LYMPHATIC: No palpable lymph nodes/no lymphedema. MUSCULOSKELETAL: Normal joints with no swelling. Muscle tone is normal. ASSESSMENT: 1. Respiratory failure with hypoxemia somewhat better today. pO2 47 with parameters remaining the same. Oxygen saturation has improved 2. Chronic kidney disease stay practically the same. PLAN: 1. We will encourage the patient to eat. Difficult to get the patient anything done, he is not take any oral medications. Hgb 11, hct 36, WBC 6,900 normal differential, creatinine 2, BUN still 35. The patient is very restless. We will move the patient out. Talked to the charge nurse and she says that he has been 10 days since symptoms started. She is going to move the patient out. Only thing the family would be able to stay with him. Family member is with him. He communicates some. We maybe able to give him some medication until then we are going to give Lopressor 2.5mg IV Q 12 hours. Lanoxin 0.25mg IV now. Prognosis is poor. Dementia has worsened after his COVID. The think that patient's COVID test is positive from the COVID he had nearly 6 weeks ago. TIME SPENT: More than 30 minutes. Plan and coordination of the patient's care discussed in the presence of nurse. DAVIDA
[2021-04-11] MEDS: ROCEPHIN 1 GM/50 ML D5W 1 GM/50 ML BAG IV SCH (20:54)
[2021-04-11] MEDS: ATIVAN IVP PRN (21:24)
[2021-04-12 05:22] LABS: BASOPHILS % (AUTO) 0.2 % (0.0-3.0); EOSINOPHILS % (AUTO) 0.2 % (0.0-7.0); HEMATOCRIT 36.5 % (42.0-52.0); HEMOGLOBIN 11.4 g/dl (14.0-18.0); IMMATURE GRANULOCYTE % (AUTO) 0.7 % (0.0-5.0); LYMPHOCYTES # (AUTO) 0.6 K/uL (0.60-3.4); MEAN CORPUSCULAR HEMOGLOBIN 27.9 pg (27.0-31.0); MEAN CORPUSCULAR HGB CONC 31.2 (31.8-35.4); MEAN CORPUSCULAR VOLUME 89.5 fl (80.0-94.0); MONOCYTES # (AUTO) 0.5 K/uL (0.4-2.0); MONOCYTES % (AUTO) 9.1 (0-10); NEUTROPHILS # (AUTO) 4.6 K/ul (2.0-6.9); NEUTROPHILS % (AUTO) 78.8 % (42.2-75.2); PLATELET COUNT 260 10^3/uL (140-440); RDW COEFFICIENT OF VARIATION 20.5 % (11.6-14.8); RED BLOOD COUNT 4.08 10^6/ul (4.70-6.10)
[2021-04-12 05:38] LABS: ALANINE AMINOTRANSFERASE 28.4 U/L (0-50); ALBUMIN 3.03 g/dL (3.5-5.0); ALKALINE PHOSPHATASE 39.9 U/L (56-119); ASPARTATE AMINO TRANSFERASE 28.1 U/L (17-59); BILIRUBIN,TOTAL 0.59 mg/dL (0.2-1.3); BLOOD UREA NITROGEN 33.6 mg/dL (9-20); CALCIUM 9.15 mg/dL (8.4-10.2); CHLORIDE 113.4 mmol/L (98-107); CREATININE 1.71 mg/dL (0.60-1.10); GLUCOSE 125.1 mg/dL (74-106); POTASSIUM 4.12 mmol/L (3.5-5.1); SODIUM 146.5 mmol/L (134.5-145); TOTAL PROTEIN 5.5 g/dL (6.3-8.2)
[2021-04-12] MEDS: LASIX IVP SCH (06:01)
[2021-04-12] MEDS: PROTONIX PO SCH ×2 (06:03→17:08)
[2021-04-12] MEDS: DECADRON IM SCH (09:54)
[2021-04-12] MEDS: ZESTRIL PO SCH (09:55)
[2021-04-12] MEDS: LOPRESSOR PO SCH ×2 (09:55→20:58)
[2021-04-12] MEDS: JANUVIA PO SCH (09:55)
[2021-04-12] MEDS: DOXYCYCLINE HYCLATE PO SCH ×2 (09:55→20:57)
[2021-04-12] MEDS: CRESTOR PO SCH (09:55)
[2021-04-12] MEDS: LANOXIN PO SCH (09:56)
[2021-04-12] MEDS: FLOMAX PO SCH ×2 (09:56→20:58)
[2021-04-12] MEDS: TRIGLIDE PO SCH (09:56)
[2021-04-12] MEDS: CARDIZEM PO SCH ×2 (09:56→20:58)
[2021-04-12] MEDS: ELIQUIS PO SCH ×2 (09:57→20:58)
[2021-04-12] MEDS: SYMBICORT 160-4.5 MCG INHALER IH SCH (10:08)
[2021-04-12] MEDS: NYSTOP POWDER TP SCH ×4 (10:08→21:01)
[2021-04-12] MEDS: HUMULIN R SUBCUT PRN ×3 (11:22→20:59)
--- NOTE | 2021-04-12 16:24 | RS.PTINEVL ---
Subjective - Patient information Date of Evaluation: 04/12/21 Date of Arrival on Unit: 04/08/21 Admitted From:: [facility] ([facility]) Diagnosis: altered mental status, hypoxia, acute kidney injury Usual Living Arrangement: [facility] Medical History: Hypertension, Dementia, Diabetes, CHF, Arthritis, Cancer (prostate) Medical History Comments:: afib, CAD, cardiomyopathy, PR, COVID 19 (01/2021) Surgical History Comments:: prostatectomy Medications: see chart Subjective Information/ Patient Comments:: pt's daughter states that pt was working well with PT prior to being placed in isolation. States pt had taken 18 steps with rwx with assist. The pt is alert and oriented x person. - Level of function Abilities prior to this admission: pt was propelling w/c in senior care, standing and beginning to amb with rwx w PT. Current Level of Function: Dependent Current Equipment Used at Home: AT [facility] Interventions - Objective Patient Orientation: Person Current Interventions: Oxygen, Telemetry Observation: scabbed areas on LE's Range of Motion - ROM Right Upper Extremity AROM: WFL's Left Upper Extremity AROM: WFL's Right Lower Extremity AROM: WFL's Left Lower Extremity AROM: WFL's Muscle Strength - Muscle Strength Right Upper Extremity Strength: Mild Weakness (grossly 3/5) Left Upper Extremity Strength: Mild Weakness (grossly 3/5) Right Lower Extremity Strength: Severe Weakness (hip flex 3/5, knee flex/ext 3+/5, ankle 3-/5) Left Lower Extremity Strength: Severe Weakness (hip flex 3/5, knee flex/ext 3+/5, ankle 3-/5) Sensation - Sensation Comments: difficult to assess due to mental status Palpation Palpation Findings: None/Normal Balance - Sitting Balance and Reactions Static Sitting Balance: Poor (poor+) Dynamic Sitting Balance: Poor - Standing Balance and Reactions Static Standing Balance: Zero Dynamic Standing Balance: Zero Functional Mobility - Bed Mobility Rolling R/L: Max Assist, 2 person assist Scooting: Max Assist, 2 person assist Supine to Sit: Mod Assist, Max Assist, 2 person assist - Transfers Stand Pivot Transfers: Max Assist, 2 person assist Comments:: attempted sit to stand max of 2, pt unable to bear weight to assist with transfer. pt placed on lift pad and nursing staff instructed to use lift to get pt back to bed. - Safety Awareness Safety Awareness: Poor ELVIE INDEX SCORE: n/a Treatment time - Time with patient Length of Evaluation: 21 Total treatment time: 38 Patient Education - Education Patient Education: Education of Plan of Care Teaching Recipient: Family Teaching Methods: Discussion Comments: discussion with pt and daugther regarding POC. Daughter verbalizes understanding that her dad has to go back to working on bed mobility and sitting before he can return to standing. Assessment - Assessment Problem List:: Decreased level of function, Requires training/education, Decreased safety/Risk of falls, Weakness, Pain limits previous level of function, Cognitive status limits abilities Rehab Potential: Fair Further Therapy Indicated?: Yes Candidate for Swing Bed for Therapy Services?: Feel pt is not a candidate for swing bed due to pt will require [facility] rehab. Evaluation Complexity: HISTORY: Medium, EXAM OF BODY SYSTEMS: Medium, CLINICAL PRESENTATION: Medium, CLINICAL DECISION MAKING: Medium Patient's Goal(s): Daughter's goal is for pt to work back up to trying to walk. Short Term Goals GOAL #1: pt demonstrate rolling in bed with bedrails with min to mod x 1 Goal to be met by: 04/14/21 GOAL #2: Transfer sup to sit mod x 1 Goal to be met by: 04/14/21 GOAL #3: Transfer sit to/from stand mod to max of 2 Goal to be met by: 04/14/21 GOAL #4: Stand pivot transfer bed to chair mod to max of 2 Goal to be met by: 04/14/21 GOAL #5: pt sit side of bed unsupported x 1 min. Goal to be met by: 04/14/21 Yarder Puncher Goals GOAL #1: pt transfer sup to/from sit min to mod x 1, sit to/from stand min to mod 2 Goal to be met by: 04/17/21 GOAL #2: Stand pivot bed to /from chair min to mod x 2 Goal to be met by: 04/17/21 GOAL #3: pt able to sit at side of bed and reach across and away from midline SBA Goal to be met by: 04/17/21 Plan Plan of Care: Therapeutic EX, Neuromuscular Re-Educ, Therapeutic Activity Frequency of Treatment: 1-2 X day, as tolerated Duration of Treatment: 5 days Anticipated [facility]charge Dest[facility] Treatment Diagnosis (ICD 10 Codes): weakness M62.81. balance impaired R 26.81. COVID U071.1 Has the Physician been added for Co-signature?: Yes
[2021-04-12] MEDS: ATIVAN IVP PRN ×2 (20:58→21:47)
[2021-04-13] MEDS: LASIX IVP SCH (05:42)
[2021-04-13] MEDS: PROTONIX PO SCH ×2 (05:43→17:49)
[2021-04-13 05:54] LABS: BASOPHILS % (AUTO) 0.2 % (0.0-3.0); EOSINOPHILS % (AUTO) 0.2 % (0.0-7.0); HEMATOCRIT 36.1 % (42.0-52.0); HEMOGLOBIN 11.4 g/dl (14.0-18.0); IMMATURE GRANULOCYTE % (AUTO) 0.6 % (0.0-5.0); LYMPHOCYTES # (AUTO) 0.6 K/uL (0.60-3.4); LYMPHOCYTES % (AUTO) 11.3 (10.0-50.0); MEAN CORPUSCULAR HEMOGLOBIN 28.4 pg (27.0-31.0); MEAN CORPUSCULAR HGB CONC 31.6 (31.8-35.4); MONOCYTES # (AUTO) 0.4 K/uL (0.4-2.0); MONOCYTES % (AUTO) 7.6 (0-10); NEUTROPHILS # (AUTO) 4.2 K/ul (2.0-6.9); NEUTROPHILS % (AUTO) 80.1 % (42.2-75.2); PLATELET COUNT 215 10^3/uL (140-440); RDW COEFFICIENT OF VARIATION 19.9 % (11.6-14.8); RED BLOOD COUNT 4.01 10^6/ul (4.70-6.10); WHITE BLOOD COUNT 5.24 K/ul (4.2-10.2)
[2021-04-13 06:13] LABS: ALBUMIN 2.9 g/dL (3.5-5.0); BILIRUBIN,TOTAL 0.7 mg/dL (0.2-1.3); CREATININE 1.7 mg/dL (0.60-1.10); TOTAL PROTEIN 5.4 g/dL (6.3-8.2)
[2021-04-13] MEDS: NYSTOP POWDER TP SCH ×4 (09:10→20:48)
[2021-04-13] MEDS: DECADRON IM SCH (09:11)
[2021-04-13] MEDS: JANUVIA PO SCH (09:11)
[2021-04-13] MEDS: SYMBICORT 160-4.5 MCG INHALER IH SCH (09:11)
[2021-04-13] MEDS: LANOXIN PO SCH (09:11)
[2021-04-13] MEDS: LOPRESSOR PO SCH ×2 (09:12→20:47)
[2021-04-13] MEDS: TRIGLIDE PO SCH (09:12)
[2021-04-13] MEDS: ELIQUIS PO SCH ×2 (09:12→20:48)
[2021-04-13] MEDS: ZESTRIL PO SCH (09:12)
[2021-04-13] MEDS: CRESTOR PO SCH (09:12)
[2021-04-13] MEDS: FLOMAX PO SCH ×2 (09:12→20:47)
[2021-04-13] MEDS: CARDIZEM PO SCH ×2 (09:12→20:47)
[2021-04-13] MEDS: DOXYCYCLINE HYCLATE PO SCH ×2 (09:12→20:47)
--- NOTE | 2021-04-13 11:52 | RS.SLPCNOT ---
Speech Case Note Date of Note: 04/13/21 Title: Speech consult Note: ST consult placed due to pt's diet and liquid modifications. Pt is currently on puree diet and moderately thick-honey liquid consistency. OPTICAL INSTRUMENTS SUPERVISOR discussed current diet and liquid with RN. She reported pt is tolerating diet without difficulty; but does not like the taste of thickened liquids. At this time, bedside swallow evaluation is not warranted. Refer to OPTICAL INSTRUMENTS SUPERVISOR as needed. Thanks for the consult.
[2021-04-13] MEDS: HUMULIN R SUBCUT PRN ×3 (12:10→20:48)
[2021-04-13] MEDS: ATIVAN IVP PRN (20:32)
[2021-04-13 21:28] VITALS: TEMP 97.6
[2021-04-14 05:05] VITALS: BP 136/75
[2021-04-14] MEDS: PROTONIX PO SCH (05:32)
[2021-04-14] MEDS: LASIX IVP SCH (05:32)
[2021-04-14 05:48] LABS: BASOPHILS % (AUTO) 0.2 % (0.0-3.0); EOSINOPHILS % (AUTO) 0.5 % (0.0-7.0); HEMATOCRIT 37.9 % (42.0-52.0); HEMOGLOBIN 11.9 g/dl (14.0-18.0); IMMATURE GRANULOCYTE % (AUTO) 0.7 % (0.0-5.0); LYMPHOCYTES # (AUTO) 0.6 K/uL (0.60-3.4); LYMPHOCYTES % (AUTO) 9.6 (10.0-50.0); MEAN CORPUSCULAR HEMOGLOBIN 27.7 pg (27.0-31.0); MEAN CORPUSCULAR HGB CONC 31.4 (31.8-35.4); MEAN CORPUSCULAR VOLUME 88.3 fl (80.0-94.0); MONOCYTES # (AUTO) 0.5 K/uL (0.4-2.0); MONOCYTES % (AUTO) 9.1 (0-10); NEUTROPHILS # (AUTO) 4.7 K/ul (2.0-6.9); NEUTROPHILS % (AUTO) 79.9 % (42.2-75.2); PLATELET COUNT 228 10^3/uL (140-440); RDW COEFFICIENT OF VARIATION 19.9 % (11.6-14.8); RED BLOOD COUNT 4.29 10^6/ul (4.70-6.10); WHITE BLOOD COUNT 5.84 K/ul (4.2-10.2)
[2021-04-14 06:01] LABS: ALANINE AMINOTRANSFERASE 28.6 U/L (0-50); ALBUMIN 2.8 g/dL (3.5-5.0); ALKALINE PHOSPHATASE 38.2 U/L (56-119); ASPARTATE AMINO TRANSFERASE 22.3 U/L (17-59); BILIRUBIN,TOTAL 0.78 mg/dL (0.2-1.3); BLOOD UREA NITROGEN 36.7 mg/dL (9-20); CALCIUM 8.33 mg/dL (8.4-10.2); CARBON DIOXIDE 31.5 mmol/L (22-30.0); CHLORIDE 110.2 mmol/L (98-107); CREATININE 1.52 mg/dL (0.60-1.10); GLUCOSE 150.9 mg/dL (74-106); POTASSIUM 3.57 mmol/L (3.5-5.1); SODIUM 144.8 mmol/L (134.5-145); TOTAL PROTEIN 5.12 g/dL (6.3-8.2)
[2021-04-14] MEDS: HUMULIN R SUBCUT PRN ×2 (06:11→11:25)
[2021-04-14] MEDS ORDERED: MICRO-K CAP PO SCH (09:00)
[2021-04-14] MEDS ORDERED: PREDNISONE PO SCH (09:00)
--- NOTE | 2021-04-14 09:38 | PCM.PROG ---
Attending Provider: ATTENDING PROVIDER: Dr. OMAR MENDIOLA This patient is seen with Thais Acosta, Nurse Practitioner. DATE OF SERVICE: 04/14/21 SUBJECTIVE: This 80 year old /WHITE M was hospitalized 04/08/21. He has periods of alertness and periods of confusion. Still very weak. Oxygen saturation has been good. The patient is incontinent so unable to monitor output. Will get a repeat chest x-ray today. Still requires assistance with feeding. The patient's family wishes for him to go back to the [facility] to resume therapy. I do believe he has reached his maximum potential here. REVIEW OF SYSTEMS: CONSTITUTIONAL: No night sweats. No fatigue, malaise, lethargy. No fever or chills. Weakness. HEENT: Eyes: No visual changes. No eye pain. No eye discharge. ENT: No runny nose. No epistaxis. No sinus pain. No odynophagia. No congestion. RESPIRATORY: No cough, no congestion. No hemoptysis. No shortness of breath. CARDIOVASCULAR: No angina symptoms. No CHF symptoms. No atypical chest pain for CAD. No palpitations. No orthopnea.. GASTROINTESTINAL: No abdominal pain. No nausea or vomiting. No diarrhea or constipation. No hematemesis. No hematochezia. GENITOURINARY: No urgency. No frequency. No dysuria. No hematuria. No obstructive symptoms. No discharge. No pain. No significant abnormal bleeding. MUSCULOSKELETAL: No musculoskeletal pain; no joint swelling. NEUROLOGICAL: Awake, alert, confused. No headache. No neck pain. No syncope. No seizures. No dizziness. PSYCHIATRIC: Anxious. No depression. No suicidal thoughts. No homicidal thoughts. SKIN: No rash. No lesions. No wounds. ENDOCRINE: No unexplained weight loss. No weight gain. HEMATOLOGIC/LYMPHATIC: No anemia. No purpura. No petechiae. No prolonged or excessive bleeding. No palpable lymph nodes. PHYSICAL EXAMINATION: GENERAL: The patient is awake, alert and oriented to person only, lying in bed in no distress. VITAL SIGNS: Temperature 97.6 F, Pulse 95, Respiratory Rate 18, BP 136/75, Pulse Ox 93% HEENT: Head normocephalic, atraumatic. Eyes: Extraocular muscles are intact. Pupils are equal, round and reactive to light and accommodation. Ears: No les ions. Nose appeared normal. Throat: No exudate or erythema. NECK: Supple. No JVD, no carotid bruit. No lymphadenopathy or thyromegaly. LUNGS: Diminished breath sounds. Clear to auscultation. Percussion note normal. Chest symmetrical. HEART: S1, S2, no S3. No murmurs. No cyanosis or clubbing. No ascites. Pulses: Dorsalis pedis and posterior tibial pulses +1 to +2 both sides. ABDOMEN: Soft. Non-tender. Bowel sounds active. No CVA tenderness. No mass felt. EXTREMITIES: No edema. Full range of motion of all extremities, equal. NEUROLOGIC: No focal deficit. Cranial nerves II through XII are grossly intact. No headache. No double vision. SKIN: Not dry. Intact. Turgor-normal. LYMPHATIC: No palpable lymph nodes/no lymphedema. MUSCULOSKELETAL: Normal joints with no swelling. Muscle tone is normal. LAB REVIEW: 04/14/21 05:41 04/14/21 05:41 04/14/21 05:41: Sodium 144.8, Potassium 3.57, Chloride 110.2 H, Carbon Dioxide 31.5 H, Anion Gap 6.67, BUN 36.7 H, Creatinine 1.52 H, Estimated GFR (MDRD) 44.00, BUN/Creatinine Ratio 24.14, Glucose 150.9 H, Calcium 8.33 L, Total Bilirubin 0.78, AST 22.3, ALT 28.6, Alkaline Phosphatase 38.2 L, Total Protein 5.12 L, Albumin 2.80 L, Globulin 2.32, Albumin/Globulin Ratio 1.20 04/14/21 05:41: WBC 5.84, RBC 4.29 L, Hgb 11.9 L, Hct 37.9 L, MCV 88.3, MCH 27.7, MCHC 31.4 L, RDW Coeff of [place] 19.9 H, Plt Count 228, Immature Gran % (Auto) 0.7, Neut % (Auto) 79.9 H, Lymph % (Auto) 9.6 L, [place] % (Auto) 9.1, Eos % (Auto) 0.5, Baso % (Auto) 0.2, Neut # (Auto) 4.7, Lymph # (Auto) 0.6, [place] # (Auto) 0.5, Eos # (Auto) 0.0, Baso # (Auto) 0.0, Immature Gran # (Auto) 0.0 ASSESSMENT: Please see below. 1. Acute respiratory failure 2. CHF 3. Acute renal failure 4. COVID 19 5. Dementia PLAN: 1. Discharge back to the longterm 2. Lasix 20mg daily PO 3. Potassium 10meq daily PO 4. Ativan 1mg at night PO 5. discontinue Decadron 6. Prednisone 10mg daily 7. Digoxin level 8. Repeat chest x-ray 9. Discontinue IV Lasix 10. Discontinue IV Ativan Plan and coordination of the patient's care discussed in the presence of Inventory And Pricing Associate and nurse. SCRIBED BY: Renuka IRENEist scribed while in presence of service performed by Dr. Mendiola/Thais Acosta APRN on 04/14/21 ([id number])
[2021-04-14] MEDS: SYMBICORT 160-4.5 MCG INHALER IH SCH (09:56)
[2021-04-14] MEDS: NYSTOP POWDER TP SCH (09:57)
[2021-04-14] MEDS: JANUVIA PO SCH (09:58)
[2021-04-14] MEDS: LOPRESSOR PO SCH (09:58)
[2021-04-14] MEDS: FLOMAX PO SCH (09:58)
[2021-04-14] MEDS: LANOXIN PO SCH (09:58)
[2021-04-14] MEDS: DOXYCYCLINE HYCLATE PO SCH (09:58)
[2021-04-14] MEDS: ZESTRIL PO SCH (09:58)
[2021-04-14] MEDS: TRIGLIDE PO SCH (09:58)
[2021-04-14] MEDS: CRESTOR PO SCH (09:58)
[2021-04-14] MEDS: CARDIZEM PO SCH (09:58)
[2021-04-14] MEDS: ELIQUIS PO SCH (10:00)
--- NOTE | 2021-04-14 10:24 | DI ---
EXAM: CHEST FRONTAL VIEW HISTORY: Cough COMPARISON: 04/08/2021 FINDINGS: Cardiomegaly and atherosclerosis are again noted. Low lung volumes. Moderate bibasilar d ensity may represent a combination of vascular congestion, atelectasis and pneumonia. This density h as improved since previous exam. Probable trace pleural effusions also likely improved. No pneumoth orax. IMPRESSION: Cardiomegaly and atherosclerosis are again noted. Low lung volumes. Moderate bibasilar density may represent a combination of vascular congestion, atelectasis and pneumonia. This density has improved since previous exam.
[2021-04-14] MEDS ORDERED: ATIVAN PO SCH (21:00)
--- NOTE | 2021-04-15 11:19 | PN ---
DATE OF SERVICE: 04/14/21 SUBJECTIVE: The patient was seen and examined with Nurse Practitioner. The patient's condition has improved. His walking with the help and eating and able to swallow the pills. The family wants him to be discharged because he had made some progress at the assisted and they could visit him on regular basis along he can have physical therapy around the clock. He will be discharged back to be followed as an outpatient. CONDITION: Stable PROGNOSIS: Guarded The patient was seen and examined with the Nurse Practitioner. TIME SPENT: More than 30 minutes. Plan and coordination of the patient's care discussed in the presence of nurse. DAVIDA
--- NOTE | 2021-04-15 11:20 | PN ---
04/08/21: Level 5 04/09/21: Intermediate 04/10/21: Intermediate 04/11/21: Intermediate 04/12/21: Intermediate 04/13/21: Intermediate 04/14/21: D as in discharge MTDD
--- NOTE | 2021-04-15 11:31 | PN ---
DATE OF SERVICE: 04/13/21 SUBJECTIVE: The patient was seen and examined today. The patient has COVID dementia. The patient is cool and calm. The is present in the room. REVIEW OF SYSTEMS: CONSTITUTIONAL: No night sweats. No fatigue, malaise, lethargy. No fever or chills. HEENT: Eyes: No visual changes. No eye pain. No eye discharge. ENT: No runny nose. No epistaxis. No sinus pain. No sore throat. No odynophagia. No congestion. RESPIRATORY: No cough, no congestion. No hemoptysis. No shortness of breath. CARDIOVASCULAR: No angina symptoms. No CHF symptoms. No atypical chest pain for CAD. No palpitations. No PND. No orthopnea. GASTROINTESTINAL: No abdominal pain. No nausea or vomiting. No diarrhea or constipation. No hematemesis. No hematochezia. GENITOURINARY: No urgency. No frequency. No dysuria. No hematuria. No obstructive symptoms. No discharge. No pain. No significant abnormal bleeding. MUSCULOSKELETAL: No musculoskeletal pain; no joint swelling. NEUROLOGICAL: No headache. No neck pain. No syncope. No seizures. No dizziness. PSYCHIATRIC: Not anxious. No depression. No suicidal thoughts. No homicidal thoughts. SKIN: No rash. No lesions. No wounds. ENDOCRINE: No unexplained weight loss. No weight gain. HEMATOLOGIC/LYMPHATIC: No anemia. No purpura. No petechiae. No prolonged or excessive bleeding. No palpable lymph nodes. PHYSICAL EXAMINATION: GENERAL: The patient is ,confused, alert and looking at him, but is not saying anything. VITAL SIGNS: Temperature 98,pulse 80, respiratory rate 15, pulse ox 96% on room. HEENT: Head normocephalic, atraumatic. Eyes: Extraocular muscles are intact. Pupils are equal, round and reactive to light and accommodation. Ears: No lesions. Nose appeared normal. Throat: No exudate or erythema. NECK: Supple. No JVD, no carotid bruit. No lymphadenopathy or thyromegaly. LUNGS:Decreased breath sounds but mild expiratory wheeze. Percussion note normal. Chest symmetrical. HEART: S1, S2, no S3. No murmurs. No cyanosis or clubbing. No ascites. Pulses: Dorsalis pedis and posterior tibial pulses +1 to +2 bilaterally. ABDOMEN: Soft. Nontender. Bowel sounds active. No CVA tenderness. No mass felt. EXTREMITIES: No edema. Full range of motion of all extremities, equal. NEUROLOGIC: No focal deficit. Cranial nerves II through XII are grossly intact. No headache. No double vision. SKIN: Not dry. Intact. Turgor - normal. LYMPHATIC: No palpable lymph nodes/no lymphedema. MUSCULOSKELETAL: Normal joints with no swelling. Muscle tone is normal. ASSESSMENT: 1. COVID 19 pneumonia, resolved 2. Fibrosis persists 3. Chronic respiratory failure, persists 4. COVID dementia PLAN: 1. The think the patient had COVID 19 again. His respiratory status is coming back. Whatever he had gained from physical therapy at the [facility] he lost it to some extent. The patient had his breakfast the morning. He ate 50% of it. He is swallowing his pills. Likely discharge tomorrow. TIME SPENT: More than 30 minutes. Plan and coordination of the patient's care discussed in the presence of nurse. DAVIDA
--- NOTE | 2021-04-15 14:39 | PN ---
DATE OF SERVICE: 04/11/21 SUBJECTIVE: 80 year old white male hospitalized with respiratory failure, hypoxemia, change in mental status and acute worsening of kidney functions. The family has been restless. Saturation went down to 74-75% on room air. The patient has been resident of [facility] and the patient was sent to the emergency room. The patient's condition has improved some. His blood gasses day before yesterday showed pO 2 of 47, with pCo2 41 with 83% saturation on room air. On 3 liters his oxygen saturation goes up to 95%. At present time the patient is quietly awake. According to the who is present in the room eaten some yesterday evening with the daughter. Also he walked some with the walker. The patient behaves a lot better if a family member is present. REVIEW OF SYSTEMS: CONSTITUTIONAL: No night sweats. No fatigue, malaise, lethargy. No fever or chills. HEENT: Eyes: No visual changes. No eye pain. No eye discharge. ENT: No runny nose. No epistaxis. No sinus pain. No sore throat. No odynophagia. No congestion. RESPIRATORY: No cough, no congestion. No hemoptysis. No shortness of breath. CARDIOVASCULAR: No angina symptoms. No CHF symptoms. No atypical chest pain for CAD. No palpitations. No PND. No orthopnea. GASTROINTESTINAL: No abdominal pain. No nausea or vomiting. No diarrhea or constipation. No hematemesis. No hematochezia. GENITOURINARY: No urgency. No frequency. No dysuria. No hematuria. No obstructive symptoms. No discharge. No pain. No significant abnormal bleeding. MUSCULOSKELETAL: No musculoskeletal pain; no joint swelling. NEUROLOGICAL: No headache. No neck pain. No syncope. No seizures. No dizziness. PSYCHIATRIC: Not anxious. No depression. No suicidal thoughts. No homicidal thoughts. SKIN: No rash. No lesions. No wounds. ENDOCRINE: No unexplained weight loss. No weight gain. HEMATOLOGIC/LYMPHATIC: No anemia. No purpura. No petechiae. No prolonged or excessive bleeding. No palpable lymph nodes. PHYSICAL EXAMINATION: VITAL SIGNS: Temperature 97.6, pulse 100 irregular, respiratory rate 20, blood pressure 130/79 and pulse ox 94% HEENT: Head normocephalic, atraumatic. Eyes: Extraocular muscles are intact. Pupils are equal, round and reactive to light and accommodation. Ears: No lesions. Nose appeared normal. Throat: No exudate or erythema. NECK: Supple. No JVD, no carotid bruit. No lymphadenopathy or thyromegaly. LUNGS: Decreased breath sounds but Clear to auscultation. Percussion note normal. Chest symmetrical. HEART: S1, S2, no S3. No murmurs. No cyanosis or clubbing. No ascites. Pulses: Dorsalis pedis and posterior tibial pulses +1 to +2 bilaterally. ABDOMEN: Soft. Nontender. Bowel sounds active. No CVA tenderness. No mass felt. EXTREMITIES: No edema. Full range of motion of all extremities, equal. NEUROLOGIC: No focal deficit. Cranial nerves II through XII are grossly intact. No headache. No double vision. SKIN: Not dry. Intact. Turgor - normal. LYMPHATIC: No palpable lymph nodes/no lymphedema. MUSCULOSKELETAL: Normal joints with no swelling. Muscle tone is normal. LABS: hgb 11.2,hct 35, WBC 5,700 normal differential, creatinine 2, BUN 35, potassium 4.4 ASSESSMENT: 1. Respiratory failure seems to be getting somewhat better. The patient may have some component of CHF 2. Atrial fibrillation with somewhat rapid ventricular response and could be from being restless.When the patient goes to sleep his rate is usual 70-80 per minute 3. Dementia, worsening likely progression of dementia from COVID PLAN: 1. I don't think the patient had a new COVID. The patient is off quarantine. 2. He is taking some medications by mouth now. 3. We will do CPR and Ferritin level on him CONDITION: Stable PROGNOSIS: Guarded was made aware of the fact that his mental status has somewhat deteriorated in the presence of family the patient's behavior is a lot better. TIME SPENT: More than 30 minutes. Plan and coordination of the patient's care discussed in the presence of nurse. DAVIDA
--- NOTE | 2021-04-18 13:46 | PN ---
DATE OF SERVICE: 04/12/21 SUBJECTIVE: 80 year old white male was hospitalized with shortness of breath, hypoxemia and change in the mental status. The patient's condition has improved some, stable. He is awake and alert but confused and disoriented. present in the room. Taking some oral medications. REVIEW OF SYSTEMS: CONSTITUTIONAL: No night sweats. No fatigue, malaise, lethargy. No fever or chills. HEENT: Eyes: No visual changes. No eye pain. No eye discharge. ENT: No runny nose. No epistaxis. No sinus pain. No sore throat. No odynophagia. No congestion. RESPIRATORY: No cough, no congestion. No hemoptysis. No shortness of breath. CARDIOVASCULAR: No angina symptoms. No CHF symptoms. No atypical chest pain for CAD. No palpitations. No PND. No orthopnea. GASTROINTESTINAL: No abdominal pain. No nausea or vomiting. No diarrhea or constipation. No hematemesis. No hematochezia. GENITOURINARY: No urgency. No frequency. No dysuria. No hematuria. No obstructive symptoms. No discharge. No pain. No significant abnormal bleeding. MUSCULOSKELETAL: No musculoskeletal pain; no joint swelling. NEUROLOGICAL: No headache. No neck pain. No syncope. No seizures. No dizziness. PSYCHIATRIC: Not anxious. No depression. No suicidal thoughts. No homicidal thoughts. SKIN: No rash. No lesions. No wounds. ENDOCRINE: No unexplained weight loss. No weight gain. HEMATOLOGIC/LYMPHATIC: No anemia. No purpura. No petechiae. No prolonged or excessive bleeding. No palpable lymph nodes. PHYSICAL EXAMINATION: VITAL SIGNS: Temperature 97.7, pulse 100, respiratory rate 18, blood pressure 142/90, pulse ox 97% with 2 liters. HEENT: Head normocephalic, atraumatic. Eyes: Extraocular muscles are intact. Pupils are equal, round and reactive to light and accommodation. Ears: No lesions. Nose appeared normal. Throat: No exudate or erythema. NECK: Supple. No JVD, no carotid bruit. No lymphadenopathy or thyromegaly. LUNGS: Mild wheeze with good air entry. Clear to auscultation. Percussion note normal. Chest symmetrical. HEART: S1, S2, no S3. No murmurs. Irregular rate 110 per minute. No cyanosis or clubbing. No ascites. Pulses: Dorsalis pedis and posterior tibial pulses +1 to +2 bilaterally. ABDOMEN: Soft. Nontender. Bowel sounds active. No CVA tenderness. No mass felt. EXTREMITIES: No edema. Full range of motion of all extremities, equal. NEUROLOGIC: No focal deficit. Cranial nerves II through XII are grossly intact. No headache. No double vision. SKIN: Not dry. Intact. Turgor - normal. LYMPHATIC: No palpable lymph nodes/no lymphedema. MUSCULOSKELETAL: Normal joints with no swelling. Muscle tone is normal. LABS: Hgb 11.4, hct 36, WBC 5,800 normal differential, creatinine 1.7, BUN 33, potassium 4.1 ASSESSMENT: 1. Respiratory failure seems to be resolving, the patient has chronic respiratory failure 2. Mental status has improved to some extent with more alertness, less sleepiness, less aggressiveness. Family members 3. Kidney functions are better PLAN: 1. Reduced the Januvia dose 50mg because of kidney function 2. Lopressor 25mg twice a day instead of 12.5 a day 3. Continue Doxycycline 4. Discontinue Rocephin 5. The patient needs to be up and about, discussed with nursing staff. CONDITION: Stable PROGNOSIS: Guarded 3. TIME SPENT: More than 30 minutes. Plan and coordination of the patient's care discussed in the presence of nurse. DAVIDA
--- NOTE | 2021-04-19 14:48 | DS ---
DATE OF SERVICE: 04/14/21 FINAL DIAGNOSIS: 1. Acute respiratory failure 2. CHF 3. COVID 19 infection 4. Renal azotemia 5. Chronic kidney disease stage II 6. Atrial fibrillation 7. Hypotension 8. Dementia 9. COVID psychosis DISCHARGE INSTRUCTIONS: Discharge back to [facility]. CODE STATUS: DNR. Accu-checks ACHS MEDICATIONS AT DISCHARGE: Crestor 10mg PO daily Fenofibrate 145mg Po daily Eliquis 5mg PO BID Glucophage 1000mg PO BID Metoprolol succinate 12.5mg PO daily Nystop 103525 one application Topical QID Pantoprazole 40mg PO BID Januvia 100mg PO daily Flomax 0.4mg PO BID Diltiazem 60mg PO Q 12 hour Symbicort 160-4.5 two puffs inhalation BID Furosemide 20mg PO daily Lisinopril 5mg PO daily Ativan 1.5mg PO bedtime Acetaminophen 325mg PO Q 4 hours PRN Clotrimazole-Betamethasone one application topical BID PRN Remedy Calazime Protect paste one application Topical QID PRN NEW PRESCRIPTIONS: Doxycycline 100mg PO BID Mupirocin one application Topical BID Lasix 20mg PO daily Potassium Chloride 10meq PO daily Prednisone 10mg PO daily Ativan 1mg PO bedtime DIET INSTRUCTIONS: Consistent Carbs puree with honey thickened liquids. Honey thickened boost supplement ACTIVITY: Resume activity as tolerated. HOSPITAL COURSE: 80 year old white male who is current resident of [facility]. Prior to his admission here he had had COVID back in January and then tested positive with a rapid antigen at their facility 10s prior to this admission. He was sent to the emergency room with shortness of breath, decreased alertness, increased confusion, lethargy. He was found to have elevated renal functioned and was dehydrated. Po2 was in the 50s. Chest x-ray showed questionable pneumonia and vascular congestion and was given IV Lasix. He had significant output. Initial BNP was 12,000. He was put on sliding scale for insulin. Decadron 4mg IM daily. He was started on Doxycycline 100mg IV Q 12 and Rocephin 1 gram IV daily. He was continued on Lasix 20mg IV push daily and has since been on this since admission. Cognitively he is about the same. CT scan of the brain showed no acute changes. Since his initial COVID infection in January he has had a steady decline in his cognitive status. Although the family felt that he had been making some progress at the [facility] after he had developed cough and congestion there and tested positive again he has since had another cognitive decline. He is requiring us to feed him, requiring the assistance of two people before he was feeding himself. His renal function has improved and he is sating 93-94% on room air. He is requiring assistance with all ADL's. Blood pressure is stable. The family would like for him to go back to the [facility] as soon as possible. He has been on pureed food with honey thickened liquids. I do believe we have reached our maximum potential at this point here. I will send him back with Doxycycline 100mg PO BID for the next 4 days to complete a 10 day course along with Prednisone 10mg PO daily for 10 days. He is to continue Symbicort inhaler along with all of his other medications. Fall precautions. I am going to put him on Lasix 20mg PO daily along with Potassium 10meq PO daily. We will recheck his CBC and CMP on Sunday. He is out of isolation at this point. He will resume therapy when he goes back to [facility]. Again he is on room air. He will have speech consult. We will discharge him in stable condition and followup with him at the [facility]. TIME SPENT: More than 60 minutes. DAVIDA
== END 2021-04-14 13:25 | DRG 177 ==
LOC: ED 13:17 → SCU 15:24 → MEDSURG A 04-10 17:49
PROVIDERS: ADMIT Internal Medicine; ATTEND Internal Medicine
DX: E11.65 Type 2 diabetes mellitus with hyperglycemia; J44.9 Chronic obstructive pulmonary disease, unspecified; E78.5 Hyperlipidemia, unspecified; Z79.899 Other long term (current) drug therapy; J96.00 Acute respiratory failure, unspecified whether with hypoxia or hypercapnia; I48.91 Unspecified atrial fibrillation; E88.81 Metabolic syndrome and other insulin resistance; Z95.5 Presence of coronary angioplasty implant and graft; F03.91 Unspecified dementia, unspecified severity, with behavioral disturbance; D45 Polycythemia vera; E86.0 Dehydration; R79.89 Other specified abnormal findings of blood chemistry; Z51.81 Encounter for therapeutic drug level monitoring; J12.82 Pneumonia due to coronavirus disease 2019; I95.9 Hypotension, unspecified; I25.10 Atherosclerotic heart disease of native coronary artery without angina pectoris; U07.1 COVID-19; N18.2 Chronic kidney disease, stage 2 (mild); I50.9 Heart failure, unspecified

== ENCOUNTER 2021-04-29 10:50 | Inpatient (IN) ==
--- NOTE | 2021-04-29 11:07 | ED.PDOC ---
General ED Provider: Dr. TONEY ENRIQUEZ Chief Complaint: Respiratory Complaint Stated Complaint: More SOA, cough, no fever or chest pain, limited hx available, started a few d ago,, DNR Time Seen by Provider: 04/29/21 11:06 Mode of Arrival: Ambulance Information Source: Family and Custodial Exam Limitations: No limitations Primary Care Provider: OMAR WARNER Nursing and Triage Documentation Reviewed and Agree: Yes Does patient meet sepsis criteria?: No System Inflammatory Response Syndrome: Not Applicable Sepsis Protocol: For patient's 13 years and over: Temp is 96.8 and below OR 101 and greater Pulse >90 BPM Resp >20/minute Acutely Altered Mental Status Are patient's symptoms suggestive of a new infection, such as: -Pneumonia -Skin, Soft Tissue -Endocarditis -UTI -Bone, Joint Infection -Implantable Device -Acute Abdominal Infection -Wound Infection -Meningitis -Blood Stream Catheter Infection -Unknown Respiratory Complaint Exam Shortness of Air Complaint/Exam Onset/Duration: few d Symptoms Are: Still present Timing: Constant Initial Severity: Moderate Current Severity: Moderate Character: Reports Dyspnea on exertion Aggravating: Reports Movement Alleviating: Reports None Associated Signs and Symptoms: Denies Cough, Wheezing, Chest pain with cough, Chest pain, Fever, Chills, Diaphoresis, Nasal congestion, Dizziness, Calf pain, Calf swelling, Edema, Rapid breathing, Labored breathing or Decreased intake Related History: Reports Similar episode History of Healthcare-Acquired Pneumonia: No Pulmonary Embolism Risk Factors: Reports None Cardiac Risk Factors: Reports Hypertension Pseudomonas Risk Factors: Reports None Tuberculosis Risk Factors: Reports None Recent Stress Test: No Recent Echo/LV Function: No Respiratory Distress: Moderate Stridor Present: No Tracheal Deviation: No Subcutaneous Emphysema: No Accessory Muscle Use: No Retractions: Not Present Diminished Breath Sounds: Yes Prolonged Expiratory Phase: Yes Fatigue: Yes Leg Swelling: No Love's Sign Present: No Grunting Respirations: No Review of Systems Review Of Systems Constitutional: Reports Malaise and Weakness Eyes: Reports No symptoms Ears, Nose, Mouth, Throat: Reports No symptoms Respiratory: Reports Orthopnea and Short of air Cardiac: Reports No symptoms GI: Reports No symptoms : Reports No symptoms Musculoskeletal: Reports No symptoms Skin: Reports No symptoms Neurological: Reports No symptoms Endocrine: Reports No symptoms Hematologic/Lymphatic: Reports No symptoms All Other Systems: Reviewed and Negative [facility] Medical History Afib CAD S/P percutaneous coronary angioplasty Cardiomyopathy CHF (congestive heart failure) COPD (chronic obstructive pulmonary disease) COVID-19 Dementia Diabetes type 2, uncontrolled HTN (hypertension) Hyperlipemia Kidney calculus LVH (left ventricular hypertrophy) Metabolic syndrome Myocardial infarction Prostate CA Sleep apnea Family History Other No known health problems Social History Smoking and tobacco status: Former smoker Passive smoking exposure: No Second hand smoke exposure: No Smoking risk assessment performed: No Surgical History History of prostatectomy Physical Exam Physical Exam Appearance: Reports Ill-appearing Ill-appearing: Moderate Pain Distress: Mild Eyes: Reports WYATT ENT: Reports Oropharynx normal Neck: Supple Respiratory: Reports Breath sounds diminished, Crackles and Rhonchi Cardiovascular: Reports RRR and Pulses normal GI/: Reports Soft and Nontender Musculoskeletal: Reports Limited ROM and Limited strength Skin: Reports Warm and Dry Neurological: Reports Sensation intact, Motor intact and Alert Psychiatric: Reports Affect appropriate and Mood appropriate Interpretation Radiology Interpretation Radiology Interpretation By: Radiologist Radiology Results: Positive Exam Interpreted: Portable CXR Xray Comments: CMG, fluid c/w CHF EKG Interpretation Time of EKG #1: 11:16 Rate: Normal Rhythm: Other (accel jxn) Ectopy: PVCs [place]: NL ST Segment: Normal Physician Notification Case Discussed Physician Notified: Dr. Warner Time of Notification: 14:00 Comments: admit on tele Admit/Transition Orders Entered by ED Provider: Yes Admit To: Inpatient Critical Care Note Critical Care Note Total Critical Care Time (mins): 0 Course Course Hematology/Chemistry: 04/29/21 11:14 04/29/21 11:14 Orders, Labs, Meds: Lab Review 04/29/21 04/29/21 04/29/21 10:50 10:50 11:14 WBC 5.25 RBC 3.99 L Hgb 11.4 L Hct 35.9 L MCV 90.0 MCH 28.6 MCHC 31.8 RDW Coeff of [place] 18.6 H Plt Count 157 Immature Gran % (Auto) 0.4 Neut % (Auto) 79.5 H Lymph % (Auto) 10.1 [place] % (Auto) 8.6 Eos % (Auto) 1.0 Baso % (Auto) 0.4 Neut # (Auto) 4.2 Lymph # (Auto) 0.5 L [place] # (Auto) 0.5 Eos # (Auto) 0.1 Baso # (Auto) 0.0 Immature Gran # (Auto) 0.0 Puncture Site Base Excess O2 Saturation ABG pH ABG pCO2 ABG pO2 ABG HCO3 ABG Total CO2 Shantanu Test Hemoglobin Oxyhemoglobin Carboxyhemoglobin Total Hemoglobin O2 Delivery Device Oxygen Liter Flow Sodium Potassium Chloride Carbon Dioxide Anion Gap BUN Creatinine Estimated GFR (MDRD) BUN/Creatinine Ratio Glucose Calcium Total Bilirubin AST ALT Alkaline Phosphatase Troponin I NT-Pro-B Natriuret Pep Total Protein Albumin Globulin Albumin/Globulin Ratio Adenovirus (PCR) B. pertussis DNA (PCR) B.parapertussis DNA PCR C. pneumoniae DNA (PCR) Coronavirus OC43 (PCR) Coronavirus HKU1 (PCR) Coronavirus 229E (PCR) Coronavirus NL63 (PCR) Human Metapneumovir PCR Influenza Type A (PCR) Influ A Molecular Assay Negative by naat Influenza B (RT-PCR) Influ B Molecular Assay Negative by naat M. pneumoniae (PCR) Parainfluenza 1 (PCR) Parainfluenza 2 (PCR) Parainfluenza 3 (PCR) Parainfluenza 4 (PCR) RSV (PCR) Entero/Rhino (PCR) SARS-CoV-2 (PCR) SARS-CoV-2 Ag (Rapid) Negative 04/29/21 04/29/21 04/29/21 11:14 11:14 11:25 WBC RBC Hgb Hct MCV MCH MCHC RDW Coeff of [place] Plt Count Immature Gran % (Auto) Neut % (Auto) Lymph % (Auto) [place] % (Auto) Eos % (Auto) Baso % (Auto) Neut # (Auto) Lymph # (Auto) [place] # (Auto) Eos # (Auto) Baso # (Auto) Immature Gran # (Auto) Puncture Site Rb Base Excess 7.6 H O2 Saturation 91.7 L ABG pH 7.43 ABG pCO2 48.0 H ABG pO2 61.0 L ABG HCO3 31.9 H ABG Total CO2 33.4 H Shantanu Test Pos Hemoglobin 1.1 Oxyhemoglobin 90.0 L Carboxyhemoglobin 3.3 H Total Hemoglobin 11.6 L O2 Delivery Device Nc Oxygen Liter Flow 4.00 Sodium 142.3 Potassium 4.04 Chloride 106.2 Carbon Dioxide 32.8 H Anion Gap 7.34 BUN 16.7 Creatinine 1.44 H Estimated GFR (MDRD) 47.00 BUN/Creatinine Ratio 11.59 Glucose 170.9 H Calcium 8.94 Total Bilirubin 0.74 AST 22.1 ALT 22.9 Alkaline Phosphatase 41.8 L Troponin I 0.086 NT-Pro-B Natriuret Pep 27141.000 H Total Protein 5.99 L Albumin 3.30 L Globulin 2.69 Albumin/Globulin Ratio 1.22 Adenovirus (PCR) B. pertussis DNA (PCR) B.parapertussis DNA PCR C. pneumoniae DNA (PCR) Coronavirus OC43 (PCR) Coronavirus HKU1 (PCR) Coronavirus 229E (PCR) Coronavirus NL63 (PCR) Human Metapneumovir PCR Influenza Type A (PCR) Influ A Molecular Assay Influenza B (RT-PCR) Influ B Molecular Assay M. pneumoniae (PCR) Parainfluenza 1 (PCR) Parainfluenza 2 (PCR) Parainfluenza 3 (PCR) Parainfluenza 4 (PCR) RSV (PCR) Entero/Rhino (PCR) SARS-CoV-2 (PCR) SARS-CoV-2 Ag (Rapid) 04/29/21 14:20 WBC RBC Hgb Hct MCV MCH MCHC RDW Coeff of [place] Plt Count Immature Gran % (Auto) Neut % (Auto) Lymph % (Auto) [place] % (Auto) Eos % (Auto) Baso % (Auto) Neut # (Auto) Lymph # (Auto) [place] # (Auto) Eos # (Auto) Baso # (Auto) Immature Gran # (Auto) Puncture Site Base Excess O2 Saturation ABG pH ABG pCO2 ABG pO2 ABG HCO3 ABG Total CO2 Sh[place]anu Test Hemoglobin Oxyhemoglobin Carboxyhemoglobin Total Hemoglobin O2 Delivery Device Oxygen Liter Flow Sodium Potassium Chloride Carbon Dioxide Anion Gap BUN Creatinine Estimated GFR (MDRD) BUN/Creatinine Ratio Glucose Calcium Total Bilirubin AST ALT Alkaline Phosphatase Troponin I NT-Pro-B Natriuret Pep Total Protein Albumin Globulin Albumin/Globulin Ratio Adenovirus (PCR) Not detected B. pertussis DNA (PCR) Not detected B.parapertussis DNA PCR Not detected C. pneumoniae DNA (PCR) Not detected Coronavirus OC43 (PCR) Not detected Coronavirus HKU1 (PCR) Not detected Coronavirus 229E (PCR) Not detected Coronavirus NL63 (PCR) Not detected Human Metapneumovir PCR Not detected Influenza Type A (PCR) Not detected Influ A Molecular Assay Influenza B (RT-PCR) Not detected Influ B Molecular Assay M. pneumoniae (PCR) Not detected Parainfluenza 1 (PCR) Not detected Parainfluenza 2 (PCR) Not detected Parainfluenza 3 (PCR) Not detected Parainfluenza 4 (PCR) Not detected RSV (PCR) Not detected Entero/Rhino (PCR) Not detected SARS-CoV-2 (PCR) Detected H SARS-CoV-2 Ag (Rapid) Orders Category Date Time Status ADMIT PATIENT INPATIENT .TO [facility] (MONITORED BED) ADMISSION 04/29/21 14:31 Active ABG DRAW REQUEST Stat CARDIO 04/29/21 11:08 Completed EKG-(ED ONLY) Stat CARDIO 04/29/21 11:07 Completed EKG-(IP & OP ONLY) DAILY CARDIO 04/30/21 06:00 Ordered EKG-(IP & OP ONLY) DAILY CARDIO 05/01/21 06:00 Ordered OXYGEN Routine CARDIO 04/29/21 14:58 Active ACTIVITY .BR with BRP CARE 04/29/21 14:58 Active INTAKE & OUTPUT Q8HR CARE 04/29/21 14:55 Active INTAKE & OUTPUT Q8HR CARE 04/29/21 14:55 Completed IP: INSERT SALINE LOCK ONCE CARE 04/29/21 14:55 Completed IP: INSERT SALINE LOCK ONCE CARE 04/29/21 14:58 Active TELEMETRY MONITORING TELE CARE 04/29/21 14:32 Active TELEMETRY MONITORING TELE CARE 04/29/21 14:58 Completed VITAL SIGNS Q8HR CARE 04/29/21 14:55 Completed VITAL SIGNS Q8HR CARE 04/29/21 14:55 Completed VITAL SIGNS Q8HR CARE 04/29/21 14:58 Completed CARDIAC DIET DIETARY 04/29/21 Dinner Ordered IV [ED IV/MEDIPORT/POWERPORT] .ONCE EMERGENCY 04/29/21 11:06 Active ABG COOX Stat LAB 04/29/21 11:25 Completed CBC W/ AUTO DIFF Stat LAB 04/29/21 11:14 Completed COMPREHENSIVE METABOLIC PANEL Stat LAB 04/29/21 11:14 Completed COVID-19 ANTIGEN TEST Stat LAB 04/29/21 10:50 Completed MOLECULAR FLU A & B [FLU A/B MOLECULAR] Stat LAB 04/29/21 10:50 Completed NT-PROBNP Stat LAB 04/29/21 11:14 Completed TROPONIN I Stat LAB 04/29/21 11:14 Completed URINALYSIS C & S IF INDICATED Stat LAB 04/29/21 20:00 Completed 0.9 % Sodium Chloride [Saline Flush] MEDS 04/29/21 11:06 Active 1 syr IVF PRN PRN 0.9 % Sodium Chloride [Saline Flush] MEDS 04/29/21 21:00 Active 1 syr IVF Q8HR Acetaminophen [Tylenol] MEDS 04/29/21 14:55 Discontinued 650 mg PO Q4H PRN Apixaban [Eliquis] MEDS 04/29/21 21:00 Active 5 mg PO BID Atropine Sulfate Inj [Atropine Sulfate Pfs] MEDS 04/29/21 14:55 Active 0.5 mg IVP ONCE PRN Dexamethasone Sod Phosphate [Decadron] MEDS 04/29/21 15:00 Discontinued 6 mg IVP ONCE ONE Diltiazem HCl [Cardizem] MEDS 04/29/21 21:00 Active 60 mg PO Q12HR Furosemide [Lasix] MEDS 04/29/21 15:00 Discontinued 20 mg IVP ONCE ONE Ipratropium/Albuterol Neb [Duoneb] MEDS 04/29/21 15:03 Active 3 ml NEB Q6H PRN Lisinopril [Zestril] MEDS 04/30/21 09:00 Active 5 mg PO DAILY Metoprolol Succinate [Toprol Xl] MEDS 04/29/21 21:00 Active 12.5 mg PO BID Nitroglycerin [Nitrostat] MEDS 04/29/21 14:55 Active 0.4 mg SL Q5MIN X 3 DOSES PRN Nystatin [Nystop Powder] MEDS 04/29/21 17:00 Active 1 applic TP QID Potassium Chloride [Micro-K Cap] MEDS 04/30/21 08:30 Active 10 meq PO DAILYWM Rosuvastatin Calcium [Crestor] MEDS 04/29/21 21:00 Active 10 mg PO BEDTIME Sitagliptin Phosphate [Januvia] MEDS 04/30/21 09:00 Active 50 mg PO DAILY Tamsulosin HCl [Flomax] MEDS 04/29/21 21:00 Active 0.4 mg PO BID RESUSCITATION STATUS Routine OTHERS 04/29/21 14:55 Ordered CHEST, 1V AP ONLY Stat RADS 04/29/21 11:07 Completed Medications Generic Name Dose Route Start Last Admin Trade Name Freq PRN Reason Stop Dose Admin Acetaminophen 650 mg 04/29/21 17:00 Acetaminophen 325 Mg Tablet PO Q4H PRN Headache/pain/fever Albuterol/Ipratropium 3 ml 04/29/21 15:03 Ipratropium/Albuterol Vial.Neb NEB Q6H PRN Wheezing Apixaban 5 mg 04/29/21 21:00 04/29/21 20:34 Apixaban 5 Mg Tab PO 5 mg BID MORIAH Administration Atropine Sulfate 0.5 mg 04/29/21 14:55 Atropine Sulfate Inj 1 Mg/10 Ml Disp.Syrin IVP ONCE PRN Symptomatic Bradycardia Budesonide/Formoterol Fumarate 2 puff 04/29/21 21:00 04/29/21 20:34 Budesonide/Formoterol Fumarate 160/4.5 Mcg Inhaler IH 2 puff BID MORIAH Administration Diltiazem HCl 60 mg 04/29/21 21:00 04/29/21 20:32 Diltiazem Hcl 60 Mg Tablet PO 60 mg Q12HR MORIAH Administration Fenofibrate 160 mg 04/29/21 21:00 04/29/21 20:32 Fenofibrate 160 Mg Tablet PO 160 mg BEDTIME MORIAH Administration Lisinopril 5 mg 04/30/21 09:00 Lisinopril 5 Mg Tablet PO DAILY MORIAH Lorazepam 1 mg 04/29/21 20:00 04/29/21 20:33 Lorazepam 1 Mg Tablet PO 1 mg 2000 MORIAH Administration Metoprolol Succinate 12.5 mg 04/29/21 21:00 04/29/21 20:32 Metoprolol Succinate 25 Mg Tab.Er.24h PO 12.5 mg BID MORIAH Administration Nitroglycerin 0.4 mg 04/29/21 14:55 Nitroglycerin 0.4 Mg Tab.Subl SL Q5MIN X 3 DOSES PRN Chest Pain Nystatin 1 applic 04/29/21 17:00 04/29/21 20:33 Nystatin 15 Gm Powder TP 1 applic QID MORIAH Administration Pantoprazole Sodium 40 mg 04/29/21 17:00 04/29/21 18:06 Pantoprazole Sodium 40 Mg Tablet.Dr PO 40 mg BIDAC MORIAH Administration Potassium Chloride 10 meq 04/30/21 08:30 Potassium Chloride 10 Meq Capsule.Er PO DAILYWM MORIAH Rosuvastatin Calcium 10 mg 04/29/21 21:00 04/29/21 20:32 Rosuvastatin Calcium 10 Mg Tablet PO 10 mg BEDTIME MORIAH Administration Sitagliptin Phosphate 50 mg 04/30/21 09:00 Sitagliptin Phosphate 50 Mg Tablet PO DAILY MORIAH Sodium Chloride 1 syr 04/29/21 11:06 0.9% Sodium Chloride 10 Ml Disp.Syrin IVF PRN PRN To flush IV Sodium Chloride 1 syr 04/29/21 21:00 04/29/21 20:33 0.9% Sodium Chloride 10 Ml Disp.Syrin IVF 1 syr Q8HR MORIAH Administration Tamsulosin HCl 0.4 mg 04/29/21 21:00 04/29/21 20:33 Tamsulosin Hcl 0.4 Mg Cap.Er.24h PO 0.4 mg BID MORIAH Administration Discontinued Medications Generic Name Dose Route Start Last Admin Trade Name Freq PRN Reason Stop Dose Admin Acetaminophen 650 mg 04/29/21 14:55 Acetaminophen 325 Mg Tablet PO Q4H PRN Headache Dexamethasone Sodium Phosphate 6 mg 04/29/21 15:00 04/29/21 16:48 Dexamethasone Sod Phos 10 Mg/Ml Inj IVP 04/29/21 15:01 6 mg ONCE ONE Administration Furosemide 20 mg 04/29/21 15:00 04/29/21 16:49 Furosemide Inj 20 Mg/2 Ml Vial IVP 04/29/21 15:01 20 mg ONCE ONE Administration Vital Signs: Temp Pulse Resp BP Pulse Ox 04/29/21 10:52 97.9 F 67 31 H 140/83 95 Discharge Plan Discharge Patient Disposition: ADMITTED INPATIENT Discharge Problem: CHF (congestive heart failure) ED Provider: TONEY ENRIQUEZ Condition: Stable Physician Progress Note: [Admit per Dr. Warner, CHF flare]
[2021-04-29 11:18] LABS: BASOPHILS % (AUTO) 0.4 % (0.0-3.0); EOSINOPHILS # (AUTO) 0.1 K/ul (0.0-0.7); HEMATOCRIT 35.9 % (42.0-52.0); HEMOGLOBIN 11.4 g/dl (14.0-18.0); IMMATURE GRANULOCYTE % (AUTO) 0.4 % (0.0-5.0); LYMPHOCYTES # (AUTO) 0.5 K/uL (0.60-3.4); LYMPHOCYTES % (AUTO) 10.1 (10.0-50.0); MEAN CORPUSCULAR HEMOGLOBIN 28.6 pg (27.0-31.0); MEAN CORPUSCULAR HGB CONC 31.8 (31.8-35.4); MONOCYTES # (AUTO) 0.5 K/uL (0.4-2.0); MONOCYTES % (AUTO) 8.6 (0-10); NEUTROPHILS # (AUTO) 4.2 K/ul (2.0-6.9); NEUTROPHILS % (AUTO) 79.5 % (42.2-75.2); PLATELET COUNT 157 10^3/uL (140-440); RDW COEFFICIENT OF VARIATION 18.6 % (11.6-14.8); RED BLOOD COUNT 3.99 10^6/ul (4.70-6.10); WHITE BLOOD COUNT 5.25 K/ul (4.2-10.2)
[2021-04-29 11:36] LABS: ALANINE AMINOTRANSFERASE 22.9 U/L (0-50); ALBUMIN 3.3 g/dL (3.5-5.0); ALKALINE PHOSPHATASE 41.8 U/L (56-119); ASPARTATE AMINO TRANSFERASE 22.1 U/L (17-59); BILIRUBIN,TOTAL 0.74 mg/dL (0.2-1.3); BLOOD UREA NITROGEN 16.7 mg/dL (9-20); CALCIUM 8.94 mg/dL (8.4-10.2); CARBON DIOXIDE 32.8 mmol/L (22-30.0); CHLORIDE 106.2 mmol/L (98-107); CREATININE 1.44 mg/dL (0.60-1.10); GLUCOSE 170.9 mg/dL (74-106); POTASSIUM 4.04 mmol/L (3.5-5.1); SODIUM 142.3 mmol/L (134.5-145); TOTAL PROTEIN 5.99 g/dL (6.3-8.2)
[2021-04-29 11:38] LABS: ABG PH 7.43 (7.35-7.45); BEecf 7.6 (-2.0-3.0); COHb 3.3 (0.5-1.5); HCO3 31.9 (21-28); MetHb 1.1 (0-1.5); TCO2 33.4 (19-24); sO2 91.7 % (94-98)
[2021-04-29 11:39] LABS: tHb 11.6 g/dl (11.7-17.4)
--- NOTE | 2021-04-29 11:39 | DI ---
EXAM: Chest one view HISTORY: Chronic obstructive pulmonary disease COMPARISON: 04/14/2021 TECHNIQUE: Single view of the chest was performed FINDINGS: Heart is enlarged. Mediastinal contour unchanged. No visible pneumothorax. Small to mod erate bilateral pleural effusions. Multifocal bilateral interstitial and alveolar opacity. IMPRESSION: Cardiomegaly. Multifocal bilateral interstitial and alveolar opacity may represent janey a and/or multifocal pneumonia. Bilateral pleural effusions.
[2021-04-29 11:46] LABS: TROPONIN I 0.086 ng/ml (0.0000-0.120)
[2021-04-29 12:52] LABS: MOLECULAR FLU A NEGATIVE BY NAAT (NEGATIVE); MOLECULAR FLU B NEGATIVE BY NAAT (NEGATIVE)
[2021-04-29 14:29] LABS: BORDETELLA PARAPERTUSSIS (PCR) NOT DETECTED (NOT DETECT); BORDETELLA PERTUSSIS (PCR) NOT DETECTED (NOT DETECT); CHLAMYDIA PNEUMONIAE (PCR) NOT DETECTED (NOT DETECT); CORONAVIRUS 229E (PCR) NOT DETECTED (NOT DETECT); CORONAVIRUS HKU1 (PCR) NOT DETECTED (NOT DETECT); CORONAVIRUS NL63 (PCR) NOT DETECTED (NOT DETECT); CORONAVIRUS OC43 (PCR) NOT DETECTED (NOT DETECT); HUMAN METAPNEUMOVIRUS (PCR) NOT DETECTED (NOT DETECT); HUMAN RHINOVIRUS/ENTEROV (PCR) NOT DETECTED (NOT DETECT); INFLUENZA B (PCR) NOT DETECTED (NOT DETECT); MYCOPLASMA PNEUMONIAE (PCR) NOT DETECTED (NOT DETECT); PARAINFLUENZA VIRUS 1 (PCR) NOT DETECTED (NOT DETECT); PARAINFLUENZA VIRUS 2 (PCR) NOT DETECTED (NOT DETECT); PARAINFLUENZA VIRUS 3 (PCR) NOT DETECTED (NOT DETECT); PARAINFLUENZA VIRUS 4 (PCR) NOT DETECTED (NOT DETECT); RESPIRATORY SYNCYTIAL V (PCR) NOT DETECTED (NOT DETECT)
[2021-04-29] MEDS ORDERED: NITROSTAT SL PRN (14:55)
[2021-04-29] MEDS ORDERED: ATROPINE SULFATE PFS IVP PRN (14:55)
[2021-04-29] MEDS ORDERED: TYLENOL PO PRN ×3 (14:55→17:00)
[2021-04-29] MEDS ORDERED: LASIX IVP ONE (15:00)
[2021-04-29] MEDS ORDERED: DECADRON IVP ONE (15:00)
[2021-04-29] MEDS ORDERED: DUONEB NEB PRN (15:03)
[2021-04-29 15:17] LABS: ADENOVIRUS (PCR) NOT DETECTED (NOT DETECT); SARS_COV_2 (PCR) DETECTED (NOT DETECT)
[2021-04-29 16:02] VITALS: BMI 29.2
[2021-04-29] MEDS: NYSTOP POWDER TP SCH ×2 (16:49→20:33)
[2021-04-29] MEDS: PROTONIX PO SCH (18:06)
[2021-04-29 20:15] LABS: BILIRUBIN,URINE Negative (NEGATIVE); CLARITY,URINE Clear (CLEAR); COLOR,URINE Yellow (YELLOW); GLUCOSE, URINE (UA) Negative (NEGATIVE); KETONES,URINE Negative (NEGATIVE); LEUKOCYTE ESTERASE ,URINE Negative (NEGATIVE); NITRITE,URINE Negative (NEGATIVE); PROTEIN,URINE Negative (NEGATIVE); URINE, BLOOD Negative (NEGATIVE); UROBILINOGEN,URINE 0.2 (0.2)
[2021-04-29] MEDS: CARDIZEM PO SCH (20:32)
[2021-04-29] MEDS: CRESTOR PO SCH (20:32)
[2021-04-29] MEDS: TRIGLIDE PO SCH (20:32)
[2021-04-29] MEDS: TOPROL XL PO SCH (20:32)
[2021-04-29] MEDS: ATIVAN PO SCH (20:33)
[2021-04-29] MEDS: FLOMAX PO SCH (20:33)
[2021-04-29] MEDS: ELIQUIS PO SCH (20:34)
[2021-04-29] MEDS: SYMBICORT 160-4.5 MCG INHALER IH SCH (20:34)
[2021-04-29] MEDS ORDERED: FENOFIBRATE NANOCRYSTALLIZED 145 MG PO SCH (21:00)
[2021-04-30 05:15] LABS: HEMATOCRIT 35.9 % (42.0-52.0); HEMOGLOBIN 11.3 g/dl (14.0-18.0); IMMATURE GRANULOCYTE % (AUTO) 0.4 % (0.0-5.0); LYMPHOCYTES # (AUTO) 0.3 K/uL (0.60-3.4); LYMPHOCYTES % (AUTO) 11.4 (10.0-50.0); MEAN CORPUSCULAR HEMOGLOBIN 28.3 pg (27.0-31.0); MEAN CORPUSCULAR HGB CONC 31.5 (31.8-35.4); MONOCYTES # (AUTO) 0.1 K/uL (0.4-2.0); MONOCYTES % (AUTO) 4.6 (0-10); NEUTROPHILS % (AUTO) 83.6 % (42.2-75.2); PLATELET COUNT 153 10^3/uL (140-440); RDW COEFFICIENT OF VARIATION 18.3 % (11.6-14.8); RED BLOOD COUNT 3.99 10^6/ul (4.70-6.10); WHITE BLOOD COUNT 2.37 K/ul (4.2-10.2)
[2021-04-30 05:35] LABS: ALANINE AMINOTRANSFERASE 19.4 U/L (0-50); ALBUMIN 3.04 g/dL (3.5-5.0); ASPARTATE AMINO TRANSFERASE 20.4 U/L (17-59); BILIRUBIN,TOTAL 0.88 mg/dL (0.2-1.3); BLOOD UREA NITROGEN 20.6 mg/dL (9-20); CALCIUM 8.69 mg/dL (8.4-10.2); CARBON DIOXIDE 29.9 mmol/L (22-30.0); CHLORIDE 106.9 mmol/L (98-107); CREATININE 1.31 mg/dL (0.60-1.10); POTASSIUM 4.14 mmol/L (3.5-5.1); SODIUM 141.4 mmol/L (134.5-145); TOTAL PROTEIN 5.56 g/dL (6.3-8.2)
[2021-04-30] MEDS: PROTONIX PO SCH ×2 (05:46→16:54)
[2021-04-30] MEDS: NYSTOP POWDER TP SCH ×4 (09:15→20:46)
[2021-04-30] MEDS: SYMBICORT 160-4.5 MCG INHALER IH SCH ×2 (09:15→20:46)
[2021-04-30] MEDS: ELIQUIS PO SCH ×2 (09:16→20:46)
[2021-04-30] MEDS: ZESTRIL PO SCH (09:16)
[2021-04-30] MEDS: MICRO-K CAP PO SCH (09:16)
[2021-04-30] MEDS: FLOMAX PO SCH ×2 (09:16→20:46)
[2021-04-30] MEDS: CARDIZEM PO SCH ×2 (09:16→20:46)
[2021-04-30] MEDS: TOPROL XL PO SCH ×2 (09:16→20:46)
[2021-04-30] MEDS: JANUVIA PO SCH (09:16)
[2021-04-30] MEDS: LASIX TAB PO SCH (10:14)
[2021-04-30] MEDS: TRIGLIDE PO SCH (20:45)
[2021-04-30] MEDS: ATIVAN PO SCH (20:45)
[2021-04-30] MEDS: CRESTOR PO SCH (20:46)
[2021-05-01 05:11] LABS: BASOPHILS % (AUTO) 0.3 % (0.0-3.0); EOSINOPHILS # (AUTO) 0.1 K/ul (0.0-0.7); EOSINOPHILS % (AUTO) 3.9 % (0.0-7.0); HEMATOCRIT 32.3 % (42.0-52.0); HEMOGLOBIN 10.2 g/dl (14.0-18.0); IMMATURE GRANULOCYTE % (AUTO) 0.3 % (0.0-5.0); LYMPHOCYTES # (AUTO) 0.5 K/uL (0.60-3.4); LYMPHOCYTES % (AUTO) 15.3 (10.0-50.0); MEAN CORPUSCULAR HEMOGLOBIN 28.4 pg (27.0-31.0); MEAN CORPUSCULAR HGB CONC 31.6 (31.8-35.4); MONOCYTES # (AUTO) 0.3 K/uL (0.4-2.0); MONOCYTES % (AUTO) 10.2 (0-10); NEUTROPHILS # (AUTO) 2.3 K/ul (2.0-6.9); PLATELET COUNT 172 10^3/uL (140-440); RDW COEFFICIENT OF VARIATION 18.6 % (11.6-14.8); RED BLOOD COUNT 3.59 10^6/ul (4.70-6.10); WHITE BLOOD COUNT 3.34 K/ul (4.2-10.2)
[2021-05-01 05:25] LABS: ALANINE AMINOTRANSFERASE 15.2 U/L (0-50); ALBUMIN 2.56 g/dL (3.5-5.0); ALKALINE PHOSPHATASE 31.3 U/L (56-119); ASPARTATE AMINO TRANSFERASE 19.3 U/L (17-59); BILIRUBIN,TOTAL 0.63 mg/dL (0.2-1.3); BLOOD UREA NITROGEN 27.9 mg/dL (9-20); CALCIUM 8.16 mg/dL (8.4-10.2); CARBON DIOXIDE 32.9 mmol/L (22-30.0); CHLORIDE 105.2 mmol/L (98-107); CREATININE 1.47 mg/dL (0.60-1.10); GLUCOSE 174.3 mg/dL (74-106); POTASSIUM 3.7 mmol/L (3.5-5.1); TOTAL PROTEIN 4.87 g/dL (6.3-8.2)
[2021-05-01] MEDS: LASIX TAB PO SCH (05:44)
[2021-05-01] MEDS: PROTONIX PO SCH ×2 (05:44→16:41)
[2021-05-01] MEDS: TOPROL XL PO SCH ×2 (09:39→21:00)
[2021-05-01] MEDS: JANUVIA PO SCH (09:39)
[2021-05-01] MEDS: CARDIZEM PO SCH ×2 (09:39→21:01)
[2021-05-01] MEDS: FLOMAX PO SCH ×2 (09:40→21:01)
[2021-05-01] MEDS: MICRO-K CAP PO SCH (09:40)
[2021-05-01] MEDS: ZESTRIL PO SCH (09:40)
[2021-05-01] MEDS: SYMBICORT 160-4.5 MCG INHALER IH SCH ×2 (09:41→21:20)
[2021-05-01] MEDS: NYSTOP POWDER TP SCH ×4 (09:41→21:20)
[2021-05-01] MEDS: ELIQUIS PO SCH ×2 (09:42→21:01)
[2021-05-01] MEDS: CRESTOR PO SCH (21:00)
[2021-05-01] MEDS: ATIVAN PO SCH (21:00)
[2021-05-01] MEDS: TRIGLIDE PO SCH (21:01)
[2021-05-02 05:09] LABS: BASOPHILS % (AUTO) 0.8 % (0.0-3.0); EOSINOPHILS # (AUTO) 0.4 K/ul (0.0-0.7); EOSINOPHILS % (AUTO) 8.9 % (0.0-7.0); HEMATOCRIT 32.7 % (42.0-52.0); HEMOGLOBIN 10.4 g/dl (14.0-18.0); IMMATURE GRANULOCYTE % (AUTO) 0.3 % (0.0-5.0); LYMPHOCYTES # (AUTO) 0.8 K/uL (0.60-3.4); LYMPHOCYTES % (AUTO) 20.5 (10.0-50.0); MEAN CORPUSCULAR HEMOGLOBIN 28.6 pg (27.0-31.0); MEAN CORPUSCULAR HGB CONC 31.8 (31.8-35.4); MEAN CORPUSCULAR VOLUME 89.8 fl (80.0-94.0); MONOCYTES # (AUTO) 0.4 K/uL (0.4-2.0); MONOCYTES % (AUTO) 9.1 (0-10); NEUTROPHILS # (AUTO) 2.4 K/ul (2.0-6.9); NEUTROPHILS % (AUTO) 60.4 % (42.2-75.2); PLATELET COUNT 183 10^3/uL (140-440); RDW COEFFICIENT OF VARIATION 18.6 % (11.6-14.8); RED BLOOD COUNT 3.64 10^6/ul (4.70-6.10); WHITE BLOOD COUNT 3.95 K/ul (4.2-10.2)
[2021-05-02 05:23] LABS: ALANINE AMINOTRANSFERASE 15.3 U/L (0-50); ALBUMIN 2.68 g/dL (3.5-5.0); ALKALINE PHOSPHATASE 30.7 U/L (56-119); ASPARTATE AMINO TRANSFERASE 18.1 U/L (17-59); BILIRUBIN,TOTAL 0.51 mg/dL (0.2-1.3); BLOOD UREA NITROGEN 29.4 mg/dL (9-20); CALCIUM 8.27 mg/dL (8.4-10.2); CARBON DIOXIDE 33.6 mmol/L (22-30.0); CREATININE 1.48 mg/dL (0.60-1.10); GLUCOSE 159.3 mg/dL (74-106); POTASSIUM 3.72 mmol/L (3.5-5.1); SODIUM 139.2 mmol/L (134.5-145); TOTAL PROTEIN 4.96 g/dL (6.3-8.2)
[2021-05-02] MEDS: PROTONIX PO SCH ×2 (05:35→16:46)
[2021-05-02] MEDS: LASIX TAB PO SCH (05:35)
--- NOTE | 2021-05-02 08:54 | PCM.PROG ---
Attending Provider: ATTENDING PROVIDER: Dr. OMAR MENDIOLA This patient is seen with Thais Acosta, Nurse Practitioner. DATE OF SERVICE: 05/02/21 SUBJECTIVE: This 80 year old /WHITE M was hospitalized 04/29/21. Pleasantly confused and oriented to person. BNP is down today. We will have weights again today. Unable to monitor I&O due to incontinence. Eating well. Leg edema improved. REVIEW OF SYSTEMS: CONSTITUTIONAL: No night sweats. No fatigue, malaise, lethargy. No fever or chills. Weakness. HEENT: Eyes: No visual changes. No eye pain. No eye discharge. ENT: No runny nose. No epistaxis. No sinus pain. No odynophagia. No congestion. RESPIRATORY: No cough, no congestion. No hemoptysis. Shortness of breath. CARDIOVASCULAR: No angina symptoms. No CHF symptoms. No atypical chest pain for CAD. No palpitations. No orthopnea.. GASTROINTESTINAL: No abdominal pain. No nausea or vomiting. No diarrhea or constipation. No hematemesis. No hematochezia. GENITOURINARY: No urgency. No frequency. No dysuria. No hematuria. No obstructive symptoms. No discharge. No pain. No significant abnormal bleeding. MUSCULOSKELETAL: No musculoskeletal pain; no joint swelling. NEUROLOGICAL: Awake, alert, intermittent confusion. No headache. No neck pain. No syncope. No seizures. No dizziness. PSYCHIATRIC: Not anxious. No depression. No suicidal thoughts. No homicidal thoughts. SKIN: No rash. No lesions. No wounds. ENDOCRINE: No unexplained weight loss. No weight gain. HEMATOLOGIC/LYMPHATIC: No anemia. No purpura. No petechiae. No prolonged or excessive bleeding. No palpable lymph nodes. PHYSICAL EXAMINATION: GENERAL: The patient is awake, alert and oriented, sitting in bed in no distress. VITAL SIGNS: Temperature 97.8 F, Pulse 75, Respiratory Rate 20, BP 115/67, Pulse Ox 92% HEENT: Head normocephalic, atraumatic. Eyes: Extraocular muscles are intact. Pupils are equal, round and reactive to light and accommodation. Ears: No lesions. Nose appeared normal. Throat: No exudate or erythema. NECK: Supple. No JVD, no carotid bruit. No lymphadenopathy or thyromegaly. LUNGS: Diminished breath sounds. Clear to auscultation. Percussion note normal. Chest symmetrical. HEART: S1, S2, no S3. No murmurs. No cyanosis or clubbing. No ascites. Pulses: Dorsalis pedis and posterior tibial pulses +1 to +2 both sides. ABDOMEN: Soft. Non-tender. Bowel sounds active. No CVA tenderness. No mass felt. EXTREMITIES: Trace pedal edema. Full range of motion of all extremities, equal. NEUROLOGIC: No focal deficit. Cranial nerves II through XII are grossly intact. No headache. No double vision. SKIN: Not dry. Intact. Turgor-normal. LYMPHATIC: No palpable lymph nodes/no lymphedema. MUSCULOSKELETAL: Normal joints with no swelling. Muscle tone is normal. LAB REVIEW: 05/02/21 04:49 05/02/21 04:49 05/02/21 04:49: Sodium 139.2, Potassium 3.72, Chloride 105.0, Carbon Dioxide 33.6 H, Anion Gap 4.32, BUN 29.4 H, Creatinine 1.48 H, Estimated GFR (MDRD) 46.00, BUN/Creatinine Ratio 19.86, Glucose 159.3 H, Calcium 8.27 L, Total Bilirubin 0.51, AST 18.1, ALT 15.3, Alkaline Phosphatase 30.7 L, NT-Pro-B Natriuret Pep 6400.000 H, Total Protein 4.96 L, Albumin 2.68 L, Globulin 2.28, Albumin/Globulin Ratio 1.17 05/02/21 04:49: WBC 3.95 L, RBC 3.64 L, Hgb 10.4 L, Hct 32.7 L, MCV 89.8, MCH 28.6, MCHC 31.8, RDW Coeff of [place] 18.6 H, Plt Count 183, Immature Gran % (Auto) 0.3, Neut % (Auto) 60.4, Lymph % (Auto) 20.5, [place] % (Auto) 9.1, Eos % (Auto) 8.9 H, Baso % (Auto) 0.8, Neut # (Auto) 2.4, Lymph # (Auto) 0.8, [place] # (Auto) 0.4, Eos # (Auto) 0.4, Baso # (Auto) 0.0, Immature Gran # (Auto) 0.0 ASSESSMENT: Please see below. 1. CHF 2. LVH 3. Atrial fibrillation 4. Hypertension 5. CAD 6. Dementia 7. COVID in 02/15 PLAN: 1. Weigh again today 2. ABG on 4 liters 3. Continue to monitor Plan and coordination of the patient's care discussed in the presence of Airport Operations Duty Manager and nurse. SCRIBED BY: Renuka IRENEist scribed while in presence of service performed by Dr. Mendiola/Thais Acosta APRN on 05/02/21 ([id number])
[2021-05-02] MEDS: TOPROL XL PO SCH ×2 (09:01→20:28)
[2021-05-02] MEDS: FLOMAX PO SCH ×2 (09:02→20:28)
[2021-05-02] MEDS: CARDIZEM PO SCH ×2 (09:02→20:28)
[2021-05-02] MEDS: MICRO-K CAP PO SCH (09:03)
[2021-05-02] MEDS: ZESTRIL PO SCH (09:03)
[2021-05-02] MEDS: JANUVIA PO SCH (09:04)
[2021-05-02] MEDS: ELIQUIS PO SCH ×2 (09:04→20:28)
[2021-05-02 09:06] LABS: ABG O2 HGB 92.8 % (95-100); ABG PH 7.44 (7.35-7.45); BEecf 11.1 (-2.0-3.0); COHb 2.6 (0.5-1.5); HCO3 35.3 (21-28); MetHb 1.6 (0-1.5); TCO2 36.9 (19-24); sO2 94.6 % (94-98)
[2021-05-02] MEDS: SYMBICORT 160-4.5 MCG INHALER IH SCH ×2 (09:10→20:29)
[2021-05-02] MEDS: NYSTOP POWDER TP SCH ×4 (09:10→20:29)
[2021-05-02] MEDS: ATIVAN PO SCH (20:27)
[2021-05-02] MEDS: TRIGLIDE PO SCH (20:28)
[2021-05-02] MEDS: CRESTOR PO SCH (20:28)
[2021-05-03 05:01] LABS: BASOPHILS % (AUTO) 0.3 % (0.0-3.0); EOSINOPHILS # (AUTO) 0.3 K/ul (0.0-0.7); EOSINOPHILS % (AUTO) 6.5 % (0.0-7.0); HEMATOCRIT 33.6 % (42.0-52.0); HEMOGLOBIN 10.7 g/dl (14.0-18.0); IMMATURE GRANULOCYTE % (AUTO) 0.5 % (0.0-5.0); LYMPHOCYTES # (AUTO) 0.6 K/uL (0.60-3.4); LYMPHOCYTES % (AUTO) 16.1 (10.0-50.0); MEAN CORPUSCULAR HEMOGLOBIN 28.8 pg (27.0-31.0); MEAN CORPUSCULAR HGB CONC 31.8 (31.8-35.4); MEAN CORPUSCULAR VOLUME 90.6 fl (80.0-94.0); MONOCYTES # (AUTO) 0.4 K/uL (0.4-2.0); MONOCYTES % (AUTO) 9.1 (0-10); NEUTROPHILS # (AUTO) 2.7 K/ul (2.0-6.9); NEUTROPHILS % (AUTO) 67.5 % (42.2-75.2); PLATELET COUNT 190 10^3/uL (140-440); RDW COEFFICIENT OF VARIATION 18.4 % (11.6-14.8); RED BLOOD COUNT 3.71 10^6/ul (4.70-6.10); WHITE BLOOD COUNT 3.97 K/ul (4.2-10.2)
[2021-05-03 05:14] LABS: ALANINE AMINOTRANSFERASE 14.3 U/L (0-50); ALBUMIN 2.77 g/dL (3.5-5.0); ALKALINE PHOSPHATASE 34.6 U/L (56-119); ASPARTATE AMINO TRANSFERASE 17.8 U/L (17-59); BILIRUBIN,TOTAL 0.55 mg/dL (0.2-1.3); CALCIUM 8.26 mg/dL (8.4-10.2); CARBON DIOXIDE 35.3 mmol/L (22-30.0); CHLORIDE 105.7 mmol/L (98-107); CREATININE 1.46 mg/dL (0.60-1.10); GLUCOSE 171.2 mg/dL (74-106); POTASSIUM 3.99 mmol/L (3.5-5.1); SODIUM 140.2 mmol/L (134.5-145); TOTAL PROTEIN 5.23 g/dL (6.3-8.2)
[2021-05-03] MEDS: LASIX TAB PO SCH (06:04)
[2021-05-03] MEDS: PROTONIX PO SCH ×2 (06:04→17:27)
[2021-05-03] MEDS ORDERED: LASIX IVP ONE (08:28)
[2021-05-03] MEDS: NYSTOP POWDER TP SCH ×4 (08:39→20:06)
[2021-05-03] MEDS: SYMBICORT 160-4.5 MCG INHALER IH SCH ×2 (08:40→20:06)
[2021-05-03] MEDS: ELIQUIS PO SCH ×2 (08:41→20:07)
[2021-05-03] MEDS: JANUVIA PO SCH (08:41)
[2021-05-03] MEDS: MICRO-K CAP PO SCH (08:41)
[2021-05-03] MEDS: FLOMAX PO SCH ×2 (08:41→20:06)
[2021-05-03] MEDS: CARDIZEM PO SCH ×2 (08:41→20:05)
[2021-05-03] MEDS: TOPROL XL PO SCH ×2 (08:41→20:06)
[2021-05-03] MEDS: ZESTRIL PO SCH (08:41)
--- NOTE | 2021-05-03 08:43 | PCM.PROG ---
Attending Provider: ATTENDING PROVIDER: Dr. OMAR MENDIOLA This patient is seen with Thais Acosta, Nurse Practitioner. DATE OF SERVICE: 05/03/21 SUBJECTIVE: This 80 year old /WHITE M was hospitalized 04/29/21. He has been getting up with walker. ABG improved still on 4 liters. He is down 4 pounds since admission. Labs are stable. Eating well. REVIEW OF SYSTEMS: CONSTITUTIONAL: No night sweats. No fatigue, malaise, lethargy. No fever or chills. Weakness. HEENT: Eyes: No visual changes. No eye pain. No eye discharge. ENT: No runny nose. No epistaxis. No sinus pain. No odynophagia. No congestion. RESPIRATORY: No cough, no congestion. No hemoptysis. Shortness of breath. CARDIOVASCULAR: No angina symptoms. No CHF symptoms. No atypical chest pain for CAD. No palpitations. No orthopnea.. GASTROINTESTINAL: No abdominal pain. No nausea or vomiting. No diarrhea or c onstipation. No hematemesis. No hematochezia. GENITOURINARY: No urgency. No frequency. No dysuria. No hematuria. No obstructive symptoms. No discharge. No pain. No significant abnormal bleeding. MUSCULOSKELETAL: No musculoskeletal pain; no joint swelling. NEUROLOGICAL: Awake, alert, intermittent confusion. No headache. No neck pain. No syncope. No seizures. No dizziness. PSYCHIATRIC: Not anxious. No depression. No suicidal thoughts. No homicidal thoughts. SKIN: No rash. No lesions. No wounds. ENDOCRINE: No unexplained weight loss. No weight gain. HEMATOLOGIC/LYMPHATIC: No anemia. No purpura. No petechiae. No prolonged or excessive bleeding. No palpable lymph nodes. PHYSICAL EXAMINATION: GENERAL: The patient is awake, alert and oriented to person, sitting in bed in no distress. VITAL SIGNS: Temperature 97.0 F, Pulse 96, Respiratory Rate 20, BP 140/83, Pulse Ox 92% HEENT: Head normocephalic, atraumatic. Eyes: Extraocular muscles are intact. Pupils are equal, round and reactive to light and accommodation. Ears: No lesions. Nose appeared normal. Throat: No exudate or erythema. NECK: Supple. No JVD, no carotid bruit. No lymphadenopathy or thyromegaly. LUNGS: Diminished breath sounds. Clear to auscultation. Percussion note normal. Chest symmetrical. HEART: Irregular heart rate. S1, S2, no S3. No murmurs. No cyanosis or clubbing. No ascites. Pulses: Dorsalis pedis and posterior tibial pulses +1 to +2 both sides. ABDOMEN: Soft. Non-tender. Bowel sounds active. No CVA tenderness. No mass felt. EXTREMITIES: No edema. Full range of motion of all extremities, equal. NEUROLOGIC: No focal deficit. Cranial nerves II through XII are grossly intact. No headache. No double vision. SKIN: Not dry. Intact. Turgor-normal. LYMPHATIC: No palpable lymph nodes/no lymphedema. MUSCULOSKELETAL: Normal joints with no swelling. Muscle tone is normal. LAB REVIEW: 05/03/21 04:40 05/03/21 04:40 05/03/21 04:40: Sodium 140.2, Potassium 3.99, Chloride 105.7, Carbon Dioxide 35.3 H, Anion Gap 3.19, BUN 28.0 H, Creatinine 1.46 H, Estimated GFR (MDRD) 46.00, BUN/Creatinine Ratio 19.17, Glucose 171.2 H, Calcium 8.26 L, Total Bilirubin 0.55, AST 17.8, ALT 14.3, Alkaline Phosphatase 34.6 L, Total Protein 5.23 L, Albumin 2.77 L, Globulin 2.46, Albumin/Globulin Ratio 1.12 05/03/21 04:40: WBC 3.97 L, RBC 3.71 L, Hgb 10.7 L, Hct 33.6 L, MCV 90.6, MCH 28.8, MCHC 31.8, RDW Coeff of [place] 18.4 H, Plt Count 190, Immature Gran % (Auto) 0.5, Neut % (Auto) 67.5, Lymph % (Auto) 16.1, [place] % (Auto) 9.1, Eos % (Auto) 6.5, Baso % (Auto) 0.3, Neut # (Auto) 2.7, Lymph # (Auto) 0.6, [place] # (Auto) 0.4, Eos # (Auto) 0.3, Baso # (Auto) 0.0, Immature Gran # (Auto) 0.0 05/02/21 08:55: Puncture Site Rr, Base Excess 11.1 H, O2 Saturation 94.6, ABG pH 7.44, ABG pCO2 52.0 H, ABG pO2 71.0 L, ABG HCO3 35.3 H, ABG Total CO2 36.9 H, Shantanu Test Pos, Hemoglobin 1.6 H, Oxyhemoglobin 92.8 L, Carboxyhemoglobin 2.6 H, Total Hemoglobin 11.0 L, O2 Delivery Device Cannula, Oxygen Liter Flow 4.00 ASSESSMENT: Please see below. 1. Acute CHF 2. Renal azotemia 3. Dementia 4. Acute respiratory failure 5. Atrial fibrillation PLAN: 1. Lasix IV 20mg 2. Repeat chest x-ray Plan and coordination of the patient's care discussed in the presence of Manufacturing Recruiter and nurse. SCRIBED BY: Waldo IRENE scribed while in presence of service performed by Dr. Mendiola/Thais Acosta APRN on 05/03/21 ([id number])
--- NOTE | 2021-05-03 09:13 | DI ---
EXAM: CHEST RADIOGRAPH (1 VIEW) TECHNIQUE: Frontal Chest Radiograph. HISTORY: Shortness of breath. COMPARISON: Chest radiograph 04/29/2021 FINDINGS: Lines, Tubes, Devices: None Lungs and Pleura: Small bilateral pleural effusions with bilateral lower lobe opacities, slightly wo rsened from prior. Prominent bilateral bronchovascular markings. No pneumothorax. Cardiomediastinum: Enlarged cardiomediastinal silhouette. No aortic calcifications. Bones/Soft Tissues: No acute osseous abnormality. No soft tissue abnormality. Upper Abdomen: Within normal limits. IMPRESSION: Slight interval increase in size of small bilateral pleural effusions with associated atelectasis. Pulmonary vascular congestion.
--- NOTE | 2021-05-03 11:52 | PN ---
DATE OF SERVICE: 04/30/21 SUBJECTIVE: 80 year old white male who is in the group home was hospitalized with congestive heart failure, chronic lung disease with exacerbation of COPD. Condition has improved according to the who is sitting there today. The patient is alert and is not in any distress at all. He is listening to his . He had ate all his breakfast this morning. REVIEW OF SYSTEMS: CONSTITUTIONAL: No night sweats. No fatigue, malaise, lethargy. No fever or chills. Confused. HEENT: Eyes: No visual changes. No eye pain. No eye discharge. ENT: No runny nose. No epistaxis. No sinus pain. No sore throat. No odynophagia. No congestion. RESPIRATORY: No cough, no congestion. No hemoptysis. No shortness of breath. CARDIOVASCULAR: No angina symptoms. No CHF symptoms. No atypical chest pain for CAD. No palpitations. No PND. No orthopnea. GASTROINTESTINAL: No abdominal pain. No nausea or vomiting. No diarrhea or constipation. No hematemesis. No hematochezia. GENITOURINARY: No urgency. No frequency. No dysuria. No hematuria. No obstructive symptoms. No discharge. No pain. No significant abnormal bleeding. MUSCULOSKELETAL: No musculoskeletal pain; no joint swelling. NEUROLOGICAL: No headache. No neck pain. No syncope. No seizures. No dizziness. PSYCHIATRIC: Not anxious. No depression. No suicidal thoughts. No homicidal thoughts. SKIN: No rash. No lesions. No wounds. ENDOCRINE: No unexplained weight loss. No weight gain. HEMATOLOGIC/LYMPHATIC: No anemia. No purpura. No petechiae. No prolonged or excessive bleeding. No palpable lymph nodes. PHYSICAL EXAMINATION: VITAL SIGNS: Temperature 97.4, pulse 80, respiratory rate 16, blood pressure 126/83 and pulse ox 92% on 2 liters. HEENT: Head normocephalic, atraumatic. Eyes: Extraocular muscles are intact. Pupils are equal, round and reactive to light and accommodation. Ears: No lesions. Nose appeared normal. Throat: No exudate or erythema. NECK: Supple. No JVD, no carotid bruit. No lymphadenopathy or thyromegaly. LUNGS: Decreased breath sounds but good air entry. Percussion note normal. Chest symmetrical. HEART: S1, S2, no S3. No murmurs. No cyanosis or clubbing. No ascites. Pulses: Dorsalis pedis and posterior tibial pulses +1 to +2 bilaterally. ABDOMEN: Soft. Nontender. Bowel sounds active. No CVA tenderness. No mass felt. EXTREMITIES: No edema. Full range of motion of all extremities, equal. NEUROLOGIC: No focal deficit. Cranial nerves II through XII are grossly intact. No headache. No double vision. SKIN: Not dry. Intact. Turgor - normal. LYMPHATIC: No palpable lymph nodes/no lymphedema. MUSCULOSKELETAL: Normal joints with no swelling. Muscle tone is normal. LABS: Hgb 11.3, hct 35, WBC 2,300 normal differential,creatinine 1.3, BUN 20, potassium 4.1. Po2 61, pCO2 48, pH 7.43 with 92% saturation on 4 liters. ASSESSMENT: 1. CHF seems to have resolved with IV Lasix with good urine output. 2. Steroids has helped the patient's respiratory status with chronic lung disease with history of COVID pneumonia a few months. 3. 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 The patient is alert but still confused. 4. Appetite has improved. PLAN: 1. Elevate the legs 2. Lasix 20mg PO daily 3. Potassium K-tab 20meq daily TIME SPENT: More than 30 minutes. Plan and coordination of the patient's care discussed in the presence of nurse. DAVIDA
--- NOTE | 2021-05-03 11:55 | PN ---
DATE OF SERVICE: 05/01/21 SUBJECTIVE: The patient's condition has improved remarkably. He ate all his breakfast by himself. The is present right now and feeding him. REVIEW OF SYSTEMS: CONSTITUTIONAL: No night sweats. No fatigue, malaise, lethargy. No fever or chills. HEENT: Eyes: No visual changes. No eye pain. No eye discharge. ENT: No runny nose. No epistaxis. No sinus pain. No sore throat. No odynophagia. No congestion. RESPIRATORY: No cough, no congestion. No hemoptysis. No shortness of breath. CARDIOVASCULAR: No angina symptoms. No CHF symptoms. No atypical chest pain for CAD. No palpitations. No PND. No orthopnea. GASTROINTESTINAL: No abdominal pain. No nausea or vomiting. No diarrhea or constipation. No hematemesis. No hematochezia. GENITOURINARY: No urgency. No frequency. No dysuria. No hematuria. No obstructive symptoms. No discharge. No pain. No significant abnormal bleeding. MUSCULOSKELETAL: No musculoskeletal pain; no joint swelling. NEUROLOGICAL: No headache. No neck pain. No syncope. No seizures. No dizziness. PSYCHIATRIC: Not anxious. No depression. No suicidal thoughts. No homicidal thoughts. SKIN: No rash. No lesions. No wounds. ENDOCRINE: No unexplained weight loss. No weight gain. HEMATOLOGIC/LYMPHATIC: No anemia. No purpura. No petechiae. No prolonged or excessive bleeding. No palpable lymph nodes. PHYSICAL EXAMINATION: GENERAL: The patient is alert but confused seems to be recognizing his . HEENT: Head normocephalic, atraumatic. Eyes: Extraocular muscles are intact. Pupils are equal, round and reactive to light and accommodation. Ears: No lesions. Nose appeared normal. Throat: No exudate or erythema. NECK: Supple. No JVD, no carotid bruit. No lymphadenopathy or thyromegaly. LUNGS: Decreased breath sounds but clear to auscultation. Percussion note normal. Chest symmetrical. HEART: S1, S2, no S3. No murmurs. No cyanosis or clubbing. No ascites. Pulses: Dorsalis pedis and posterior tibial pulses +1 to +2 bilaterally. ABDOMEN: Soft. Nontender. Bowel sounds active. No CVA tenderness. No mass felt. EXTREMITIES: No edema. Full range of motion of all extremities, equal. NEUROLOGIC: No focal deficit. Cranial nerves II through XII are grossly intact. No headache. No double vision. SKIN: Not dry. Intact. Turgor - normal. LYMPHATIC: No palpable lymph nodes/no lymphedema. MUSCULOSKELETAL: Normal joints with no swelling. Muscle tone is normal. ASSESSMENT: 1. CHF 2. COPD exacerbation seems to be controlled with oxygenation. Respiratory status has improved along with appetite. 3. COVID 19 complications for past three months with dementia, COPD and worsening of his cardiac status to some extent at present time he is stable. TIME SPENT: More than 30 minutes. Plan and coordination of the patient's care discussed in the presence of nurse. DAVIDA
[2021-05-03] MEDS: CRESTOR PO SCH (20:05)
[2021-05-03] MEDS: ALDACTONE PO SCH (20:06)
[2021-05-03] MEDS: TRIGLIDE PO SCH (20:06)
[2021-05-03] MEDS: ATIVAN PO SCH (20:06)
[2021-05-04 05:24] LABS: BASOPHILS % (AUTO) 0.5 % (0.0-3.0); EOSINOPHILS # (AUTO) 0.3 K/ul (0.0-0.7); EOSINOPHILS % (AUTO) 6.5 % (0.0-7.0); HEMATOCRIT 33.6 % (42.0-52.0); HEMOGLOBIN 10.7 g/dl (14.0-18.0); IMMATURE GRANULOCYTE % (AUTO) 0.2 % (0.0-5.0); LYMPHOCYTES # (AUTO) 0.7 K/uL (0.60-3.4); LYMPHOCYTES % (AUTO) 17.7 (10.0-50.0); MEAN CORPUSCULAR HEMOGLOBIN 28.6 pg (27.0-31.0); MEAN CORPUSCULAR HGB CONC 31.8 (31.8-35.4); MEAN CORPUSCULAR VOLUME 89.8 fl (80.0-94.0); MONOCYTES # (AUTO) 0.3 K/uL (0.4-2.0); NEUTROPHILS # (AUTO) 2.7 K/ul (2.0-6.9); NEUTROPHILS % (AUTO) 67.1 % (42.2-75.2); PLATELET COUNT 193 10^3/uL (140-440); RDW COEFFICIENT OF VARIATION 17.9 % (11.6-14.8); RED BLOOD COUNT 3.74 10^6/ul (4.70-6.10); WHITE BLOOD COUNT 4.02 K/ul (4.2-10.2)
[2021-05-04 05:37] LABS: ALANINE AMINOTRANSFERASE 13.2 U/L (0-50); ALBUMIN 2.8 g/dL (3.5-5.0); ASPARTATE AMINO TRANSFERASE 17.4 U/L (17-59); BILIRUBIN,TOTAL 0.61 mg/dL (0.2-1.3); BLOOD UREA NITROGEN 24.6 mg/dL (9-20); CALCIUM 8.33 mg/dL (8.4-10.2); CARBON DIOXIDE 36.8 mmol/L (22-30.0); CHLORIDE 103.8 mmol/L (98-107); CREATININE 1.24 mg/dL (0.60-1.10); POTASSIUM 3.91 mmol/L (3.5-5.1); SODIUM 138.8 mmol/L (134.5-145); TOTAL PROTEIN 5.2 g/dL (6.3-8.2)
[2021-05-04] MEDS: LASIX TAB PO SCH (05:43)
[2021-05-04] MEDS: PROTONIX PO SCH ×2 (05:44→16:58)
[2021-05-04] MEDS: ZESTRIL PO SCH (09:32)
[2021-05-04] MEDS: SYMBICORT 160-4.5 MCG INHALER IH SCH ×2 (09:32→20:20)
[2021-05-04] MEDS: TOPROL XL PO SCH ×2 (09:32→20:20)
[2021-05-04] MEDS: ALDACTONE PO SCH ×2 (09:32→20:20)
[2021-05-04] MEDS: NYSTOP POWDER TP SCH ×4 (09:32→20:20)
[2021-05-04] MEDS: CARDIZEM PO SCH ×2 (09:33→20:20)
[2021-05-04] MEDS: MICRO-K CAP PO SCH (09:33)
[2021-05-04] MEDS: JANUVIA PO SCH (09:33)
[2021-05-04] MEDS: FLOMAX PO SCH ×2 (09:33→20:20)
[2021-05-04] MEDS: ELIQUIS PO SCH ×2 (09:33→20:21)
--- NOTE | 2021-05-04 09:55 | PN ---
DATE OF SERVICE: 05/02/21 SUBJECTIVE: 80 year old white male hospitalized with CHF exacerbation. The patient's condition has improved. He is alot better and eating better. The patient was seen and examined with the Nurse Practitioner. The patient's condition is improved. Continue Lasix and steroids. TIME SPENT: More than 30 minutes. Plan and coordination of the patient's care discussed in the presence of nurse. DAVIDA
[2021-05-04] MEDS: TRIGLIDE PO SCH (20:20)
[2021-05-04] MEDS: ATIVAN PO SCH (20:20)
[2021-05-04] MEDS: CRESTOR PO SCH (20:20)
[2021-05-05] MEDS: LASIX TAB PO SCH (05:51)
[2021-05-05] MEDS: PROTONIX PO SCH ×2 (05:51→16:40)
[2021-05-05 06:06] LABS: BASOPHILS % (AUTO) 0.5 % (0.0-3.0); EOSINOPHILS # (AUTO) 0.2 K/ul (0.0-0.7); EOSINOPHILS % (AUTO) 4.7 % (0.0-7.0); HEMATOCRIT 32.9 % (42.0-52.0); HEMOGLOBIN 10.5 g/dl (14.0-18.0); IMMATURE GRANULOCYTE % (AUTO) 0.5 % (0.0-5.0); LYMPHOCYTES # (AUTO) 0.7 K/uL (0.60-3.4); LYMPHOCYTES % (AUTO) 15.8 (10.0-50.0); MEAN CORPUSCULAR HEMOGLOBIN 28.8 pg (27.0-31.0); MEAN CORPUSCULAR HGB CONC 31.9 (31.8-35.4); MEAN CORPUSCULAR VOLUME 90.4 fl (80.0-94.0); MONOCYTES # (AUTO) 0.4 K/uL (0.4-2.0); MONOCYTES % (AUTO) 9.4 (0-10); NEUTROPHILS # (AUTO) 2.9 K/ul (2.0-6.9); NEUTROPHILS % (AUTO) 69.1 % (42.2-75.2); PLATELET COUNT 205 10^3/uL (140-440); RDW COEFFICIENT OF VARIATION 17.9 % (11.6-14.8); RED BLOOD COUNT 3.64 10^6/ul (4.70-6.10); WHITE BLOOD COUNT 4.25 K/ul (4.2-10.2)
[2021-05-05 06:24] LABS: ALANINE AMINOTRANSFERASE 12.9 U/L (0-50); ALBUMIN 2.83 g/dL (3.5-5.0); ALKALINE PHOSPHATASE 32.3 U/L (56-119); ASPARTATE AMINO TRANSFERASE 18.4 U/L (17-59); BILIRUBIN,TOTAL 0.59 mg/dL (0.2-1.3); BLOOD UREA NITROGEN 26.9 mg/dL (9-20); CALCIUM 8.38 mg/dL (8.4-10.2); CARBON DIOXIDE 38.8 mmol/L (22-30.0); CHLORIDE 103.7 mmol/L (98-107); CREATININE 1.59 mg/dL (0.60-1.10); GLUCOSE 175.5 mg/dL (74-106); POTASSIUM 4.01 mmol/L (3.5-5.1); SODIUM 140.6 mmol/L (134.5-145); TOTAL PROTEIN 5.25 g/dL (6.3-8.2)
--- NOTE | 2021-05-05 08:52 | PCM.PROG ---
Attending Provider: ATTENDING PROVIDER: Dr. OMAR MENDIOLA This patient is seen with Thais Acosta, Nurse Practitioner. DATE OF SERVICE: 05/05/21 SUBJECTIVE: This 80 year old /WHITE M was hospitalized 04/29/21. The patient is resting comfortably. Kidney function is stable. Has been eating well. REVIEW OF SYSTEMS: CONSTITUTIONAL: No night sweats. No fatigue, malaise, lethargy. No fever or chills. Weakness. HEENT: Eyes: No visual changes. No eye pain. No eye discharge. ENT: No runny nose. No epistaxis. No sinus pain. No odynophagia. No congestion. RESPIRATORY: No cough, no congestion. No hemoptysis. Shortness of breath. CARDIOVASCULAR: No angina symptoms. No CHF symptoms. No atypical chest pain for CAD. No palpitations. No orthopnea.. GASTROINTESTINAL: No abdominal pain. No nausea or vomiting. No diarrhea or constipation. No hematemesis. No hematochezia. GENITOURINARY: No urgency. No frequency. No dysuria. No hematuria. No obstructive symptoms. No discharge. No pain. No significant abnormal bleeding. MUSCULOSKELETAL: No musculoskeletal pain; no joint swelling. NEUROLOGICAL: Awake, alert. No headache. No neck pain. No syncope. No seizures. No dizziness. PSYCHIATRIC: Not anxious. No depression. No suicidal thoughts. No homicidal thoughts. SKIN: No rash. No lesions. No wounds. ENDOCRINE: No unexplained weight loss. No weight gain. HEMATOLOGIC/LYMPHATIC: No anemia. No purpura. No petechiae. No prolonged or excessive bleeding. No palpable lymph nodes. PHYSICAL EXAMINATION: GENERAL: The patient is awake, alert and oriented, lying in bed in no distress. VITAL SIGNS: Temperature 98.3 F, Pulse 83, Respiratory Rate 20, BP 141/75, Pulse Ox 92% HEENT: Head normocephalic, atraumatic. Eyes: Extraocular muscles are intact. Pupils are equal, round and reactive to light and accommodation. Ears: No lesions. Nose appeared normal. Throat: No exudate or erythema. NECK: Supple. No JVD, no carotid bruit. No lymphadenopathy or thyromegaly. LUNGS: Diminished breath sounds. Clear to auscultation. Percussion note normal. Chest symmetrical. HEART: S1, S2, no S3. No murmurs. Irregular heart rate. No cyanosis or clubbin g. No ascites. Pulses: Dorsalis pedis and posterior tibial pulses +1 to +2 both sides. ABDOMEN: Soft. Non-tender. Bowel sounds active. No CVA tenderness. No mass felt. EXTREMITIES: No edema. Full range of motion of all extremities, equal. NEUROLOGIC: No focal deficit. Cranial nerves II through XII are grossly intact. No headache. No double vision. Intermittent confusion. SKIN: Not dry. Intact. Turgor-normal. LYMPHATIC: No palpable lymph nodes/no lymphedema. MUSCULOSKELETAL: Normal joints with no swelling. Muscle tone is normal. LAB REVIEW: 05/05/21 05:15 05/05/21 05:15 05/05/21 05:15: Sodium 140.6, Potassium 4.01, Chloride 103.7, Carbon Dioxide 38.8 H, Anion Gap 2.11, BUN 26.9 H, Creatinine 1.59 H, Estimated GFR (MDRD) 42.00, BUN/Creatinine Ratio 16.91, Glucose 175.5 H, Calcium 8.38 L, Total Bilirubin 0.59, AST 18.4, ALT 12.9, Alkaline Phosphatase 32.3 L, Total Protein 5.25 L, Albumin 2.83 L, Globulin 2.42, Albumin/Globulin Ratio 1.16 05/05/21 05:15: WBC 4.25, RBC 3.64 L, Hgb 10.5 L, Hct 32.9 L, MCV 90.4, MCH 28.8, MCHC 31.9, RDW Coeff of [place] 17.9 H, Plt Count 205, Immature Gran % (Auto) 0.5, Neut % (Auto) 69.1, Lymph % (Auto) 15.8, [place] % (Auto) 9.4, Eos % (Auto) 4.7, Baso % (Auto) 0.5, Neut # (Auto) 2.9, Lymph # (Auto) 0.7, [place] # (Auto) 0.4, Eos # (Auto) 0.2, Baso # (Auto) 0.0, Immature Gran # (Auto) 0.0 ASSESSMENT: Please see below. 1. CHF 2. Chronic kidney disease stage 3 3. Acute respiratory failure 4. Dementia 5. Atrial fibrillation PLAN: 1. Increase Lopressor 25mg BID 2. ABG on 3 liters. Plan and coordination of the patient's care discussed in the presence of Director Compliance and nurse. SCRIBED BY: NABOR [place] [employer] scribed while in presence of service performed by Dr. Mendiola/Thais Acosta APRN on 05/05/21 ([id number])
[2021-05-05 08:53] LABS: ABG O2 HGB 87.6 % (95-100); ABG PH 7.47 (7.35-7.45); BEecf 13.4 (-2.0-3.0); COHb 2.9 (0.5-1.5); HCO3 37.1 (21-28); MetHb 1.1 (0-1.5); TCO2 38.7 (19-24); sO2 88.7 % (94-98); tHb 10.9 g/dl (11.7-17.4)
[2021-05-05] MEDS: NYSTOP POWDER TP SCH ×4 (08:58→20:32)
[2021-05-05] MEDS: SYMBICORT 160-4.5 MCG INHALER IH SCH ×2 (08:58→20:32)
[2021-05-05] MEDS: MICRO-K CAP PO SCH (08:59)
[2021-05-05] MEDS: JANUVIA PO SCH (09:00)
[2021-05-05] MEDS: TOPROL XL PO SCH ×2 (09:00→20:31)
[2021-05-05] MEDS: CARDIZEM PO SCH ×2 (09:01→20:31)
[2021-05-05] MEDS: ALDACTONE PO SCH ×2 (09:01→20:31)
[2021-05-05] MEDS: ZESTRIL PO SCH (09:02)
[2021-05-05] MEDS: ELIQUIS PO SCH ×2 (09:02→20:32)
[2021-05-05] MEDS: FLOMAX PO SCH ×2 (09:02→20:31)
--- NOTE | 2021-05-05 10:46 | PN ---
DATE OF SERVICE: 05/03/21 SUBJECTIVE: The patient was seen and examined with the Nurse Practitioner. The condition has improved. He is feeling a lot better.Echo was done 2D M Mode with complete Doppler. I will review the findings tomorrow. CONDITION: Stable. TIME SPENT: More than 30 minutes. Plan and coordination of the patient's care discussed in the presence of nurse. DAVIDA
--- NOTE | 2021-05-05 11:00 | PN ---
DATE OF SERVICE: 05/04/21 SUBJECTIVE: 80 year old white male hospitalized with CHF exacerbation. The patient seems to have improved. He is a lot better. Practically eating 100% of his breakfast and 100% of his lunch. He tried to carry on conversation with me but he didn't recognize who I was. REVIEW OF SYSTEMS: CONSTITUTIONAL: No night sweats. No fatigue, malaise, lethargy. No fever or chills. HEENT: Eyes: No visual changes. No eye pain. No eye discharge. ENT: No runny nose. No epistaxis. No sinus pain. No sore throat. No odynophagia. No congestion. RESPIRATORY: No cough, no congestion. No hemoptysis. No shortness of breath. CARDIOVASCULAR: No angina symptoms. No CHF symptoms. No atypical chest pain for CAD. No palpitations. No PND. No orthopnea. GASTROINTESTINAL: No abdominal pain. No nausea or vomiting. No diarrhea or constipation. No hematemesis. No hematochezia. Appetite has improved remarkable. GENITOURINARY: No urgency. No frequency. No dysuria. No hematuria. No obstructive symptoms. No discharge. No pain. No significant abnormal bleeding. MUSCULOSKELETAL: No musculoskeletal pain; no joint swelling. NEUROLOGICAL: No headache. No neck pain. No syncope. No seizures. No dizziness. Mental status still confused to person, place and time. PSYCHIATRIC: Not anxious. No depression. No suicidal thoughts. No homicidal thoughts. SKIN: No rash. No lesions. No wounds. ENDOCRINE: No unexplained weight loss. No weight gain. HEMATOLOGIC/LYMPHATIC: No anemia. No purpura. No petechiae. No prolonged or excessive bleeding. No palpable lymph nodes. PHYSICAL EXAMINATION: VITAL SIGNS: Temperature 97.8, pulse 60, respiratory rate 18, blood pressure 135/80. HEENT: Head normocephalic, atraumatic. Eyes: Extraocular muscles are intact. Pupils are equal, round and reactive to light and accommodation. Ears: No lesions. Nose appeared normal. Throat: No exudate or erythema. NECK: Supple. No JVD, no carotid bruit. No lymphadenopathy or thyromegaly. LUNGS: Decreased breath sounds but clear to auscultation. Percussion note normal. Chest symmetrical. HEART: S1, S2, no S3. No murmurs. No cyanosis or clubbing. No ascites. Pulses: Dorsalis pedis and posterior tibial pulses +1 to +2 bilaterally. ABDOMEN: Soft. Nontender. Bowel sounds active. No CVA tenderness. No mass felt. EXTREMITIES: No edema. Full range of motion of all extremities, equal. NEUROLOGIC: No focal deficit. Cranial nerves II through XII are grossly intact. No headache. No double vision. SKIN: Not dry. Intact. Turgor - normal. LYMPHATIC: No palpable lymph nodes/no lymphedema. MUSCULOSKELETAL: Normal joints with no swelling. Muscle tone is normal. LABS: hgb 10.7, hct 33, WBC 4,000 normal differential, creatinine 1.2, BUN 24, potassium 3.9 ASSESSMENT: 1. CHF exacerbation seems to be under control 2. COVID 19 status with respiratory insufficiency controlled 3. Dementia seems to be stable. Artem improvement in overall alertness. PLAN: 1. The patient's is in the room and she is very happy with the patient's progress. 2. The patient very likely to be discharged tomorrow. CONDITION: Stable. TIME SPENT: More than 30 minutes. Plan and coordination of the patient's care discussed in the presence of nurse. DAVIDA
[2021-05-05] MEDS: ATIVAN PO SCH (20:31)
[2021-05-05] MEDS: TRIGLIDE PO SCH (20:31)
[2021-05-05] MEDS: CRESTOR PO SCH (20:31)
[2021-05-06 05:26] LABS: BASOPHILS % (AUTO) 0.5 % (0.0-3.0); EOSINOPHILS # (AUTO) 0.2 K/ul (0.0-0.7); EOSINOPHILS % (AUTO) 4.9 % (0.0-7.0); HEMATOCRIT 32.3 % (42.0-52.0); HEMOGLOBIN 10.1 g/dl (14.0-18.0); IMMATURE GRANULOCYTE % (AUTO) 0.2 % (0.0-5.0); LYMPHOCYTES # (AUTO) 0.5 K/uL (0.60-3.4); LYMPHOCYTES % (AUTO) 12.7 (10.0-50.0); MEAN CORPUSCULAR HEMOGLOBIN 28.4 pg (27.0-31.0); MEAN CORPUSCULAR HGB CONC 31.3 (31.8-35.4); MEAN CORPUSCULAR VOLUME 90.7 fl (80.0-94.0); MONOCYTES # (AUTO) 0.4 K/uL (0.4-2.0); MONOCYTES % (AUTO) 9.2 (0-10); NEUTROPHILS % (AUTO) 72.5 % (42.2-75.2); PLATELET COUNT 232 10^3/uL (140-440); RDW COEFFICIENT OF VARIATION 17.8 % (11.6-14.8); RED BLOOD COUNT 3.56 10^6/ul (4.70-6.10); WHITE BLOOD COUNT 4.11 K/ul (4.2-10.2)
[2021-05-06 05:37] LABS: ALANINE AMINOTRANSFERASE 12.2 U/L (0-50); ALBUMIN 2.82 g/dL (3.5-5.0); ASPARTATE AMINO TRANSFERASE 17.2 U/L (17-59); BILIRUBIN,TOTAL 0.59 mg/dL (0.2-1.3); BLOOD UREA NITROGEN 24.1 mg/dL (9-20); CALCIUM 8.56 mg/dL (8.4-10.2); CARBON DIOXIDE 38.7 mmol/L (22-30.0); CHLORIDE 102.1 mmol/L (98-107); CREATININE 1.55 mg/dL (0.60-1.10); GLUCOSE 161.5 mg/dL (74-106); POTASSIUM 4.13 mmol/L (3.5-5.1); SODIUM 140.1 mmol/L (134.5-145); TOTAL PROTEIN 5.18 g/dL (6.3-8.2)
[2021-05-06] MEDS: LASIX TAB PO SCH (05:55)
[2021-05-06] MEDS: PROTONIX PO SCH (05:55)
[2021-05-06] MEDS: SYMBICORT 160-4.5 MCG INHALER IH SCH (09:18)
[2021-05-06] MEDS: NYSTOP POWDER TP SCH ×2 (09:18→13:45)
[2021-05-06] MEDS: JANUVIA PO SCH (09:19)
[2021-05-06] MEDS: FLOMAX PO SCH (09:19)
[2021-05-06] MEDS: CARDIZEM PO SCH (09:19)
[2021-05-06] MEDS: TOPROL XL PO SCH (09:19)
[2021-05-06] MEDS: ALDACTONE PO SCH (09:19)
[2021-05-06] MEDS: ZESTRIL PO SCH (09:20)
[2021-05-06] MEDS: ELIQUIS PO SCH (09:20)
[2021-05-06] MEDS: MICRO-K CAP PO SCH (09:53)
--- NOTE | 2021-05-06 11:48 | ECHOCOLOR ---
Date of Exam: 05/03/2021 Ordering Physician: DR. OMAR MENDIOLA Reason for Echo: S/P COVID 19, CHF M-Mode Normal Adult Results LV Dimensions Normal Adult Results AoV Opening excursions >1.6 1.4 LVEDD-base- 3.5-5.8 5.8 Ao root dimensions 2.0-3.7 3.6 LVESD-base- 3.1-4.6 L. Atrium dimensions 1.9-3.8 5.0 Post. Wall thickness 0.8-1.1 1.2 IV septum (thickness) 0.7-1.2 1.3 Post. Wall excursion 0.72-1.3 0.7 Septal motion 0.8 Systolic motion R. Ventricular cavity 1.5-2.0 NORMAL LVEF 60% 45% Paradoxical septal wall motion NORMAL 2-D: HYPOKINETIC INFERIOR SEPTAL WALL AREA; CALCIFIC AORTIC VALVE--GOOD SEPARATION, ENLARGED LEFT ATRIAL AND LEFT VENTRICLE CAVITIES, NO EFFUSION, NO THROMBUS COLOR FLOW: MODERATE MITRAL REGURGITATION, MODERATE TO SEVERE TRICUSPID REGURGITATION, TRACE TO MILD AORTIC REGURGITATION M-MODE: MV: NORMAL AV: NORMAL TV: NORMAL PV: CHAMBER SIZE: ENLARGED LEFT ATRIAL AND LEFT VENTRICLE CAVITIES WALL MOTION: HYPOKINETIC INFERIOR SEPTAL WALL AREA PERICARDIUM: NORMAL INTERPRETATION: 1. LEFT VENTRICLE HYPERTROPHY WITH ENLARGED LEFT ATRIAL CAVITY 2. ENLARGED LEFT VENTRICLE CAVITY 3. HYPOKINETIC INFERIOR SEPTAL WALL AREA--LEFT VENTRICLE EJECTION FRACTION 45% 4. VALVES--CALCIFIC AORTIC LEAFLETS, NO STENOSIS 5. COLOR FLOW--MODERATE MITRAL REGURGITATION, MODERATE TO SEVERE TRICUSPID REGURGITATION, TRACE TO MODERATE AORTIC REGURGITATION MTDD
--- NOTE | 2021-05-06 11:57 | PN ---
DATE OF SERVICE: 05/06/21 DISCHARGE NOTE SUBJECTIVE: 80 year old white male hospitalized with CHF exacerbation and COPD exacerbation. The patient's condition has improved. The following day that patient was feeling better. Yesterday had down day with hypoxemia coming from aspiration. The patient is more alert and talking but confused. is present in the room. She has agreed that the [facility] needs [facility] to [facility]. The patient's oxygen saturation on 3-4 liters is 92-93% . REVIEW OF SYSTEMS: CONSTITUTIONAL: No night sweats. No fatigue, malaise, lethargy. No fever or chills. HEENT: Eyes: No visual changes. No eye pain. No eye discharge. ENT: No runny nose. No epistaxis. No sinus pain. No sore throat. No odynophagia. No congestion. RESPIRATORY: No cough, no congestion. No hemoptysis. No shortness of breath. CARDIOVASCULAR: No angina symptoms. No CHF symptoms. No atypical chest pain for CAD. No palpitations. No PND. No orthopnea. GASTROINTESTINAL: No abdominal pain. No nausea or vomiting. No diarrhea or constipation. No hematemesis. No hematochezia. GENITOURINARY: No urgency. No frequency. No dysuria. No hematuria. No obstructive symptoms. No discharge. No pain. No significant abnormal bleeding. MUSCULOSKELETAL: No musculoskeletal pain; no joint swelling. NEUROLOGICAL: No headache. No neck pain. No syncope. No seizures. No dizziness. PSYCHIATRIC: Not anxious. No depression. No suicidal thoughts. No homicidal thoughts. SKIN: No rash. No lesions. No wounds. ENDOCRINE: No unexplained weight loss. No weight gain. HEMATOLOGIC/LYMPHATIC: No anemia. No purpura. No petechiae. No prolonged or excessive bleeding. No palpable lymph nodes. PHYSICAL EXAMINATION: GENERAL: The patient is confused but alert. VITAL SIGNS: Temperature 97.5, pulse 78, respiratory rate 20, blood pressure 140/79 and pulse ox 92%. HEENT: Head normocephalic, atraumatic. Eyes: Extraocular muscles are intact. Pupils are equal, round and reactive to light and accommodation. Ears: No lesions. Nose appeared normal. Throat: No exudate or erythema. NECK: Supple. No JVD, no carotid bruit. No lymphadenopathy or thyromegaly. LUNGS: Decreased breath sounds but good air entry. Percussion note normal. Chest symmetrical. HEART: S1, S2, no S3. No murmurs. No cyanosis or clubbing. No ascites. Pulses: Dorsalis pedis and posterior tibial pulses +1 to +2 bilaterally. ABDOMEN: Soft. Nontender. Bowel sounds active. No CVA tenderness. No mass felt. EXTREMITIES: No edema. Full range of motion of all extremities, equal. NEUROLOGIC: No focal deficit. Cranial nerves II through XII are grossly intact. No headache. No double vision. SKIN: Not dry. Intact. Turgor - normal. LYMPHATIC: No palpable lymph nodes/no lymphedema. MUSCULOSKELETAL: Normal joints with no swelling. Muscle tone is normal. LABS: Hgb 10.1, hct 32, WBC 4,000 normal differential, creatinine 1.5, BUN 24, potassium 4.1 ASSESSMENT: 1. CHF is under control. No symptoms of CHF. The patient had echo done which showed 45% ejection fraction with hypokinetic basal septal area along with inferior wall. LA cavity is enlarged. PLAN: 1. Discharge the patient on Lasix 40mg daily, Aldactone 25mg PO daily 2. Discontinue Potassium supplements 3. The patient is going to be on Oxygen 3-4 liters. 4. The patient is going to be on PT/OT 5. The patient is DNR. 6. The patient is going to be up to 7 days followup CONDITION: Stable. TIME SPENT: More than 30 minutes. Plan and coordination of the patient's care discussed in the presence of nurse. DAVIDA
--- NOTE | 2021-05-06 11:58 | PN ---
04/29/21: Level 5 04/30/21: Intermediate 05/01/21: Intermediate 05/02/21: Intermediate 05/03/21: Intermediate 05/04/21: Intermediate 05/05/21: Intermediate 05/06/21: D as in discharge MTDD
--- NOTE | 2021-05-06 13:05 | PN ---
DATE OF SERVICE: 05/05/21 SUBJECTIVE: The patient was seen and examined with the Nurse Practitioner. The patient's condition is improving but his respiratory status seems to have deteriorated pO2 52, pCo2 50.He is going to be on 4 liters of oxygen. The patient's condition is stable. He is more confused today. The patient's echo done yesterday showed ejection fraction to be around 45%, borderline dilated LC cavity and enlarged LA cavity. The patient has hypokinetic basal septal wall TIME SPENT: More than 30 minutes. Plan and coordination of the patient's care discussed in the presence of nurse. DAVIDA
[2021-05-06 13:37] VITALS: BP 117/70; TEMP 97.2
--- NOTE | 2021-05-24 13:11 | HP ---
DATE OF SERVICE: 04/29/21 REASON FOR HOSPITALIZATION/HISTORY OF PRESENT ILLNESS: 80 year old white male who is currently a resident of [place]. He has been more short of breath, had a cough which started a few days ago. He was tested by rapid antigen at the residential and was positive. He previously had COVID in January. PAST MEDICAL HISTORY: Afib Coronary artery disease Dilated cardiomyopathy CHF COPD Chronic respiratory failure COVID 19 02/15 Advanced dementia Diabetes Mellitus type II Hypertension Dyslipidemia History of nephrolithiasis LVH Metabolic syndrome History of myocardial infarction History of prostate cancer Sleep apnea Chronic kidney disease stage II to III Generalized weakness History of noncompliance B12 deficiency Severe dilated ischemia cardiomyopathy PAST SURGICAL HISTORY: Prostatectomy [place] [address] Pedroza REVIEW OF SYSTEMS: CONSTITUTIONAL: No night sweats. No fatigue, malaise, lethargy. No fever or chills. HEENT: Eyes: No visual changes. No eye pain. No eye discharge. ENT: No runny nose. No epistaxis. No sinus pain. No sore throat. No odynophagia. No ear pain. No congestion. RESPIRATORY: Cough, no congestion. No hemoptysis. Shortness of breath. CARDIOVASCULAR: No angina symptoms. No CHF symptoms. No atypical chest pain for CAD. No palpitations. No PND. No orthopnea. GASTROINTESTINAL: No abdominal pain. No nausea or vomiting. No diarrhea or constipation. No hematemesis. No hematochezia. GENITOURINARY: No urgency. No frequency. No dysuria. No hematuria. No obstructive symptoms. No discharge. No pain. No significant abnormal bleeding. MUSCULOSKELETAL: No musculoskeletal pain. No joint swelling. No arthritis.Generalized weakness. NEUROLOGICAL: No headache. No neck pain. No syncope. No seizures. No dizziness. Intermittent confusion. PSYCHIATRIC: Not anxious. No depression. No suicidal thoughts. No homicidal thoughts. SKIN: No rash. No lesions. No wounds. ENDOCRINE: No unexplained weight loss. No weight gain. HEMATOLOGIC/LYMPHATIC: No anemia. No purpura. No petechiae. No prolonged or excessive bleeding. No palpable lymph nodes. PERSONAL/FAMILY/SOCIAL HISTORY: He is a former smoker. Again he is still . Current resident of [facility] since having COVID in January. No alcohol or illicit drug use. Still needs assistance with most ADL's. Periods of intermittent confusion. MEDICATIONS: Crestor 10mg PO Bedtime Fenofibrate 160mg PO bedtime Eliquis 5mg PO BID Nystop one application Topical QID Pantoprazole 40mg PO BID Flomax 0.4mg PO BID Diltiazem 60mg PO Q 12 hours Symbicort 160-4.5mcg two puffs inhalation BID Furosemide 20mg PO daily Lisinopril 5mg PO daily Acetaminophen 325mg PO Q 4 hours PRN K-Tab 20mew PO daily Ipratropium 3ml inhalation Q 6 hours PRN Januvia 50mg PO daily Metoprolol succinate 12.5mg PO BID Ativan 1mg PO bedtime ALLERGIES: NSAIDS PHYSICAL EXAMINATION: GENERAL: The patient is oriented to person only. VITAL SIGNS: Temperature 97.4, heart rate 59, respiratory rate 24, blood pressure 111/51 and pulse ox 96% on 4 liters. HEENT: Head normocephalic, atraumatic. Eyes: Extraocular muscles are intact. Pupils are equal, round and reactive to light and accommodation. Ears: No lesions. Nose appeared normal. Throat: No exudate or erythema. NECK: Supple. No JVD, no carotid bruit. No lymphadenopathy or thyromegaly. LUNGS: Diminished breath sounds. Clear to auscultation. Percussion note normal. Chest symmetrical. HEART: S1, S2, no S3. No murmur. No cyanosis or clubbing. No ascites. Pulses: Dorsalis pedis and posterior tibial pulses +1 to +2 bilaterally. ABDOMEN: Soft. Nontender. Bowel sounds active. No CVA tenderness. No mass felt. EXTREMITIES: Trace edema. Full range of motion of all extremities, equal. NEUROLOGIC: No focal deficit. Cranial nerves II through XII are grossly intact. No headache, no double vision or headache. SKIN: Not dry. Intact. Turgor - normal. LYMPHATIC: No palpable lymph nodes/no lymphedema. MUSCULOSKELETAL: Normal joints with no swelling. Muscle tone is normal. LABS: WBC 2.69, hgb 10.0, hct 32.4, plt count 290, sodium 144, potassium 4.3, BUN 38, creatinine 1.87, glucose 259. Influenza A and B negative. Lactic acid 1.46. ASSESSMENT: 1. Acute respiratory failure 2. Acute COPD exacerbation 3. Increased confusion 4. Generalized weakness 5. Diabetes Mellitus type II PLAN: 1. We will admit 2. Routine telemetry orders 3. CBC and CMP daily 4. ABG on the 4 liters 5. Start Rocephin 1 gram IV daily 6. Give Lasix 40mg IV times one 7. BNP 8. Oxygen at 4 liters 9. U/A 10.Start Zithromax 500mg PO daily for 3 days 11.1cc Decadron IM now 12.Regular diet 13. Continue home medications Will follow closely. TIME SPENT: More than 70 minutes. MTDD
--- NOTE | 2021-05-24 13:30 | DS ---
DATE OF SERVICE: 05/06/21 FINAL DIAGNOSIS: 1. Acute respiratory failure 2. Acute CHF 3. Coronary artery disease 4. Severe cardiomyopathy 5. Endstage dementia DISCHARGE INSTRUCTIONS: Discharge back to [place]. Followup with the patient on rounds at [facility]. MEDICATIONS AT DISCHARGE: Crestor 10mg PO Bedtime Fenofibrate 160mg PO bedtime Eliquis 5mg PO BID Nystop one application Topical QID Pantoprazole 40mg PO BID Flomax 0.4mg PO BID Diltiazem 60mg PO Q 12 hours Symbicort 160-4.5mcg two puffs inhalation BID Lisinopril 5mg PO daily Acetaminophen 325mg PO Q 4 hours PRN Ipratropium 3ml inhalation Q 6 hours PRN Januvia 50mg PO daily NEW PRESCRIPTIONS: Furosemide 40mg PO QAm Metoprolol succinate 25mg PO BID Spironolactone 25mg PO daily Nystatin powder one application topical QID Ativan 1mg PO bedtime DIET INSTRUCTIONS: Pureed with thin liquids ACTIVITY: As tolerated HOSPITAL COURSE: 80 year old white male who was brought to the ER from [facility] with shortness of breath increased cough and congestion, some leg edema. Chest x-ray showed no acute process, mild vascular congestion. He was given Lasix 40mg IV daily for about two doses, diuresed well. Has stayed on 3-4 liters via nasal canula with oxygen saturation 92-93%. He was previously on Lasix 20mg PO daily. We have increase this to 40mg PO daily. He has a history of atrial fibrillation and has had elevated heart rate close to 100. We have increased the Metoprolol to 25mg PO BID. He did receive Decadron daily for a few days and completed a round of Zithromax. The family is adament that he return back to the [facility] because they do feel that he is doing well with physical therapy there and making progress. He has had recurrent respiratory failure since having COVID in January. We will discharge him back in guarded condition. His prognosis is poor given his multiple medical conditions. We will followup with him closely. He is to have a CBC and CMP in about 5 days. We will followup with him on [facility] rounds and again medications have been changed. TIME SPENT: More than 60 minutes. [facility]
== END 2021-05-06 14:43 | DRG 291 ==
LOC: ED 10:50 → MEDSURG A 15:10
PROVIDERS: ADMIT Internal Medicine; ATTEND Internal Medicine
DX: I42.9 Cardiomyopathy, unspecified; J96.00 Acute respiratory failure, unspecified whether with hypoxia or hypercapnia; I50.9 Heart failure, unspecified; I25.10 Atherosclerotic heart disease of native coronary artery without angina pectoris; Z20.822 Contact with and (suspected) exposure to COVID-19; G30.9 Alzheimer's disease, unspecified

== ENCOUNTER 2021-05-21 14:02 | Inpatient (IN) ==
--- NOTE | 2021-05-21 14:19 | ED.PDOC ---
General ED Provider: Dr. MECHE SOUZA Chief Complaint: Respiratory Complaint Stated Complaint: Increased dyspnea with decreased O2 sat at NH, Currently respirations non labored O2 sat 94 %; Nasal canula in place Time Seen by Provider: 05/21/21 14:23 Information Source: Patient Exam Limitations: No limitations, Clinical condition and Dementia Primary Care Provider: OMAR MENDIOLA Nursing and Triage Documentation Reviewed and Agree: Yes Does patient meet sepsis criteria?: No System Inflammatory Response Syndrome: Not Applicable Sepsis Protocol: For patient's 13 years and over: Temp is 96.8 and below OR 101 and greater Pulse >90 BPM Resp >20/minute Acutely Altered Mental Status Are patient's symptoms suggestive of a new infection, such as: -Pneumonia -Skin, Soft Tissue -Endocarditis -UTI -Bone, Joint Infection -Implantable Device -Acute Abdominal Infection -Wound Infection -Meningitis -Blood Stream Catheter Infection -Unknown Respiratory Complaint Exam Respiratory Complaint/Exam Onset/Duration: yesterday Symptoms Are: Still present Timing: Intermittent Initial Severity: Moderate Current Severity: Mild Location: Chest Character: Reports Non-productive cough Aggravating: Reports Recumbent position Alleviating: Reports Bronchodilators Associated Signs and Symptoms: Reports Dyspnea and Pleuritic chest pain Related History: Reports Similar episode History of Healthcare-Acquired Pneumonia: No, Lives [facility] and Admit w/in last 30 days Related Surgical History: Reports None; Denies Tracheostomy Pulmonary Embolism Risk Factors: None Cardiac Risk Factors: Reports None Pseudomonas Risk Factors: Reports None Tuberculosis Risk Factors: Reports None Status Asthmaticus Risk Factors: Reports None Home Oxygen Use: Yes Recent Stress Test: No Recent Echo/LV Function: No Current Antibiotic Use: No Current Asthma Medication Use: No Respiratory Distress: None Inadequate Respiratory Effort: Yes Dysphagia Present: No Stridor Present: No Accessory Muscle Use: No Diminished Breath Sounds: Yes Sinus Tenderness: None Grunting Respirations: No Kussmaul Respirations: No Differential Diagnoses: CHF, COPD Exacerbation, Bronchiolitis and Bronchospasm Review of Systems Review Of Systems Constitutional: Reports Malaise and Weakness Respiratory: Reports Cough, Short of air and Wheezing Cardiac: Reports No symptoms GI: Reports No symptoms : Reports No symptoms Musculoskeletal: Reports No symptoms Skin: Reports No symptoms Neurological: Reports Anxiety Endocrine: Reports No symptoms All Other Systems: Reviewed and Negative [facility] Medical History Afib CAD S/P percutaneous coronary angioplasty Cardiomyopathy CHF (congestive heart failure) COPD (chronic obstructive pulmonary disease) COVID-19 Dementia Diabetes type 2, uncontrolled HTN (hypertension) Hyperlipemia Kidney calculus LVH (left ventricular hypertrophy) Metabolic syndrome Myocardial infarction Prostate CA Sleep apnea Family History Other No known health problems Social History Smoking and tobacco status: Former smoker Passive smoking exposure: No Second hand smoke exposure: No Smoking risk assessment performed: No Surgical History History of prostatectomy Physical Exam Physical Exam Appearance: Reports Ill-appearing and Obese Ill-appearing: Mild Pain Distress: Mild Eyes: Reports WYATT, EOMI, Conjunctiva clear, Conjunctiva pale and Right pupil size (PERL_A) ENT: Reports Ears normal, Oropharynx normal and TMs Occluded Neck: Supple Respiratory: Reports Airway patent, Breath sounds diminished and Wheezes Cardiovascular: Reports RRR and No murmur GI/: Reports Soft, Nontender and No masses Musculoskeletal: Reports Normal strength, ROM intact, No edema and No calf tenderness Skin: Reports Warm, Dry and Normal color Neurological: Reports Sensation intact, Motor intact, Reflexes intact, Cranial nerves intact, Alert and Oriented Psychiatric: Reports Affect appropriate and Mood appropriate Critical Care Note Critical Care Note Total Critical Care Time (mins): 0 Course Course Hematology/Chemistry: 05/22/21 07:01 05/22/21 07:01 Orders, Labs, Meds: Lab Review 05/21/21 05/21/21 05/21/21 14:25 14:34 14:34 WBC 6.13 RBC 3.68 L Hgb 10.2 L Hct 33.4 L MCV 90.8 MCH 27.7 MCHC 30.5 L RDW Coeff of [place] 16.5 H Plt Count 302 Immature Gran % (Auto) 0.3 Neut % (Auto) 76.0 H Lymph % (Auto) 10.9 Bryan % (Auto) 10.0 Eos % (Auto) 2.1 Baso % (Auto) 0.7 Neut # (Auto) 4.7 Lymph # (Auto) 0.7 Bryan # (Auto) 0.6 Eos # (Auto) 0.1 Baso # (Auto) 0.0 Immature Gran # (Auto) 0.0 Sodium 144.1 Potassium 4.01 Chloride 103.9 Carbon Dioxide 34.8 H Anion Gap 9.41 BUN 38.4 H Creatinine 2.01 H Estimated GFR (MDRD) 32.00 BUN/Creatinine Ratio 19.10 Glucose 180.3 H Lactic Acid Calcium 8.64 Total Bilirubin 0.81 AST 24.5 ALT 17.2 Alkaline Phosphatase 38.6 L Troponin I 0.050 Total Protein 5.84 L Albumin 3.32 L Globulin 2.52 Albumin/Globulin Ratio 1.31 Procalcitonin Influ A Molecular Assay Negative by naat Influ B Molecular Assay Negative by naat 05/21/21 05/21/21 14:34 14:34 WBC RBC Hgb Hct MCV MCH MCHC RDW Coeff of [place] Plt Count Immature Gran % (Auto) Neut % (Auto) Lymph % (Auto) Bryan % (Auto) Eos % (Auto) Baso % (Auto) Neut # (Auto) Lymph # (Auto) Bryan # (Auto) Eos # (Auto) Baso # (Auto) Immature Gran # (Auto) Sodium Potassium Chloride Carbon Dioxide Anion Gap BUN Creatinine Estimated GFR (MDRD) BUN/Creatinine Ratio Glucose Lactic Acid 1.46 Calcium Total Bilirubin AST ALT Alkaline Phosphatase Troponin I Total Protein Albumin Globulin Albumin/Globulin Ratio Procalcitonin 0.05 Influ A Molecular Assay Influ B Molecular Assay Orders Category Date Time Status AD[facility] PATIENT [facility] ADMISSION 05/21/21 1 6:32 Active EKG-(ED ONLY) Stat CARDIO 05/21/21 14:19 Completed OXYGEN Routine CARDIO 05/21/21 14:19 Completed ACTIVITY .Up With Assistance CARE 05/21/21 16:33 Active BLOOD GLUCOSE MONITORING (MED/SURG) 0630,1100,1700,2100 CARE 05/21/21 16:34 Active INTAKE & OUTPUT Q8HR CARE 05/21/21 16:33 Active TELEMETRY MONITORING TELE CARE 05/21/21 16:32 Active TELEMETRY MONITORING TELE CARE 05/21/21 16:33 Completed VITAL SIGNS Q4HR CARE 05/21/21 16:33 Completed REGULAR DIET DIETARY 05/21/21 Dinner Ordered BLOOD CULTURE (ED ONLY) Stat LAB 05/21/21 14:34 Received CBC W/ AUTO DIFF DAILY@0600 LAB 05/22/21 07:01 Completed CBC W/ AUTO DIFF DAILY@0600 LAB 05/23/21 06:00 Ordered CBC W/ AUTO DIFF Stat LAB 05/21/21 14:34 Completed COMPREHENSIVE METABOLIC PANEL DAILY@0600 LAB 05/23/21 06:00 Ordered COMPREHENSIVE METABOLIC PANEL Stat LAB 05/21/21 14:34 Completed CREATINE KINASE Q8H LAB 05/21/21 22:45 Completed CREATINE KINASE Q8H LAB 05/22/21 07:01 Completed FLU A & B MOLECULAR [FLU A/B MOLECULAR] Stat LAB 05/21/21 14:25 Completed LACTIC ACID Stat LAB 05/21/21 14:34 Completed PROCALCITONIN Stat LAB 05/21/21 14:34 Completed TROPONIN I Q8H LAB 05/21/21 22:45 Completed TROPONIN I Q8H LAB 05/22/21 07:01 Completed TROPONIN I Stat LAB 05/21/21 14:34 Completed Azithromycin [Zithromax] MEDS 05/21/21 16:33 Discontinued 500 mg PO ONCE STA Ceftriaxone/D5w 1 gm Premix [Rocephin 1 gm/50 ml D5w] MEDS 05/21/21 17:00 Active 1 gm in 50 ml IV DAILY Enoxaparin Sodium [Lovenox] MEDS 05/21/21 17:00 Active 40 mg SUBCUT DAILY Methylprednisolone Sod Succ/Pf [Solu-Medrol 125 mg] MEDS 05/21/21 17:00 Active 125 mg IVP Q8HR Ondansetron HCl/Pf [Zofran 4 mg/2 ml] MEDS 05/21/21 16:33 Active 4 mg IVP Q6H PRN Potassium Chloride in 0.9%NaCl [Sodium Chloride 0.9%- MEDS 05/21/21 17:00 Acti ve KCl 20 Meq] 1,000 ml IV 70 mls/hr RESUSCITATION STATUS Routine OTHERS 05/21/21 16:33 Ordered CHEST, 1V AP ONLY Stat RADS 05/21/21 15:37 Completed ACTIVITIES CONSULT Routine THERAPIES 05/21/21 16:33 Ordered Medications Generic Name Dose Route Start Last Admin Trade Name Freq PRN Reason Stop Dose Admin Acetaminophen 325 mg 05/21/21 17:52 Acetaminophen 325 Mg Tablet PO Q4HR PRN mild pain/ fever Acetaminophen 650 mg 05/21/21 18:22 Acetaminophen 325 Mg Tablet PO Q4H PRN Headache Albuterol/Ipratropium 3 ml 05/21/21 17:52 Ipratropium/Albuterol Vial.Neb NEB Q6H PRN Wheezing Apixaban 2.5 mg 05/22/21 09:00 Apixaban 5 Mg Tab PO BID MORIAH Atropine Sulfate 0.5 mg 05/21/21 18:22 Atropine Sulfate Inj 1 Mg/10 Ml Disp.Syrin IVP ONCE PRN Symptomatic Bradycardia Budesonide/Formoterol Fumarate 2 puff 05/21/21 21:00 05/21/21 20:20 Budesonide/Formoterol Fumarate 160/4.5 Mcg Inhaler IH 2 puff BID MORIAH Administration Diltiazem HCl 60 mg 05/22/21 09:00 Diltiazem Hcl 60 Mg Tablet PO Q12HR MORIAH Enoxaparin Sodium 40 mg 05/21/21 17:00 05/21/21 18:25 Enoxaparin Sodium 40 Mg/0.4 Ml Syr SUBCUT 40 mg DAILY MORIAH Administration Fenofibrate 160 mg 05/22/21 21:00 Fenofibrate 160 Mg Tablet PO BEDTIME MORIAH Furosemide 40 mg 05/22/21 06:30 05/22/21 05:49 Furosemide 40 Mg Tablet PO 40 mg QDAC MORIAH Administration Potassium Chloride/Sodium Chloride 1,000 mls @ 70 mls/hr 05/21/21 17:00 05/22/21 06:24 Sodium Chloride 0.9%-Kcl 20 Meq IV 70 mls/hr .[id number] MORIAH Administration CEFTRIAXONE/D5W 1 GM PREMIX 1 gm in 50 mls @ 75 mls/hr 05/21/21 17:00 05/21/21 16:57 Rocephin 1 Gm/50 Ml D5w IV 05/24/21 16:59 75 mls/hr DAILY MORIAH Administration Lisinopril 5 mg 05/22/21 09:00 Lisinopril 5 Mg Tablet PO DAILY MORIAH Lorazepam 1 mg 05/22/21 21:00 Lorazepam 1 Mg Tablet PO BEDTIME MORIAH Methylprednisolone Sodium Succinate 125 mg 05/21/21 17:00 05/22/21 05:50 Methylprednisolone Sod Succ/Pf 125 Mg/2 Ml Vial IVP 125 mg Q8HR MORIAH Administration Metoprolol Succinate 25 mg 05/22/21 09:00 Metoprolol Succinate 25 Mg Tab.Er.24h PO BID MORIAH Nitroglycerin 0.4 mg 05/21/21 18:22 Nitroglycerin 0.4 Mg Tab.Subl SL Q5MIN X 3 DOSES PRN Chest Pain Nystatin 1 applic 05/21/21 21:00 05/21/21 20:20 Nystatin 15 Gm Powder TP 1 applic QID MORIAH Administration Ondansetron HCl 4 mg 05/21/21 16:33 Ondansetron Hcl/Pf 4 Mg/2 Ml Sdv IVP Q6H PRN Nausea / Vomiting Pantoprazole Sodium 40 mg 05/22/21 06:30 05/22/21 05:49 Pantoprazole Sodium 40 Mg Tablet.Dr PO 40 mg BIDAC MORIAH Administration Quetiapine Fumarate 25 mg 05/22/21 21:00 Quetiapine Fumarate 25 Mg Tablet PO BEDTIME MORIAH Rosuvastatin Calcium 10 mg 05/22/21 21:00 Rosuvastatin Calcium 10 Mg Tablet PO BEDTIME MORIAH Sitagliptin Phosphate 50 mg 05/22/21 09:00 Sitagliptin Phosphate 50 Mg Tablet PO DAILY MORIAH Sodium Chloride 1 syr 05/21/21 21:00 05/22/21 05:50 0.9% Sodium Chloride 10 Ml Disp.Syrin IVF Not Given Q8HR MORIAH Spironolactone 25 mg 05/22/21 09:00 Spironolactone 25 Mg Tablet PO DAILY MORIAH Tamsulosin HCl 0.4 mg 05/21/21 21:00 05/21/21 20:19 Tamsulosin Hcl 0.4 Mg Cap.Er.24h PO 0.4 mg BID MORIAH Administration Discontinued Medications Generic Name Dose Route Start Last Admin Trade Name Yimiq PRN Reason Stop Dose Admin Azithromycin 500 mg 05/21/21 16:33 05/21/21 16:51 Azithromycin 250 Mg Tablet PO 05/21/21 16:34 500 mg ONCE STA Administration Diltiazem HCl 60 mg 05/21/21 21:00 Diltiazem Hcl 60 Mg Tablet PO Q12HR MORIAH Diltiazem HCl 60 mg 05/22/21 21:00 Diltiazem Hcl 60 Mg Tablet PO Q12HR MORIAH Fenofibrate 160 mg 05/21/21 21:00 Fenofibrate 160 Mg Tablet PO BEDTIME MORIAH Lorazepam 1 mg 05/21/21 21:00 Lorazepam 1 Mg Tablet PO BEDTIME MORIAH Metoprolol Succinate 25 mg 05/21/21 21:00 Metoprolol Succinate 25 Mg Tab.Er.24h PO BID MORIAH Metoprolol Succinate 25 mg 05/22/21 21:00 Metoprolol Succinate 25 Mg Tab.Er.24h PO BID MORIAH Rosuvastatin Calcium 10 mg 05/21/21 21:00 Rosuvastatin Calcium 10 Mg Tablet PO BEDTIME MORIAH Vital Signs: Temp Pulse Resp BP Pulse Ox 05/21/21 14:15 97.4 F L 59 L 24 111/51 L 96 Discharge Plan Discharge Patient Disposition: ADMITTED INPATIENT Discharge Problem: Altered mental status, COPD exacerbation ED Provider: MECHE SOUZA Condition: Stable Physician Progress Note: []
[2021-05-21 14:37] LABS: BASOPHILS % (AUTO) 0.7 % (0.0-3.0); EOSINOPHILS # (AUTO) 0.1 K/ul (0.0-0.7); EOSINOPHILS % (AUTO) 2.1 % (0.0-7.0); HEMATOCRIT 33.4 % (42.0-52.0); HEMOGLOBIN 10.2 g/dl (14.0-18.0); IMMATURE GRANULOCYTE % (AUTO) 0.3 % (0.0-5.0); LYMPHOCYTES # (AUTO) 0.7 K/uL (0.60-3.4); LYMPHOCYTES % (AUTO) 10.9 (10.0-50.0); MEAN CORPUSCULAR HEMOGLOBIN 27.7 pg (27.0-31.0); MEAN CORPUSCULAR HGB CONC 30.5 (31.8-35.4); MEAN CORPUSCULAR VOLUME 90.8 fl (80.0-94.0); MONOCYTES # (AUTO) 0.6 K/uL (0.4-2.0); NEUTROPHILS # (AUTO) 4.7 K/ul (2.0-6.9); PLATELET COUNT 302 10^3/uL (140-440); RDW COEFFICIENT OF VARIATION 16.5 % (11.6-14.8); RED BLOOD COUNT 3.68 10^6/ul (4.70-6.10); WHITE BLOOD COUNT 6.13 K/ul (4.2-10.2)
[2021-05-21 14:47] LABS: MOLECULAR FLU A NEGATIVE BY NAAT (NEGATIVE); MOLECULAR FLU B NEGATIVE BY NAAT (NEGATIVE)
[2021-05-21 14:49] LABS: ALANINE AMINOTRANSFERASE 17.2 U/L (0-50); ALBUMIN 3.32 g/dL (3.5-5.0); ALKALINE PHOSPHATASE 38.6 U/L (56-119); ASPARTATE AMINO TRANSFERASE 24.5 U/L (17-59); BILIRUBIN,TOTAL 0.81 mg/dL (0.2-1.3); BLOOD UREA NITROGEN 38.4 mg/dL (9-20); CALCIUM 8.64 mg/dL (8.4-10.2); CARBON DIOXIDE 34.8 mmol/L (22-30.0); CHLORIDE 103.9 mmol/L (98-107); CREATININE 2.01 mg/dL (0.60-1.10); GLUCOSE 180.3 mg/dL (74-106); POTASSIUM 4.01 mmol/L (3.5-5.1); SODIUM 144.1 mmol/L (134.5-145); TOTAL PROTEIN 5.84 g/dL (6.3-8.2)
[2021-05-21 15:01] LABS: TROPONIN I 0.05 ng/ml (0.0000-0.120)
--- NOTE | 2021-05-21 16:04 | DI ---
EXAM: Single AP view of the chest 05/21/2021 HISTORY: Hypoxia. COMPARISON: 05/03/2021. FINDINGS: Again visualized are bilateral small pleural effusion, with adjacent atelectasis/consolidation. The trachea is midline. The cardiomediastinal silhouette is enlarged. The osseous structures are unchanged. IMPRESSIONS: 1. Redemonstration of bilateral small pleural effusions, with adjacent atelectasis/consolidation. 2. Cardiomegaly.
[2021-05-21] MEDS ORDERED: ZITHROMAX PO STA (16:33)
[2021-05-21] MEDS ORDERED: ZOFRAN 4 MG/2 ML IVP PRN (16:33)
[2021-05-21] MEDS: SODIUM CHLORIDE 0.9%-KCL 20 MEQ 1,000 ML IV SCH (16:51)
[2021-05-21] MEDS: SOLU-MEDROL 125 MG IVP SCH ×2 (16:56→20:19)
[2021-05-21] MEDS: ROCEPHIN 1 GM/50 ML D5W 1 GM/50 ML BAG IV SCH (16:57)
[2021-05-21] MEDS ORDERED: DUONEB NEB PRN (17:52)
[2021-05-21] MEDS ORDERED: TYLENOL PO PRN ×2 (17:52→18:22)
[2021-05-21 18:20] VITALS: BMI 28.5
[2021-05-21] MEDS ORDERED: ATROPINE SULFATE PFS IVP PRN (18:22)
[2021-05-21] MEDS ORDERED: NITROSTAT SL PRN (18:22)
[2021-05-21] MEDS: LOVENOX SUBCUT SCH (18:25)
[2021-05-21] MEDS: FLOMAX PO SCH (20:19)
[2021-05-21] MEDS: SYMBICORT 160-4.5 MCG INHALER IH SCH (20:20)
[2021-05-21] MEDS: NYSTOP POWDER TP SCH (20:20)
[2021-05-21] MEDS ORDERED: ATIVAN PO SCH (21:00)
[2021-05-21] MEDS ORDERED: TRIGLIDE PO SCH (21:00)
[2021-05-21] MEDS ORDERED: CRESTOR PO SCH (21:00)
[2021-05-21] MEDS ORDERED: CARDIZEM PO SCH (21:00)
[2021-05-21] MEDS ORDERED: TOPROL XL PO SCH (21:00)
[2021-05-21] MEDS ORDERED: ELIQUIS PO SCH (21:00)
[2021-05-21 23:01] LABS: CREATINE KINASE 23.2 U/L (55-170)
[2021-05-21 23:14] LABS: TROPONIN I 0.043 ng/ml (0.0000-0.120)
[2021-05-22 02:04] LABS: BILIRUBIN,URINE Negative (NEGATIVE); CLARITY,URINE Clear (CLEAR); COLOR,URINE Yellow (YELLOW); GLUCOSE, URINE (UA) Negative (NEGATIVE); KETONES,URINE Negative (NEGATIVE); LEUKOCYTE ESTERASE ,URINE Negative (NEGATIVE); NITRITE,URINE Negative (NEGATIVE); PROTEIN,URINE Negative (NEGATIVE); URINE, BLOOD Negative (NEGATIVE); UROBILINOGEN,URINE 0.2 (0.2)
[2021-05-22] MEDS: LASIX TAB PO SCH (05:49)
[2021-05-22] MEDS: PROTONIX PO SCH ×2 (05:49→17:12)
[2021-05-22] MEDS: SOLU-MEDROL 125 MG IVP SCH (05:50)
[2021-05-22] MEDS: SODIUM CHLORIDE 0.9%-KCL 20 MEQ 1,000 ML IV SCH ×2 (06:24→22:25)
[2021-05-22 07:06] LABS: HEMATOCRIT 32.4 % (42.0-52.0); IMMATURE GRANULOCYTE % (AUTO) 0.4 % (0.0-5.0); LYMPHOCYTES # (AUTO) 0.3 K/uL (0.60-3.4); LYMPHOCYTES % (AUTO) 12.6 (10.0-50.0); MEAN CORPUSCULAR HEMOGLOBIN 27.9 pg (27.0-31.0); MEAN CORPUSCULAR HGB CONC 30.9 (31.8-35.4); MEAN CORPUSCULAR VOLUME 90.3 fl (80.0-94.0); MONOCYTES % (AUTO) 1.1 (0-10); NEUTROPHILS # (AUTO) 2.3 K/ul (2.0-6.9); NEUTROPHILS % (AUTO) 85.9 % (42.2-75.2); PLATELET COUNT 290 10^3/uL (140-440); RDW COEFFICIENT OF VARIATION 16.3 % (11.6-14.8); RED BLOOD COUNT 3.59 10^6/ul (4.70-6.10); WHITE BLOOD COUNT 2.69 K/ul (4.2-10.2)
[2021-05-22 07:19] LABS: ALBUMIN 3.37 g/dL (3.5-5.0); ALKALINE PHOSPHATASE 36.9 U/L (56-119); ASPARTATE AMINO TRANSFERASE 20.2 U/L (17-59); BILIRUBIN,TOTAL 0.73 mg/dL (0.2-1.3); BLOOD UREA NITROGEN 38.6 mg/dL (9-20); CALCIUM 8.55 mg/dL (8.4-10.2); CARBON DIOXIDE 30.9 mmol/L (22-30.0); CHLORIDE 105.9 mmol/L (98-107); CREATININE 1.87 mg/dL (0.60-1.10); GLUCOSE 259.1 mg/dL (74-106); POTASSIUM 4.36 mmol/L (3.5-5.1); SODIUM 144.3 mmol/L (134.5-145); TOTAL PROTEIN 5.83 g/dL (6.3-8.2)
[2021-05-22 07:31] LABS: TROPONIN I 0.044 ng/ml (0.0000-0.120)
[2021-05-22] MEDS: JANUVIA PO SCH (08:39)
[2021-05-22] MEDS: CARDIZEM PO SCH ×2 (08:39→20:21)
[2021-05-22] MEDS: FLOMAX PO SCH ×2 (08:40→20:25)
[2021-05-22] MEDS: ELIQUIS PO SCH ×2 (08:40→20:17)
[2021-05-22] MEDS: TOPROL XL PO SCH ×3 (08:40→20:24)
[2021-05-22] MEDS: ZESTRIL PO SCH ×2 (08:40→08:47)
[2021-05-22] MEDS: ALDACTONE PO SCH (08:40)
[2021-05-22] MEDS: SYMBICORT 160-4.5 MCG INHALER IH SCH ×2 (08:41→20:30)
[2021-05-22] MEDS: LOVENOX SUBCUT SCH (08:41)
[2021-05-22] MEDS: NYSTOP POWDER TP SCH (08:42)
[2021-05-22] MEDS: ROCEPHIN 1 GM/50 ML D5W 1 GM/50 ML BAG IV SCH (09:11)
[2021-05-22] MEDS ORDERED: NYSTOP POWDER TP PRN (11:04)
[2021-05-22] MEDS: HUMULIN R SUBCUT PRN ×2 (17:12→20:41)
[2021-05-22] MEDS: CRESTOR PO SCH (20:22)
[2021-05-22] MEDS: TRIGLIDE PO SCH (20:26)
[2021-05-22] MEDS ORDERED: SEROQUEL PO SCH (21:00)
[2021-05-22] MEDS ORDERED: TOPROL XL PO SCH (21:00)
[2021-05-22] MEDS ORDERED: CARDIZEM PO SCH (21:00)
[2021-05-22] MEDS ORDERED: ATIVAN PO SCH (21:00)
[2021-05-23 04:55] LABS: HEMATOCRIT 31.9 % (42.0-52.0); HEMOGLOBIN 9.9 g/dl (14.0-18.0); IMMATURE GRANULOCYTE % (AUTO) 0.5 % (0.0-5.0); LYMPHOCYTES # (AUTO) 0.8 K/uL (0.60-3.4); MEAN CORPUSCULAR HEMOGLOBIN 27.9 pg (27.0-31.0); MEAN CORPUSCULAR VOLUME 89.9 fl (80.0-94.0); MONOCYTES # (AUTO) 0.7 K/uL (0.4-2.0); MONOCYTES % (AUTO) 8.7 (0-10); NEUTROPHILS # (AUTO) 6.4 K/ul (2.0-6.9); NEUTROPHILS % (AUTO) 80.8 % (42.2-75.2); PLATELET COUNT 268 10^3/uL (140-440); RDW COEFFICIENT OF VARIATION 16.3 % (11.6-14.8); RED BLOOD COUNT 3.55 10^6/ul (4.70-6.10); WHITE BLOOD COUNT 7.89 K/ul (4.2-10.2)
[2021-05-23 05:08] LABS: ALBUMIN 3.13 g/dL (3.5-5.0); ALKALINE PHOSPHATASE 32.1 U/L (56-119); ASPARTATE AMINO TRANSFERASE 17.2 U/L (17-59); BILIRUBIN,TOTAL 0.53 mg/dL (0.2-1.3); BLOOD UREA NITROGEN 46.8 mg/dL (9-20); CALCIUM 8.28 mg/dL (8.4-10.2); CARBON DIOXIDE 30.9 mmol/L (22-30.0); CHLORIDE 106.9 mmol/L (98-107); CREATININE 1.84 mg/dL (0.60-1.10); GLUCOSE 181.6 mg/dL (74-106); POTASSIUM 4.34 mmol/L (3.5-5.1); SODIUM 143.7 mmol/L (134.5-145); TOTAL PROTEIN 5.48 g/dL (6.3-8.2)
[2021-05-23] MEDS: HUMULIN R SUBCUT PRN ×4 (06:05→20:30)
[2021-05-23] MEDS: LASIX TAB PO SCH ×2 (06:37→08:49)
[2021-05-23] MEDS: PROTONIX PO SCH (06:38)
[2021-05-23] MEDS ORDERED: ATIVAN PO PRN (08:30)
[2021-05-23 08:38] LABS: ABG O2 HGB 93.1 % (95-100); ABG PH 7.43 (7.35-7.45); BEecf 8.2 (-2.0-3.0); COHb 2.6 (0.5-1.5); HCO3 32.5 (21-28); MetHb 1.1 (0-1.5); sO2 94.3 % (94-98); tHb 9.7 g/dl (11.7-17.4)
[2021-05-23] MEDS: ROCEPHIN 1 GM/50 ML D5W 1 GM/50 ML BAG IV SCH (08:47)
[2021-05-23] MEDS: DECADRON IM SCH (08:47)
[2021-05-23] MEDS: ZESTRIL PO SCH (08:48)
[2021-05-23] MEDS: PROTONIX IV IVP SCH ×2 (08:48→17:30)
[2021-05-23] MEDS: FLOMAX PO SCH ×2 (08:48→20:30)
[2021-05-23] MEDS: TOPROL XL PO SCH ×2 (08:48→20:29)
[2021-05-23] MEDS: JANUVIA PO SCH (08:48)
[2021-05-23] MEDS: CARDIZEM PO SCH (08:48)
[2021-05-23] MEDS: SYMBICORT 160-4.5 MCG INHALER IH SCH ×2 (08:49→20:32)
[2021-05-23] MEDS: ALDACTONE PO SCH (08:49)
--- NOTE | 2021-05-23 08:49 | PCM.PROG ---
Attending Provider: ATTENDING PROVIDER: Dr. OMAR MENDIOLA This patient is seen with Thais Acosta, Nurse Practitioner. DATE OF SERVICE: 05/23/21 SUBJECTIVE: This 80 year old /WHITE M was hospitalized 05/21/21. He had bowel movement with bright red blood this morning. Er had added Lovenox. The patient is already on Eliquis. The is alert and pleasant this morning. REVIEW OF SYSTEMS: CONSTITUTIONAL: No night sweats. No fatigue, malaise, lethargy. No fever or chills. HEENT: Eyes: No visual changes. No eye pain. No eye discharge. ENT: No runny nose. No epistaxis. No sinus pain. No odynophagia. No congestion. RESPIRATORY: No cough, no congestion. No hemoptysis. No shortness of breath. CARDIOVASCULAR: No angina symptoms. No CHF symptoms. No atypical chest pain for CAD. No palpitations. No orthopnea.. GASTROINTESTINAL: Slight left quadrant abdominal tenderness. No nausea or vomiting. Diarrhea with blood. No hematemesis. No hematochezia. GENITOURINARY: No urgency. No frequency. No dysuria. No hematuria. No obstructive symptoms. No discharge. No pain. No significant abnormal bleeding. MUSCULOSKELETAL: No musculoskeletal pain; no joint swelling. NEUROLOGICAL: Awake, alert, intermittent confusion. No headache. No neck pain. No syncope. No seizures. No dizziness. PSYCHIATRIC: Not anxious. No depression. No suicidal thoughts. No homicidal thoughts. SKIN: No rash. No lesions. No wounds. ENDOCRINE: No unexplained weight loss. No weight gain. HEMATOLOGIC/LYMPHATIC: No anemia. No purpura. No petechiae. No prolonged or excessive bleeding. No palpable lymph nodes. PHYSICAL EXAMINATION: GENERAL: The patient is awake, alert and oriented to person and place, sitting in bed in no distress. VITAL SIGNS: Temperature 97.4 F, Pulse 75, Respiratory Rate 18, BP 121/70, Pulse Ox 93% HEENT: Head normocephalic, atraumatic. Eyes: Extraocular muscles are intact. Pupils are equal, round and reactive to light and accommodation. Ears: No lesions. Nose appeared normal. Throat: No exudate or erythema. NECK: Supple. No JVD, no carotid bruit. No lymphadenopathy or thyromegaly. LUNGS: Diminished breath sounds. Clear to auscultation. Percussion note normal. Chest symmetrical. HEART: S1, S2, no S3. Irregular heart rate. No murmurs. No cyanosis or clubbing. No ascites. Pulses: Dorsalis pedis and posterior tibial pulses +1 to +2 both sides. ABDOMEN: Soft. Left quadrant abdominal pain. Bowel sounds active. No CVA tenderness. No mass felt. EXTREMITIES: No edema. Full range of motion of all extremities, equal. NEUROLOGIC: No focal deficit. Cranial nerves II through XII are grossly intact. No headache. No double vision. SKIN: Not dry. Intact. Turgor-normal. LYMPHATIC: No palpable lymph nodes/no lymphedema. MUSCULOSKELETAL: Normal joints with no swelling. Muscle tone is normal. LAB REVIEW: 05/23/21 04:49 05/23/21 04:49 05/23/21 04:49: Sodium 143.7, Potassium 4.34, Chloride 106.9, Carbon Dioxide 30.9 H, Anion Gap 10.24, BUN 46.8 H, Creatinine 1.84 H, Estimated GFR (MDRD) 35.00, BUN/Creatinine Ratio 25.43, Glucose 181.6 H D, Calcium 8.28 L, Total Bilirubin 0.53, AST 17.2, ALT 14.0, Alkaline Phosphatase 32.1 L, Total Protein 5.48 L, Albumin 3.13 L, Globulin 2.35, Albumin/Globulin Ratio 1.33 05/23/21 04:49: WBC 7.89 D, RBC 3.55 L, Hgb 9.9 L, Hct 31.9 L, MCV 89.9, MCH 27.9, MCHC 31.0 L, RDW Coeff of [place] 16.3 H, Plt Count 268, Immature Gran % (Auto) 0.5, Neut % (Auto) 80.8 H, Lymph % (Auto) 10.0, [place] % (Auto) 8.7, Eos % (Auto) 0.0, Baso % (Auto) 0.0, Neut # (Auto) 6.4, Lymph # (Auto) 0.8, [place] # (Auto) 0.7, Eos # (Auto) 0.0, Baso # (Auto) 0.0, Immature Gran # (Auto) 0.0 ASSESSMENT: Please see below. acute respi falur diqarrh with blood afib dementia copd PLAN: abg on [address] of chest abdomen and pelvus with and wihtout dc lovneox hold elqius change ptoron to iv q 12 Plan and coordination of the patient's care discussed in the presence of Past Due Accounts Clerk and nurse. SCRIBED BY: Renuka IRENEist scribed while in presence of service performed by Dr. Mendiola/Thais Acosta APRN on 05/23/21 ([id number])
[2021-05-23 09:15] LABS: OCCULT BLOOD SAMPLE 1 NEGATIVE (NEGATIVE); OCCULT BLOOD SAMPLE 2 NO SPECIMEN RECEIVED (NEGATIVE); OCCULT BLOOD SAMPLE 3 NO SPECIMEN RECEIVED (NEGATIVE)
[2021-05-23] MEDS: SODIUM CHLORIDE 1,000 ML IV SCH (10:03)
--- NOTE | 2021-05-23 10:17 | CT ---
EXAM: CT chest without contrast HISTORY: Shortness of breath COMPARISON: 04/12/2020 TECHNIQUE: CT chest performed without intravenous contrast. Coronal and sagittal reformatted images obtained. FINDINGS: Thoracic inlet unremarkable. Heart moderately enlarged. Small pericardial fluid anterior ly. Coronary calcifications. Aorta normal in caliber. Moderate atherosclerosis. Valuation for lymp hadenopathy limited without contrast. No lymphadenopathy identified in the chest. Body wall edema. No acute abnormalities of the bones. Degenerative change in the spine. Central airway patent. Lar ge right and moderate left pleural effusion with adjacent atelectasis and/or consolidation. Bilatera l interlobular septal thickening and scattered ground-glass opacities, suggesting pulmonary interstit ial edema.. No pneumothorax. Emphysema. IMPRESSION: 1. Cardiomegaly with findings suggesting pulmonary edema. Large right and moderate left pleural eff usions with bibasilar atelectasis and/or pneumonia. 2. Small pericardial effusion. 3. Mild emphysema 4. Coronary calcifications. Atherosclerosis. 5. Body wall edema. All CT scans are performed using dose optimization techniques as appropriate to the performed exam an d include at least one of the following: Automated exposure control, adjustment of the mA and/or kV according t o size, and the use of iterative reconstruction technique.
--- NOTE | 2021-05-23 10:21 | CT ---
EXAM: CT abdomen pelvis without contrast HISTORY: Abdominal pain and tenderness COMPARISON: Same day CT chest and CT abdomen pelvis 04/20/2016 TECHNIQUE: Serial axial images of the abdomen pelvis were performed from the lung bases through the inferior pelvis without contrast. These were viewed in multiple planes. FINDINGS: There is moderate pleural effusions present with lower lobe consolidations. Evaluation is limited due to lack of contrast. The liver is unremarkable. The gallbladder is mildly distended. Adrenal glands are unremarkable. The kidneys are unchanged with exophytic low attenuati on cyst in the anterior left renal pole. There is a nonobstructing stable renal stone. The anterior left upper pole. The spleen is unremarkable. Pancreas is unremarkable. The stomach is distended. The small bowel in the abdomen pelvis is unremarkable. The colon demonstr ates few scattered diverticuli. There is mild interstitial ground-glass in the abdominal mesentery. There is hazy ground-glass in the dependent pelvis with questionable minimal free fluid. There is m ild subcutaneous edema. There is severe atherosclerotic disease. The osseous structures demonstrate degenerative disease. IMPRESSION: 1. No acute intra-abdominal or pelvic process. 2. Subcutaneous edema with mild ground-glass in the abdominal mesentery with dependent ground-glass in the presacral space in the pelvis. This is nonspecific inflammation/edema. 3. Moderate pleural effusions with lower lobe consolidations. 4. Nonobstructing left renal stone with a left renal cyst. 5. Mild diverticulosis. All CT scans are performed using dose optimization techniques as appropriate to the performed exam an d include at least one of the following: Automated exposure control, adjustment of the mA and/or kV according t o size, and the use of iterative reconstruction technique.
--- NOTE | 2021-05-23 15:03 | RS.BEDDYS ---
Subjective Date of Evaluation: 05/23/21 Diagnosis: SOA, confusion Current Level of Function: This is an 80 year old male admitted from an inpatient rehab program. He was placed on a puree diet texture with mildly thick-nectar liquids. The patient recently has been denying puree diet trays. At this time, he is to be evaluated to determine readiness for diet upgrade. Current Diet: Puree diet; nectar thick liquids Current Subjective/complaints:: The patient is awake and sitting upright in his recliner. He denies pain and offered no complaints. The family is present and reported concerns with his current diet texture. The daughter reported he has consumed regular diet trials with family and now with his dentures in place. The pt and family are ready for upgrade. Patient's Goals: To consume safer and least restrictive diet. General Information - General Denture Type: Full- Upper & Lower (fits without complaints.) Patient Orientation: Person Ability to Follow Directions: Good (Simple directions with oral motor examination required minimal verbal repetition.) Oral Expression Ability: No Impairment - Voice Voice Quality: Normal Oral-Facial Assessment - Face Facial Symmetry: Symmetrical Facial Movement: Controlled - Dental/Labial Mouth Occlusion: Normal Lip Protrusion: Normal Lip Retraction: Normal - Lingual Protrusion: Normal Retraction: Normal Tip Lateralization: Normal Tip Elevation: Reduced ROM (Association from mandible for approximation of lingual tip.) Food Presentation - Solids Food Presented: Regular (Full cracker presented. Pt required verbal cue to feed self.) Behaviors/Comments: Regular cracker presented with minimally prolonged mastication process secondary to large size of bite. Pt independently took large bite and presented more to oral cavity prior to swallowing first trial. Initial swallow, pt had mild oral stasis. Additional swallow response with liquid wash cleared oral cavity. Pt independently utilized finger sweep and lingual sweep to clear bilateral sucli. No overt s/s of aspiration. Pt reported no feelings of food stuck in throat. - Liquids Liquid Presented: Thin (via straw and open cup.) Behaviors/Comments: 3 oz water test completed. No overt s/s of aspiration. Clear voicing post swallow test. Consecutive straw drinks completed with 1 second swallow delay, audible swallow response. LE was minimally decreased for airway protection. No overt s/s of aspiration. Ice chips presented and pt presented without deficits. Liquid Presented: Pudding - Recommendations: Dysphagia Evaluation Dietary Recommendations: Regular, Thin Dysphagia Swallow Precautions/Strategies: Double Swallow, Small Bites and Sips, Alternate Liquids/Solids Comments:: Utilize all safe swallow and aspiration precautions 100% of PO intake. Encourage small size bites; alternate solids and liquids to reduce oral stasis; clean dentures and oral cavity prior to lowering HOB; monitor lung sounds for increased chest congestion. Medications can be taken whole one at a time with sips of thin liquids. Give pt sips of liquids prior to any medication administration to reduce pill sticking. - Summary Dysphagia Evaluation Summary: The patient presented with minimal to no oropharyngeal phase deficits. Oral phase presented with fast rate of intake which may place pt at risk for aspiration/penetration episodes. With dentition, pt masticated regular diet texture without difficulty. 3oz water test completed and pt had no overt s/s of aspiration at the bedside. Thin liquids tolerated with ice chips, sips via straw and with open cup without overt s/s of aspiration. At this time, SIDE GUIDER recommends pt upgrade to regular diet texture with thin liquids. Utilize all safe swallow and aspiration precautions, alternate liquids and solids, intermittent supervision with meals. Medications whole one at a time with sips of liquids. Functional Reporting G Codes: n/a Severity Impairment Rationale: n/a Short Term Goals Goal #1: Tolerate regular diet/thin liquids w/ min to no overt s/s of aspiration. Goal to be met by: 05/27/21 Goal #2: Pt/family/staff follow safe swallow/asp precautions 100% of PO intake Goal to be met by: 05/27/21 Senior Living Goals Goal #1: Tolerate safer and least restrictive diet w/o overt s/s of asp. Goal to be met by: 05/27/21 Plan Duration of Treatment: 1 Week Frequency of Treatment: 2-3x/week Anticipated Discharge Destination: Rehab program - Treatment Code (1) Dysphagia Code(s): R13.10 - Dysphagia, unspecified (2) COPD exacerbation Code(s): J44.1 - Chronic obstructive pulmonary disease with (acute) exacerbation
[2021-05-23] MEDS: SEROQUEL PO SCH (17:31)
[2021-05-23] MEDS: CRESTOR PO SCH (20:29)
[2021-05-23] MEDS: TRIGLIDE PO SCH (20:30)
[2021-05-23] MEDS: ENTRESTO 24 MG-26 MG TABLET PO SCH (20:30)
[2021-05-24 05:13] LABS: HEMATOCRIT 31.3 % (42.0-52.0); HEMOGLOBIN 9.6 g/dl (14.0-18.0); IMMATURE GRANULOCYTE % (AUTO) 0.3 % (0.0-5.0); LYMPHOCYTES # (AUTO) 0.5 K/uL (0.60-3.4); LYMPHOCYTES % (AUTO) 8.3 (10.0-50.0); MEAN CORPUSCULAR HEMOGLOBIN 27.9 pg (27.0-31.0); MEAN CORPUSCULAR HGB CONC 30.7 (31.8-35.4); MONOCYTES # (AUTO) 0.6 K/uL (0.4-2.0); MONOCYTES % (AUTO) 9.8 (0-10); NEUTROPHILS # (AUTO) 5.3 K/ul (2.0-6.9); NEUTROPHILS % (AUTO) 81.6 % (42.2-75.2); PLATELET COUNT 261 10^3/uL (140-440); RDW COEFFICIENT OF VARIATION 16.5 % (11.6-14.8); RED BLOOD COUNT 3.44 10^6/ul (4.70-6.10); WHITE BLOOD COUNT 6.54 K/ul (4.2-10.2)
[2021-05-24 05:24] LABS: ALBUMIN 3.16 g/dL (3.5-5.0); ASPARTATE AMINO TRANSFERASE 15.6 U/L (17-59); BILIRUBIN,TOTAL 0.37 mg/dL (0.2-1.3); BLOOD UREA NITROGEN 43.9 mg/dL (9-20); CALCIUM 8.37 mg/dL (8.4-10.2); CARBON DIOXIDE 32.5 mmol/L (22-30.0); CHLORIDE 107.9 mmol/L (98-107); CREATININE 1.78 mg/dL (0.60-1.10); POTASSIUM 4.06 mmol/L (3.5-5.1); SODIUM 144.4 mmol/L (134.5-145); TOTAL PROTEIN 5.48 g/dL (6.3-8.2)
[2021-05-24] MEDS: SODIUM CHLORIDE 1,000 ML IV SCH ×2 (05:40→10:46)
[2021-05-24] MEDS: PROTONIX IV IVP SCH ×2 (05:40→17:11)
[2021-05-24] MEDS: HUMULIN R SUBCUT PRN ×4 (05:55→20:57)
[2021-05-24] MEDS ORDERED: LASIX IVP ONE (06:30)
[2021-05-24] MEDS: TOPROL XL PO SCH ×2 (09:04→20:56)
[2021-05-24] MEDS: DECADRON IM SCH (09:05)
[2021-05-24] MEDS: JANUVIA PO SCH (09:05)
[2021-05-24] MEDS: ENTRESTO 24 MG-26 MG TABLET PO SCH ×2 (09:05→20:56)
[2021-05-24] MEDS: FLOMAX PO SCH ×2 (09:05→20:56)
[2021-05-24] MEDS: ALDACTONE PO SCH (09:05)
[2021-05-24] MEDS: ROCEPHIN 1 GM/50 ML D5W 1 GM/50 ML BAG IV SCH (09:06)
[2021-05-24] MEDS: SYMBICORT 160-4.5 MCG INHALER IH SCH ×2 (09:06→20:56)
--- NOTE | 2021-05-24 09:12 | PCM.PROG ---
Attending Provider: ATTENDING PROVIDER: Dr. OMAR MENDIOLA This patient is seen with Thais Acosta, Nurse Practitioner. DATE OF SERVICE: 05/24/21 SUBJECTIVE: This 80 year old /WHITE M was hospitalized 05/21/21. Pleasant this morning. Started first dose of Entresto last night. Renal function better. Still getting slow IV fluids. Blood pressure is controlled. Gave Seroquel at supper last night and still did have some time of agitation and confusion through the night. REVIEW OF SYSTEMS: CONSTITUTIONAL: No night sweats. No fatigue, malaise, lethargy. No fever or chills. Weakness. HEENT: Eyes: No visual changes. No eye pain. No eye discharge. ENT: No runny nose. No epistaxis. No sinus pain. No odynophagia. No congestion. RESPIRATORY: No cough, no congestion. No hemoptysis. Shortness of breath. CARDIOVASCULAR: No angina symptoms. No CHF symptoms. No atypical chest pain for CAD. No palpitations. No orthopnea.. GASTROINTESTINAL: No abdominal pain. No nausea or vomiting. No diarrhea or constipation. No hematemesis. No hematochezia. GENITOURINARY: No urgency. No frequency. No dysuria. No hematuria. No obstructive symptoms. No discharge. No pain. No significant abnormal bleeding. MUSCULOSKELETAL: No musculoskeletal pain; no joint swelling. NEUROLOGICAL: Awake, alert, confused. No headache. No neck pain. No syncope. No seizures. No dizziness. PSYCHIATRIC: Not anxious. No depression. No suicidal thoughts. No homicidal thoughts. SKIN: No rash. No lesions. No wounds. ENDOCRINE: No unexplained weight loss. No weight gain. HEMATOLOGIC/LYMPHATIC: No anemia. No purpura. No petechiae. No prolonged or excessive bleeding. No palpable lymph nodes. PHYSICAL EXAMINATION: GENERAL: The patient is awake, alert and oriented, lying in bed in no distress. VITAL SIGNS: Temperature 97.9 F, Pulse 72, Respiratory Rate 16, BP 130/70, Pulse Ox 98% HEENT: Head normocephalic, atraumatic. Eyes: Extraocular muscles are intact. Pupils are equal, round and reactive to light and accommodation. Ears: No lesions. Nose appeared normal. Throat: No exudate or erythema. NECK: Supple. No JVD, no carotid bruit. No lymphadenopathy or thyromegaly. LUNGS: Diminished breath sounds. Clear to auscultation. Percussion note normal. Chest symmetrical. HEART: S1, S2, no S3. Irregular heart rate. No murmurs. No cyanosis or clubbing. No ascites. Pulses: Dorsalis pedis and posterior tibial pulses +1 to +2 both sides. ABDOMEN: Soft. Non-tender. Bowel sounds active. No CVA tenderness. No mass felt. EXTREMITIES: No edema. Full range of motion of all extremities, equal. NEUROLOGIC: No focal deficit. Cranial nerves II through XII are grossly intact. No headache. No double vision. SKIN: Not dry. Intact. Turgor-normal. LYMPHATIC: No palpable lymph nodes/no lymphedema. MUSCULOSKELETAL: Normal joints with no swelling. Muscle tone is normal. LAB REVIEW: 05/24/21 04:49 05/24/21 04:49 05/24/21 04:49: Sodium 144.4, Potassium 4.06, Chloride 107.9 H, Carbon Dioxide 32.5 H, Anion Gap 8.06, BUN 43.9 H, Creatinine 1.78 H, Estimated GFR (MDRD) 37.00, BUN/Creatinine Ratio 24.66, Glucose 217.0 H, Calcium 8.37 L, Total Bilirubin 0.37, AST 15.6 L, ALT 13.0, Alkaline Phosphatase 33.0 L, Total Protein 5.48 L, Albumin 3.16 L, Globulin 2.32, Albumin/Globulin Ratio 1.36 05/24/21 04:49: WBC 6.54, RBC 3.44 L, Hgb 9.6 L, Hct 31.3 L, MCV 91.0, MCH 27.9, MCHC 30.7 L, RDW Coeff of [place] 16.5 H, Plt Count 261, Immature Gran % (Auto) 0.3, Neut % (Auto) 81.6 H, Lymph % (Auto) 8.3 L, [place] % (Auto) 9.8, Eos % (Auto) 0.0, Baso % (Auto) 0.0, Neut # (Auto) 5.3, Lymph # (Auto) 0.5 L, [place] # (Auto) 0.6, Eos # (Auto) 0.0, Baso # (Auto) 0.0, Immature Gran # (Auto) 0.0 05/23/21 08:30: Puncture Site Lr, Base Excess 8.2 H, O2 Saturation 94.3, ABG pH 7.43, ABG pCO2 49.0 H, ABG pO2 70.0 L, ABG HCO3 32.5 H, ABG Total CO2 34.0 H, [place] Test Pos, Hemoglobin 1.1, Oxyhemoglobin 93.1 L, Carboxyhemoglobin 2.6 H, Total Hemoglobin 9.7 L, Oxygen Liter Flow 4.00 05/23/21 07:46: Stl Occult Blood (IFOB) Negative, Stool Occult Blood #2 No specimen received, Stool Occult Blood #3 No specimen received ASSESSMENT: Please see below. 1. CHF 2. Acute respiratory failure 3. Chronic kidney disease stage 3 4. Dilated cardiomyopathy 5. History of CAD 6. Atrial fibrillation PLAN: 1. Continue Entresto 2. Will monitor blood pressure 3. Decrease IV fluids to 50cc Plan and coordination of the patient's care discussed in the presence of Laundry Machine Tender and nurse. SCRIBED BY: Waldo IRENE scribed while in presence of service performed by Dr. Mendiola/Thais Acosta APRN on 05/24/21 ([id number])
[2021-05-24] MEDS ORDERED: TYLENOL PO PRN (10:00)
--- NOTE | 2021-05-24 10:12 | PN ---
DATE OF SERVICE: 05/23/21 SUBJECTIVE: The patient was seen and examined with the Nurse Practitioner. The patient's condition has improved. The CT scan showed congestive heart failure, pulmonary edema. The patient does not have any symptoms of CHF. He is talking and comfortable and his vitals are stable. We will try to put him on Entresto and discontinue the Lisinopril. Lasix will be started. PO Lasix will be discontinued. We will try to monitor kidney function so that they do not rise. Otherwise he is stable. He is alert. Appetite has improved. Clinically he is better. Bloody stool this morning but guaiac was negative so we don't known exactly what it was. TIME SPENT: More than 30 minutes. CODE: Extensive. Plan and coordination of the patient's care discussed in the presence of nurse. DAVIDA
--- NOTE | 2021-05-24 10:41 | PN ---
DATE OF SERVICE: 05/22/21 SUBJECTIVE: 80 year old white male hospitalized with COPD hypoxemia and change in the mental status. The patient's condition seems to have improved. This morning the is present in the room. The patient is alert, confused. REVIEW OF SYSTEMS: CONSTITUTIONAL: No night sweats. No fatigue, malaise, lethargy. No fever or chills. HEENT: Eyes: No visual changes. No eye pain. No eye discharge. ENT: No runny nose. No epistaxis. No sinus pain. No sore throat. No odynophagia. No congestion. RESPIRATORY: No cough, no congestion. No hemoptysis. No shortness of breath. CARDIOVASCULAR: No angina symptoms. No CHF symptoms. No atypical chest pain for CAD. No palpitations. No PND. No orthopnea. GASTROINTESTINAL: No abdominal pain. No nausea or vomiting. No diarrhea or constipation. No hematemesis. No hematochezia. Appetite has improved, ate all his breakfast. GENITOURINARY: No urgency. No frequency. No dysuria. No hematuria. No obstructive symptoms. No discharge. No pain. No significant abnormal bleeding. MUSCULOSKELETAL: No musculoskeletal pain; no joint swelling. NEUROLOGICAL: No headache. No neck pain. No syncope. No seizures. No dizziness. PSYCHIATRIC: Not anxious. No depression. No suicidal thoughts. No homicidal thoughts. SKIN: No rash. No lesions. No wounds. ENDOCRINE: No unexplained weight loss. No weight gain. HEMATOLOGIC/LYMPHATIC: No anemia. No purpura. No petechiae. No prolonged or excessive bleeding. No palpable lymph nodes. PHYSICAL EXAMINATION: VITAL SIGNS: Temperature 99.5, pulse 83, respiratory rate 20, blood pressure 123/72 and pulse ox 92%. HEENT: Head normocephalic, atraumatic. Eyes: Extraocular muscles are intact. Pupils are equal, round and reactive to light and accommodation. Ears: No lesions. Nose appeared normal. Throat: No exudate or erythema. NECK: Supple. No JVD, no carotid bruit. No lymphadenopathy or thyromegaly. LUNGS: Decreased breath sounds but good air entry. Clear to auscultation. Percussion note normal. Chest symmetrical. HEART: S1, S2, no S3. No murmurs. No cyanosis or clubbing. No ascites. Pulses: Dorsalis pedis and posterior tibial pulses +1 to +2 bilaterally. ABDOMEN: Soft. Nontender. Bowel sounds active. No CVA tenderness. No mass felt. EXTREMITIES: No edema. Full range of motion of all extremities, equal. NEUROLOGIC: No focal deficit. Cranial nerves II through XII are grossly intact. No headache. No double vision. SKIN: Not dry. Intact. Turgor - normal. LYMPHATIC: No palpable lymph nodes/no lymphedema. MUSCULOSKELETAL: Normal joints with no swelling. Muscle tone is normal. LABS: Hgb 10, hct 32, WBC 2,600 normal differential, creatinine 1.8, BUN 38, potassium 4.3 ASSESSMENT: 1. Worsening of dementia 2. Respiratory failure, worsening 3. Chronic respiratory failure 4. Chronic lung disease 5. Atrial fibrillation 6. Severe dementia but is alert PLAN: 1. Advised to continue slow IV fluids 2. Continue all the medications including inhalers 3. Continue Rocephin 4. Continue Lisinopril, Pantoprazole, Rosuvastatin and Sitagliptin. 5. Push IV fluids 6. Encourage the patient to eat 7. U/A pending 8. Continue steroids 9. We will discontinue IV steroids that has been on higher dose. We will put the patient on 1cc Decadrone IM daily 10. Dose of Apixaban will be reduced to 2.5mg twice a day TIME SPENT: More than 30 minutes. Plan and coordination of the patient's care discussed in the presence of nurse. DAVIDA
--- NOTE | 2021-05-24 10:47 | PN ---
DATE OF SERVICE: 05/21/21 ADMIT NOTE SUBJECTIVE: 80 year old white male was brought to the emergency room because of the patient's saturation being 80% at the [facility] with change in the mental status and had mild symptoms of bronchitis along with change in the mental status. The patient is confused but usually alert and cooperates with physical therapy but his mental status has changed. The patient's chest x-ray practically unchanged from one that was done before. Kidney function are somewhat abnormal with showing signs of probably renal azotemia. He was hospitalized because of COPD exacerbation and is going to be given steroids and NEBS and antibiotics. The patient is going to be steroids also. The patient is going to be treated with Rocephin for possible bronchitis and pneumonitis along with possibility of UTI. U/A is going to be ordered. The patient is going to have telemetry. He is DNR. TIME SPENT: More than 30 minutes. Plan and coordination of the patient's care discussed in the presence of nurse. DAVIDA
[2021-05-24] MEDS: LASIX TAB PO SCH (10:48)
[2021-05-24] MEDS: SEROQUEL PO SCH (17:11)
[2021-05-24] MEDS: CRESTOR PO SCH (20:56)
[2021-05-24] MEDS: TRIGLIDE PO SCH (20:56)
[2021-05-25] MEDS: SODIUM CHLORIDE 1,000 ML IV SCH ×3 (00:39→21:27)
[2021-05-25 05:18] LABS: BASOPHILS % (AUTO) 0.1 % (0.0-3.0); EOSINOPHILS # (AUTO) 0.1 K/ul (0.0-0.7); HEMATOCRIT 31.7 % (42.0-52.0); HEMOGLOBIN 9.8 g/dl (14.0-18.0); IMMATURE GRANULOCYTE % (AUTO) 0.4 % (0.0-5.0); LYMPHOCYTES # (AUTO) 0.7 K/uL (0.60-3.4); LYMPHOCYTES % (AUTO) 9.8 (10.0-50.0); MEAN CORPUSCULAR HEMOGLOBIN 27.7 pg (27.0-31.0); MEAN CORPUSCULAR HGB CONC 30.9 (31.8-35.4); MEAN CORPUSCULAR VOLUME 89.5 fl (80.0-94.0); MONOCYTES # (AUTO) 0.6 K/uL (0.4-2.0); MONOCYTES % (AUTO) 9.2 (0-10); NEUTROPHILS # (AUTO) 5.4 K/ul (2.0-6.9); NEUTROPHILS % (AUTO) 79.5 % (42.2-75.2); PLATELET COUNT 245 10^3/uL (140-440); RDW COEFFICIENT OF VARIATION 15.9 % (11.6-14.8); RED BLOOD COUNT 3.54 10^6/ul (4.70-6.10); WHITE BLOOD COUNT 6.82 K/ul (4.2-10.2)
[2021-05-25 05:31] LABS: ALBUMIN 2.68 g/dL (3.5-5.0); ALKALINE PHOSPHATASE 29.1 U/L (56-119); ASPARTATE AMINO TRANSFERASE 14.4 U/L (17-59); BILIRUBIN,TOTAL 0.49 mg/dL (0.2-1.3); BLOOD UREA NITROGEN 38.2 mg/dL (9-20); CALCIUM 7.97 mg/dL (8.4-10.2); CARBON DIOXIDE 33.1 mmol/L (22-30.0); CHLORIDE 106.8 mmol/L (98-107); CREATININE 1.39 mg/dL (0.60-1.10); GLUCOSE 160.6 mg/dL (74-106); POTASSIUM 3.72 mmol/L (3.5-5.1); SODIUM 141.5 mmol/L (134.5-145); TOTAL PROTEIN 4.87 g/dL (6.3-8.2)
[2021-05-25] MEDS: LASIX TAB PO SCH (05:48)
[2021-05-25] MEDS: HUMULIN R SUBCUT PRN ×3 (05:48→17:22)
[2021-05-25] MEDS: PROTONIX IV IVP SCH ×2 (05:50→17:31)
[2021-05-25] MEDS: SYMBICORT 160-4.5 MCG INHALER IH SCH ×2 (09:04→21:16)
[2021-05-25] MEDS: TOPROL XL PO SCH ×2 (09:05→21:15)
[2021-05-25] MEDS: FLOMAX PO SCH ×2 (09:05→21:20)
[2021-05-25] MEDS: ENTRESTO 24 MG-26 MG TABLET PO SCH ×2 (09:05→21:15)
[2021-05-25] MEDS: ALDACTONE PO SCH (09:05)
[2021-05-25] MEDS: JANUVIA PO SCH (09:05)
[2021-05-25] MEDS: ELIQUIS PO SCH ×2 (09:06→21:15)
[2021-05-25] MEDS: DECADRON IM SCH (09:06)
--- NOTE | 2021-05-25 11:18 | RS.DYSPHTX ---
Dysphagia Treatment Note Date of Note: 05/25/21 Time of Treatment: 10:15 Subjective: The patient was upright in recliner. His was at the bedside. Pt offered complaints regarding nasal cannula and nose feeling 'itchy." The patient's reported he consumed 80-100% of breakfast, leaving a few pieces of food. She denied any concerns with regular diet texture meal tray. The patient verbalized happiness with regular diet texture. Pt was agreeable to work with INSPECT[employer] for continued education and diet tolerance monitoring. Total treatment time: 30 - Short Term Goals Goal #1: Tolerate regular diet/thin liquids w/ min to no overt s/s of aspiration. Activity/Accuracy: Pt was presented regular texture cookie. Large bite was consumed which is his natural size. Mastication process was functional, however upper dentures were too loose. Pt coordinated bolus with loose fitting upper denture. He was observed to manipulate denture 2x. Post meal, [employer] removed upper denture. Mild food particles in denture were cleaned. INS[employer] placed denture paste and pt placed dentures independently. INS[employer] continued education on importance of denture paste prior to any PO intake to reduce risks of bolus loss and episodes of penetration/aspiration. Goal #2: Pt/family/staff follow safe swallow/asp precautions 100% of PO intake Activity/Accuracy: [employer] utilized 'wh' questions with family and pt. The reported he has been upright in recliner for his meals. The [employer] educated pt and family on use of seated position on hospital bed for any occasion he may be in bed with PO intake. [employer] reviewed all safe swallow precautions including fatigue, rate of intake, upright, endurance. The reported he did not fatigue with a full meal tray at breakfast meal, sat upright, but does continue to demonstrate fast rate with meals. Aspiration precautions educated including, coughing or throat clears, increased lung congestion, difficulty with mastication from loose dentures. verbalized understanding. Pt verbalized understanding with dentures and utilizing paste for security of upper denture. - [employer] Goals Goal #1: Tolerate safer and least restrictive diet w/o overt s/s of asp. Assessment: The patient is tolerating diet and liquid upgrade without overt s/s of aspiration or increased chest congestion. Family is supportive and assists pt with PO intake. Pt's family is present during meal times and has been educated with aspiration risks/precautions and safe swallow strategies. At this time, INS[employer] recommends pt continue least restrictive regular diet texture with thin liquids. Continue to monitor for chest congestion. - Units Charged Swallowing Therapy: 2 - Plan Comments: [employer] recommends pt d/c with least restrictive regular diet texture and thin liquids. Please send INSPECTOR [employer] eval/notes to rehab program for continuation of current diet/liquid recommendations.
[2021-05-25] MEDS: ROCEPHIN 1 GM/50 ML D5W 1 GM/50 ML BAG IV SCH (15:39)
[2021-05-25] MEDS: SEROQUEL PO SCH (17:21)
[2021-05-25] MEDS: CRESTOR PO SCH (21:15)
[2021-05-25] MEDS: TRIGLIDE PO SCH (21:15)
[2021-05-26 05:21] LABS: BASOPHILS % (AUTO) 0.3 % (0.0-3.0); EOSINOPHILS # (AUTO) 0.2 K/ul (0.0-0.7); EOSINOPHILS % (AUTO) 2.2 % (0.0-7.0); HEMATOCRIT 33.3 % (42.0-52.0); HEMOGLOBIN 10.1 g/dl (14.0-18.0); IMMATURE GRANULOCYTE % (AUTO) 0.4 % (0.0-5.0); LYMPHOCYTES # (AUTO) 0.8 K/uL (0.60-3.4); MEAN CORPUSCULAR HEMOGLOBIN 26.9 pg (27.0-31.0); MEAN CORPUSCULAR HGB CONC 30.3 (31.8-35.4); MEAN CORPUSCULAR VOLUME 88.8 fl (80.0-94.0); MONOCYTES # (AUTO) 0.6 K/uL (0.4-2.0); MONOCYTES % (AUTO) 8.5 (0-10); NEUTROPHILS # (AUTO) 5.2 K/ul (2.0-6.9); NEUTROPHILS % (AUTO) 76.6 % (42.2-75.2); PLATELET COUNT 247 10^3/uL (140-440); RED BLOOD COUNT 3.75 10^6/ul (4.70-6.10); WHITE BLOOD COUNT 6.81 K/ul (4.2-10.2)
[2021-05-26 05:36] LABS: ALANINE AMINOTRANSFERASE 10.5 U/L (0-50); ALBUMIN 2.62 g/dL (3.5-5.0); ALKALINE PHOSPHATASE 28.4 U/L (56-119); ASPARTATE AMINO TRANSFERASE 15.4 U/L (17-59); BILIRUBIN,TOTAL 0.35 mg/dL (0.2-1.3); CALCIUM 7.86 mg/dL (8.4-10.2); CHLORIDE 105.8 mmol/L (98-107); CREATININE 1.41 mg/dL (0.60-1.10); GLUCOSE 199.6 mg/dL (74-106); POTASSIUM 3.69 mmol/L (3.5-5.1); SODIUM 140.6 mmol/L (134.5-145); TOTAL PROTEIN 4.86 g/dL (6.3-8.2)
[2021-05-26] MEDS: PROTONIX IV IVP SCH ×2 (05:38→17:28)
[2021-05-26] MEDS: LASIX TAB PO SCH (05:38)
[2021-05-26] MEDS: HUMULIN R SUBCUT PRN ×3 (06:01→21:07)
[2021-05-26] MEDS ORDERED: LASIX IVP STA (08:21)
[2021-05-26] MEDS: SYMBICORT 160-4.5 MCG INHALER IH SCH ×2 (08:44→22:00)
--- NOTE | 2021-05-26 08:44 | PCM.PROG ---
Attending Provider: ATTENDING PROVIDER: Dr. OMAR MENDIOLA This patient is seen with Thais Acosta, Nurse Practitioner. DATE OF SERVICE: 05/26/21 SUBJECTIVE: This 80 year old /WHITE M was hospitalized 05/21/21. Pleasant this morning. Renal function is stable. Will discontinue IV fluids. Has some edema to upper legs and flank. Seems to be tolerating Entresto. REVIEW OF SYSTEMS: CONSTITUTIONAL: No night sweats. No fatigue, malaise, lethargy. No fever or chills. HEENT: Eyes: No visual changes. No eye pain. No eye discharge. ENT: No runny nose. No epistaxis. No sinus pain. No odynophagia. No congestion. RESPIRATORY: No cough, no congestion. No hemoptysis. Shortness of breath. CARDIOVASCULAR: No angina symptoms. No CHF symptoms. No atypical chest pain for CAD. No palpitations. No orthopnea.. GASTROINTESTINAL: No abdominal pain. No nausea or vomiting. No diarrhea or constipation. No hematemesis. No hematochezia. GENITOURINARY: No urgency. No frequency. No dysuria. No hematuria. No obstructive symptoms. No discharge. No pain. No significant abnormal bleeding. MUSCULOSKELETAL: No musculoskeletal pain; no joint swelling. Edema NEUROLOGICAL: Awake, alert, confusion. No headache. No neck pain. No syncope. No seizures. No dizziness. PSYCHIATRIC: Not anxious. No depression. No suicidal thoughts. No homicidal thoughts. SKIN: No rash. No lesions. No wounds. ENDOCRINE: No unexplained weight loss. No weight gain. HEMATOLOGIC/LYMPHATIC: No anemia. No purpura. No petechiae. No prolonged or excessive bleeding. No palpable lymph nodes. PHYSICAL EXAMINATION: GENERAL: The patient is awake, alert and oriented to person only, sitting in bed in no distress. VITAL SIGNS: Temperature 98.2 F, Pulse 74, Respiratory Rate 18, BP 125/81, Pu lse Ox 96% HEENT: Head normocephalic, atraumatic. Eyes: Extraocular muscles are intact. Pupils are equal, round and reactive to light and accommodation. Ears: No lesions. Nose appeared normal. Throat: No exudate or erythema. NECK: Supple. No JVD, no carotid bruit. No lymphadenopathy or thyromegaly. LUNGS: Diminished breath sounds. Clear to auscultation. Percussion note normal. Chest symmetrical. HEART: S1, S2, no S3. Irregular heart rate. No murmurs. No cyanosis or clubbing. No ascites. Pulses: Dorsalis pedis and posterior tibial pulses +1 to +2 both sides. ABDOMEN: Soft. Non-tender. Bowel sounds active. No CVA tenderness. No mass felt. EXTREMITIES: Edema to bilateral flank and both lower extremities. Full range of motion of all extremities, equal. NEUROLOGIC: No focal deficit. Cranial nerves II through XII are grossly intact. No headache. No double vision. SKIN: Not dry. Intact. Turgor-normal. LYMPHATIC: No palpable lymph nodes/no lymphedema. MUSCULOSKELETAL: Normal joints with no swelling. Muscle tone is normal. LAB REVIEW: 05/26/21 04:41 05/26/21 04:41 05/26/21 04:41: Sodium 140.6, Potassium 3.69, Chloride 105.8, Carbon Dioxide 33.0 H, Anion Gap 5.49, BUN 37.0 H, Creatinine 1.41 H, Estimated GFR (MDRD) 48.00, BUN/Creatinine Ratio 26.24, Glucose 199.6 H, Calcium 7.86 L, Total Bilirubin 0.35, AST 15.4 L, ALT 10.5, Alkaline Phosphatase 28.4 L, Total Protein 4.86 L, Albumin 2.62 L, Globulin 2.24, Albumin/Globulin Ratio 1.16 05/26/21 04:41: WBC 6.81, RBC 3.75 L, Hgb 10.1 L, Hct 33.3 L, MCV 88.8, MCH 26.9 L, MCHC 30.3 L, RDW Coeff of [place] 16.0 H, Plt Count 247, Immature Gran % (Auto) 0.4, Neut % (Auto) 76.6 H, Lymph % (Auto) 12.0, [place] % (Auto) 8.5, Eos % (Auto) 2.2, Baso % (Auto) 0.3, Neut # (Auto) 5.2, Lymph # (Auto) 0.8, [place] # (Auto) 0.6, Eos # (Auto) 0.2, Baso # (Auto) 0.0, Immature Gran # (Auto) 0.0 ASSESSMENT: Please see below. 1. Acute respiratory failure 2. CHF 3. COPD 4. Dementia PLAN: 1. Lasix IV 20mg times one 2. Discontinue IV fluids Plan and coordination of the patient's care discussed in the presence of [employer] Teacher and nurse. SCRIBED BY: Waldo IRENE scribed while in presence of service performed by Dr. Mendiola/Thais Acosta APRN on 05/26/21 ([id number])
[2021-05-26] MEDS: JANUVIA PO SCH (08:45)
[2021-05-26] MEDS: ALDACTONE PO SCH (08:45)
[2021-05-26] MEDS: FLOMAX PO SCH ×2 (08:45→20:57)
[2021-05-26] MEDS: ENTRESTO 24 MG-26 MG TABLET PO SCH ×2 (08:45→20:57)
[2021-05-26] MEDS: TOPROL XL PO SCH ×2 (08:45→20:57)
[2021-05-26] MEDS: ELIQUIS PO SCH ×2 (08:45→20:58)
[2021-05-26] MEDS: ROCEPHIN 1 GM/50 ML D5W 1 GM/50 ML BAG IV SCH (08:45)
[2021-05-26] MEDS: DECADRON IM SCH (08:46)
[2021-05-26] MEDS: SODIUM CHLORIDE 1,000 ML IV SCH (08:47)
--- NOTE | 2021-05-26 12:57 | PN ---
DATE OF SERVICE: 05/24/21 SUBJECTIVE: The patient's condition is stable. The patient has already been on extra medication as an unloading agent with Entresto. Lasix is being given. Otherwise the condition has been stable. He is alert and eating well. COVID dementia has improved. He responses to stimulus inappropriately but he talks. He doesn't recognize me at all. Family members are visiting him. TIME SPENT: More than 30 minutes. Plan and coordination of the patient's care discussed in the presence of nurse. DAVIDA
--- NOTE | 2021-05-26 13:10 | PN ---
DATE OF SERVICE: 05/25/21 SUBJECTIVE: 80 year old white male hospitalized with hypoxemia, respiratory failure and change in mental status. The patient's mental status has improved. He is looking a lot better. Confused but alert. His who is present in the room. REVIEW OF SYSTEMS: CONSTITUTIONAL: No night sweats. No fatigue, malaise, lethargy. No fever or chills. HEENT: Eyes: No visual changes. No eye pain. No eye discharge. ENT: No runny nose. No epistaxis. No sinus pain. No sore throat. No odynophagia. No congestion. RESPIRATORY: No cough, no congestion. No hemoptysis. No shortness of breath. CARDIOVASCULAR: No angina symptoms. No CHF symptoms. No atypical chest pain for CAD. No palpitations. No PND. No orthopnea. GASTROINTESTINAL: No abdominal pain. No nausea or vomiting. No diarrhea or constipation. No hematemesis. No hematochezia. GENITOURINARY: No urgency. No frequency. No dysuria. No hematuria. No obstructive symptoms. No discharge. No pain. No significant abnormal bleeding. MUSCULOSKELETAL: No musculoskeletal pain; no joint swelling. NEUROLOGICAL: No headache. No neck pain. No syncope. No seizures. No dizziness. PSYCHIATRIC: Not anxious. No depression. No suicidal thoughts. No homicidal thoughts. SKIN: No rash. No lesions. No wounds. ENDOCRINE: No unexplained weight loss. No weight gain. HEMATOLOGIC/LYMPHATIC: No anemia. No purpura. No petechiae. No prolonged or excessive bleeding. No palpable lymph nodes. PHYSICAL EXAMINATION: VITAL SIGNS: Temperature 97.8, pulse 70, respiratory rate 18, blood pressure 126/80 and pulse ox 96% on 2 liters. HEENT: Head normocephalic, atraumatic. Eyes: Extraocular muscles are intact. Pupils are equal, round and reactive to light and accommodation. Ears: No lesions. Nose appeared normal. Throat: No exudate or erythema. NECK: Supple. No JVD, no carotid bruit. No lymphadenopathy or thyromegaly. LUNGS: Decreased breath sounds but good air entry. Clear to auscultation. Percussion note normal. Chest symmetrical. HEART: S1, S2, no S3. No murmurs. No cyanosis or clubbing. No ascites. Pulses: Dorsalis pedis and posterior tibial pulses +1 to +2 bilaterally. ABDOMEN: Soft. Nontender. Bowel sounds active. No CVA tenderness. No mass felt. EXTREMITIES: Trace edema. Full range of motion of all extremities, equal. NEUROLOGIC: No focal deficit. Cranial nerves II through XII are grossly intact. No headache. No double vision. SKIN: Not dry. Intact. Turgor - normal. LYMPHATIC: No palpable lymph nodes/no lymphedema. MUSCULOSKELETAL: Normal joints with no swelling. Muscle tone is normal. LABS: hgb 9.8, hct 31, WBC 6,800 normal differential, creatinine 1.3, BUN 38, potassium 3.7 ASSESSMENT: 1. Congestive heart failure 2. Chronic lung disease 3. Dementia 4. Chronic kidney disease 5. Diabetes mellitus 6. Anemia 7. Insomnia PLAN: 1. Increase Seroquel to 75mg at night 2. Continue inhalers, Dexamethasone, Lasix, Rosuvastatin, Pantoprazole, Sitagliptin, Spironolactone and Entresto CONDITION: Stable. TIME SPENT: More than 30 minutes. Plan and coordination of the patient's care discussed in the presence of nurse. DAVIDA
[2021-05-26] MEDS: SEROQUEL PO SCH (17:59)
[2021-05-26] MEDS: TRIGLIDE PO SCH (20:57)
[2021-05-26] MEDS: CRESTOR PO SCH (20:57)
[2021-05-26] MEDS ORDERED: DESYREL PO SCH (21:00)
[2021-05-27 05:40] LABS: BASOPHILS % (AUTO) 0.3 % (0.0-3.0); EOSINOPHILS # (AUTO) 0.2 K/ul (0.0-0.7); EOSINOPHILS % (AUTO) 3.3 % (0.0-7.0); HEMATOCRIT 33.4 % (42.0-52.0); HEMOGLOBIN 10.2 g/dl (14.0-18.0); IMMATURE GRANULOCYTE % (AUTO) 0.6 % (0.0-5.0); LYMPHOCYTES # (AUTO) 0.9 K/uL (0.60-3.4); LYMPHOCYTES % (AUTO) 12.9 (10.0-50.0); MEAN CORPUSCULAR HEMOGLOBIN 27.3 pg (27.0-31.0); MEAN CORPUSCULAR HGB CONC 30.5 (31.8-35.4); MEAN CORPUSCULAR VOLUME 89.5 fl (80.0-94.0); MONOCYTES # (AUTO) 0.5 K/uL (0.4-2.0); MONOCYTES % (AUTO) 7.1 (0-10); NEUTROPHILS # (AUTO) 5.3 K/ul (2.0-6.9); NEUTROPHILS % (AUTO) 75.8 % (42.2-75.2); PLATELET COUNT 226 10^3/uL (140-440); RDW COEFFICIENT OF VARIATION 15.7 % (11.6-14.8); RED BLOOD COUNT 3.73 10^6/ul (4.70-6.10); WHITE BLOOD COUNT 6.92 K/ul (4.2-10.2)
[2021-05-27] MEDS: LASIX TAB PO SCH (05:46)
[2021-05-27] MEDS: PROTONIX IV IVP SCH (05:49)
[2021-05-27 05:56] LABS: ALANINE AMINOTRANSFERASE 10.5 U/L (0-50); ALBUMIN 2.63 g/dL (3.5-5.0); ALKALINE PHOSPHATASE 27.1 U/L (56-119); ASPARTATE AMINO TRANSFERASE 17.6 U/L (17-59); BILIRUBIN,TOTAL 0.35 mg/dL (0.2-1.3); BLOOD UREA NITROGEN 37.5 mg/dL (9-20); CALCIUM 8.06 mg/dL (8.4-10.2); CARBON DIOXIDE 37.2 mmol/L (22-30.0); CHLORIDE 103.1 mmol/L (98-107); CREATININE 1.48 mg/dL (0.60-1.10); GLUCOSE 159.6 mg/dL (74-106); POTASSIUM 3.77 mmol/L (3.5-5.1); SODIUM 141.4 mmol/L (134.5-145); TOTAL PROTEIN 4.79 g/dL (6.3-8.2)
[2021-05-27] MEDS: HUMULIN R SUBCUT PRN ×2 (06:05→11:37)
[2021-05-27 06:09] VITALS: BP 105/65; TEMP 97.1
[2021-05-27] MEDS: ROCEPHIN 1 GM/50 ML D5W 1 GM/50 ML BAG IV SCH (09:07)
[2021-05-27] MEDS: SYMBICORT 160-4.5 MCG INHALER IH SCH (09:11)
[2021-05-27] MEDS: FLOMAX PO SCH (09:12)
[2021-05-27] MEDS: ENTRESTO 24 MG-26 MG TABLET PO SCH (09:12)
[2021-05-27] MEDS: JANUVIA PO SCH (09:12)
[2021-05-27] MEDS: DECADRON IM SCH (09:13)
[2021-05-27] MEDS: TOPROL XL PO SCH (09:13)
[2021-05-27] MEDS: ALDACTONE PO SCH (09:13)
[2021-05-27] MEDS: ELIQUIS PO SCH (09:16)
--- NOTE | 2021-05-27 10:16 | PCM.PROG ---
Attending Provider: ATTENDING PROVIDER: Dr. OMAR MENDIOLA DATE OF SERVICE: 05/27/21 SUBJECTIVE: This 80 year old /WHITE M was hospitalized 05/21/21 with COPD, CHF and bilateral pleural effusion with dependent edema. Swelling has gone down. Cardiovascular and respiratory status has improved. The patient is alert and in no distress. No CHF or coronary insufficiency symptoms. Confused. The patient's is present in the room. REVIEW OF SYSTEMS: CONSTITUTIONAL: No night sweats. No fatigue, malaise, lethargy. No fever or chills. HEENT: Eyes: No visual changes. No eye pain. No eye discharge. ENT: No runny nose. No epistaxis. No sinus pain. No odynophagia. No congestion. RESPIRATORY: No cough, no congestion. No hemoptysis. No shortness of breath. CARDIOVASCULAR: No angina symptoms. No CHF symptoms. No atypical chest pain for CAD. No palpitations. No orthopnea.. GASTROINTESTINAL: No abdominal pain. No nausea or vomiting. No diarrhea or constipation. No hematemesis. No hematochezia. GENITOURINARY: No urgency. No frequency. No dysuria. No hematuria. No obstructiv e symptoms. No discharge. No pain. No significant abnormal bleeding. MUSCULOSKELETAL: No musculoskeletal pain; no joint swelling. NEUROLOGICAL: Awake, alert, oriented to time, place and person. No headache. No neck pain. No syncope. No seizures. No dizziness. PSYCHIATRIC: Not anxious. No depression. No suicidal thoughts. No homicidal thoughts. SKIN: No rash. No lesions. No wounds. ENDOCRINE: No unexplained weight loss. No weight gain. HEMATOLOGIC/LYMPHATIC: No anemia. No purpura. No petechiae. No prolonged or excessive bleeding. No palpable lymph nodes. PHYSICAL EXAMINATION: GENERAL: The patient is awake, alert and oriented, sitting in bed in no distress. VITAL SIGNS: Temperature 97.1 F, Pulse 74, Respiratory Rate 18, BP 105/65, Pulse Ox 98% HEENT: Head normocephalic, atraumatic. Eyes: Extraocular muscles are intact. Pupils are equal, round and reactive to light and accommodation. Ears: No lesions. Nose appeared normal. Throat: No exudate or erythema. NECK: Supple. No JVD, no carotid bruit. No lymphadenopathy or thyromegaly. LUNGS: Decreased breath sounds. Clear to auscultation. Percussion note normal. Chest symmetrical. HEART: S1, S2, no S3. No murmurs. No cyanosis or clubbing. No ascites. Pulses: Dorsalis pedis and posterior tibial pulses +1 to +2 both sides. ABDOMEN: Soft. Non-tender. Bowel sounds active. No CVA tenderness. No mass felt. EXTREMITIES: Trace edema. Full range of motion of all extremities, equal. NEUROLOGIC: No focal deficit. Cranial nerves II through XII are grossly intact. No headache, no double vision or headache. SKIN: Warm and dry. Intact. Turgor-normal. LYMPHATIC: No palpable lymph nodes/no lymphedema. MUSCULOSKELETAL: Normal joints with no swelling. Muscle tone is normal. LAB REVIEW: 05/27/21 04:59 05/27/21 04:59 05/27/21 04:59: Sodium 141.4, Potassium 3.77, Chloride 103.1, Carbon Dioxide 37.2 H, Anion Gap 4.87, BUN 37.5 H, Creatinine 1.48 H, Estimated GFR (MDRD) 46.00, BUN/Creatinine Ratio 25.33, Glucose 159.6 H, Calcium 8.06 L, Total Bilirubin 0.35, AST 17.6, ALT 10.5, Alkaline Phosphatase 27.1 L, Total Protein 4.79 L, Albumin 2.63 L, Globulin 2.16, Albumin/Globulin Ratio 1.21 05/27/21 04:59: WBC 6.92, RBC 3.73 L, Hgb 10.2 L, Hct 33.4 L, MCV 89.5, MCH 27.3, MCHC 30.5 L, RDW Coeff of [place] 15.7 H, Plt Count 226, Immature Gran % (Auto) 0.6, Neut % (Auto) 75.8 H, Lymph % (Auto) 12.9, [place] % (Auto) 7.1, Eos % (Auto) 3.3, Baso % (Auto) 0.3, Neut # (Auto) 5.3, Lymph # (Auto) 0.9, [place] # (Auto) 0.5, Eos # (Auto) 0.2, Baso # (Auto) 0.0, Immature Gran # (Auto) 0.0 ASSESSMENT: Please see below. 1. CHF improving 2. Fluid retention, improving 3. Chronic respiratory failure, improvement oxygen saturation. PLAN: 1. Off IV fluids 2. Will continue Lasix and Entresto 3. Trazodone seems to have worked for insomnia Plan and coordination of the patient's care discussed in the presence of Pet[employer] Refinery Laborer and nurse. CONDITION: Stable SCRIBED BY: NABOR C[place] Clinical Psychiatrist scribed while in presence of service performed by Dr. OMAR MENDIOLA on 05/27/21 ([id number])
--- NOTE | 2021-05-27 13:08 | PN ---
DATE OF SERVICE: 05/26/21 SUBJECTIVE: The patient was seen and examined. The patient has improved. CHF symptoms are absent. Still has insomnia. We will try Trazodone 50mg along with Seroquel 75mg. The patient was and examined with Nurse Practitioner. TIME SPENT: More than 30 minutes. Plan and coordination of the patient's care discussed in the presence of nurse. DAVIDA
--- NOTE | 2021-06-01 10:27 | PN ---
05/21/21: Level 5 05/22/21: Intermediate 05/23/21: Intermediate 05/24/21: Intermediae 05/25/21: Intermediate 05/26/21: Intermediate 05/27/21: D as in discharge MTDD
--- NOTE | 2021-06-01 10:27 | DS ---
DATE OF SERVICE: 05/27/21 FINAL DIAGNOSIS: 1. Hypoxic respiratory failure which seems to have resolved 2. Congestive heart failure 3. Chronic kidney disease 4. Chronic anemia 5. Atrial fibrillation 6. Dilated cardiomyopathy with low ejection fraction 7. Dementia 8. History of COVID with respiratory failure 9. Worsening of dementia post COVID 19 10.Hypertension 11.Dyslipidemia 12.Diabetes Mellitus 13.Obstructive sleep apnea DISCHARGE INSTRUCTIONS: Discharge to [place]. Oxygen at 3.5 liters. May increase to 4liters with activity or increased shortness of breath. Followup in 5-7 days. CODE STATUS: DNR. MEDICATIONS AT DISCHARGE: Crestor 10mg PO bedtime Fenofibrate 160mg PO bedtime Nystop 100,000 unit one application topical QID Pantoprazole 40mg PO BID Flomax 0.4mg PO BID Symbicort two puff inhalation BID Acetaminophen 325mg PO Q 4 hours PRN Ipratropium-albuterol 3ml inhalation Q 6 hours PRN Januvia 50mg PO daily Furosemide 40mg PO QAM Nystatin powder to effected area with excoriation times a day as needed. Spironolactone 25mg PO daily Metoprolol succinate 25mg PO BID Lasix 40mg PO daily NEW PRESCRIPTIONS: Entresto 24mg/26mg PO BID Trazodone 50mg PO bedtime Increase Seroquel 50mg PO at 1700 daily Eliquis Decreased to 2.5mg PO BID DISCONTINUED MEDICATIONS: Cardizem Lisinopril Ativan DIET INSTRUCTIONS: Speech saw patient in the hospital. Changed diet to regular with thin liquids. Please send Speech note at discharge. ACTIVITY: As per physical therapy. HOSPITAL COURSE: 80 year old white male hospitalized with hypoxic respiratory failure. The patient's condition improved after the patient was given Lasix and later on started on Entresto. Lisinopril was discontinued. Spironolactone was continued. The patient's oxygen saturation was 98% on 2 liters. At the time of discharge the patient's overall condition had also improved. Trazodone seemed to be helping him along with Seroquel. The patient's behavior was more or less acceptable. Family seemed to be happy with it. At the time of discharge Trazodone 50mg was given along with Seroquel of 50mg. The patient is very sensitive to change of place and his behavior gets aggressive at times. During the stay in the hospital he was never able to recognize me by name. Condition at the time of discharge is stable. Prognosis poor. TIME SPENT: More than 60 minutes. DAVIDA
== END 2021-05-27 16:50 | DRG 189 ==
LOC: ED 14:02 → MEDSURG A 17:44
PROVIDERS: ADMIT Internal Medicine; ATTEND Internal Medicine
DX: Z86.16 Personal history of COVID-19; E78.5 Hyperlipidemia, unspecified; J44.1 Chronic obstructive pulmonary disease with (acute) exacerbation; Z99.81 Dependence on supplemental oxygen; N18.9 Chronic kidney disease, unspecified; G47.33 Obstructive sleep apnea (adult) (pediatric); Z51.81 Encounter for therapeutic drug level monitoring; I10 Essential (primary) hypertension; F03.90 Unspecified dementia, unspecified severity, without behavioral disturbance, psychotic disturbance, mood disturbance, and anxiety; R41.82 Altered mental status, unspecified; R53.1 Weakness; I48.91 Unspecified atrial fibrillation; Z79.899 Other long term (current) drug therapy; Z79.01 Long term (current) use of anticoagulants; D64.9 Anemia, unspecified; R07.81 Pleurodynia; E11.9 Type 2 diabetes mellitus without complications; I50.33 Acute on chronic diastolic (congestive) heart failure; J96.01 Acute respiratory failure with hypoxia